=== PATIENT | male | born 1960 | race Caucasian/White ===

== ENCOUNTER 2017-03-06 18:18 | Emergency (ER) | payer OTHER ==
[2017-03-06 18:27] VITALS: BP 134/92; PULSE 71; TEMP 97.5; BMI 45.3
--- NOTE | 2017-03-06 18:59 | PDOC ---
History of Present Illness - General Chief Complaint: Chest Pain Stated Complaint: CHEST PAIN, fell last week, pain worse on movement Time Seen by Provider: 03/06/17 18:57 - History of Present Illness Initial Comments: 03/06/17 18:58 Mr. Jules is a 57 yo male with a significant past medical history of DM and HTN who presents to the emergency department following a fall directly onto his chest from standing 2 weeks ago. He reports constant pain at site and pain with deep inspiration or cough since. The patient denies shortness of breath, headache and dizziness. Denies fever, chills, nausea, vomit, diarrhea and constipation. Denies dysuria, frequency, urgency and hematuria. Allergies: Erythromycin Past surgical history: Ankle repair Social history: approx. 40-50 pack year history PMD -Temo Sampson Past History - Past Medical History Allergies/Adverse Reactions: Allergies Allergy/AdvReac Type Severity Reaction Status Date / Time erythromycin base Allergy Verified 03/06/17 18:31 Home Medications: Ambulatory Orders Aspirin [ASA -] 81 mg PO DAILY 03/06/17 Lisinopril [Prinivil] 0 mg PO DAILY 03/06/17 Metformin HCl 500 mg PO BID 03/06/17 Simvastatin 0 mg PO DAILY 03/06/17 Diabetes: Yes - Psycho/Social/Smoking Cessation Hx Suicidal Ideation: No Smoking History: Never smoked Number of Cigarettes Smoked Daily: 2 Information on smoking cessation initiated: No Hx Alcohol Use: No Drug/Substance Use Hx: No Substance Use Type: None Review of Systems - Review of Systems Comments:: 03/06/17 18:58 GENERAL/CONSTITUTIONAL: No fever or chills. No weakness. HEAD, EYES, EARS, NOSE AND THROAT: No change in vision. No ear pain or discharge. No sore throat. CARDIOVASCULAR: +Pain to middle of chest and increased with cough or deep inspiration. No shortness of breath. RESPIRATORY: No cough, wheezing, or hemoptysis. GASTROINTESTINAL: No nausea, vomiting, diarrhea or constipation. GENITOURINARY: No dysuria, frequency, or change in urination. MUSCULOSKELETAL: +Baseline back pain from prior blown discs. SKIN: No rash NEUROLOGIC: No headache, vertigo, loss of consciousness, or change in strength/ sensation. ENDOCRINE: No increased thirst. No abnormal weight change HEMATOLOGIC/LYMPHATIC: No anemia, easy bleeding, or history of blood clots. ALLERGIC/IMMUNOLOGIC: No hives or skin allergy. *Physical Exam - Vital Signs Last Vital Signs Temp Pulse Resp BP Pulse Ox 97.5 F L 71 18 134/92 97 03/06/17 18:26 03/06/17 18:26 03/06/17 18:26 03/06/17 18:26 03/06/17 18:26 - Physical Exam Comments: 03/06/17 18:58 GENERAL: Awake, alert, and fully oriented, in no acute distress HEAD: No signs of trauma, normocephalic, atraumatic EYES: PERRLA, EOMI, sclera anicteric, conjunctiva clear NECK: Normal ROM, supple, no lymphadenopathy, JVD, or masses LUNGS: +Reproducible chest pain to sternum. Midline edema without visible echymosis. No distress, speaks full sentences, clear to auscultation bilaterally HEART: Regular rate and rhythm, normal S1 and S2, no murmurs, rubs or gallops, peripheral pulses normal and equal bilaterally. ABDOMEN: Soft, nontender, normoactive bowel sounds. No guarding, no rebound. No masses EXTREMITIES: Normal inspection, Normal range of motion, no edema. No clubbing or cyanosis. NEUROLOGICAL: Cranial nerves II through XII grossly intact. Normal speech, normal gait, no focal sensorimotor deficits SKIN: Warm, Dry, normal turgor, no rashes or lesions noted. Medical Decision Making - Medical Decision Making 03/06/17 21:51 CT confirmed fracture of sternum. Patient counseled on pain control and discharged to home care. *DC/Admit/Observation/Transfer Diagnosis at time of Disposition: Fracture of sternum Qualifiers: Encounter type: initial encounter Sternal location: body of sternum Fracture type: closed Qualified Code(s): S22.22XA - Fracture of body of sternum, initial encounter for closed fracture - Discharge Dispostion Disposition: HOME - Patient Instructions Printed Discharge Instructions: DI for Sternum Fracture
[2017-03-06] MEDS ORDERED: traMADol HCL 50 MG TABLET PO ONE (20:31)
[2017-03-06] MEDS ORDERED: traMADol HCL 50 MG TABLET ONE (20:40)
--- NOTE | 2017-03-06 21:59 | PDOC ---
Attending Attestation - Resident Resident Name: Yogi Moralesorn - ED Attending Attestation I have performed the following: I have examined & evaluated the patient, The case was reviewed & discussed with the resident, I agree w/resident's findings & plan, Exceptions are as noted - HPI HPI: 03/06/17 21:56 57-year-old male with history of diabetes, hypertension presents to the ER with traumatic sternal pain for the past several days after a mechanical fall from standing onto a ladder that was located on the ground. Pain is constant, sharp, exacerbated by palpation and deep inhalation. - Physicial Exam PE: 03/06/17 21:58 Patient is awake and alert, morbidly obese, hemodynamically stable. HEENT-wnl; CTA; rrr; + reproducible midsternal tenderness to palpation; - Medical Decision Making 03/06/17 21:59 Patient is a morbidly obese 57 -year-old male who presents to the ER with traumatic chest pain. CT of chest reveals an acute midsternal fracture with minimal posterior displacement of the inferior segment. No pneumomediastinum or pneumothorax or mediastinal hematoma is identified. There is no evidence of thoracic aortic aneurysm. Will discharge with pain medication with outpatient follow-up.
--- NOTE | 2017-03-07 09:16 | EKG ---
Test Reason : Blood Pressure : / mmHG Vent. Rate : 073 BPM Atrial Rate : 073 BPM P-R Int : 144 ms QRS Dur : 098 ms QT Int : 412 ms P-R-T Axes : -06 028 -15 degrees QTc Int : 453 ms NORMAL SINUS RHYTHM NONSPECIFIC T WAVE ABNORMALITY ABNORMAL ECG NO PREVIOUS ECGS AVAILABLE Confirmed by MD MELANIE, YSABEL ([id number]) on 03/07/2017 9:16:33 AM Referred By: Confirmed By:YSABEL NAVARRO MD
== END 2017-03-06 22:32 | disposition home or self-care (01) ==
LOC: JER 18:18
DX: S22.20XA Unspecified fracture of sternum, initial encounter for closed fracture (principal); W11.XXXA Fall on and from ladder, initial encounter; Y93.89 Activity, other specified; Y92.89 Other specified places as the place of occurrence of the external cause; I10 Essential (primary) hypertension; E11.9 Type 2 diabetes mellitus without complications; Z79.84 Long term (current) use of oral hypoglycemic drugs; E78.00 Pure hypercholesterolemia, unspecified
CPT/HCPCS: 71020-TC; 71250-TC; 93005; 93010; 99282-25

== ENCOUNTER 2017-05-05 18:53 | Inpatient (IN) | payer OTHER ==
--- NOTE | 2017-05-05 19:02 | PDOC ---
Rapid Medical Evaluation Medical Evaluation: Allergies Allergy/AdvReac Type Severity Reaction Status Date / Time erythromycin base Allergy Verified 03/06/17 18:31 05/05/17 18:59 I have performed a brief in person evaluation of this patient. The patient presents with chief complaint of : pain to right calf numbness to foot for 10 days history of DM. sent by PMD to r/o DVT. Pertinent PE findings: pain to right calf I have ordered the following: US lower leg right The patient will proceed to the ER for further evaluation. 05/05/17 19:01 05/05/17 19:01
[2017-05-05 19:04] VITALS: BMI 46.0
--- NOTE | 2017-05-05 19:12 | PDOC ---
History of Present Illness - General History Source: Patient - History of Present Illness Occurred: reports: other Severity: Yes: severe Lower Extremity Pain Location: right: leg <Lelia DonaldsonTk - Last Filed: 05/05/17 19:36> <Kayla Sylvester - Last Filed: 05/05/17 22:20> - General Chief Complaint: Pain Stated Complaint: LEG PAIN Time Seen by Provider: 05/05/17 18:59 Past History - Past Medical History COPD: No Diabetes: Yes HTN: Yes Hypercholesterolemia: Yes - Suicide/Smoking/Psychosocial Hx Smoking History: Current every day smoker Have you smoked in the past 12 months: Yes Number of Cigarettes Smoked Daily: 10 Information on smoking cessation initiated: No Hx Alcohol Use: No Drug/Substance Use Hx: No Substance Use Type: None <Lelia DonaldsonTk - Last Filed: 05/05/17 19:36> <Kayla Sylvester - Last Filed: 05/05/17 22:20> - Past Medical History Allergies/Adverse Reactions: Allergies Allergy/AdvReac Type Severity Reaction Status Date / Time erythromycin base Allergy Verified 05/05/17 19:00 Home Medications: Ambulatory Orders Aspirin [ASA -] 81 mg PO DAILY 03/06/17 Lisinopril [Prinivil] 0 mg PO DAILY 03/06/17 Metformin HCl 500 mg PO BID 03/06/17 Simvastatin 0 mg PO DAILY 03/06/17 Gabapentin 300 mg PO ASDIR 05/05/17 Hydrochlorothiazide [Hctz -] 25 mg PO DAILY 05/05/17 Review of Systems - Review of Systems Constitutional: No: Chills, Fever Respiratory: No: Shortness of Breath Cardiac (ROS): No: Chest Pain, Palpitations <Lelia DonaldsonTk Last Filed: 05/05/17 19:36> *Physical Exam - Vital Signs Last Vital Signs Temp Pulse Resp BP Pulse Ox 98.3 F 61 19 157/90 95 05/05/17 19:00 05/05/17 19:00 05/05/17 19:00 05/05/17 19:00 05/05/17 19:00 - Physical Exam General Appearance: Yes: Appropriately Dressed. No: Apparent Distress HEENT: positive: Normal Voice Neck: positive: Supple Respiratory/Chest: negative: Respiratory Distress Extremity: positive: Swelling (diffuse swelling of R leg w/ calf ttp) Integumentary: positive: Dry, Warm Neurologic: positive: Fully Oriented, Alert, Normal Mood/Affect <Coral Donaldson - Last Filed: 05/05/17 19:36> - Vital Signs Last Vital Signs Temp Pulse Resp BP Pulse Ox 98.3 F 61 19 157/90 95 05/05/17 19:00 05/05/17 19:00 05/05/17 19:00 05/05/17 19:00 05/05/17 19:00 <Kayla Sylvester - Last Filed: 05/05/17 22:20> ED Treatment Course - LABORATORY CBC & Chemistry Diagram: 05/05/17 20:15 05/05/17 21:00 - ADDITIONAL ORDERS Additional order review: Laboratory Results 05/05/17 05/05/17 21:00 21:00 PT with INR 12.00 H INR 1.06 PTT (Actin FS) 29.1 Sodium 136 Potassium 3.9 Chloride 103 Carbon Dioxide 24 Anion Gap 9 BUN 30 H Creatinine 1.3 Creat Clearance w eGFR 56.70 Random Glucose 237 H Calcium 8.4 L Total Bilirubin 0.7 AST 47 H ALT 64 Alkaline Phosphatase 85 Total Protein 7.6 Albumin 3.4 05/05/17 20:15 RBC 4.37 MCV 99.2 H MCHC 35.0 RDW 13.6 MPV 8.4 Neutrophils % 68.9 Lymphocytes % 22.8 Monocytes % 6.3 Eosinophils % 1.2 Basophils % 0.8 - RADIOLOGY Radiology Studies Ordered: Category Date Time Status CHEST CTA [CT] Stat CT Scan 05/05/17 22:07 Ordered CHEST X-RAY PORTABLE* [RAD] Stat Radiology 05/05/17 20:54 Completed - Medications Given in the ED: ED Medications Discontinued Medications Generic Name Dose Route Start Last Admin Trade Name Freq PRN Reason Stop Dose Admin Insulin Human Regular 6 units 05/05/17 20:34 05/05/17 21:26 Novolin R Vial *For Ivpush Or Iv Drip Only* SQ 05/05/17 20:35 6 units ONCE ONE Administration <Kayla Sylvester - Last Filed: 05/05/17 22:20> Medical Decision Making - Medical Decision Making 05/05/17 19:10 57-year-old male history of diabetes, sent in by PMD to rule out DVT. Patient complaining of right foot pain and numbness for 10 days. No obvious RFs for DVT/ PE. No CP, SOB or palpitations See exam R/o DVT Besides sedentary lifestyle per pt, no obvious RF for DVT/PE -US pending 05/05/17 19:36 05/05/17 19:38 Extensive DVT to right lower extremity as per radiology. Will transfer patient over to Main ED for admission and anticoagulation. Charge nurse and and [employer] Higinio aware <Coral Donaldson - Last Filed: 05/05/17 19:36> - Medical Decision Making 05/05/17 22:18 Patient + Extensive DVT to right LE. Hospitalist admission. Labs, X-ray, EKG, CTA chest ordered. <Kayla Sylvester - Last Filed: 05/05/17 22:20> *DC/Admit/Observation/Transfer <Coral Donaldson - Last Filed: 05/05/17 19:36> - Discharge Dispostion Admit: Yes <Kayla Sylvester - Last Filed: 05/05/17 22:20> Diagnosis at time of Disposition: Deep vein thrombosis (DVT) Qualifiers: DVT location: lower extremity Affected thrombotic vein of extremity: popliteal Chronicity: acute Laterality: right Qualified Code(s): I82.431 - Acute embolism and thrombosis of right popliteal vein; I82.431 - Acute embolism and thrombosis of right popliteal vein; I82.431 - Acute embolism and thrombosis of right popliteal vein; I82.431 - Acute embolism and thrombosis of right popliteal vein - Discharge Dispostion Condition at time of disposition: Fair
[2017-05-05] MEDS ORDERED: INSULIN REGULAR HUMAN 100 UNITS/ML *VIAL SQ ONE (20:34)
[2017-05-05 21:12] LABS: BASOPHIL 0.8 % (0-2.0); EOSINOPHIL 1.2 % (0-4.5); MCH 34.8 pg (25.7-33.7); MEAN CELL VOLUME 99.2 fl (80-96); MEAN PLT VOLUME 8.4 fl (7.5-11.1); NEUTROPHILS 68.9 % (42.8-82.8); PLATELET COUNT 126 K/MM3 (134-434); RDW 13.6 % (11.9-15.9); WHITE BLOOD COUNT 6.6 K/mm3 (4.0-10.0)
[2017-05-05] MEDS ORDERED: INSULIN REGULAR HUMAN 100 UNITS/ML *VIAL ONE (21:21)
[2017-05-05 21:28] LABS: INR 1.06 (0.82-1.09)
[2017-05-05 21:31] LABS: ACTIVATED PTT 29.1 SECONDS (26.9-34.4)
[2017-05-05 21:53] LABS: ALBUMIN 3.4 g/dl (3.4-5.0); ANION GAP 9 (8-16); BILIRUBIN,TOTAL 0.7 mg/dL (0.2-1.0); CALCIUM 8.4 mg/dL (8.5-10.1); CO2 24 mmol/L (21-32); CREATININE 1.3 mg/dL (0.7-1.3); GLUCOSE,RANDOM 237 mg/dL (74-106); SGOT/AST 47 U/L (15-37); SGPT/ALT 64 U/L (12-78); TOT PROT 7.6 g/dl (6.4-8.2)
[2017-05-05 21:54] LABS: ALK PHOS 85 U/L (45-117)
[2017-05-05] MEDS ORDERED: HEPARIN NA (PORCINE) 5,000 UNITS/ML 1ML VIAL IVPUSH PRN ×2 (22:47)
[2017-05-05] MEDS ORDERED: SODIUM CHLORIDE 1,000 ML IV SCH (23:00)
[2017-05-05] MEDS ORDERED: HEPARIN - 25,000 UNIT in SODIUM CHLORIDE 495 ML IV SCH (23:00)
--- NOTE | 2017-05-05 23:00 | PN ---
Teaching Attending Note Name of Resident: Martha Chávez ATTENDING PHYSICIAN STATEMENT I saw and evaluated the patient. I reviewed the resident's note and discussed the case with the resident. I agree with the resident's findings and plan as documented. SUBJECTIVE: 57 yo M with pmhx of DM, HTN, And HLD, chronic low back pain, and current smoker who presents with a 10 days of pain in the right leg. States he is immobile most of his day due, to low back pain. Notes he is mostly in bed and does not move much. Denies any recent trips and no injuries, Also noted shortness of breath upon movement. No chest pain, or pressure. No family hx. of clotting disorders. OBJECTIVE: Physical: VS: Vital Signs Period Temp Pulse Resp BP Sys/Kelley Pulse Ox Last 24 Hr 98.3 F 61 19 157/90 95 GEN: NAD, Resting in bed, AA0X3 HEENT: NCAT, PERRL, throat without erythema or exudates CARD: RRR S1, S2 RESP: CTAB ABD: BSx4, NTD to palpation EXT: - C/C/E pulses +2/4, Excoriations on bilateral LE, Right leg warm to touch , with no edema CBCD WBC 6.6 K/mm3 (4.0-10.0) 05/05/17 20:15 RBC 4.37 M/mm3 (4.00-5.60) 05/05/17 20:15 Hgb 15.2 GM/dL (11.7-16.9) 05/05/17 20:15 Hct 43.3 % (35.4-49) 05/05/17 20:15 MCV 99.2 fl (80-96) H 05/05/17 20:15 MCHC 35.0 g/dl (32.0-35.9) 05/05/17 20:15 RDW 13.6 % (11.9-15.9) 05/05/17 20:15 Plt Count 126 K/MM3 (134-434) L 05/05/17 20:15 MPV 8.4 fl (7.5-11.1) 05/05/17 20:15 CMP Sodium 136 mmol/L (136-145) 05/05/17 21:00 Potassium 3.9 mmol/L (3.5-5.1) 05/05/17 21:00 Chloride 103 mmol/L (98-107) 05/05/17 21:00 Carbon Dioxide 24 mmol/L (21-32) 05/05/17 21:00 Anion Gap 9 (8-16) 05/05/17 21:00 BUN 30 mg/dL (7-18) H 05/05/17 21:00 Creatinine 1.3 mg/dL (0.7-1.3) 05/05/17 21:00 Creat Clearance w eGFR 56.70 (>60) 05/05/17 21:00 Random Glucose 237 mg/dL (74-106) H 05/05/17 21:00 Calcium 8.4 mg/dL (8.5-10.1) L 05/05/17 21:00 Total Bilirubin 0.7 mg/dL (0.2-1.0) 05/05/17 21:00 AST 47 U/L (15-37) H 05/05/17 21:00 ALT 64 U/L (12-78) 05/05/17 21:00 Alkaline Phosphatase 85 U/L (45-117) 05/05/17 21:00 Total Protein 7.6 g/dl (6.4-8.2) 05/05/17 21:00 Albumin 3.4 g/dl (3.4-5.0) 05/05/17 21:00 DUPLEX RLE- Extensive DVT within distalalm superficial, femoral, polpiteal and posterior tibial veins Home Medications Medication Instructions Recorded Aspirin [ASA -] 81 mg PO DAILY 03/06/17 Lisinopril [Prinivil] 0 mg PO DAILY 03/06/17 Metformin HCl 500 mg PO BID 03/06/17 Simvastatin 0 mg PO DAILY 03/06/17 Gabapentin 300 mg PO ASDIR 05/05/17 Hydrochlorothiazide [Hctz -] 25 mg PO DAILY 05/05/17 ASSESSMENT AND PLAN: 57 yo M with pmhx of DM, HTN, And HLD, chronic low back pain, and current smoker who presents with a 10 days of pain in the right leg, found to have ext. Dvt 1.) Extensive DVT of R.leg- Provoked - Lovenox 1mg/Kg - Coags, repeat CBC 2.) Shortness of breath - RO PE - CTA - Wells Score 6 (tachy, immobile, DVT) - Echo\ - Trop/EKG 3.) DEONTE - Hydration - Avoid nephrotoxins 4.) HTN - C/W Home meds 5.) HLD - C/W Statin 6.) Thrombocytopenia - Mild - Monitor Admit to Obs-Tele
[2017-05-06] MEDS ORDERED: HEPARIN INFUSION - 500 ML IVPB ONE (00:09)
[2017-05-06] MEDS ORDERED: GABAPENTIN 100 MG CAPSULE (FP) ONE (00:09)
--- NOTE | 2017-05-06 00:43 | PDOC ---
ED Treatment Course - LABORATORY CBC & Chemistry Diagram: 05/05/17 20:15 05/05/17 21:00 - ADDITIONAL ORDERS Additional order review: Laboratory Results 05/05/17 05/05/17 21:00 21:00 PT with INR 12.00 H INR 1.06 PTT (Actin FS) 29.1 Sodium 136 Potassium 3.9 Chloride 103 Carbon Dioxide 24 Anion Gap 9 BUN 30 H Creatinine 1.3 Creat Clearance w eGFR 56.70 Random Glucose 237 H Calcium 8.4 L Total Bilirubin 0.7 AST 47 H ALT 64 Alkaline Phosphatase 85 Total Protein 7.6 Albumin 3.4 05/05/17 20:15 RBC 4.37 MCV 99.2 H MCHC 35.0 RDW 13.6 MPV 8.4 Neutrophils % 68.9 Lymphocytes % 22.8 Monocytes % 6.3 Eosinophils % 1.2 Basophils % 0.8 - RADIOLOGY Radiology Studies Ordered: Category Date Time Status CHEST CTA [CT] Stat CT Scan 05/05/17 23:35 Taken CHEST X-RAY PORTABLE* [RAD] Stat Radiology 05/05/17 20:54 Completed - Medications Given in the ED: ED Medications Discontinued Medications Generic Name Dose Route Start Last Admin Trade Name Freq PRN Reason Stop Dose Admin Insulin Human Regular 6 units 05/05/17 20:34 05/05/17 21:26 Novolin R Vial *For Ivpush Or Iv Drip Only* SQ 05/05/17 20:35 6 units ONCE ONE Administration *DC/Admit/Observation/Transfer Diagnosis at time of Disposition: DVT (deep venous thrombosis) Qualifiers: DVT location: lower extremity Affected thrombotic vein of extremity: popliteal Chronicity: acute Laterality: right Qualified Code(s): I82.431 - Acute embolism and thrombosis of right popliteal vein; I82.431 - Acute embolism and thrombosis of right popliteal vein; I82.431 - Acute embolism and thrombosis of right popliteal vein; I82.431 - Acute embolism and thrombosis of right popliteal vein Pulmonary embolism Qualifiers: Pulmonary embolism type: other Chronicity: acute Acute cor pulmonale presence: without acute cor pulmonale Qualified Code(s): I26.99 - Other pulmonary embolism without acute cor pulmonale; I26.99 - Other pulmonary embolism without acute cor pulmonale; I26.99 - Other pulmonary embolism without acute cor pulmonale; I26.99 - Other pulmonary embolism without acute cor pulmonale - Discharge Dispostion Condition at time of disposition: Fair Admit: Yes - Referrals Referrals: Temo Palmer MD [Primary Care Provider] - - Patient Instructions - Post Discharge Activity
--- NOTE | 2017-05-06 00:51 | HP ---
CHIEF COMPLAINT: "My R leg hurts" PCP: Dr Palmer HISTORY OF PRESENT ILLNESS: This is a 57 yo M with PMH of sedentary lifestyle due to chronic back pain, obesity, active smoker, recent sternal fracture, NIDDM, HTN, and HLD, who presents due to worsening R calf pain x 10 days. He denies chest pain, cough or hemoptysis but reports occasional sob and palpitations with activity. He denies trauma to RLE, history of cancer, CHF or blood clots. He denies family history of blood clots. He has poor PCP f/u. He has never had a colonoscopy. He admits to difficulty initiating urination but has not had his prostate checked. He is not sure what his A1c is but states that his sugars are usually lower than 300. Pt denies SOB, chest pain, n/v/d/c, abdominal pain, and dysuria. ER course was notable for: (1)labs (2)EKG, chest CTA (3)insulin Recent Travel: denies PAST MEDICAL HISTORY: as above PAST SURGICAL HISTORY: as above Social History: lives at home Smokin pack year Alcohol: past heavy use Drugs: denies Family History: as above Allergies erythromycin base Allergy (Verified 05/05/17 19:00) HOME MEDICATIONS: Home Medications Medication Instructions Recorded Aspirin [ASA -] 81 mg PO DAILY 03/06/17 Lisinopril [Prinivil] 0 mg PO DAILY 03/06/17 Metformin HCl 500 mg PO BID 03/06/17 Simvastatin 0 mg PO DAILY 03/06/17 Gabapentin 300 mg PO ASDIR 05/05/17 Hydrochlorothiazide [Hctz -] 25 mg PO DAILY 05/05/17 REVIEW OF SYSTEMS CONSTITUTIONAL: Absent: fever, chills, diaphoresis, generalized weakness, loss of appetite, weight change HEENT: Absent: rhinorrhea, nasal congestion, throat pain CARDIOVASCULAR: Absent: chest pain, syncope, irregular heart rate, lightheadedness, peripheral edema RESPIRATORY: Absent: cough, shortness of breath, wheezing, stridor, hemoptysis GASTROINTESTINAL: Absent: abdominal pain, abdominal distension, nausea, vomiting, diarrhea, constipation, melena, hematochezia GENITOURINARY: Absent: dysuria, frequency, urgency, hematuria, flank pain MUSCULOSKELETAL: Absent: myalgia, arthralgia SKIN: Absent: rash, itching, pallor HEMATOLOGIC/IMMUNOLOGIC: Absent: easy bleeding, easy bruising ENDOCRINE: Absent: unexplained weight gain, unexplained weight loss, heat intolerance, cold intolerance NEUROLOGIC: Absent: headache, focal weakness or paresthesias PSYCHIATRIC: Absent: anxiety, depression PHYSICAL EXAMINATION Vital Signs - 24 hr 05/05/17 19:00 Temperature 98.3 F Pulse Rate 61 Respiratory 19 Rate Blood Pressure 157/90 O2 Sat by Pulse 95 Oximetry (%) GENERAL: Awake, alert, and fully oriented, in no acute distress. HEAD: Normal with no signs of trauma. EYES: Pupils equal, round and reactive to light, extraocular movements intact, sclera anicteric, conjunctiva clear. No lid lag. EARS, NOSE, THROAT: Moist mucous membranes. NECK: supple without JVD LUNGS: Breath sounds equal, clear to auscultation bilaterally HEART: Regular rate and rhythm, normal S1 and S2 ABDOMEN: Soft, nontender, not distended, normoactive bowel sounds, no guarding MUSCULOSKELETAL: No CVA tenderness. UPPER EXTREMITIES: 2+ pulses, warm, well-perfused. No peripheral edema. LOWER EXTREMITIES: 1+ pulses, warm, well-perfused. R calf tenderness. trace peripheral edema. NEUROLOGICAL: Cranial nerves II-XII grossly intact. Normal speech. PSYCHIATRIC: Cooperative. Good eye contact. Appropriate mood and affect. SKIN: Warm, dry Laboratory Results - last 24 hr 05/05/17 05/05/17 05/05/17 20:15 21:00 21:00 WBC 6.6 RBC 4.37 Hgb 15.2 Hct 43.3 MCV 99.2 H MCH 34.8 H MCHC 35.0 RDW 13.6 Plt Count 126 L MPV 8.4 Neutrophils % 68.9 Lymphocytes % 22.8 Monocytes % 6.3 Eosinophils % 1.2 Basophils % 0.8 PT with INR 12.00 H INR 1.06 PTT (Actin FS) 29.1 Sodium 136 Potassium 3.9 Chloride 103 Carbon Dioxide 24 Anion Gap 9 BUN 30 H Creatinine 1.3 Creat Clearance w eGFR 56.70 Random Glucose 237 H Calcium 8.4 L Total Bilirubin 0.7 AST 47 H ALT 64 Alkaline Phosphatase 85 Total Protein 7.6 Albumin 3.4 ASSESSMENT/PLAN: This is a 57 yo M with PMH of sedentary lifestyle due to chronic back pain, obesity, active smoker, recent sternal fracture, NIDDM, HTN, and HLD, who presents due to worsening R calf pain x 10 days. Acute new provoked RLE DVT -Duplex R 3 vessel DVT including pop vein -provoked to immobility -hypercoag w/u sent in ED -EKG sinus tach 101 -moderate suspicion or PE; CTA p/d -IV hydration -Full dose Macy a/c NIDDM -BGM, ISS Possible DEONTE -creat 1.3, bun 30 -repeat after IV hydration Dispo: Obs med jignesh Problem List - Problem (1) DVT (deep venous thrombosis) Code(s): I82.409 - ACUTE EMBOLISM AND THOMBOS UNSP DEEP VN UNSP LOWER EXTREMITY Qualifiers: DVT location: lower extremity Affected thrombotic vein of extremity: popliteal Chronicity: acute Laterality: right Qualified Code(s): I82.431 - Acute embolism and thrombosis of right popliteal vein; I82.431 - Acute embolism and thrombosis of right popliteal vein; I82.431 - Acute embolism and thrombosis of right popliteal vein; I82.431 - Acute embolism and thrombosis of right popliteal vein (2) Low back pain Code(s): M54.5 - LOW BACK PAIN (3) HTN (hypertension) Code(s): I10 - ESSENTIAL (PRIMARY) HYPERTENSION (4) HLD (hyperlipidemia) Code(s): E78.5 - HYPERLIPIDEMIA, UNSPECIFIED (5) Diabetes Code(s): E11.9 - TYPE 2 DIABETES MELLITUS WITHOUT COMPLICATIONS (6) Smoker Code(s): F17.200 - NICOTINE DEPENDENCE, UNSPECIFIED, UNCOMPLICATED (7) Morbid obesity Code(s): E66.01 - MORBID (SEVERE) OBESITY DUE TO EXCESS CALORIES Visit type - Emergency Visit Emergency Visit: Yes Care time: The patient presented to the Emergency Department on the above date and was hospitalized for further evaluation of their emergent condition. - New Patient This patient is new to me today: Yes Date on this admission: 05/06/17 - Critical Care Critical Care patient: No
--- NOTE | 2017-05-06 00:54 | HP ---
CHIEF COMPLAINT: right foot pain and numbness PCP: HISTORY OF PRESENT ILLNESS: 57M w/ hx of obesity, sedentary lifestyle, 25 pack year smoking hx, chronic lower back pain, recent sternal fracture, DM, HTN, and HLD who presents with RLE pain and numbness for 10 days. His symptoms worsened over the 10 days, so he called his PMD who informed him to go to the hospital. Of note, pt endorses a sternal fracture 6 weeks ago which was incurred when he tripped and fell on an upside down table leg. He states that he went to the hospital, but no treatment was given to him, and he was discharged home. Pt states that his chronic lower back pain prevents him from walking around much. In addition, due to his chronic lower back pain, he has not been able to work, and he lives with son in son's house. He reports that most of his time is spent sitting in chairs or lying in bed. Pt denies a family hx of any clotting disorders as well as personal hx of testosterone supplementation or cancer. He also denies fevers, chills, SOB, chest pain, weakness, n/v/d/c, abdominal pain, and dysuria. He endorses difficulty initiating urination. Pt has poor PCP f/u, has not received a colonoscopy, and he states that his sugar levels are usually lower than 300s. ER course was notable for: (1) physical exam (2) LE duplex (3) creatinine Recent Travel: PAST MEDICAL HISTORY: obesity, sedentary lifestyle, chronic lower back pain, recent sternal fracture, DM, HTN, and HLD PAST SURGICAL HISTORY: denies Social History: Smokin pack year Alcohol: several beers per week Drugs: cannabis several times a week Lives with son in son's house. Pt had to sell his house for financial reasons. Family History: Allergies erythromycin base Allergy (Verified 05/05/17 19:00) HOME MEDICATIONS: Home Medications Medication Instructions Recorded Aspirin [ASA -] 81 mg PO DAILY 03/06/17 Lisinopril [Prinivil] 0 mg PO DAILY 03/06/17 Metformin HCl 500 mg PO BID 03/06/17 Simvastatin 0 mg PO DAILY 03/06/17 Gabapentin 300 mg PO ASDIR 05/05/17 Hydrochlorothiazide [Hctz -] 25 mg PO DAILY 05/05/17 REVIEW OF SYSTEMS CONSTITUTIONAL: Absent: fever, chills, diaphoresis, generalized weakness, malaise, loss of appetite, weight change HEENT: Absent: rhinorrhea, nasal congestion, throat pain, throat swelling, difficulty swallowing, mouth swelling, ear pain, eye pain, visual changes CARDIOVASCULAR: Absent: chest pain, syncope, palpitations, irregular heart rate, lightheadedness , peripheral edema RESPIRATORY: Absent: cough, shortness of breath, dyspnea with exertion, orthopnea, wheezing, stridor, hemoptysis GASTROINTESTINAL: Absent: abdominal pain, abdominal distension, nausea, vomiting, diarrhea, constipation, melena, hematochezia GENITOURINARY: Absent: dysuria, frequency, urgency, hesitancy, hematuria, flank pain, genital pain MUSCULOSKELETAL: Absent: myalgia, arthralgia, joint swelling, neck pain Present: back pain, leg pain SKIN: Absent: rash, itching, pallor HEMATOLOGIC/IMMUNOLOGIC: Absent: easy bleeding, easy bruising, lymphadenopathy, frequent infections ENDOCRINE: Absent: unexplained weight gain, unexplained weight loss, heat intolerance, cold intolerance NEUROLOGIC: Absent: headache, focal weakness or paresthesias, dizziness, unsteady gait, seizure, mental status changes, bladder or bowel incontinence PSYCHIATRIC: Absent: anxiety, suicidal or homicidal ideation, hallucinations Present: depression PHYSICAL EXAMINATION Vital Signs - 24 hr 05/05/17 19:00 Temperature 98.3 F Pulse Rate 61 Respiratory 19 Rate Blood Pressure 157/90 O2 Sat by Pulse 95 Oximetry (%) GENERAL: obese male, awake, alert, and fully oriented, in no acute distress. HEAD: Normal with no signs of trauma. EYES: Pupils equal, round and reactive to light, extraocular movements intact, sclera anicteric, conjunctiva clear. No lid lag. EARS, NOSE, THROAT: Ears normal, nares patent, oropharynx clear without exudates. Moist mucous membranes. NECK: Normal range of motion, supple without lymphadenopathy, JVD, or masses. LUNGS: Breath sounds equal, clear to auscultation bilaterally. No wheezes, and no crackles. No accessory muscle use. HEART: Regular rate and rhythm, normal S1 and S2 without murmur, rub or gallop. ABDOMEN: Soft, nontender, not distended, normoactive bowel sounds, no guarding, no rebound, no masses. No hepatomegaly or splenomegaly. MSK: RLE calf is tender to palpation. no erythema, no obvious swelling, not larger than LLE. NEUROLOGICAL: Cranial nerves II-XII intact. Normal speech. Normal gait. PSYCHIATRIC: Cooperative. Good eye contact. Appropriate mood and affect. SKIN: Warm, dry, normal turgor, no rashes or lesions noted, normal capillary refill. Laboratory Results - last 24 hr 05/05/17 05/05/17 05/05/17 20:15 21:00 21:00 WBC 6.6 RBC 4.37 Hgb 15.2 Hct 43.3 MCV 99.2 H MCH 34.8 H MCHC 35.0 RDW 13.6 Plt Count 126 L MPV 8.4 Neutrophils % 68.9 Lymphocytes % 22.8 Monocytes % 6.3 Eosinophils % 1.2 Basophils % 0.8 PT with INR 12.00 H INR 1.06 PTT (Actin FS) 29.1 Sodium 136 Potassium 3.9 Chloride 103 Carbon Dioxide 24 Anion Gap 9 BUN 30 H Creatinine 1.3 Creat Clearance w eGFR 56.70 Random Glucose 237 H Calcium 8.4 L Total Bilirubin 0.7 AST 47 H ALT 64 Alkaline Phosphatase 85 Total Protein 7.6 Albumin 3.4 RLE Duplex: DVT in distal superficial femoral, popliteal, and posterior tibial veins CXR: negative EKG: sinus tachycardia CTA: moderate sized PE in the distal portion of right main pulmonary artery ASSESSMENT/PLAN: 57M w/ hx of obesity, sedentary lifestyle, 25 pack year smoking hx, chronic lower back pain, recent sternal fracture, DM, HTN, and HLD who presents with acute RLE pain and numbness, found to have tenderness over right calf, RLE duplex showing DVT and CTA showing right sided PE, admitted to telemetry for DVT and PE. #DVT/PE -provoked DVT as pt has sedentary lifestyle and significant smoking hx -CTA: moderate sized PE in the distal portion of right main pulmonary artery -therapeutic heparin -f/u hypercoagulability workup -f/u echo, troponin -monitor BP -cardio consulted, Dr. Aviles, f/u recs #DEONTE -creatinine of 1.3 -fluids -lisinopril held -trend creatinine #NIDDM -f/u a1c -hold metformin -ISS, BGM ACHS -continue gabapentin #HTN -continue HCTZ #HLD -continue simvastatin #thrombocytopenia -platelets of 126 -monitor #smoking -cessation counseling -nicotine patch #obesity -RD consulted, f/u recs #urinary hesitancy -consider starting flomax -pt denied rectal exam -outpatient PSA #FEN/ppx -NS @ 75cc/hr -electrolytes wnl -diabetic diet -no GI ppx indicated -therapeutic heparin -Konstantin Garrison MD PGY1 Visit type - Emergency Visit Emergency Visit: Yes ED Registration Date: 05/05/17 Care time: The patient presented to the Emergency Department on the above date and was hospitalized for further evaluation of their emergent condition. - New Patient This patient is new to me today: Yes Date on this admission: 05/06/17 - Critical Care Critical Care patient: No
[2017-05-06] MEDS ORDERED: GABAPENTIN 100 MG CAPSULE (FP) PO ONE (01:41)
[2017-05-06] MEDS ORDERED: HEPARIN NA (PORCINE) 5,000 UNITS/ML 1ML VIAL IVPUSH ONE (01:46)
[2017-05-06] MEDS ORDERED: HEMOQUE TEST 1 EACH EACH ONE ×2 (01:52→02:04)
[2017-05-06] MEDS: HEPARIN - 25,000 UNIT in SODIUM CHLORIDE 495 ML IV SCH ×2 (02:05→17:45)
[2017-05-06] MEDS ORDERED: HEPARIN NA (PORCINE) 5,000 UNITS/ML 1ML VIAL ONE (03:39)
[2017-05-06 07:40] LABS: BASOPHIL 0.4 % (0-2.0); EOSINOPHIL 1.3 % (0-4.5); MCH 34.2 pg (25.7-33.7); MCHC 34.4 g/dl (32.0-35.9); MEAN CELL VOLUME 99.4 fl (80-96); MEAN PLT VOLUME 8.6 fl (7.5-11.1); NEUTROPHILS 55.2 % (42.8-82.8); PLATELET COUNT 92 K/MM3 (134-434); RDW 13.4 % (11.9-15.9); WHITE BLOOD COUNT 5.2 K/mm3 (4.0-10.0)
[2017-05-06 07:43] LABS: INR 1.24 (0.82-1.09)
[2017-05-06 08:05] LABS: ACTIVATED PTT > 400.0 SECONDS (26.9-34.4)
[2017-05-06 09:09] LABS: ALBUMIN 3.1 g/dl (3.4-5.0); ANION GAP 10 (8-16); CALCIUM 8.5 mg/dL (8.5-10.1); CO2 24 mmol/L (21-32); GLUCOSE,RANDOM 135 mg/dL (74-106); SGPT/ALT 53 U/L (12-78)
[2017-05-06 09:14] LABS: ALK PHOS 68 U/L (45-117); BILIRUBIN,TOTAL 0.6 mg/dL (0.2-1.0); PHOSPHOROUS 3.3 mg/dL (2.5-4.9); TOT PROT 7.1 g/dl (6.4-8.2)
[2017-05-06] MEDS: NICOTINE 7 MG/24 HOURS TOPICAL PATCH TD SCH ×2 (09:15→09:20)
[2017-05-06] MEDS: HYDROCHLOROTHIAZIDE 25 MG TABLET (FP) PO SCH (09:15)
[2017-05-06] MEDS: GABAPENTIN 300 MG CAPSULE (FP) PO SCH ×2 (09:15→22:01)
[2017-05-06] MEDS: ASPIRIN 81 MG CHEWABLE TABLETS PO SCH (09:15)
[2017-05-06 09:29] LABS: MAGNESIUM 1.8 mg/dL (1.8-2.4); SGOT/AST 40 U/L (15-37)
--- NOTE | 2017-05-06 09:57 | CON.CARD ---
Consult Consult Specialty:: Cardiology - History of Present Illness History of Present Illness: 57M w/ hx of obesity, sedentary lifestyle, 25 pack year smoking hx, chronic lower back pain, recent sternal fracture, DM, HTN, and HLD who presents with RLE pain and numbness for 10 days. His symptoms worsened over the 10 days, so he called his PMD who informed him to go to the hospital. Of note, pt endorses a sternal fracture 6 weeks ago which was incurred when he tripped and fell on an upside down table leg. He states that he went to the hospital, but no treatment was given to him, and he was discharged home. Pt states that his chronic lower back pain prevents him from walking around much. In addition, due to his chronic lower back pain, he has not been able to work, and he lives with son in son's house. He reports that most of his time is spent sitting in chairs or lying in bed. Pt denies a family hx of any clotting disorders as well as personal hx of testosterone supplementation or cancer. He also denies fevers, chills, SOB, chest pain, weakness, n/v/d/c, abdominal pain, and dysuria. He endorses difficulty initiating urination. Pt has poor PCP f/u, has not received a colonoscopy, and he states that his sugar levels are usually lower than 300s. - History Source History Provided By: Patient, Medical Record - Past Medical History Cardio/Vascular: Yes: HTN, Hyperlipdemia Endocrine: Yes: Diabetes Mellitus - Alcohol/Substance Use Hx Alcohol Use: No - Smoking History Smoking history: Current every day smoker Have you smoked in the past 12 months: Yes Aproximately how many cigarettes per day: 10 Home Medications - Allergies Allergies/Adverse Reactions: Allergies Allergy/AdvReac Type Severity Reaction Status Date / Time erythromycin base Allergy Verified 05/05/17 19:00 - Home Medications Home Medications: Ambulatory Orders Aspirin [ASA -] 81 mg PO DAILY 03/06/17 Lisinopril [Prinivil] 0 mg PO DAILY 03/06/17 Metformin HCl 500 mg PO BID 03/06/17 Simvastatin 0 mg PO DAILY 03/06/17 Gabapentin 300 mg PO ASDIR 05/05/17 Hydrochlorothiazide [Hctz -] 25 mg PO DAILY 05/05/17 Review of Systems - Review of Systems Constitutional: reports: No Symptoms Eyes: reports: No Symptoms HENT: reports: No Symptoms Neck: reports: No Symptoms Cardiovascular: reports: No Symptoms Gastrointestinal: reports: No Symptoms Genitourinary: reports: No Symptoms Breasts: reports: No Symptoms Reported Musculoskeletal: reports: No Symptoms Integumentary: reports: No Symptoms Neurological: reports: No Symptoms Endocrine: reports: No Symptoms Hematology/Lymphatic: reports: No Symptoms Psychiatric: reports: No Symptoms Vital Signs: Vital Signs Temperature 98.1 F 05/06/17 09:52 Pulse Rate 90 05/06/17 09:52 Respiratory Rate 20 05/06/17 09:52 Blood Pressure 136/69 05/06/17 09:52 O2 Sat by Pulse Oximetry (%) 95 05/05/17 19:00 Constitutional: Yes: Well Nourished, No Distress, Calm Eyes: Yes: WNL, Conjunctiva Clear, EOM Intact HENT: Yes: WNL, Atraumatic, Normocephalic Neck: Yes: WNL, Supple, Trachea Midline Respiratory: Yes: WNL, Regular, CTA Bilaterally Gastrointestinal: Yes: WNL, Normal Bowel Sounds Renal/: Yes: WNL Cardiovascular: Yes: WNL, Regular Rate and Rhythm Musculoskeletal: Yes: WNL Extremities: Yes: WNL Integumentary: Yes: WNL Neurological: Yes: WNL, Alert, Oriented ...Motor Strength: WNL Psychiatric: Yes: WNL, Alert, Oriented - Other Data Labs, Other Data: CBC, BMP 05/06/17 06:00 05/06/17 08:00 INR, PTT INR 1.24 (0.82-1.09) H 05/06/17 06:00 Troponin, BNP 05/06/17 02:45 Troponin I < 0.02 Troponin, BNP 05/06/17 02:45 Troponin I < 0.02 Imaging - Results Chest X-ray: Image Reviewed (no i/e) EKG: Image Reviewed (sr rep abn) Problem List - Problems (1) DVT (deep venous thrombosis) Code(s): I82.409 - ACUTE EMBOLISM AND THOMBOS UNSP DEEP VN UNSP LOWER EXTREMITY Qualifiers: DVT location: lower extremity Affected thrombotic vein of extremity: popliteal Chronicity: acute Laterality: right Qualified Code(s): I82.431 - Acute embolism and thrombosis of right popliteal vein (2) Diabetes Code(s): E11.9 - TYPE 2 DIABETES MELLITUS WITHOUT COMPLICATIONS (3) HLD (hyperlipidemia) Code(s): E78.5 - HYPERLIPIDEMIA, UNSPECIFIED (4) HTN (hypertension) Code(s): I10 - ESSENTIAL (PRIMARY) HYPERTENSION (5) Morbid obesity Code(s): E66.01 - MORBID (SEVERE) OBESITY DUE TO EXCESS CALORIES (6) Smoker Code(s): F17.200 - NICOTINE DEPENDENCE, UNSPECIFIED, UNCOMPLICATED (7) Low back pain Code(s): M54.5 - LOW BACK PAIN (8) Sternal fracture Code(s): S22.20XA - UNSP FRACTURE OF STERNUM, INIT ENCNTR FOR CLOSED FRACTURE Qualifiers: Encounter type: initial encounter Sternal location: body of sternum Fracture type: closed Qualified Code(s): S22.22XA - Fracture of body of sternum, initial encounter for closed fracture Assessment/Plan dvt htn hlp dm plan aac echo keep ldl below 70 mg/dl will need cardiac risk stratifications when dvt resolves
--- NOTE | 2017-05-06 10:01 | EKG ---
Test Reason : Blood Pressure : / mmHG Vent. Rate : 103 BPM Atrial Rate : 103 BPM P-R Int : 154 ms QRS Dur : 098 ms QT Int : 364 ms P-R-T Axes : 052 036 042 degrees QTc Int : 476 ms SINUS TACHYCARDIA OTHERWISE NORMAL ECG WHEN COMPARED WITH ECG OF 06-MAR-2017 18:32, NONSPECIFIC T WAVE ABNORMALITY HAS REPLACED INVERTED T WAVES IN INFERIOR LEADS Confirmed by CATIE MUNIZ, SARTHAK ([id number]) on 05/06/2017 10:00:41 AM Referred By: Confirmed By:SARTHAK HADDAD MD
[2017-05-06 10:44] LABS: FREE T4 1.34 ng/dl (0.76-1.16); THYROID STIMULATING HORMONE 2.33 uIU/ml (0.358-3.74); TROPONIN I < 0.02 ng/ml (0.00-0.05)
[2017-05-06] MEDS ORDERED: LISINOPRIL 5 MG TABLET (FP) ONE (10:59)
[2017-05-06] MEDS ORDERED: LISINOPRIL 10 MG TABLET (FP) PO SCH (11:00)
[2017-05-06] MEDS: INSULIN SLIDING SCALE (NOVOLOG) 1 VIAL SQ SCH ×3 (11:12→22:02)
[2017-05-06] MEDS ORDERED: HEPARIN INFUSION - 25,000 UNITS/500 ML INFUS.BAG IVPB ONE (12:34)
--- NOTE | 2017-05-06 14:27 | PN ---
Physical Exam: SUBJECTIVE: Patient seen and examined. R leg pain better. Denies any sob, chest pain, chest pressure. No fever, chills, n/v. OBJECTIVE: Vital Signs Period Temp Pulse Resp BP Sys/Kelley Pulse Ox Last 24 Hr 98 F-98.3 F 61-90 19-20 133-157/59-90 95 GENERAL: aaox3, sitting comfortably in bed EYES: sclera anicteric, conjunctiva clear ENT: oropharynx clear without exudates, moist mucous membranes. LUNGS: ctab, no wheezes, no crackles, no accessory muscle use. HEART: rrr, normal S1/S2, no murmur, rub or gallop ABDOMEN: Soft, nontender, nondistended, normoactive bowel sounds LOWER EXTREMITIES: 2+ PT and DP, wwp, sensation intact, 1+ pitting edema R>L CBC, BMP 05/06/17 08:00 Hepatic Panel Total Bilirubin 0.6 mg/dL (0.2-1.0) 05/06/17 08:00 AST 40 U/L (15-37) H 05/06/17 08:00 ALT 53 U/L (12-78) 05/06/17 08:00 Alkaline Phosphatase 68 U/L (45-117) 05/06/17 08:00 Albumin 3.1 g/dl (3.4-5.0) L 05/06/17 08:00 INR, PTT INR 1.24 (0.82-1.09) H 05/06/17 06:00 Troponin, BNP 05/06/17 05/06/17 02:45 10:02 Troponin I < 0.02 < 0.02 Alc - 8.3% Ca- 8.5 Phos - 3.3 Mg - 1.8 IMAGING: ECHO (05/06/17): LV not well visualized, LV grossly normal size, Regional wall abn cannot be excluded due to limited visualization RA and LA mildly dilated trace to mil MR insuff TR detected to calculate RV systolic pressure DUPLEX RLE- Extensive DVT within distalalm superficial, femoral, polpiteal and posterior tibial veins EKG: sinus tachycardia CTA: moderate sized PE in the distal portion of right main pulmonary artery Active Medications Aspirin (Asa -) 81 mg PO DAILY DANNY Last Admin: 05/06/17 09:15 Dose: 81 mg Atorvastatin Calcium (Lipitor -) 10 mg PO HS DANNY Gabapentin (Neurontin -) 300 mg PO BID [facility] Last Admin: 05/06/17 09:15 Dose: 300 mg Heparin Sodium (Porcine) (Heparin -) 1,000 unit IVPUSH PRN PRN PRN Reason: Heparin Heparin Sodium (Porcine) (Heparin -) 5,000 unit IVPUSH PRN PRN PRN Reason: Heparin Hydrochlorothiazide (Hctz -) 25 mg PO DAILY [facility] Last Admin: 05/06/17 09:15 Dose: 25 mg Heparin Sodium (Porcine) 25, (000 unit/ Sodium Chloride) 500 mls @ 54 mls/hr IV TITR DANNY; 2,700 UNIT/HR PRN Reason: Protocol Last Titration: 05/06/17 09:30 Dose: 2,400 unit/hr, 48 mls/hr Insulin Aspart (Novolog Vial Sliding Scale -) 1 vial SQ ACHS DANNY PRN Reason: Protocol Last Admin: 05/06/17 17:08 Dose: Not Given Lisinopril (Prinivil) 5 mg PO DAILY [facility] Nicotine (Nicoderm Patch -) 7 mg TD DAILY [facility] Last Admin: 05/06/17 09:20 Dose: Not Given ASSESSMENT/PLAN: 57yo man, active smoker, with PMH of NIDDM, HTN, HLD, morbid obesity, sedentary lifestyle, chronic lower back pain who presents with acute RLE pain and numbness and found to have extensive R DVT and PE in distal portion of R main pulm artery. Patient placed on heparin gtt. Low suspicion for cardiac strain from PE based on negative trops x2, EKG wnl, and 2D ECHO results. DVT/PE likely provoked due to sedentary lifestyle and smoking history. #DVT/PE -heparin gtt -f/u hypercoagulability workup -cardio consulted, Dr. Aviles, recommendations noted -heme consulted #thrombocytopenia, (Plts 126 -> 92); possibly consumptive -f/u Heme input #DEONTE, improving -Trend Cr -Renal dose meds #NIDDM, Alc 8.3% -hold metformin -ISS, BGM ACHS -continue gabapentin 300mg TID #HTN -continue HCTZ and lisinopril #HLD -continue simvastatin #smoking -cessation counseling -nicotine patch #FEN/ppx -hold IVFs -Repleted Phos and Mg -Na/diabetic diet -no GI ppx indicated -heparin gtt DISPO: tele montoring FULL code d/w Dr. Jessa Rico MD PGY-1 Visit type - Emergency Visit Emergency Visit: No - New Patient This patient is new to me today: Yes Date on this admission: 05/06/17 - Critical Care Critical Care patient: No
--- NOTE | 2017-05-06 15:12 | CONSULT ---
Consult Consult Specialty:: Hematology Reason for Consultation:: Thrombocytopenia - History of Present Illness History of Present Illness: 57M w/ hx of obesity, sedentary lifestyle, 25 pack year smoking hx, chronic lower back pain, recent sternal fracture, DM, HTN, and HLD who presents with RLE pain and numbness for 10 days. Pt denies a family hx of any clots/personal hx . He also denies fevers, chills , SOB, chest pain, weakness, n/v/d/c, abdominal pain, and dysuria. He endorses difficulty initiating urination. Pt seen and examined. - History Source History Provided By: Patient, Medical Record - Past Medical History Cardio/Vascular: Yes: HTN, Hyperlipdemia Endocrine: Yes: Diabetes Mellitus - Alcohol/Substance Use Hx Alcohol Use: No - Smoking History Smoking history: Current every day smoker Have you smoked in the past 12 months: Yes Aproximately how many cigarettes per day: 10 Home Medications - Allergies Allergies/Adverse Reactions: Allergies Allergy/AdvReac Type Severity Reaction Status Date / Time erythromycin base Allergy Verified 05/05/17 19:00 - Home Medications Home Medications: Ambulatory Orders Aspirin [ASA -] 81 mg PO DAILY 03/06/17 Lisinopril [Prinivil] 5 mg PO DAILY 03/06/17 Metformin HCl 500 mg PO BID 03/06/17 Simvastatin 10 mg PO HS 03/06/17 Gabapentin 300 mg PO TID 05/05/17 Hydrochlorothiazide [Hctz -] 25 mg PO DAILY 05/05/17 Review of Systems - Review of Systems Constitutional: denies: Chills, Diaphoresis, Fever, Loss of Appetite Neck: reports: No Symptoms. denies: Lumps Cardiovascular: reports: Shortness of Breath. denies: Chest Pain Respiratory: denies: Cough, Exercise Intolerance Gastrointestinal: denies: Abdominal Pain, Bloating Hematology/Lymphatic: denies: Easily Bruised, Excessive Bleeding Physical Exam Vital Signs: Vital Signs Temperature 98.1 F 05/06/17 09:52 Pulse Rate 84 05/06/17 14:59 Respiratory Rate 20 05/06/17 14:59 Blood Pressure 141/68 05/06/17 14:59 O2 Sat by Pulse Oximetry (%) 95 05/05/17 19:00 Constitutional: Yes: Well Nourished, No Distress Eyes: Yes: Conjunctiva Clear, EOM Intact HENT: Yes: Atraumatic, Normocephalic Neck: Yes: Supple Cardiovascular: Yes: Regular Rate and Rhythm Respiratory: Yes: Regular Gastrointestinal: Yes: Normal Bowel Sounds, Soft, Abdomen, Obese Edema: Yes (RLE>LLE. ) Psychiatric: Yes: Alert, Oriented Labs: CBC, BMP 05/06/17 06:00 05/06/17 08:00 Imaging - Results Cat Scan: Report Reviewed Ultrasound: Report Reviewed Problem List - Problems (1) DVT (deep venous thrombosis) Code(s): I82.409 - ACUTE EMBOLISM AND THOMBOS UNSP DEEP VN UNSP LOWER EXTREMITY Qualifiers: DVT location: lower extremity Affected thrombotic vein of extremity: popliteal Chronicity: acute Laterality: right Qualified Code(s): I82.431 - Acute embolism and thrombosis of right popliteal vein (2) Pulmonary embolism Code(s): I26.99 - OTHER PULMONARY EMBOLISM WITHOUT ACUTE COR PULMONALE (3) Morbid obesity Code(s): E66.01 - MORBID (SEVERE) OBESITY DUE TO EXCESS CALORIES (4) Smoker Code(s): F17.200 - NICOTINE DEPENDENCE, UNSPECIFIED, UNCOMPLICATED (5) Low back pain Code(s): M54.5 - LOW BACK PAIN Assessment/Plan DVT PE Active smoker High BMI. chronic lower back pain recent sternal fracture DM HTN HLD -Likely provoked in the setting of his co-morbidities , immobility, active smoker -Due to his BMI, we cannot give NOACs -Heparin with coumadin bridge recommended -dietary consult once on coumadin for counselling. -no indication for Hypercoagulabe w/u especially in the setting of acute clots -would need age appropriate cancer screening to r/o a underlying pro-thrombotic state. -thrombocytopenia: Unclear baseline, unlikely HIT , will continue to monitor -for labs -card/Pulm eval will follow.
--- NOTE | 2017-05-06 16:01 | CONSULT ---
Consultation: REQUESTING PROVIDER: CONSULT REQUEST: We have been asked to medically evaluate this patient for right leg DVT and Right lung PE. HISTORY OF PRESENT ILLNESS: 57M w/ hx of obesity, sedentary lifestyle, 25 pack year smoking hx, chronic lower back pain, recent sternal fracture, DM, HTN, and HLD who presents with RLE pain and numbness for 10 days. His symptoms worsened over the 10 days, so he called his PMD who informed him to go to the hospital. Of note, pt endorses a sternal fracture 6 weeks ago which was incurred when he tripped and fell on an upside down table leg. He states that he went to the hospital, but no treatment was given to him, and he was discharged home. Pt states that his chronic lower back pain prevents him from walking around much. In addition, due to his chronic lower back pain, he has not been able to work, and he lives with son in son's house. He reports that most of his time is spent sitting in chairs or lying in bed. Pt denies a family hx of any clotting disorders as well as personal hx of testosterone supplementation or cancer. He also denies fevers, chills, SOB, chest pain, weakness, n/v/d/c, abdominal pain, and dysuria. He endorses difficulty initiating urination. Pt has poor PCP f/u, has not received a colonoscopy, and he states that his sugar levels are usually lower than 300s. He quit his job one year ago. 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 He smoke since he was 8 years old, half pack a day. he smoke marijuana as well. He denies Alcohol abuse. HJe reports herniated disk that he receive pain management for and PT. He gained REVIEW OF SYSTEMS: CONSTITUTIONAL: Absent: fever, chills, diaphoresis, generalized weakness, malaise, loss of appetite,+ weight change HEENT: Absent: rhinorrhea, nasal congestion, throat pain, throat swelling, difficulty swallowing, mouth swelling, ear pain, eye pain, visual changes CARDIOVASCULAR: Absent: chest pain, syncope, palpitations, irregular heart rate, lightheadedness ,+ trace Peripheral edema RESPIRATORY: Absent: cough, shortness of breath, dyspnea with exertion, orthopnea, wheezing, stridor, hemoptysis GASTROINTESTINAL: Absent: abdominal pain, abdominal distension, nausea, vomiting, diarrhea, constipation, melena, hematochezia GENITOURINARY: Absent: +dysuria, frequency, urgency, hesitancy, hematuria, flank pain, genital pain MUSCULOSKELETAL: Absent: myalgia, arthralgia, joint swelling,+ back pain, neck pain SKIN: Absent: rash, itching, pallor HEMATOLOGIC/IMMUNOLOGIC: Absent: easy bleeding, easy bruising, lymphadenopathy, frequent infections ENDOCRINE: Absent: +weight gain, unexplained weight loss, heat intolerance, cold intolerance NEUROLOGIC: Absent: headache, focal weakness or paresthesias, dizziness, unsteady gait, seizure, mental status changes, bladder or bowel incontinence PSYCHIATRIC: Absent: anxiety, depression, suicidal or homicidal ideation, hallucinations. PHYSICAL EXAMINATION Vital Signs - 24 hr 05/05/17 05/06/17 05/06/17 19:00 08:00 09:52 Temperature 98.3 F 98 F 98.1 F Pulse Rate 61 84 90 Respiratory 19 20 20 Rate Blood Pressure 157/90 133/59 136/69 O2 Sat by Pulse 95 Oximetry (%) 05/06/17 05/06/17 14:59 15:50 Temperature 98 F Pulse Rate 84 90 Respiratory 20 20 Rate Blood Pressure 141/68 134/74 O2 Sat by Pulse Oximetry (%) GENERAL: Awake, alert, and fully oriented, in no acute distress. HEAD: Normal with no signs of trauma. EYES: sclera anicteric, conjunctiva clear. EARS, NOSE, THROAT: Moist mucous membranes. NECK: supple without lymphadenopathy, JVD LUNGS: Breath sounds equal, clear to auscultation bilaterally. No wheezes, and no crackles. No accessory muscle use. HEART: Regular rate and rhythm, normal S1 and S2 without murmur, rub or gallop. ABDOMEN: Soft, nontender, not distended, normoactive bowel sounds, no guarding, LOWER EXTREMITIES: 2+ pulses, warm, well-perfused. No calf tenderness. trace peripheral edema. +Collins sign, + calf tenderness NEUROLOGICAL: no focal deficit. Normal speech. sensation intact. PSYCHIATRIC: Cooperative. Good eye contact. Appropriate mood and affect. SKIN: Warm, dry, no rashes or lesions noted. Laboratory Results - last 24 hr 05/05/17 05/05/17 05/05/17 20:15 21:00 21:00 WBC 6.6 RBC 4.37 Hgb 15.2 Hct 43.3 MCV 99.2 H MCH 34.8 H MCHC 35.0 RDW 13.6 Plt Count 126 L MPV 8.4 Neutrophils % 68.9 Lymphocytes % 22.8 Monocytes % 6.3 Eosinophils % 1.2 Basophils % 0.8 PT with INR 12.00 H INR 1.06 PTT (Actin FS) 29.1 Sodium 136 Potassium 3.9 Chloride 103 Carbon Dioxide 24 Anion Gap 9 BUN 30 H Creatinine 1.3 Creat Clearance w eGFR 56.70 Random Glucose 237 H Hemoglobin A1c % Calcium 8.4 L Phosphorus Magnesium Total Bilirubin 0.7 AST 47 H ALT 64 Alkaline Phosphatase 85 Troponin I Total Protein 7.6 Albumin 3.4 TSH Free T4 05/06/17 05/06/17 05/06/17 02:45 02:45 06:00 WBC 5.2 RBC 4.04 Hgb 13.8 Hct 40.1 MCV 99.4 H MCH 34.2 H MCHC 34.4 RDW 13.4 Plt Count 92 L D MPV 8.6 Neutrophils % 55.2 Lymphocytes % 35.8 D Monocytes % 7.3 Eosinophils % 1.3 Basophils % 0.4 PT with INR INR PTT (Actin FS) Sodium Potassium Chloride Carbon Dioxide Anion Gap BUN Creatinine Creat Clearance w eGFR Random Glucose Hemoglobin A1c % 8.3 H Calcium Phosphorus Magnesium Total Bilirubin AST ALT Alkaline Phosphatase Troponin I < 0.02 Total Protein Albumin TSH Free T4 05/06/17 05/06/17 05/06/17 06:00 08:00 08:00 WBC RBC Hgb Hct MCV MCH MCHC RDW Plt Count MPV Neutrophils % Lymphocytes % Monocytes % Eosinophils % Basophils % PT with INR 14.00 H INR 1.24 H PTT (Actin FS) > 400.0 H Sodium 137 Potassium 3.6 Chloride 103 Carbon Dioxide 24 Anion Gap 10 BUN 26 H Creatinine 1.0 D Creat Clearance w eGFR > 60 Random Glucose 135 H D Hemoglobin A1c % Calcium 8.5 Phosphorus 3.3 Magnesium 1.8 Total Bilirubin 0.6 AST 40 H ALT 53 Alkaline Phosphatase 68 Troponin I Total Protein 7.1 Albumin 3.1 L TSH Cancelled Free T4 Cancelled 05/06/17 10:02 WBC RBC Hgb Hct MCV MCH MCHC RDW Plt Count MPV Neutrophils % Lymphocytes % Monocytes % Eosinophils % Basophils % PT with INR INR PTT (Actin FS) Sodium Potassium Chloride Carbon Dioxide Anion Gap BUN Creatinine Creat Clearance w eGFR Random Glucose Hemoglobin A1c % Calcium Phosphorus Magnesium Total Bilirubin AST ALT Alkaline Phosphatase Troponin I < 0.02 Total Protein Albumin TSH 2.33 Free T4 1.34 H Active Medications Generic Name Dose Route Start Last Admin Trade Name Freq PRN Reason Stop Dose Admin Aspirin 81 mg 05/06/17 10:00 05/06/17 09:15 Asa - PO 81 mg DAILY DANNY Administration Atorvastatin Calcium 10 mg 05/06/17 22:00 Lipitor - PO HS DANNY Gabapentin 300 mg 05/06/17 10:00 05/06/17 09:15 Neurontin - PO 300 mg BID DANNY Administration Heparin Sodium (Porcine) 1,000 unit 05/05/17 22:47 Heparin - IVPUSH PRN PRN Heparin Heparin Sodium (Porcine) 5,000 unit 05/05/17 22:47 Heparin - IVPUSH PRN PRN Heparin Hydrochlorothiazide 25 mg 05/06/17 10:00 05/06/17 09:15 Hctz - PO 25 mg DAILY DANNY Administration Heparin Sodium (Porcine) 25, 500 mls @ 54 mls/hr 05/06/17 01:20 05/06/17 09: 30 000 unit/ Sodium Chloride IV 2,400 unit/hr TITR DANNY 48 mls/hr Protocol Titration 2,700 UNIT/HR Insulin Aspart 1 vial 05/06/17 07:00 05/06/17 11:12 Novolog Vial Sliding Scale - SQ Not Given ACHS [facility] Protocol Lisinopril 5 mg 05/06/17 15:24 Prinivil PO DAILY [facility] Nicotine 7 mg 05/06/17 10:00 05/06/17 09:20 Nicoderm Patch - TD Not Given DAILY [facility] CBC, BMP 05/06/17 16:15 05/06/17 08:00 #EKG: Sinus Tachycardic # Echocardiogram: Reviewed #US right lower Leg positive for DVT. #CT chest IMPRESSION: Findings consistent with pulmonary embolus in the distal portion of the right main pulmonary artery and its proximal bifurcations as well as in the right lower lobe segmental and sub-segmental branches. ASSESSMENT/PLAN: 57 yom morbidly obese,smoker, sedentary, recent sternal fracture, HTN, HLD, NIDDM presented with right leg pain, was found to have right leg DVT and PE and was admitted for further evaluation and treatment. #RLE extensive DVT #Acute Right main pulmonary/Right segmental/sub-segmental PE #Morbid obesity #NIDDM #HTN #HLD #Acute Kidney injury likely pre-renal, resolved with hydration Plan: * Anticoagulation minimum of 6 months * heparin drip, consider bridge to warfarin with INR 2-2.5 * No object to NOAC IE: Eliquis 10 mg BID for 7 days and then 5 mg BID * F/U 2D echo, to R/O RV systolic strain * troponin negative . Monitor hemodynamics. * BNP * F/U Hypercoagulable work up * Resume lisinopril * Rest per primary team Dispo: We will continue to follow the patient. Thank you for this consultative opportunity. Visit type - Emergency Visit Emergency Visit: Yes ED Registration Date: 05/05/17 Care time: The patient presented to the Emergency Department on the above date and was hospitalized for further evaluation of their emergent condition. - New Patient This patient is new to me today: Yes Date on this admission: 05/06/17 - Critical Care Critical Care patient: No
--- NOTE | 2017-05-06 16:04 | PN ---
Teaching Attending Note Name of Resident: Opal Rico ATTENDING PHYSICIAN STATEMENT Time of evaluation: 9:30 AM I saw and evaluated the patient. I reviewed the resident's note and discussed the case with the resident. I agree with the resident's findings and plan as documented. SUBJECTIVE: Patient seen and examined. Right leg pain improved, no chest pain, dyspnea, dizziness, palpitations noted. sedentary lifestyle but no personal or family hx of prior clots or hypercoagulability OBJECTIVE: Vital Signs Period Temp Pulse Resp BP Sys/Kelley Pulse Ox Last 24 Hr 98 F-98.3 F 61-90 19-20 133-157/59-90 95 Intake & Output 05/03/17 05/04/17 05/05/17 05/06/17 23:59 23:59 23:59 23:59 Weight 330 lb 330 lb GEneral: sitting in bed in no acute distress CVS S1S2 regular Chest CTAB, no rales or wheezing abdomen soft obese, NT extremities RLE pitting edema, positive DP pulses, well perfused, neg Nilesh's sign currently Home Medication List Medication Instructions Recorded Confirmed Type Aspirin [ASA -] 81 mg PO DAILY 03/06/17 05/06/17 History Lisinopril [Prinivil] 5 mg PO DAILY 03/06/17 05/06/17 History Metformin HCl 500 mg PO BID 03/06/17 05/06/17 History Simvastatin 10 mg PO HS 03/06/17 05/06/17 History Gabapentin 300 mg PO TID 05/05/17 05/06/17 History Hydrochlorothiazide [Hctz -] 25 mg PO DAILY 05/05/17 05/06/17 History Active Medications Generic Name Dose Route Start Last Admin Trade Name Freq PRN Reason Stop Dose Admin Aspirin 81 mg 05/06/17 10:00 05/06/17 09:15 Asa - PO 81 mg DAILY DANNY Administration Atorvastatin Calcium 10 mg 05/06/17 22:00 Lipitor - PO HS DANNY Gabapentin 300 mg 05/06/17 10:00 05/06/17 09:15 Neurontin - PO 300 mg BID DANNY Administration Heparin Sodium (Porcine) 1,000 unit 05/05/17 22:47 Heparin - IVPUSH PRN PRN Heparin Heparin Sodium (Porcine) 5,000 unit 05/05/17 22:47 Heparin - IVPUSH PRN PRN Heparin Hydrochlorothiazide 25 mg 05/06/17 10:00 05/06/17 09:15 Hctz - PO 25 mg DAILY [facility] Administration Heparin Sodium (Porcine) 25, 500 mls @ 54 mls/hr 05/06/17 01:20 05/06/17 09: 30 000 unit/ Sodium Chloride IV 2,400 unit/hr TITR DANNY 48 mls/hr Protocol Titration 2,700 UNIT/HR Insulin Aspart 1 vial 05/06/17 07:00 05/06/17 11:12 Novolog Vial Sliding Scale - SQ Not Given ACHS [facility] Protocol Lisinopril 5 mg 05/06/17 15:24 Prinivil PO DAILY [facility] Nicotine 7 mg 05/06/17 10:00 05/06/17 09:20 Nicoderm Patch - TD Not Given DAILY [facility] Laboratory Results - last 24 hr 05/05/17 05/05/17 05/05/17 20:15 21:00 21:00 WBC 6.6 RBC 4.37 Hgb 15.2 Hct 43.3 MCV 99.2 H MCH 34.8 H MCHC 35.0 RDW 13.6 Plt Count 126 L MPV 8.4 Neutrophils % 68.9 Lymphocytes % 22.8 Monocytes % 6.3 Eosinophils % 1.2 Basophils % 0.8 PT with INR 12.00 H INR 1.06 PTT (Actin FS) 29.1 Sodium 136 Potassium 3.9 Chloride 103 Carbon Dioxide 24 Anion Gap 9 BUN 30 H Creatinine 1.3 Creat Clearance w eGFR 56.70 Random Glucose 237 H Hemoglobin A1c % Calcium 8.4 L Phosphorus Magnesium Total Bilirubin 0.7 AST 47 H ALT 64 Alkaline Phosphatase 85 Troponin I Total Protein 7.6 Albumin 3.4 TSH Free T4 05/06/17 05/06/17 05/06/17 02:45 02:45 06:00 WBC 5.2 RBC 4.04 Hgb 13.8 Hct 40.1 MCV 99.4 H MCH 34.2 H MCHC 34.4 RDW 13.4 Plt Count 92 L D MPV 8.6 Neutrophils % 55.2 Lymphocytes % 35.8 D Monocytes % 7.3 Eosinophils % 1.3 Basophils % 0.4 PT with INR INR PTT (Actin FS) Sodium Potassium Chloride Carbon Dioxide Anion Gap BUN Creatinine Creat Clearance w eGFR Random Glucose Hemoglobin A1c % 8.3 H Calcium Phosphorus Magnesium Total Bilirubin AST ALT Alkaline Phosphatase Troponin I < 0.02 Total Protein Albumin TSH Free T4 05/06/17 05/06/17 05/06/17 06:00 08:00 08:00 WBC RBC Hgb Hct MCV MCH MCHC RDW Plt Count MPV Neutrophils % Lymphocytes % Monocytes % Eosinophils % Basophils % PT with INR 14.00 H INR 1.24 H PTT (Actin FS) > 400.0 H Sodium 137 Potassium 3.6 Chloride 103 Carbon Dioxide 24 Anion Gap 10 BUN 26 H Creatinine 1.0 D Creat Clearance w eGFR > 60 Random Glucose 135 H D Hemoglobin A1c % Calcium 8.5 Phosphorus 3.3 Magnesium 1.8 Total Bilirubin 0.6 AST 40 H ALT 53 Alkaline Phosphatase 68 Troponin I Total Protein 7.1 Albumin 3.1 L TSH Cancelled Free T4 Cancelled 05/06/17 10:02 WBC RBC Hgb Hct MCV MCH MCHC RDW Plt Count MPV Neutrophils % Lymphocytes % Monocytes % Eosinophils % Basophils % PT with INR INR PTT (Actin FS) Sodium Potassium Chloride Carbon Dioxide Anion Gap BUN Creatinine Creat Clearance w eGFR Random Glucose Hemoglobin A1c % Calcium Phosphorus Magnesium Total Bilirubin AST ALT Alkaline Phosphatase Troponin I < 0.02 Total Protein Albumin TSH 2.33 Free T4 1.34 H RLE extensive DVT CT PE - Right main pulmonary and right segmental/subsegmental branches 2D echo reviewed ASSESSMENT AND PLAN: 57 yom morbidly obese, sedentary, recent sternal fracture, HTN, HLD, NIDDM admitted with extensive RLE DVT and PE. -RLE extensive DVT -Acute Right main pulmonary/Right segmental/subsegmental PE -Morbid obesity -NIDDM -HTN -HLD -Acute Kidney injury likely prerenal, resolved with hydration Plan: heparin drip, heme consult, given extensive clot, anticipate atleast few days with IV anti-coagulation. 2D echo, troponin reviewed. Monitor hemodynamics. Hypercoagulable work up sent. hold metformin, ISS, diabetic diet. Resume lisinopril Dispo pending clinical improvement, discussed with patient in detail, all questions answered.
[2017-05-06 17:09] LABS: MCH 34.7 pg (25.7-33.7); MCHC 35.2 g/dl (32.0-35.9); MEAN CELL VOLUME 98.4 fl (80-96); MEAN PLT VOLUME 8.7 fl (7.5-11.1); PLATELET COUNT 131 K/MM3 (134-434); RDW 13.8 % (11.9-15.9); WHITE BLOOD COUNT 7.2 K/mm3 (4.0-10.0)
[2017-05-06] MEDS ORDERED: NAPH,MB-DB/K PH,MBDB POWDER PACKET PO ONE (17:24)
[2017-05-06] MEDS ORDERED: MAGNESIUM SULF 50% (8.12 MEQ/2 ML-1 GM VIAL) IVPB ONE (17:25)
--- NOTE | 2017-05-06 17:28 | PN ---
Teaching Attending Note Name of Resident: Ramon Wells ATTENDING PHYSICIAN STATEMENT I saw and evaluated the patient. I reviewed the resident's note and discussed the case with the resident. I agree with the resident's findings and plan as documented. SUBJECTIVE:RIGHT LOWER EXT PAIN OBJECTIVE:RIGHT LOWER EXT EDEMA POSITIVE VENOUS DUPLEX/CTA FOR DVT/PE (LIKELY PROVOKED) ON IV HEPARIN/MAY BRIDGE TO COUMADIN [facility] INR 2.5/WOULD FAVOR MINIMUM 6 MONTHS Rajiv VALENCIA MD
[2017-05-06] MEDS ORDERED: INSULIN (NOVOLOG) ASPART 100 UNITS/ML 10ML VIAL ONE (21:13)
[2017-05-06] MEDS: ATORVASTATIN CA 10 MG TABLET (FP) PO SCH (22:01)
[2017-05-07] MEDS: HEPARIN - 25,000 UNIT in SODIUM CHLORIDE 495 ML IV SCH (02:19)
[2017-05-07] MEDS: INSULIN SLIDING SCALE (NOVOLOG) 1 VIAL SQ SCH ×4 (06:46→21:07)
--- NOTE | 2017-05-07 07:17 | PN ---
Physical Exam: 24H events: yesterday - started heparin gtt ON/AM - no acute events SUBJECTIVE: Patient seen and examined. No c/o R leg pain. Able to ambulate to bathroom without pain. No SOB, chest pain, fever, chills, n/v. OBJECTIVE: Vital Signs Period Temp Pulse Resp BP Sys/Kelley Pulse Ox Last 24 Hr 97.4 F-99.1 F 84-97 19-20 100-150/53-83 94-95 GENERAL: aaox3, lying comfortably in bed EYES: sclera anicteric, conjunctiva clear ENT: moist mucous membranes. LUNGS: ctab, no wheezes, no crackles, no accessory muscle use. HEART: rrr, normal S1/S2, no murmur, rub or gallop ABDOMEN: Obese, soft, ntnd LOWER EXTREMITIES: 2+ PT and DP, wwp, sensation intact, 1+ pitting edema R>L , neg Nilesh's LABS: CBC, BMP 05/07/17 06:00 05/07/17 06:00 Hepatic Panel Total Bilirubin 0.7 mg/dL (0.2-1.0) 05/07/17 06:00 AST 48 U/L (15-37) H 05/07/17 06:00 ALT 60 U/L (12-78) 05/07/17 06:00 Alkaline Phosphatase 71 U/L (45-117) 05/07/17 06:00 Albumin 3.2 g/dl (3.4-5.0) L 05/07/17 06:00 IMAGING: ECHO (05/06/17): LV not well visualized, LV grossly normal size, Regional wall abn cannot be excluded due to limited visualization RA and LA mildly dilated trace to mil MR insuff TR detected to calculate RV systolic pressure DUPLEX RLE- Extensive DVT within distalalm superficial, femoral, polpiteal and posterior tibial veins EKG: sinus tachycardia CTA: moderate sized PE in the distal portion of right main pulmonary artery Active Medications Aspirin (Asa -) 81 mg PO DAILY [facility] Last Admin: 05/06/17 09:15 Dose: 81 mg Atorvastatin Calcium (Lipitor -) 10 mg PO HS [facility] Last Admin: 05/06/17 22:01 Dose: 10 mg Gabapentin (Neurontin -) 300 mg PO BID [facility] Last Admin: 05/06/17 22:01 Dose: 300 mg Heparin Sodium (Porcine) (Heparin -) 1,000 unit IVPUSH PRN PRN PRN Reason: Heparin Heparin Sodium (Porcine) (Heparin -) 5,000 unit IVPUSH PRN PRN PRN Reason: Heparin Hydrochlorothiazide (Hctz -) 25 mg PO DAILY [facility] Last Admin: 05/06/17 09:15 Dose: 25 mg Heparin Sodium (Porcine) 25, (000 unit/ Sodium Chloride) 500 mls @ 54 mls/hr IV TITR DANNY; 2,700 UNIT/HR PRN Reason: Protocol Last Admin: 05/07/17 02:19 Dose: 2,400 unit/hr, 48 mls/hr Insulin Aspart (Novolog Vial Sliding Scale -) 1 vial SQ ACHS DANNY PRN Reason: Protocol Last Admin: 05/07/17 06:46 Dose: Not Given Lisinopril (Prinivil) 5 mg PO DAILY DANNY Nicotine (Nicoderm Patch -) 7 mg TD DAILY DANNY Last Admin: 05/06/17 09:20 Dose: Not Given ASSESSMENT/PLAN: 57yo man, active smoker, with PMH of NIDDM, HTN, HLD, morbid obesity, recent sternal fracture (s/p mechanical fall), chronic lower back pain who presents with acute RLE pain and numbness and found to have extensive R DVT and PE in distal portion of R main pulm artery. Patient placed on heparin gtt. Low suspicion for cardiac strain from PE based on negative trops x2, EKG wnl, and 2D ECHO results. DVT/PE likely provoked due to sedentary lifestyle and smoking history. #DVT/PE -pulm/heme consulted -d/c heparin gtt -start lovenox to coumadin bridge today (lovenox 150mg SQ BID 1st dose can be started 2H after stopping heparin gtt); start Coumadin 5mg PO -INR goal 2.5 with minimum of 6mo treatment -Educated patient on diet, medications, and need for frequent blood checks -f/u hypercoagulability workup #thrombocytopenia, etiology unclear, possibly consumptive, unlikley HIT at this time -Abd U/S today -continue to monitor #DEONTE, improving -Trend Cr -Renal dose meds #NIDDM, Alc 8.3% -hold metformin -ISS, BGM ACHS -continue gabapentin 300mg TID -dietary counseling for DM and Coumadin #HTN -continue HCTZ and lisinopril #HLD -continue simvastatin #smoking -cessation counseling -nicotine patch #FEN/ppx -hold IVFs -lytes wnl -Na/diabetic diet -no GI ppx indicated -on AC DISPO: tele montoring, likely d/c home tomorrow FULL code d/w Dr. Jessa Rico MD PGY-1 Visit type - Emergency Visit Emergency Visit: No - New Patient This patient is new to me today: No - Critical Care Critical Care patient: No
[2017-05-07 08:03] LABS: MCH 33.9 pg (25.7-33.7); MCHC 34.2 g/dl (32.0-35.9); MEAN CELL VOLUME 99.1 fl (80-96); MEAN PLT VOLUME 8.9 fl (7.5-11.1); PLATELET COUNT 94 K/MM3 (134-434); RDW 13.8 % (11.9-15.9); WHITE BLOOD COUNT 4.4 K/mm3 (4.0-10.0)
[2017-05-07] MEDS: LISINOPRIL 5 MG TABLET (FP) PO SCH (09:08)
[2017-05-07] MEDS: ASPIRIN 81 MG CHEWABLE TABLETS PO SCH (09:08)
[2017-05-07] MEDS: HYDROCHLOROTHIAZIDE 25 MG TABLET (FP) PO SCH (09:08)
[2017-05-07] MEDS: NICOTINE 7 MG/24 HOURS TOPICAL PATCH TD SCH (09:09)
[2017-05-07 09:30] LABS: ALBUMIN 3.2 g/dl (3.4-5.0); ALK PHOS 71 U/L (45-117); ANION GAP 12 (8-16); BILIRUBIN,TOTAL 0.7 mg/dL (0.2-1.0); CALCIUM 8.7 mg/dL (8.5-10.1); CO2 24 mmol/L (21-32); GLUCOSE,RANDOM 130 mg/dL (74-106); LDH 214 U/L (87-241); SGOT/AST 48 U/L (15-37); SGPT/ALT 60 U/L (12-78)
--- NOTE | 2017-05-07 10:02 | PN ---
Physical Exam: SUBJECTIVE: Patient seen and examined at bedside. He is doing well, denies any fever, chills N/V/D/C, denies any sob, chest pain, palpitation, leg pain is better but still have some discomfort when he walks around. OBJECTIVE: Vital Signs Period Temp Pulse Resp BP Sys/Kelley Pulse Ox Last 24 Hr 97.4 F-99.1 F 81-97 19-20 100-150/53-83 94-95 GENERAL: Awake, alert, and fully oriented, in no acute distress. HEAD: Normal with no signs of trauma. EYES: sclera anicteric, conjunctiva clear. EARS, NOSE, THROAT: Moist mucous membranes. NECK: supple without lymphadenopathy, JVD LUNGS: Breath sounds equal, clear to auscultation bilaterally. No wheezes, and no crackles. No accessory muscle use. HEART: Regular rate and rhythm, normal S1 and S2 without murmur, rub or gallop. ABDOMEN: Soft, nontender, not distended, normoactive bowel sounds, no guarding, LOWER EXTREMITIES: 2+ pulses, warm, well-perfused. No calf tenderness. trace peripheral edema. -Collins sign, - calf tenderness NEUROLOGICAL: no focal deficit. Normal speech. sensation intact. PSYCHIATRIC: Cooperative. Good eye contact. Appropriate mood and affect. SKIN: Warm, dry, no rashes or lesions noted. Laboratory Results - last 24 hr 05/06/17 05/06/17 05/06/17 02:45 08:00 10:02 WBC RBC Hgb Hct MCV MCH MCHC RDW Plt Count MPV Retic Count PTT (Actin FS) POC Glucometer Hemoglobin A1c % 8.3 H Troponin I < 0.02 TSH Cancelled 2.33 Free T4 Cancelled 1.34 H 05/06/17 05/06/17 05/06/17 11:09 16:15 16:15 WBC 7.2 D RBC 4.30 Hgb 14.9 Hct 42.3 MCV 98.4 H MCH 34.7 H MCHC 35.2 RDW 13.8 Plt Count 131 L D MPV 8.7 Retic Count PTT (Actin FS) 70.1 H D POC Glucometer [id number] Hemoglobin A1c % Troponin I TSH Free T4 05/06/17 05/06/17 05/07/17 17:07 21:09 06:00 WBC 4.4 D RBC 4.02 Hgb 13.6 Hct 39.8 MCV 99.1 H MCH 33.9 H MCHC 34.2 RDW 13.8 Plt Count 94 L D MPV 8.9 Retic Count PTT (Actin FS) POC Glucometer 130 227 Hemoglobin A1c % Troponin I TSH Free T4 05/07/17 05/07/17 05/07/17 06:00 06:00 06:34 WBC RBC Hgb Hct MCV MCH MCHC RDW Plt Count MPV Retic Count 1.45 PTT (Actin FS) 67.6 H POC Glucometer 158 Hemoglobin A1c % Troponin I TSH Free T4 Active Medications Generic Name Dose Route Start Last Admin Trade Name Freq PRN Reason Stop Dose Admin Aspirin 81 mg 05/06/17 10:00 05/07/17 09:08 Asa - PO 81 mg DAILY DANNY Administration Atorvastatin Calcium 10 mg 05/06/17 22:00 05/06/17 22:01 Lipitor - PO 10 mg HS DANNY Administration Gabapentin 300 mg 05/07/17 14:00 Neurontin - PO TID DANNY Heparin Sodium (Porcine) 1,000 unit 05/05/17 22:47 Heparin - IVPUSH PRN PRN Heparin Heparin Sodium (Porcine) 5,000 unit 05/05/17 22:47 Heparin - IVPUSH PRN PRN Heparin Hydrochlorothiazide 25 mg 05/06/17 10:00 05/07/17 09:08 Hctz - PO 25 mg DAILY DANNY Administration Heparin Sodium (Porcine) 25, 500 mls @ 54 mls/hr 05/06/17 01:20 05/07/17 09: 10 000 unit/ Sodium Chloride IV 2,400 unit/hr TITR DANNY 48 mls/hr Protocol Titration 2,700 UNIT/HR Insulin Aspart 1 vial 05/06/17 07:00 05/07/17 06:46 Novolog Vial Sliding Scale - SQ Not Given ACHS [facility] Protocol Lisinopril 5 mg 05/06/17 15:24 05/07/17 09:08 Prinivil PO 5 mg DAILY DANNY Administration Nicotine 7 mg 05/06/17 10:00 05/07/17 09:09 Nicoderm Patch - TD Not Given DAILY DANNY CBC, BMP 05/07/17 06:00 #EKG: Sinus Tachycardic # Echocardiogram: Reviewed #US right lower Leg positive for DVT. #CT chest IMPRESSION: Findings consistent with pulmonary embolus in the distal portion of the right main pulmonary artery and its proximal bifurcations as well as in the right lower lobe segmental and sub-segmental branches. ASSESSMENT/PLAN: 57 yom morbidly obese,smoker, sedentary, recent sternal fracture, HTN, HLD, NIDDM presented with right leg pain, was found to have right leg DVT and PE and was admitted for further evaluation and treatment. #RLE extensive DVT #Acute Right main pulmonary/Right segmental/sub-segmental PE #Morbid obesity #NIDDM #HTN #HLD #Acute Kidney injury likely pre-renal, resolved with hydration Plan: * Anticoagulation minimum of 6 months * heparin drip, consider bridge to warfarin with INR 2-2.5 * No object to NOAC IE: Eliquis 10 mg BID for 7 days and then 5 mg BID * F/U 2D echo, to R/O RV systolic strain * troponin negative . Monitor hemodynamics. * BNP * F/U Hypercoagulable work up * Resume lisinopril * Rest per primary team Visit type - Emergency Visit Emergency Visit: No - New Patient This patient is new to me today: No - Critical Care Critical Care patient: No
[2017-05-07] MEDS ORDERED: INSULIN DETEMIR 100 UNITS/ML MDV SQ ONE (10:05)
--- NOTE | 2017-05-07 10:11 | PN ---
Progress Note, Physician Chief Complaint: Pt sitting up at bedside; A&Ox3; denies chest pain, palpitations, or dyspnea. Right calf is no longer sore History of Present Illness: 57-year-old white male history of diabetes, alcoholism, cigarettes, sedentary, obesity, sent in by PMD to rule out DVT. Patient complaining of right foot pain and numbness for 10 days. No CP, SOB or palpitations. Risk factors for DVT/PE include sedentary lifestyle, obesity, cigarette smoker. - Current Medication List Current Medications: Active Medications Aspirin (Asa -) 81 mg PO DAILY [facility] Last Admin: 05/07/17 09:08 Dose: 81 mg Atorvastatin Calcium (Lipitor -) 10 mg PO HS [facility] Last Admin: 05/06/17 22:01 Dose: 10 mg Gabapentin (Neurontin -) 300 mg PO TID [facility] Heparin Sodium (Porcine) (Heparin -) 1,000 unit IVPUSH PRN PRN PRN Reason: Heparin Heparin Sodium (Porcine) (Heparin -) 5,000 unit IVPUSH PRN PRN PRN Reason: Heparin Hydrochlorothiazide (Hctz -) 25 mg PO DAILY [facility] Last Admin: 05/07/17 09:08 Dose: 25 mg Heparin Sodium (Porcine) 25, (000 unit/ Sodium Chloride) 500 mls @ 54 mls/hr IV TITR DANNY; 2,700 UNIT/HR PRN Reason: Protocol Last Titration: 05/07/17 09:10 Dose: 2,400 unit/hr, 48 mls/hr Insulin Aspart (Novolog Vial Sliding Scale -) 1 vial SQ ACHS [facility] PRN Reason: Protocol Last Admin: 05/07/17 06:46 Dose: Not Given Lisinopril (Prinivil) 5 mg PO DAILY [facility] Last Admin: 05/07/17 09:08 Dose: 5 mg Nicotine (Nicoderm Patch -) 7 mg TD DAILY [facility] Last Admin: 05/07/17 09:09 Dose: Not Given - Objective Vital Signs: Vital Signs Temperature 98.5 F 05/07/17 06:00 Pulse Rate 81 05/07/17 06:00 Respiratory Rate 20 05/07/17 06:00 Blood Pressure 117/61 05/07/17 06:00 O2 Sat by Pulse Oximetry (%) 94 L 05/06/17 21:00 Constitutional: Yes: Obese Eyes: Yes: WNL HENT: Yes: WNL Neck: Yes: WNL Cardiovascular: Yes: Regular Rate and Rhythm Respiratory: Yes: Regular Gastrointestinal: Yes: Soft, Abdomen, Obese ...Rectal Exam: Yes: Deferred Genitourinary: No: Anuria Breast(s): Yes: WNL Musculoskeletal: Yes: Muscle Weakness Integumentary: Yes: WNL Neurological: Yes: WNL Psychiatric: Yes: Other (addictive personality; anxiety/depression) Labs: CBC, BMP 05/07/17 06:00 INR, PTT INR 1.24 (0.82-1.09) H 05/06/17 06:00 Abnormal Lab Results 05/07/17 05/07/17 05/07/17 06:00 06:00 06:00 MCV 99.1 H MCH 33.9 H Plt Count 94 L D PTT (Actin FS) 67.6 H BUN 24 H Random Glucose 130 H AST 48 H Albumin 3.2 L - ....Imaging Ultrasound: Image Reviewed (abdomen: hepatosplenomegaly) Problem List - Problems (1) DVT (deep venous thrombosis) Assessment/Plan: see under "Pulmonary Embolism" Code(s): I82.409 - ACUTE EMBOLISM AND THOMBOS UNSP DEEP VN UNSP LOWER EXTREMITY Qualifiers: DVT location: lower extremity Affected thrombotic vein of extremity: popliteal Chronicity: acute Laterality: right Qualified Code(s): I82.431 - Acute embolism and thrombosis of right popliteal vein (2) Diabetes Assessment/Plan: on ACEI (DM; HTN) Code(s): E11.9 - TYPE 2 DIABETES MELLITUS WITHOUT COMPLICATIONS (3) HLD (hyperlipidemia) Code(s): E78.5 - HYPERLIPIDEMIA, UNSPECIFIED (4) HTN (hypertension) Code(s): I10 - ESSENTIAL (PRIMARY) HYPERTENSION (5) Morbid obesity Assessment/Plan: nutritional counseling Code(s): E66.01 - MORBID (SEVERE) OBESITY DUE TO EXCESS CALORIES (6) Pulmonary embolism Assessment/Plan: start warfarin; d/c IV heparin when INR 2-3. Smoking cessation: on nicotine patch. Weight loss, diet change were discussed. Code(s): I26.99 - OTHER PULMONARY EMBOLISM WITHOUT ACUTE COR PULMONALE (7) Low back pain Code(s): M54.5 - LOW BACK PAIN (8) Depression Assessment/Plan: Pt c/o a litany of personal problems; says he ank heavily, put on weight partially in response to them. Denies suicidal ideation, but has trouble seeing a clear way out of his present situation. Psychological counseling, ?medication may be of benefit. Code(s): F32.9 - MAJOR DEPRESSIVE DISORDER, SINGLE EPISODE, UNSPECIFIED (9) Smokes cigarettes Assessment/Plan: on nicotine patch. Code(s): F17.210 - NICOTINE DEPENDENCE, CIGARETTES, UNCOMPLICATED (10) [place] cardiac risk >20% in next 10 years Assessment/Plan: Start statin. On ASA (and will need warfarin for PE). However, pt noted thrombocytopenic: f/u prior to continuing these medications. On lisinopril (HTN; DM). On metorprolol for PSVT, HTN, risks for CAD. CHO: normal LVEF; unable to r/o regional wall motion abnormalities. Coroary artery evalutation when stable. Code(s): Z91.89 - OTH PERSONAL RISK FACTORS, NOT ELSEWHERE CLASSIFIED (11) Thrombocytopenia Assessment/Plan: f/u carefully (pt is on ASA, IV heparin, and, now, warfarin). Code(s): D69.6 - THROMBOCYTOPENIA, UNSPECIFIED
--- NOTE | 2017-05-07 12:11 | PN ---
Teaching Attending Note Name of Resident: Opal Rico ATTENDING PHYSICIAN STATEMENT Time of evaluation: 9:40 AM I saw and evaluated the patient. I reviewed the resident's note and discussed the case with the resident. I agree with the resident's findings and plan as documented. SUBJECTIVE: Patient seen and examined. leg pain resolved, no new dyspnea or bleed complaints. overall feels good. OBJECTIVE: Vital Signs Period Temp Pulse Resp BP Sys/Kelley Pulse Ox Last 24 Hr 97.4 F-99.1 F 81-97 19-22 100-150/53-84 94-95 Intake & Output 05/04/17 05/05/17 05/06/17 05/07/17 23:59 23:59 23:59 23:59 Intake Total 140 Balance 140 Weight 330 lb 330 lb General: sitting in bed in no acute distress CVS: S1S2 regular Chest CTAB, no rales or wheezing abdomen soft, obese, non tender EXtremities improved RLE pitting edema, positive DP pulses Home Medication List Medication Instructions Recorded Confirmed Type Aspirin [ASA -] 81 mg PO DAILY 03/06/17 05/06/17 History Lisinopril [Prinivil] 5 mg PO DAILY 03/06/17 05/06/17 History Metformin HCl 500 mg PO BID 03/06/17 05/06/17 History Simvastatin 10 mg PO HS 03/06/17 05/06/17 History Gabapentin 300 mg PO TID 05/05/17 05/06/17 History Hydrochlorothiazide [Hctz -] 25 mg PO DAILY 05/05/17 05/06/17 History Active Medications Generic Name Dose Route Start Last Admin Trade Name Kamila PRN Reason Stop Dose Admin Aspirin 81 mg 05/06/17 10:00 05/07/17 09:08 Asa - PO 81 mg DAILY DANNY Administration Atorvastatin Calcium 10 mg 05/06/17 22:00 05/06/17 22:01 Lipitor - PO 10 mg HS DANNY Administration Enoxaparin Sodium 120 mg/ 150 mg 05/07/17 22:00 Enoxaparin Sodium 30 mg SQ BID [facility]ANNY Gabapentin 300 mg 05/07/17 14:00 Neurontin - PO TID [facility] Insulin Aspart 1 vial 05/06/17 07:00 05/07/17 11:29 Novolog Vial Sliding Scale - SQ Not Given ACHS [facility] Protocol Lisinopril 5 mg 05/06/17 15:24 05/07/17 09:08 Prinivil PO 5 mg DAILY [facility] Administration Metoprolol Succinate 25 mg 05/07/17 11:45 Toprol Xl - PO DAILY [facility]ANNY Nicotine 7 mg 05/06/17 10:00 05/07/17 09:09 Nicoderm Patch - TD Not Given DAILY [facility] Laboratory Results - last 24 hr 05/06/17 05/06/17 05/06/17 02:45 11:09 16:15 WBC RBC Hgb Hct MCV MCH MCHC RDW Plt Count MPV Retic Count PTT (Actin FS) 70.1 H D Sodium Potassium Chloride Carbon Dioxide Anion Gap BUN Creatinine Creat Clearance w eGFR POC Glucometer [phone] Random Glucose Hemoglobin A1c % 8.3 H Calcium Total Bilirubin AST ALT Alkaline Phosphatase LD Total B-Natriuretic Peptide Total Protein Albumin Vitamin B12 Serum Folate 05/06/17 05/06/17 05/06/17 16:15 17:07 21:09 WBC 7.2 D RBC 4.30 Hgb 14.9 Hct 42.3 MCV 98.4 H MCH 34.7 H MCHC 35.2 RDW 13.8 Plt Count 131 L D MPV 8.7 Retic Count PTT (Actin FS) Sodium Potassium Chloride Carbon Dioxide Anion Gap BUN Creatinine Creat Clearance w eGFR POC Glucometer 130 227 Random Glucose Hemoglobin A1c % Calcium Total Bilirubin AST ALT Alkaline Phosphatase LD Total B-Natriuretic Peptide Total Protein Albumin Vitamin B12 Serum Folate 05/07/17 05/07/17 05/07/17 06:00 06:00 06:00 WBC 4.4 D RBC 4.02 Hgb 13.6 Hct 39.8 MCV 99.1 H MCH 33.9 H MCHC 34.2 RDW 13.8 Plt Count 94 L D MPV 8.9 Retic Count PTT (Actin FS) 67.6 H Sodium 138 Potassium 3.7 Chloride 102 Carbon Dioxide 24 Anion Gap 12 BUN 24 H Creatinine 1.0 Creat Clearance w eGFR > 60 POC Glucometer Random Glucose 130 H Hemoglobin A1c % Calcium 8.7 Total Bilirubin 0.7 AST 48 H ALT 60 Alkaline Phosphatase 71 LD Total 214 B-Natriuretic Peptide 56.53 Total Protein 7.0 Albumin 3.2 L Vitamin B12 Serum Folate 16 05/07/17 05/07/17 05/07/17 06:00 06:00 06:34 WBC RBC Hgb Hct MCV MCH MCHC RDW Plt Count MPV Retic Count 1.45 PTT (Actin FS) Sodium Potassium Chloride Carbon Dioxide Anion Gap BUN Creatinine Creat Clearance w eGFR POC Glucometer 158 Random Glucose Hemoglobin A1c % Calcium Total Bilirubin AST ALT Alkaline Phosphatase LD Total B-Natriuretic Peptide Total Protein Albumin Vitamin B12 245 Serum Folate 05/07/17 11:23 WBC RBC Hgb Hct MCV MCH MCHC RDW Plt Count MPV Retic Count PTT (Actin FS) Sodium Potassium Chloride Carbon Dioxide Anion Gap BUN Creatinine Creat Clearance w eGFR POC Glucometer 168 Random Glucose Hemoglobin A1c % Calcium Total Bilirubin AST ALT Alkaline Phosphatase LD Total B-Natriuretic Peptide Total Protein Albumin Vitamin B12 Serum Folate ASSESSMENT AND PLAN: 57 yom morbidly obese, sedentary, recent sternal fracture, HTN, HLD, NIDDM admitted with extensive RLE DVT and PE. -RLE extensive DVT -Acute Right main pulmonary/Right segmental/subsegmental PE -Thrombocytopenia, likely consumption coagulopathy from extensive thrombosis, unlikely HIT given the pattern -Morbid obesity -NIDDM -HTN -HLD -Acute Kidney injury likely prerenal, resolved with hydration Plan: Transiton to [facility] lovenox today, and start coumadin. Lovenox teaching, coumadin education, nutrition input. Vague ETOH history, follow up abdominal ultrasound, trend platelets. 2D echo noted, troponin reviewed. Monitor hemodynamics. Cardiology input appreciated, no acute concerns. Hypercoagulable work up sent. hold metformin, ISS, diabetic diet, resume on discharge, A1c noted, diabetic education provided.. Resume lisinopril Discussed in detail about coumadin, bleeding risk, need for compliance and close follow up given the severity of his thrombosis, diet/drug interactions and need for frequent INR checks and close follow up. Patient relays full understanding and agreable to follow up and compliance. dispo planning in 24 hours if lovenox/coumadin follow up arranged, no new events and continues to improve clincally.
[2017-05-07] MEDS: METOPROLOL SUCCINATE 25 MG TAB.SR.24H (FP) PO SCH (12:27)
[2017-05-07] MEDS: GABAPENTIN 300 MG CAPSULE (FP) PO SCH ×2 (12:59→21:09)
[2017-05-07] MEDS ORDERED: ENOXAPARIN 120 MG, ENOXAPARIN 30 MG SQ SCH ×3 (14:00→22:00)
[2017-05-07] MEDS ORDERED: ENOXAPARIN NA (PORCINE) 120 MG/0.8 ML DISP.SYRIN SQ SCH (14:00)
--- NOTE | 2017-05-07 14:42 | PN ---
Progress Note (short form) - Note Progress Note: PAtient seen and examined no complaints anxious to leave Last Vital Signs Temp Pulse Resp BP Pulse Ox 98.0 F 94 H 22 138/84 95 05/07/17 10:00 05/07/17 10:00 05/07/17 10:00 05/07/17 10:00 05/07/17 10:00 Cor: RSR, No murmurs, No gallops Lungs: Clear to P&A Abd: Soft, Normal bowel sounds, No organomegaly Ext:No significant edema Skin: No rashes, Integument intact Abnormal Lab Results 05/06/17 05/06/17 05/07/17 16:15 16:15 06:00 MCV 98.4 H 99.1 H MCH 34.7 H 33.9 H Plt Count 131 L D 94 L D PTT (Actin FS) 70.1 H D BUN Random Glucose AST Albumin 05/07/17 05/07/17 06:00 06:00 MCV MCH Plt Count PTT (Actin FS) 67.6 H BUN 24 H Random Glucose 130 H AST 48 H Albumin 3.2 L Active Medications Aspirin (Asa -) 81 mg PO DAILY [facility] Last Admin: 05/07/17 09:08 Dose: 81 mg Atorvastatin Calcium (Lipitor -) 10 mg PO HS [facility] Last Admin: 05/06/17 22:01 Dose: 10 mg Enoxaparin Sodium 120 mg/ (Enoxaparin Sodium 30 mg) 150 mg SQ BID [facility] Gabapentin (Neurontin -) 300 mg PO TID [facility] Last Admin: 05/07/17 12:59 Dose: 300 mg Insulin Aspart (Novolog Vial Sliding Scale -) 1 vial SQ ACHS [facility] PRN Reason: Protocol Last Admin: 05/07/17 11:29 Dose: Not Given Lisinopril (Prinivil) 5 mg PO DAILY [facility] Last Admin: 05/07/17 09:08 Dose: 5 mg Metoprolol Succinate (Toprol Xl -) 25 mg PO DAILY [facility] Last Admin: 05/07/17 12:27 Dose: 25 mg Nicotine (Nicoderm Patch -) 7 mg TD DAILY [facility] Last Admin: 05/07/17 09:09 Dose: Not Given A/P DVT -- extensive RLE PE -- Rt. main pulm. artery and branches Active smoker High BMI. chronic lower back pain recent sternal fracture DM HTN HLD -Likely provoked in the setting of his co-morbidities , immobility, active smoker -Due to his BMI, we cannot give NOACs -Lovenox with coumadin bridge recommended -would need age appropriate cancer screening -thrombocytopenia: Unclear baseline, unlikely HIT , will continue to monitor. agrre with u/s liver/spleen/? liver disease
--- NOTE | 2017-05-07 14:42 | PN ---
Teaching Attending Note Name of Resident: Russell Mickey ATTENDING PHYSICIAN STATEMENT I saw and evaluated the patient. I reviewed the resident's note and discussed the case with the resident. I agree with the resident's findings and plan as documented. SUBJECTIVE: Feels ok today. Less discomfort in his leg. No CP or SOB. Intake & Output 05/04/17 05/05/17 05/06/17 05/07/17 23:59 23:59 23:59 23:59 Intake Total 140 Balance 140 Weight 330 lb 330 lb Last Vital Signs Temp Pulse Resp BP Pulse Ox 98.0 F 94 H 22 138/84 95 05/07/17 10:00 05/07/17 10:00 05/07/17 10:00 05/07/17 10:00 05/07/17 10:00 Active Medications Aspirin (Asa -) 81 mg PO DAILY [facility] Last Admin: 05/07/17 09:08 Dose: 81 mg Atorvastatin Calcium (Lipitor -) 10 mg PO HS [facility] Last Admin: 05/06/17 22:01 Dose: 10 mg Enoxaparin Sodium 120 mg/ (Enoxaparin Sodium 30 mg) 150 mg SQ BID [facility] Gabapentin (Neurontin -) 300 mg PO TID [facility] Last Admin: 05/07/17 12:59 Dose: 300 mg Insulin Aspart (Novolog Vial Sliding Scale -) 1 vial SQ ACHS [facility] PRN Reason: Protocol Last Admin: 05/07/17 11:29 Dose: Not Given Lisinopril (Prinivil) 5 mg PO DAILY [facility] Last Admin: 05/07/17 09:08 Dose: 5 mg Metoprolol Succinate (Toprol Xl -) 25 mg PO DAILY [facility] Last Admin: 05/07/17 12:27 Dose: 25 mg Nicotine (Nicoderm Patch -) 7 mg TD DAILY [facility] Last Admin: 05/07/17 09:09 Dose: Not Given GENERAL: Awake, alert, and fully oriented, in no acute distress. HEAD: Normal with no signs of trauma. EYES: sclera anicteric, conjunctiva clear. EARS, NOSE, THROAT: Moist mucous membranes. NECK: supple without lymphadenopathy, JVD LUNGS: Breath sounds equal, clear to auscultation bilaterally. No wheezes, and no crackles. No accessory muscle use. HEART: Regular rate and rhythm, normal S1 and S2 without murmur, rub or gallop. ABDOMEN: Soft, nontender, not distended, normoactive bowel sounds, no guarding, LOWER EXTREMITIES: 2+ pulses, warm, well-perfused. No calf tenderness. Trace edema NEUROLOGICAL: no focal deficit. PSYCHIATRIC: Cooperative. SKIN: Warm, dry, no rashes or lesions noted. ASSESSMENT/PLAN: Suspected Provoked RLE DVT Right mainstem and peripheral PE HTN HPL NIDDM DEONTE Likely OSAS Noted on Lovenox and will be transitioned to [facility]KA O2 as needed Sleep screen after D/C OOB to chair Monitor INR Dr Castle
[2017-05-07 16:15] LABS: CHOLESTEROL 141 mg/dL (50-200)
[2017-05-07] MEDS ORDERED: INSULIN (NOVOLOG) ASPART 100 UNITS/ML 10ML VIAL ONE (16:32)
[2017-05-07 16:35] LABS: LAC INTERPRETATION Comment: (.)
[2017-05-07] MEDS: WARFARIN NA 5 MG TABLET (UD) PO SCH ×2 (16:45→17:17)
[2017-05-07] MEDS ORDERED: ENOXAPARIN NA (PORCINE) 30 MG/0.3 ML DISP.SYRIN SQ ONE ×2 (18:43→20:54)
[2017-05-07] MEDS ORDERED: ENOXAPARIN NA (PORCINE) 120 MG/0.8 ML DISP.SYRIN SQ ONE ×2 (18:43→20:54)
[2017-05-07] MEDS: ENOXAPARIN 120 MG, ENOXAPARIN 30 MG SQ SCH (18:56)
[2017-05-07] MEDS: ATORVASTATIN CA 10 MG TABLET (FP) PO SCH (21:09)
[2017-05-08 06:06] LABS: ANTITHROMBIN III 81 % (75-135); PROT S TOTAL 93 % (60-150); PROTEIN S, FREE 81 % (57-157)
[2017-05-08] MEDS: INSULIN SLIDING SCALE (NOVOLOG) 1 VIAL SQ SCH (06:14)
[2017-05-08] MEDS: GABAPENTIN 300 MG CAPSULE (FP) PO SCH (06:14)
[2017-05-08 07:22] LABS: MCH 34.2 pg (25.7-33.7); MCHC 34.5 g/dl (32.0-35.9); MEAN CELL VOLUME 99.2 fl (80-96); MEAN PLT VOLUME 9.1 fl (7.5-11.1); PLATELET COUNT 90 K/MM3 (134-434); RDW 13.8 % (11.9-15.9); WHITE BLOOD COUNT 3.8 K/mm3 (4.0-10.0)
--- NOTE | 2017-05-08 07:24 | DS ---
Physical Exam: 24H Events: yesterday - heparin gtt d/c; lovenox to Coumadin bridge started, Abd U/S showing hepatosplenomegaly O/N - no events AM - continues to have thrombocytopenia (Plts 90), hepatitis panel sent SUBJECTIVE: Patient seen and examined. Feels well. No c/o leg pain, sob, chest pain, or bleeding. Ambulates to bathroom w/o leg pain. No OBJECTIVE: Vital Signs Period Temp Pulse Resp BP Sys/Kelley Pulse Ox Last 24 Hr 97.7 F-98.2 F 77-97 19-22 116-148/61-84 95-98 PHYSICAL EXAM GENERAL: aaox3, lying comfortably in bed EYES: sclera anicteric, conjunctiva clear ENT: moist mucous membranes. LUNGS: ctab, no wheezes, no crackles, no accessory muscle use. HEART: rrr, normal S1/S2, no murmur, rub or gallop ABDOMEN: Obese, soft, ntnd LOWER EXTREMITIES: 2+ PT and DP, wwp, sensation intact, 1+ pitting edema R>L , neg Nilesh's CBC, BMP 05/08/17 05:19 05/07/17 06:00 Hepatic Panel Total Bilirubin 0.7 mg/dL (0.2-1.0) 05/07/17 06:00 AST 48 U/L (15-37) H 05/07/17 06:00 ALT 60 U/L (12-78) 05/07/17 06:00 Alkaline Phosphatase 71 U/L (45-117) 05/07/17 06:00 Albumin 3.2 g/dl (3.4-5.0) L 05/07/17 06:00 INR, PTT INR 1.12 (0.82-1.09) 05/08/17 05:19 Laboratory Tests 05/05/17 05/08/17 21:00 12:00 [id number] Ab Pending Beta-2-GPI IgM Ab Pending Anti-Prothrombin IgG Pending Phosphatidylserine IgG Pending Phosphatidylserine IgM Pending Cardiolipid IgG Ab Pending Cardiolipid IgA Ab Pending Cardiolipid IgM Ab Pending Hepatitis A Ab Total Pending Hep Bs Antigen Pending Hep Bs Antibody Pending Hep B Core Total Ab Pending Hepatitis C Antibody Pending Active Medications Aspirin (Asa -) 81 mg PO DAILY DANNY Last Admin: 05/07/17 09:08 Dose: 81 mg Atorvastatin Calcium (Lipitor -) 10 mg PO HS [facility] Last Admin: 05/07/17 21:09 Dose: 10 mg Enoxaparin Sodium 120 mg/ (Enoxaparin Sodium 30 mg) 150 mg SQ BID [facility] Last Admin: 05/07/17 18:56 Dose: 150 mg Gabapentin (Neurontin -) 300 mg PO TID [facility] Last Admin: 05/08/17 06:14 Dose: 300 mg Insulin Aspart (Novolog Vial Sliding Scale -) 1 vial SQ ACHS [facility] PRN Reason: Protocol Last Admin: 05/08/17 06:14 Dose: Not Given Lisinopril (Prinivil) 5 mg PO DAILY [facility] Last Admin: 05/07/17 09:08 Dose: 5 mg Metoprolol Succinate (Toprol Xl -) 25 mg PO DAILY [facility] Last Admin: 05/07/17 12:27 Dose: 25 mg Nicotine (Nicoderm Patch -) 7 mg TD DAILY [facility] Last Admin: 05/07/17 09:09 Dose: Not Given Warfarin Sodium (Coumadin -) 5 mg PO DAILY@1800 [facility] Last Admin: 05/07/17 17:17 Dose: Not Given HOSPITAL COURSE: Date of Admission:05/06/17 Date of Discharge: 05/08/17 Pre-admission course: 57yo man, active smoker, with PMH of NIDDM, HTN, HLD, morbid obesity, recent sternal fracture (s/p mechanical fall 6wks ago), chronic lower back pain who presents with 10days of acute RLE pain and numbness. Pt endorses a sternal fracture 6 weeks ago which was incurred when he tripped and fell on an upside down table leg. He states that he went to the hospital, but no treatment was given to him, and he was discharged home. Pt states that his chronic lower back pain prevents him from walking around much. In addition, due to his chronic lower back pain, he has not been able to work, and he lives with son in son's house. He reports that most of his time is spent sitting in chairs or lying in bed. Pt denies any recent travel or family hx of any clotting disorders as well as personal hx of testosterone supplementation or cancer. He also denies fevers , chills, SOB, chest pain, weakness, n/v/d/c, abdominal pain, and dysuria. Pt has poor PCP f/u, has not received a colonoscopy, and he states that his sugar levels are usually lower than 300s. ER course was notable for: (1) CTA: moderate sized PE in the distal portion of right main pulmonary artery (2) LE duplex: Extensive DVT within distal superficial, femoral, polpiteal and posterior tibial veins (3) creatinine 1.3 Subsequent admission course: Patient was admitted, and placed on continuous cardiac telemetry for management of his extensive DVT and PE, which was likely provoked in the setting of co- morbidities, sedentary lifestyle, and active smoking. He anti-coagulated with heparin gtt for 2 days, and transitioned Coumadin with a lovenox bridge (150mg SQ BID) as a NOAC is not indicated due to his BMI. His leg pain resolved after heparin treatment. He was asymptomatic from his PE (denied dyspnea, pleuritic chest pain), which remained unchanged through his admission. He received Coumadin 5mg on 05/07, INR 1.12 on 05/08. He was discharged on Coumadin 2mg and next INR check Tu, 05/12. He has been counseled about diet modifications while on Coumadin, and the need for close follow-up with PCP for frequent INR checks. Hypercoagulability work-up in progress, which patient was directed to follow-up as with Hematology as OP. His labs were notable for thrombocytopenia since admission (plts 90-130's). Hematology was consulted. Etiology unclear, and possible consumptive from clot burden. An abdominal ultrasounds revealed hepatosplenomegaly, and a hepatitis panel was ordered, which he will follow-up on as OP. Creatinine was mildly elevated to 1.3. He was hydrated with IVF, and creatine stabilized to 1.0. A1c was 8.3% and he was advised to follow a low carbohydrate diet. Patient's BP was controlled with his home HCTZ and lisinopril. Patient was seen by Cardiology, and he was started on Metoprolol Xl 25mg PO daily. IMAGING: ECHO (05/06/17): LV not well visualized, LV grossly normal size, Regional wall abn cannot be excluded due to limited visualization, RA and LA mildly dilated trace to mil MR, insuff TR detected to calculate RV systolic pressure EKG: sinus tachycardia CTA (05/06/2017): CT scan of the chest following intravenous contrast. A post intravenous contrast CT angiogram of the chest was performed utilizing pulmonary embolus protocol. Coronal/ sagittal reconstruction images were obtained. 113 cc of Omnipaque 350 was intravenously injected Compared to prior CT scan of the chest dated 03/06/2017 There is a pulmonary embolus in the distal right main pulmonary artery extending into its proximal bifurcations as well as into the right lower lobe subsegmental branches The thoracic and visualized portion of the upper abdominal aorta is normally enhanced without evidence of aneurysmal dilatation or dissection. The heart is within normal limits in size. Dense calcification of the coronary arteries again seen. No gross mediastinal or hilar enlarged lymph nodes are identified. The lung is clear without evidence of focal infiltrates or consolidation. No pneumothorax or pleural effusion are identified. No pneumothorax or pleural effusion is seen, bilaterally. Included portion of the upper abdomen appears unremarkable. Visualized osseous structures appear intact IMPRESSION: Findings consistent with pulmonary embolus in the distal portion of the right main pulmonary artery and its proximal bifurcations as well as in the right lower lobe segmental and subsegmental branches. The lung is clear. A preliminary report was forwarded by [facility], [employer] Abdominal US (05/07/17) Right upper abdomen ultrasound. The liver is enlarged measuring 20.2 cm in sagittal length with a moderately dense could texture. Gallbladder is adequately distended without intraluminal stones or thickening of its wall. No intra or extrahepatic bile duct dilatation is seen. The right kidney measures 13.5 cm sagittal length and appears unremarkable. Left kidney measures 13.4 cm in sagittal length and appears unremarkable. Visualized portion of the pancreas appears unremarkable Enlarged spleen measuring 21 cm in sagittal length with homogeneous echotexture. Visualized portion of the proximal abdominal aorta and inferior vena cava appear unremarkable. Normal flow in the main portal vein. IMPRESSION: Hepatosplenomegaly. Dense echotexture of the liver consistent with fatty infiltration versus hepatocellular disease. No gallstones are identified. Both kidneys and visualized portion of the pancreas appear unremarkable RLE Doppler (05/06/17): Real time and doppler evaluation of the right lower extremity demonstrates the following: There is extensive deep venous thrombosis within the distal superficial femoral, popliteal and posterior tibial veins. No flow is identified within these vessels. The common and deep femoral veins are patent. The greater saphenous vein is also patent. IMPRESSION: Extensive DVT. Consults: Pulm - Dr. Garcia Heme - Teresa Hunt Cardiology - Harriett Ellison Minutes to complete discharge: 45 Discharge Summary Reason For Visit: DEEP VEIN THROMBOSIS (DVT), PULMONARY EMBOLISM Current Active Problems DVT (deep venous thrombosis) (Acute) Depression (Acute) Diabetes (Acute) [place] cardiac risk >20% in next 10 years (Acute) HLD (hyperlipidemia) (Acute) HTN (hypertension) (Acute) Morbid obesity (Acute) Pulmonary embolism (Acute) Smokes cigarettes (Acute) Thrombocytopenia (Acute) Condition: Stable - Instructions Diet, Activity, Other Instructions: RECOMMENDATIONS: -You were admitted to the hospital for clots found in your R leg and lung veins. Diet: -You were started on a blood thinner called Coumadin (also called Warfarin). You should avoid foods that have high amounts of Vitamin K, such as green leafy vegetables. Please consult the educational pamphlets that you were provided. -Your blood sugars were also found to be elevated, and you should follow a low carbohydrate diet. Please consult the educational pamphlets that you were provided. Activity: -You you may resume light daily activity, but avoid heavy exercise and PT for at least 1 week. Medications: -Please resume your regular home medications with the following additions: (1) Stop taking daily Aspirin 81mg until you see your primary care physician. (1) Take one Coumadin 2mg tablet by mouth every day until you see your primary care physician on 05/12. (2) You will also inject yourself as directed in your stomach with Lovenox 150mg twice per day (should be 12 hours apart, such as 8AM and 8PM). Discuss with your primary care doctor when you should stop doing the injections. (3) Take one Toprol Xl 25mg tablet by mouth every day for your high blood pressure. Follow-up: -PCP: You have an appointment with your primary care physician (Dr. Palmer) on May 12 at 10AM to check your blood counts (INR) and adjust your Coumadin prescription if needed. You should also have a complete blood count done to check your platelet levels. You should also have age-appropriate cancer screening done, including a colonoscopy. -Please make an appointment with Hematology within 1 week to discuss your low platelets and follow-up the results of your blood work for hepatitis and hypercoagulability. -Please make an appointment with Cardiology within 1 month to discuss your high blood pressure. -Please make an appointment with Pulmonology within a month to discuss sleep apnea study. Please return to the Emergency Room if you have worsening leg pain or shortness breath or have signs of uncontrolled breathing. Referrals: Raphael Batres MD [Staff Physician] - Zack Lorenzana MD [Staff Physician] - Tika Moore MD [Staff Physician] - Temo Palmer MD [Primary Care Provider] - Disposition: HOME - Home Medications Comprehensive Discharge Medication List: Ambulatory Orders Aspirin [ASA -] 81 mg PO DAILY 03/06/17 Lisinopril [Prinivil] 5 mg PO DAILY 03/06/17 Metformin HCl 500 mg PO BID 03/06/17 Simvastatin 10 mg PO HS 03/06/17 Gabapentin 300 mg PO TID 05/05/17 Hydrochlorothiazide [Hctz -] 25 mg PO DAILY 05/05/17 Enoxaparin [Lovenox -] 150 mg SQ BID #28 disp.syrin 05/07/17 Enoxaparin [Lovenox -] 150 mg SQ BID #28 disp.syrin 05/07/17 This patient is new to me today: No Emergency Visit: No Critical Care patient: No - Discharge Referral Referred to [facility] No
[2017-05-08] MEDS: ENOXAPARIN 120 MG, ENOXAPARIN 30 MG SQ SCH (07:30)
[2017-05-08] MEDS ORDERED: ENOXAPARIN NA (PORCINE) 30 MG/0.3 ML DISP.SYRIN SQ ONE (07:31)
[2017-05-08] MEDS ORDERED: ENOXAPARIN NA (PORCINE) 120 MG/0.8 ML DISP.SYRIN SQ ONE (07:31)
[2017-05-08 07:32] LABS: INR 1.12 (0.82-1.09); PROTHROMBIN TIME (PATIENT) 12.7 SEC (9.98-11.88)
--- NOTE | 2017-05-08 09:36 | PN ---
Physical Exam: SUBJECTIVE: Patient seen and examined at bedside. feeling better , asking to go home, leg pain is subsided, denies any fever, chills, Cp,SOB, palpitation. OBJECTIVE: Vital Signs Period Temp Pulse Resp BP Sys/Kelley Pulse Ox Last 24 Hr 97.7 F-98.2 F 77-97 19-22 116-148/61-84 95-98 GENERAL: Awake, alert, and fully oriented, in no acute distress. HEAD: Normal with no signs of trauma. EYES: sclera anicteric, conjunctiva clear. EARS, NOSE, THROAT: Moist mucous membranes. NECK: supple without lymphadenopathy, JVD LUNGS: Breath sounds equal, clear to auscultation bilaterally. No wheezes, and no crackles. No accessory muscle use. HEART: Regular rate and rhythm, normal S1 and S2 without murmur, rub or gallop. ABDOMEN: Soft, nontender, not distended, normoactive bowel sounds, no guarding, LOWER EXTREMITIES: 2+ pulses, warm, well-perfused. No calf tenderness. trace peripheral edema. -Collins sign, - calf tenderness NEUROLOGICAL: no focal deficit. Normal speech. sensation intact. PSYCHIATRIC: Cooperative. Good eye contact. Appropriate mood and affect. SKIN: Warm, dry, no rashes or lesions noted. Laboratory Results - last 24 hr 05/05/17 05/05/17 05/05/17 21:00 21:00 21:00 WBC RBC Hgb Hct MCV MCH MCHC RDW Plt Count MPV PT with INR INR PTT (Actin FS) LA PTT Baseline 32.5 dRVVT Confirm Interp 33.0 Protein C Antigen 67.0 Protein S Antigen 93 Free Protein S 81 Func Antithrombin III 81 Sodium Potassium Chloride Carbon Dioxide Anion Gap BUN Creatinine Creat Clearance w eGFR POC Glucometer Random Glucose Calcium Total Bilirubin AST ALT Alkaline Phosphatase LD Total B-Natriuretic Peptide Total Protein Albumin Triglycerides Cholesterol Total LDL Cholesterol HDL Cholesterol Vitamin B12 Serum Folate 05/07/17 05/07/17 05/07/17 06:00 06:00 06:00 WBC RBC Hgb Hct MCV MCH MCHC RDW Plt Count MPV PT with INR INR PTT (Actin FS) LA PTT Baseline dRVVT Confirm Interp Protein C Antigen Protein S Antigen Free Protein S Func Antithrombin III Sodium 138 Potassium 3.7 Chloride 102 Carbon Dioxide 24 Anion Gap 12 BUN 24 H Creatinine 1.0 Creat Clearance w eGFR > 60 POC Glucometer Random Glucose 130 H Calcium 8.7 Total Bilirubin 0.7 AST 48 H ALT 60 Alkaline Phosphatase 71 LD Total 214 B-Natriuretic Peptide 56.53 Total Protein 7.0 Albumin 3.2 L Triglycerides 118 Cancelled Cholesterol 141 Cancelled Total LDL Cholesterol 77 Cancelled HDL Cholesterol 44 Cancelled Vitamin B12 245 Serum Folate 16 05/07/17 05/07/17 05/08/17 11:23 21:04 05:19 WBC 3.8 L RBC 3.93 L Hgb 13.4 Hct 39.0 MCV 99.2 H MCH 34.2 H MCHC 34.5 RDW 13.8 Plt Count 90 L MPV 9.1 PT with INR INR PTT (Actin FS) LA PTT Baseline dRVVT Confirm Interp Protein C Antigen Protein S Antigen Free Protein S Func Antithrombin III Sodium Potassium Chloride Carbon Dioxide Anion Gap BUN Creatinine Creat Clearance w eGFR POC Glucometer 168 140 Random Glucose Calcium Total Bilirubin AST ALT Alkaline Phosphatase LD Total B-Natriuretic Peptide Total Protein Albumin Triglycerides Cholesterol Total LDL Cholesterol HDL Cholesterol Vitamin B12 Serum Folate 05/08/17 05/08/17 05/08/17 05:19 05:19 06:12 WBC RBC Hgb Hct MCV MCH MCHC RDW Plt Count MPV PT with INR 12.70 H INR 1.12 PTT (Actin FS) 34.7 H D LA PTT Baseline dRVVT Confirm Interp Protein C Antigen Protein S Antigen Free Protein S Func Antithrombin III Sodium Potassium Chloride Carbon Dioxide Anion Gap BUN Creatinine Creat Clearance w eGFR POC Glucometer 125 Random Glucose Calcium Total Bilirubin AST ALT Alkaline Phosphatase LD Total B-Natriuretic Peptide Total Protein Albumin Triglycerides Cholesterol Total LDL Cholesterol HDL Cholesterol Vitamin B12 Serum Folate Active Medications Generic Name Dose Route Start Last Admin Trade Name Freq PRN Reason Stop Dose Admin Aspirin 81 mg 05/06/17 10:00 05/07/17 09:08 Asa - PO 81 mg DAILY DANNY Administration Atorvastatin Calcium 10 mg 05/06/17 22:00 05/07/17 21:09 Lipitor - PO 10 mg HS DANNY Administration Enoxaparin Sodium 120 mg/ 150 mg 05/07/17 19:00 05/07/17 18:56 Enoxaparin Sodium 30 mg SQ 150 mg BID DANNY Administration Gabapentin 300 mg 05/07/17 14:00 11/10/17 06:14 Neurontin - PO 300 mg TID [facility] Administration Insulin Aspart 1 vial 05/06/17 07:00 05/08/17 06:14 Novolog Vial Sliding Scale - SQ Not Given ACHS [facility] Protocol Lisinopril 5 mg 05/06/17 15:24 05/07/17 09:08 Prinivil PO 5 mg DAILY DANNY Administration Metoprolol Succinate 25 mg 05/07/17 11:45 05/07/17 12:27 Toprol Xl - PO 25 mg DAILY [facility] Administration Nicotine 7 mg 05/06/17 10:00 05/07/17 09:09 Nicoderm Patch - TD Not Given DAILY [facility] Warfarin Sodium 5 mg 05/07/17 16:15 05/07/17 17:17 Coumadin - PO Not Given DAILY@1800 [facility] CBC, BMP 05/08/17 05:19 05/07/17 06:00 #US right lower Leg positive for DVT. #CT chest IMPRESSION: Findings consistent with pulmonary embolus in the distal portion of the right main pulmonary artery and its proximal bifurcations as well as in the right lower lobe segmental and sub-segmental branches. ASSESSMENT/PLAN: 57 yom morbidly obese,smoker, sedentary, recent sternal fracture, HTN, HLD, NIDDM presented with right leg pain, was found to have right leg DVT and PE and was admitted for further evaluation and treatment. #RLE extensive DVT #Acute Right main pulmonary/Right segmental/sub-segmental PE:Likely provoked in the setting of his co-morbidities , immobility, active smoker #Morbid obesity # Chronic lower back pain # recent sternal fx #NIDDM #HTN #HLD #Acute Kidney injury likely pre-renal, resolved with hydration Plan: * Anticoagulation minimum of 6 months * heparin drip, consider bridge to warfarin with INR 2-2.5 , hem recommend Lovenox with Coumadin bridge. * No object to NOAC IE: Eliquis 10 mg BID for 7 days and then 5 mg BID ( avoided due to high BMI ) * F/U 2D echo, to R/O RV systolic strain * troponin negative . Monitor hemodynamics. * BNP * F/U Hypercoagulable work up * Resume lisinopril * Rest per primary team
[2017-05-08] MEDS: METOPROLOL SUCCINATE 25 MG TAB.SR.24H (FP) PO SCH (09:37)
[2017-05-08] MEDS: ASPIRIN 81 MG CHEWABLE TABLETS PO SCH (09:37)
[2017-05-08] MEDS: NICOTINE 7 MG/24 HOURS TOPICAL PATCH TD SCH (09:37)
[2017-05-08] MEDS: LISINOPRIL 5 MG TABLET (FP) PO SCH (09:37)
--- NOTE | 2017-05-08 11:15 | PN ---
Teaching Attending Note Name of Resident: Russell Arevalo ATTENDING PHYSICIAN STATEMENT I saw and evaluated the patient. I reviewed the resident's note and discussed the case with the resident. I agree with the resident's findings and plan as documented. PULMONARY ALERT,NAD,-SOB,-CP O2 SAT 98% IMP PULMONARY EMBOLISM LIKELY PROVOKED RLE DVT MORBID OBESITY HTN DM HLD LIKELY OSAS PLAN LOVENOX-COUMADIN W/U FOR HYPERCOAGULABLE STATE OUTPATIENT SMOKING CESSATION COUNSELED OUTPATIENT SLEEP STUDY WT LOSS DR CONTRERAS Problem List - Problems (1) DVT (deep venous thrombosis) Code(s): I82.409 - ACUTE EMBOLISM AND THOMBOS UNSP DEEP VN UNSP LOWER EXTREMITY Qualifiers: DVT location: lower extremity Affected thrombotic vein of extremity: popliteal Chronicity: acute Laterality: right Qualified Code(s): I82.431 - Acute embolism and thrombosis of right popliteal vein (2) HLD (hyperlipidemia) Code(s): E78.5 - HYPERLIPIDEMIA, UNSPECIFIED (3) HTN (hypertension) Code(s): I10 - ESSENTIAL (PRIMARY) HYPERTENSION (4) Morbid obesity Code(s): E66.01 - MORBID (SEVERE) OBESITY DUE TO EXCESS CALORIES (5) Pulmonary embolism Code(s): I26.99 - OTHER PULMONARY EMBOLISM WITHOUT ACUTE COR PULMONALE (6) Smokes cigarettes Code(s): F17.210 - NICOTINE DEPENDENCE, CIGARETTES, UNCOMPLICATED (7) Diabetes Code(s): E11.9 - TYPE 2 DIABETES MELLITUS WITHOUT COMPLICATIONS
--- NOTE | 2017-05-08 11:49 | PN ---
Progress Note (short form) - Note Progress Note: Patient seen and examined no complaints is being discharged. Is "motivated" he says and this admission is "life changing" Cor: RSR, No murmurs, No gallops Lungs: Clear to P&A Abd: Soft, Normal bowel sounds, No organomegaly Ext:No significant edema Skin: No rashes, Integument intact Temp Pulse Resp BP Pulse Ox 98.2 F 94 H 22 159/83 99 05/08/17 10:00 05/08/17 10:00 05/08/17 10:00 05/08/17 10:00 05/08/17 10:00 CBC, BMP 05/08/17 05:19 05/07/17 06:00 Current Medications Generic Name Dose Route Start Last Admin Trade Name Kaimla PRN Reason Stop Dose Admin Aspirin 81 mg 05/06/17 10:00 05/08/17 09:37 Asa - PO 81 mg DAILY DANNY Administration Atorvastatin Calcium 10 mg 05/06/17 22:00 05/07/17 21:09 Lipitor - PO 10 mg HS DANNY Administration Enoxaparin Sodium 120 mg/ 150 mg 05/07/17 19:00 05/08/17 07:30 Enoxaparin Sodium 30 mg SQ 150 mg BID DANNY Administration Gabapentin 300 mg 05/07/17 14:00 05/08/17 06:14 Neurontin - PO 300 mg TID DANNY Administration Insulin Aspart 1 vial 05/06/17 07:00 05/08/17 06:14 Novolog Vial Sliding Scale - SQ Not Given ACHS [facility] Protocol Lisinopril 5 mg 05/06/17 15:24 05/08/17 09:37 Prinivil PO 5 mg DAILY DANNY Administration Metoprolol Succinate 25 mg 05/07/17 11:45 05/08/17 09:37 Toprol Xl - PO 25 mg DAILY DANNY Administration Nicotine 7 mg 05/06/17 10:00 05/08/17 09:37 Nicoderm Patch - TD Not Given DAILY [facility] Warfarin Sodium 5 mg 05/07/17 16:15 05/07/17 17:17 Coumadin - PO Not Given DAILY@1800 DANNY A/P DVT -- extensive RLE PE -- Rt. main pulm. artery and branches Active smoker High BMI. chronic lower back pain recent sternal fracture DM HTN HLD -likely provoked -Lovenox with coumadin bridge -would need age appropriate cancer screening -thrombocytopenia: from likely HSM---> Steatohepatitis. Hep screening -close OP f.u for INR/CBC/sleep studies etc.. Problem List - Problems (1) DVT (deep venous thrombosis) Code(s): I82.409 - ACUTE EMBOLISM AND THOMBOS UNSP DEEP VN UNSP LOWER EXTREMITY Qualifiers: DVT location: lower extremity Affected thrombotic vein of extremity: popliteal Chronicity: acute Laterality: right Qualified Code(s): I82.431 - Acute embolism and thrombosis of right popliteal vein (2) Pulmonary embolism Code(s): I26.99 - OTHER PULMONARY EMBOLISM WITHOUT ACUTE COR PULMONALE (3) Morbid obesity Code(s): E66.01 - MORBID (SEVERE) OBESITY DUE TO EXCESS CALORIES (4) Smoker Code(s): F17.200 - NICOTINE DEPENDENCE, UNSPECIFIED, UNCOMPLICATED (5) Low back pain Code(s): M54.5 - LOW BACK PAIN
[2017-05-08 14:00] VITALS: BP 125/69; PULSE 80; TEMP 98.6
--- NOTE | 2017-05-08 15:09 | PN ---
Progress Note, Physician History of Present Illness: 57M w/ hx of obesity, sedentary lifestyle, 25 pack year smoking hx, chronic lower back pain, recent sternal fracture, DM, HTN, and HLD who presents with RLE pain and numbness for 10 days. His symptoms worsened over the 10 days, so he called his PMD who informed him to go to the hospital. Of note, pt endorses a sternal fracture 6 weeks ago which was incurred when he tripped and fell on an upside down table leg. He states that he went to the hospital, but no treatment was given to him, and he was discharged home. Pt states that his chronic lower back pain prevents him from walking around much. In addition, due to his chronic lower back pain, he has not been able to work, and he lives with son in son's house. He reports that most of his time is spent sitting in chairs or lying in bed. Pt denies a family hx of any clotting disorders as well as personal hx of testosterone supplementation or cancer. He also denies fevers, chills, SOB, chest pain, weakness, n/v/d/c, abdominal pain, and dysuria. He endorses difficulty initiating urination. Pt has poor PCP f/u, has not received a colonoscopy, and he states that his sugar levels are usually lower than 300s. - Current Medication List Current Medications: Active Medications Aspirin (Asa -) 81 mg PO DAILY [facility] Last Admin: 05/08/17 09:37 Dose: 81 mg Atorvastatin Calcium (Lipitor -) 10 mg PO HS [facility] Last Admin: 05/07/17 21:09 Dose: 10 mg Enoxaparin Sodium 120 mg/ (Enoxaparin Sodium 30 mg) 150 mg SQ BID [facility] Last Admin: 05/08/17 07:30 Dose: 150 mg Gabapentin (Neurontin -) 300 mg PO TID [facility] Last Admin: 05/08/17 06:14 Dose: 300 mg Insulin Aspart (Novolog Vial Sliding Scale -) 1 vial SQ ACHS [facility] PRN Reason: Protocol Last Admin: 05/08/17 06:14 Dose: Not Given Lisinopril (Prinivil) 5 mg PO DAILY [facility] Last Admin: 05/08/17 09:37 Dose: 5 mg Metoprolol Succinate (Toprol Xl -) 25 mg PO DAILY [facility] Last Admin: 05/08/17 09:37 Dose: 25 mg Nicotine (Nicoderm Patch -) 7 mg TD DAILY [facility] Last Admin: 05/08/17 09:37 Dose: Not Given Warfarin Sodium (Coumadin -) 5 mg PO DAILY@1800 [facility] Last Admin: 05/07/17 17:17 Dose: Not Given - Objective Vital Signs: Vital Signs Temperature 98.6 F 05/08/17 13:59 Pulse Rate 80 05/08/17 13:59 Respiratory Rate 20 05/08/17 13:59 Blood Pressure 125/69 05/08/17 13:59 O2 Sat by Pulse Oximetry (%) 99 05/08/17 10:00 Eyes: Yes: WNL, Conjunctiva Clear, EOM Intact HENT: Yes: WNL, Atraumatic, Normocephalic Neck: Yes: WNL, Supple, Trachea Midline Cardiovascular: Yes: WNL, Regular Rate and Rhythm Respiratory: Yes: WNL, Regular, CTA Bilaterally Gastrointestinal: Yes: WNL, Normal Bowel Sounds Genitourinary: Yes: WNL Musculoskeletal: Yes: WNL Extremities: Yes: WNL Edema: No Integumentary: Yes: WNL Neurological: Yes: WNL, Alert, Oriented ...Motor Strength: WNL Psychiatric: Yes: WNL Labs: CBC, BMP 05/08/17 05:19 05/07/17 06:00 INR, PTT INR 1.12 (0.82-1.09) 05/08/17 05:19 Problem List - Problems (1) DVT (deep venous thrombosis) Code(s): I82.409 - ACUTE EMBOLISM AND THOMBOS UNSP DEEP VN UNSP LOWER EXTREMITY Qualifiers: DVT location: lower extremity Affected thrombotic vein of extremity: popliteal Chronicity: acute Laterality: right Qualified Code(s): I82.431 - Acute embolism and thrombosis of right popliteal vein (2) Diabetes Code(s): E11.9 - TYPE 2 DIABETES MELLITUS WITHOUT COMPLICATIONS (3) HLD (hyperlipidemia) Code(s): E78.5 - HYPERLIPIDEMIA, UNSPECIFIED (4) HTN (hypertension) Code(s): I10 - ESSENTIAL (PRIMARY) HYPERTENSION (5) Morbid obesity Code(s): E66.01 - MORBID (SEVERE) OBESITY DUE TO EXCESS CALORIES (6) Smoker Code(s): F17.200 - NICOTINE DEPENDENCE, UNSPECIFIED, UNCOMPLICATED (7) Low back pain Code(s): M54.5 - LOW BACK PAIN (8) Sternal fracture Code(s): S22.20XA - UNSP FRACTURE OF STERNUM, INIT ENCNTR FOR CLOSED FRACTURE Qualifiers: Encounter type: initial encounter Sternal location: body of sternum Fracture type: closed Qualified Code(s): S22.22XA - Fracture of body of sternum, initial encounter for closed fracture Assessment/Plan dvt htn hlp dm will need cardiac risk stratifications when dvt resolves - Problems (1) DVT (deep venous thrombosis) Assessment/Plan: see under "Pulmonary Embolism" Code(s): I82.409 - ACUTE EMBOLISM AND THOMBOS UNSP DEEP VN UNSP LOWER EXTREMITY Qualifiers: DVT location: lower extremity Affected thrombotic vein of extremity: popliteal Chronicity: acute Laterality: right Qualified Code(s): I82.431 - Acute embolism and thrombosis of right popliteal vein (2) Diabetes Assessment/Plan: on ACEI (DM; HTN) Code(s): E11.9 - TYPE 2 DIABETES MELLITUS WITHOUT COMPLICATIONS (3) HLD (hyperlipidemia) Code(s): E78.5 - HYPERLIPIDEMIA, UNSPECIFIED (4) HTN (hypertension) Code(s): I10 - ESSENTIAL (PRIMARY) HYPERTENSION (5) Morbid obesity Assessment/Plan: nutritional counseling Code(s): E66.01 - MORBID (SEVERE) OBESITY DUE TO EXCESS CALORIES (6) Pulmonary embolism Assessment/Plan: start warfarin; d/c IV heparin when INR 2-3. Smoking cessation: on nicotine patch. Weight loss, diet change were discussed. Code(s): I26.99 - OTHER PULMONARY EMBOLISM WITHOUT ACUTE COR PULMONALE (7) Low back pain Code(s): M54.5 - LOW BACK PAIN (8) Depression Assessment/Plan: Pt c/o a litany of personal problems; says he drank heavily, put on weight partially in response to them. Denies suicidal ideation, but has trouble seeing a clear way out of his present situation. Psychological counseling, ?medication may be of benefit. Code(s): F32.9 - MAJOR DEPRESSIVE DISORDER, SINGLE EPISODE, UNSPECIFIED (9) Smokes cigarettes Assessment/Plan: on nicotine patch. Code(s): F17.210 - NICOTINE DEPENDENCE, CIGARETTES, UNCOMPLICATED (10) Trevor cardiac risk >20% in next 10 years Assessment/Plan: Start statin. On ASA (and will need warfarin for PE). However, pt noted thrombocytopenic: f/u prior to continuing these medications. On lisinopril (HTN; DM). On metorprolol for PSVT, HTN, risks for CAD. CHO: normal LVEF; unable to r/o regional wall motion abnormalities. Coroary artery evalutation when stable. Code(s): Z91.89 - OTH PERSONAL RISK FACTORS, NOT ELSEWHERE CLASSIFIED (11) Thrombocytopenia Assessment/Plan: f/u carefully (pt is on ASA, IV heparin, and, now, warfarin). Code(s): D69.6 - THROMBOCYTOPENIA, UNSPECIFIED awaiting therapeutic INR d/c telemetry.
--- NOTE | 2017-05-08 16:52 | PN ---
Teaching Attending Note Name of Resident: Opal Rico ATTENDING PHYSICIAN STATEMENT Time of evaluation: 10:45 AM I saw and evaluated the patient. I reviewed the resident's note and discussed the case with the resident. I agree with the resident's findings and plan as documented. SUBJECTIVE: Patient seen and examined, learnt lovenox injections, no complaints, eager to go home. OBJECTIVE: Vital Signs Period Temp Pulse Resp BP Sys/Kelley Pulse Ox Last 24 Hr 97.7 F-98.6 F 77-94 19-22 116-159/61-83 97-99 Intake & Output 05/05/17 05/06/17 05/07/17 05/08/17 23:59 23:59 23:59 23:59 Intake Total 140 340 Balance 140 340 Weight 330 lb 330 lb General: sitting in bed in no acute distress CVS: S1S2 regular Chest CTAB, no rales or wheezing abdomen: soft, NT, ND, positive bowel sounds extremities improved RLE edema Home Medication List Medication Instructions Recorded Confirmed Type RX: Lisinopril [Prinivil] 5 mg PO DAILY 03/06/17 05/06/17 History RX: Metformin HCl 500 mg PO BID 03/06/17 05/06/17 History RX: Simvastatin 10 mg PO HS 03/06/17 05/06/17 History RX: Gabapentin 300 mg PO TID 05/05/17 05/06/17 History RX: Hydrochlorothiazide [Hctz -] 25 mg PO DAILY 05/05/17 05/06/17 History Laboratory Results - last 24 hr 05/05/17 05/05/17 05/05/17 20:31 21:00 21:00 WBC RBC Hgb Hct MCV MCH MCHC RDW Plt Count MPV PT with INR INR PTT (Actin FS) Protein C Antigen Protein S Antigen 93 Free Protein S 81 Func Antithrombin III 81 POC Glucometer [id number] 05/05/17 05/07/17 05/08/17 21:00 21:04 05:19 WBC 3.8 L RBC 3.93 L Hgb 13.4 Hct 39.0 MCV 99.2 H MCH 34.2 H MCHC 34.5 RDW 13.8 Plt Count 90 L MPV 9.1 PT with INR INR PTT (Actin FS) Protein C Antigen 67.0 Protein S Antigen Free Protein S Func Antithrombin III POC Glucometer 140 05/08/17 05/08/17 05/08/17 05:19 05:19 06:12 WBC RBC Hgb Hct MCV MCH MCHC RDW Plt Count MPV PT with INR 12.70 H INR 1.12 PTT (Actin FS) 34.7 H D Protein C Antigen Protein S Antigen Free Protein S Func Antithrombin III POC Glucometer 125 ASSESSMENT AND PLAN: 57 yom morbidly obese, sedentary, recent sternal fracture, HTN, HLD, NIDDM admitted with extensive RLE DVT and PE. -RLE extensive DVT -Acute Right main pulmonary/Right segmental/subsegmental PE -Thrombocytopenia, likely consumption coagulopathy from extensive thrombosis, unlikely HIT given the pattern -Morbid obesity -NIDDM -HTN -HLD -Acute Kidney injury likely prerenal, resolved with hydration Plan: Markedly improved, lovenox teaching provided. d/c on lovenox/coumadin. Outpatient PCP follow up arranged and discussed with office. Hepatosplenomegaly likely from fatty infiltrations, also agreed to prior heavy ETOH use to cardiology, could be contributory. Hep panel sent, pending, outpatient follow up. platelets stable, likely chronic from his hepatosplenomegaly and ?ETOH use in the past. resume metformin and home meds. D/c home today with PCP follow up as arranged. Plan discussed with patient in detail, all questions answered.
== END 2017-05-08 16:40 | disposition home or self-care (01) | DRG 134 ==
LOC: JERFT 18:53 → JER 18:53 → JERBED 22:45 → OBSVTOIN 05-06 00:43 → UNDOADMOB 05-06 00:43 → JERBED 05-06 00:43 → INTOOBSV 05-06 00:43 → J4W 05-06 15:43
PROVIDERS: ADMIT Internal Medicine; ATTEND Hospitalist
DX: I26.99 Other pulmonary embolism without acute cor pulmonale (principal); I82.431 Acute embolism and thrombosis of right popliteal vein; N17.9 Acute kidney failure, unspecified; E66.01 Morbid (severe) obesity due to excess calories; Z68.42 Body mass index [BMI] 45.0-49.9, adult; E11.9 Type 2 diabetes mellitus without complications; E78.5 Hyperlipidemia, unspecified; I10 Essential (primary) hypertension; M54.5 Low back pain; F32.9 Major depressive disorder, single episode, unspecified; F17.210 Nicotine dependence, cigarettes, uncomplicated; R39.11 Hesitancy of micturition; D69.6 Thrombocytopenia, unspecified
CPT/HCPCS: 36415; 71010-TC; 71275-TC; 76700-TC; 80053; 80061; 81241; 82607; 82746; 83036; 83615; 83721; 83735; 83880; 84100; 84439; 84443; 84484; 85025; 85027; 85044; 85300; 85302; 85305; 85306; 85597; 85610; 85613; 85730; 85732; 86146; 86147; 86704; 86706; 86708; 86803; 87340; 93005; 93010; 93306-TC; 93971-TC; 99284-25; G0378; J1644

== ENCOUNTER 2017-06-25 13:45 | Observation (INO) | payer OTHER ==
--- NOTE | 2017-06-25 14:47 | PDOC ---
History of Present Illness - General History Source: Patient Exam Limitations: No Limitations - History of Present Illness Initial Comments: 06/25/17 15:18 The patient is a 57 year old male, with a significant past medical history of DVT and PE (on Coumadin), HLD, HTN, Peripheral neuropathy, Chronic back pain who presents to the emergency department after misdosing his Coumadin medications. Initially, patient was taking 3 tablets of Coumadin 2.5 mg every day and was due for a refill. Patient mistakenly took 3 tablets of 7.5 mg of Coumadin since Jun 04 2017. Patient called his doctors office and informed them his medications were due for refill. Patient mis dosed his medications and was instructed to come to the ED for further evaluation. Patient denies chest pain, headache or dizziness. Patient denies fever, chills, abdominal pain, nausea, vomit, diarrhea or constipation. Patient denies dysuria , frequency, urgency or hematuria. Patient denies sick contacts or recent travel. <Kathie Sandy - Last Filed: 06/25/17 15:18> - General History Source: Patient Exam Limitations: No Limitations <Mauricio Boyd - Last Filed: 06/25/17 16:43> - General Chief Complaint: RX Refill Stated Complaint: PCP SENT Time Seen by Provider: 06/25/17 14:24 Past History <Kathie Sandy - Last Filed: 06/25/17 15:18> - Past Medical History COPD: No Diabetes: Yes HTN: Yes Hypercholesterolemia: Yes - Suicide/Smoking/Psychosocial Hx Smoking History: Current every day smoker Have you smoked in the past 12 months: Yes Number of Cigarettes Smoked Daily: 10 Information on smoking cessation initiated: No 'Breaking Loose' booklet given: 05/06/17 Hx Alcohol Use: No Drug/Substance Use Hx: No Substance Use Type: None <Maruicio Boyd - Last Filed: 06/25/17 16:43> - Past Medical History Allergies/Adverse Reactions: Allergies Allergy/AdvReac Type Severity Reaction Status Date / Time erythromycin base Allergy Verified 06/25/17 13:59 Home Medications: Ambulatory Orders Metformin HCl 500 mg PO BID 03/06/17 Simvastatin 10 mg PO HS 03/06/17 Gabapentin 300 mg PO TID 05/05/17 Hydrochlorothiazide [Hctz -] 25 mg PO DAILY 11/07/17 Metoprolol Succinate [Toprol XL -] 25 mg PO DAILY 30 Days #30 tab.sr.24h Alprazolam [Xanax] 1 mg PO DAILY 06/25/17 Cholecalciferol (Vitamin D3) [Vitamin D3 -] 1,000 unit PO DAILY 06/25/17 Oxycodone HCl/Acetaminophen [Percocet 10-325 mg Tablet] 1 each PO DAILY PRN Warfarin Sodium 7.5 mg PO DAILY 06/25/17 Review of Systems - Review of Systems Able to Perform ROS?: Yes Comments:: 06/25/17 15:18 GENERAL/CONSTITUTIONAL: No fever or chills. No weakness. HEAD, EYES, EARS, NOSE AND THROAT: No change in vision. No ear pain or discharge. No sore throat. +Bleeding from L ear. CARDIOVASCULAR: No chest pain or shortness of breath. RESPIRATORY: No cough, wheezing, or hemoptysis. GASTROINTESTINAL: No nausea, vomiting, diarrhea or constipation. GENITOURINARY: No dysuria, frequency, or change in urination. MUSCULOSKELETAL: No joint or muscle swelling or pain. No neck or back pain. SKIN: No rash NEUROLOGIC: No headache, vertigo, loss of consciousness, or change in strength/ sensation. ENDOCRINE: No increased thirst. No abnormal weight change. HEMATOLOGIC/LYMPHATIC: No anemia, easy bleeding, or history of blood clots. ALLERGIC/IMMUNOLOGIC: No hives or skin allergy. <Kathie Sandy - Last Filed: 06/25/17 15:18> *Physical Exam - Vital Signs Last Vital Signs Temp Pulse Resp BP Pulse Ox 97 F L 84 18 147/77 97 06/25/17 13:55 06/25/17 13:55 06/25/17 13:55 06/25/17 13:55 06/25/17 14:56 - Physical Exam Comments: 06/25/17 15:18 GENERAL: Awake, alert, and fully oriented, in no acute distress. +Morbidly obese. HEAD: No signs of trauma EYES: PERRLA, EOMI, sclera anicteric, conjunctiva clear ENT: Auricles normal inspection, hearing grossly normal, nares patent, oropharynx clear without exudates. Moist mucosa. + Bleeding from L TM. NECK: Normal ROM, supple, no lymphadenopathy, JVD, or masses LUNGS: Breath sounds equal, clear to auscultation bilaterally. No wheezes, and no crackles HEART: Regular rate and rhythm, normal S1 and S2, no murmurs, rubs or gallops ABDOMEN: Soft, nontender, normoactive bowel sounds. No guarding, no rebound. No masses EXTREMITIES: Normal range of motion, no edema. No clubbing or cyanosis. No cords, erythema, or tenderness NEUROLOGICAL: Cranial nerves II through XII grossly intact. Normal speech, normal gait SKIN: Warm, Dry, normal turgor, no rashes or lesions noted. <Kathie Sandy - Last Filed: 06/25/17 15:18> - Vital Signs Last Vital Signs Temp Pulse Resp BP Pulse Ox 97 F L 84 18 147/77 97 06/25/17 13:55 06/25/17 13:55 06/25/17 13:55 06/25/17 13:55 06/25/17 13:55 <Mauricio Boyd - Last Filed: 06/25/17 16:43> Heart Score/ECG Review #1 ECG reviewed & interpreted by me at: 14:55 06/25/17 15:02 NSR 78, no std/emanuel, TWI III, normal axis, normal intervals, QTC 444 msec <Mauricio Boyd - Last Filed: 06/25/17 16:43> ED Treatment Course - LABORATORY CBC & Chemistry Diagram: 06/25/17 14:46 06/25/17 14:46 - ADDITIONAL ORDERS Additional order review: Laboratory Results 06/25/17 14:46 Sodium 142 Potassium 3.7 Chloride 104 06/25/17 14:46 RBC 4.10 MCV 99.0 H MCHC 33.4 RDW 14.2 MPV 9.5 Neutrophils % 63.5 Lymphocytes % 25.2 D Monocytes % 7.9 Eosinophils % 2.3 Basophils % 1.1 <Kathie Sandy - Last Filed: 06/25/17 15:18> - LABORATORY CBC & Chemistry Diagram: 06/25/17 14:46 06/25/17 14:46 <Mauricio Boyd - Last Filed: 06/25/17 16:43> Medical Decision Making - Medical Decision Making 06/25/17 14:45 A portion of this note was documented by scribe services under my direction. I have reviewed the details of the note, within reason, and agree with the documentation with the following case summary and management plan written by me. Patient treated in the ED. Nursing notes are reviewed and incorporated into the medical decision-making. Vital signs reviewed. Peripheral IV access obtained by the nurse, laboratory studies are drawn and sent, reviewed and interpreted by myself. Vital Signs Temp Pulse Resp BP Pulse Ox 97 F L 84 18 147/77 97 06/25/17 13:55 06/25/17 13:55 06/25/17 13:55 06/25/17 13:55 06/25/17 13:55 57-year-old male with past medical history of hypertension, diabetes, hyperlipidemia, DVT in the right lower extremity, pulmonary embolism on Coumadin sent in by his doctor for taking too much Coumadin. The patient was initially on 7.5 mg of Coumadin daily. The patient had refilled his medication on June 04. Prior to the refill, the patient was taking 3 tablets of 2.5 mg of Coumadin. However, with the refills, he was unaware that the tablets were 7.5 mg and he was taken 3 tablets of it. So he was taking 22.5 mg of Coumadin daily since the . Denies any bleeding, rectal bleeding, hematuria or other symptoms. The last 3 or 4 days ago, he had noted that he was having some slight heartburn after eating the last 4 days but denies any shortness of breath or midsternal chest tightness. We'll check his INR level but this time there is no active bleeding. We'll also send a troponin and a chest x-ray given his heartburn symptoms though the history is atypical. Unlikely to be ACS. Patient has also been endorsing some intermittent left ear bleeding from the canal which has been chronic since childhood. There is some oozing from the the left ear. Will observe. 06/25/17 16:37 CBC, BMP 06/25/17 14:46 06/25/17 14:46 CMP Sodium 142 mmol/L (136-145) 06/25/17 14:46 Potassium 3.7 mmol/L (3.5-5.1) 06/25/17 14:46 Chloride 104 mmol/L (98-107) 06/25/17 14:46 Carbon Dioxide 27 mmol/L (21-32) 06/25/17 14:46 Anion Gap 11 (8-16) 06/25/17 14:46 BUN 21 mg/dL (7-18) H 06/25/17 14:46 Creatinine 1.2 mg/dL (0.7-1.3) 06/25/17 14:46 Creat Clearance w eGFR > 60 (>60) 06/25/17 14:46 Random Glucose 149 mg/dL (74-106) H 06/25/17 14:46 Calcium 9.7 mg/dL (8.5-10.1) 06/25/17 14:46 Total Bilirubin 0.7 mg/dL (0.2-1.0) 06/25/17 14:46 AST 31 U/L (15-37) D 06/25/17 14:46 ALT 36 U/L (12-78) D 06/25/17 14:46 Alkaline Phosphatase 73 U/L (45-117) 06/25/17 14:46 Creatine Kinase 100 IU/L (39-308) 06/25/17 14:46 Troponin I < 0.02 ng/ml (0.00-0.05) 06/25/17 14:46 Total Protein 7.6 g/dl (6.4-8.2) 06/25/17 14:46 Albumin 3.4 g/dl (3.4-5.0) 06/25/17 14:46 INR ~20. Since no life threatening bleeding, 5 PO coumadin given. Case discussed with [facility]. Patient admitted to med/surg observation. Case discussed in detail with admitting physician including history, physical exam and ancillary studies. Admitting physician has assumed care for the patient, will follow all pending diagnostics and will complete the evaluation and treatment. <Mauricio Boyd - Last Filed: 06/25/17 16:43> *DC/Admit/Observation/Transfer - Attestations Scribe Attestion: 06/25/17 15:18 Documentation prepared by Kathie Sandy, acting as medical records receptionist for Mauricio Boyd MD, /DO. <Kathie Sandy - Last Filed: 06/25/17 15:18> - Discharge Dispostion Admit: Yes <Mauricio Boyd - Last Filed: 06/25/17 16:43> Diagnosis at time of Disposition: Elevated INR - Discharge Dispostion Condition at time of disposition: Stable - Referrals Referrals: STAFF,NOT ON [Primary Care Provider] - - Patient Instructions - Post Discharge Activity
[2017-06-25 14:56] LABS: BASO % 1.1 % (0-2.0); EOS # 0.1 #; EOS % 2.3 % (0-4.5); MCH 33.1 pg (25.7-33.7); MCHC 33.4 g/dl (32.0-35.9); MEAN PLT VOLUME 9.5 fl (7.5-11.1); MONO # 0.3 #; NEUT # 2.5 #; NEUT % 63.5 % (42.8-82.8); PLATELET COUNT 80 K/MM3 (134-434); RDW 14.2 % (11.9-15.9)
[2017-06-25 15:56] LABS: GLUCOSE,RANDOM 149 mg/dL (74-106)
[2017-06-25 15:57] LABS: INR 20.13 (0.82-1.09); PROTHROMBIN TIME (PATIENT) 227.5 SEC (9.98-11.88)
[2017-06-25 15:58] LABS: ACTIVATED PTT 154.4 SECONDS (26.9-34.4)
[2017-06-25 15:59] LABS: ALBUMIN 3.4 g/dl (3.4-5.0); ANION GAP 11 (8-16); BILIRUBIN,TOTAL 0.7 mg/dL (0.2-1.0); CALCIUM 9.7 mg/dL (8.5-10.1); CO2 27 mmol/L (21-32); CREATININE 1.2 mg/dL (0.7-1.3); SGOT/AST 31 U/L (15-37); TOT PROT 7.6 g/dl (6.4-8.2)
[2017-06-25 16:00] LABS: ALK PHOS 73 U/L (45-117); CPK 100 IU/L (39-308); SGPT/ALT 36 U/L (12-78); TROPONIN I < 0.02 ng/ml (0.00-0.05)
[2017-06-25] MEDS ORDERED: PHYTONADIONE 5 MG TABLET PO ONE (16:00)
[2017-06-25] MEDS ORDERED: PHYTONADIONE 5 MG TABLET ONE (16:15)
--- NOTE | 2017-06-25 17:00 | HP ---
HISTORY OF PRESENT ILLNESS: Patient is a 57 year old male with a PMHx of HTN, NIDDMII, HLD, History of DVT, thrombocytopenia (unknown etiology) who was sent here today by his PCP due to Warfarin overdose. Patient reports he was initially taking three 2.5mg pills. He refilled his Warfarin on 06/04/17 and patient continued to take the three pills at night. However, when he tried to refill his medications today, the pharmacist told him his refill for the Warfarin is too early because the pills are now 7.5mg and not 2.5mg. Patient realized he was taking 22.5mg of Warfarin nightly and when he spoke to his PCP, he advised him to go to the emergency department. Patient does report having left ear bleeding that started today but states that since he was a child he's had left ear bleeds whenever he is sick. Patient states in the last week he's had cold symptoms such as a dry cough, runny nose and sinus congestion. However, the bleeding in his left ear started today. Otherwise, patient denies any other areas of bleeding or bruising. Patient denies any trauma, falls, or injuries. Patient denies any family history of bleeding disorders. Patient denies fever, chills, nausea, vomiting, abdominal pain, chest pain, palpitations, shortness of breath, acute vision changes, hematuria, melena, hematemesis. Patient has not had a colonoscopy and continues to decline one Patient has not followed up with hired help/oncologist after being advised to PHYSICAL EXAMINATION Vital Signs - 24 hr 06/25/17 06/25/17 13:55 14:56 Temperature 97 F L Pulse Rate 84 Respiratory 18 Rate Blood Pressure 147/77 O2 Sat by Pulse 97 97 Oximetry (%) GENERAL: Awake, alert, and fully oriented, in no acute distress. HEAD: Normal with no signs of trauma. EYES: Pupils equal, round and reactive to light, extraocular movements intact, sclera anicteric, conjunctiva clear. No lid lag. EARS, NOSE, THROAT: Dry and fresh blood in left ear canal. Cerumen plug in right external auditory canal. Oropharynx clear without exudates. Moist mucous membranes. NECK: Normal range of motion, supple without lymphadenopathy, JVD, or masses. LUNGS: Breath sounds equal, clear to auscultation bilaterally. No wheezes, and no crackles. No accessory muscle use. HEART: Regular rate and rhythm, normal S1 and S2 without murmur, rub or gallop. ABDOMEN: Soft, obese, nontender, not distended, normoactive bowel sounds, no guarding, no rebound, no masses. UPPER EXTREMITIES: 2+ pulses, warm, well-perfused. No cyanosis. No clubbing. No peripheral edema. LOWER EXTREMITIES: 1+ pitting edema NEUROLOGICAL: Cranial nerves II-XII intact. Normal speech. motor strength 5/5 throughout with sensory intact. 2+ knee reflexes. 2+ dp pulses bilaterally. No facial droop. PSYCHIATRIC: Cooperative. Good eye contact. Appropriate mood and affect. SKIN: Warm, dry, normal turgor, no rashes or lesions noted, normal capillary refill. Laboratory Results - last 24 hr 06/25/17 06/25/17 06/25/17 14:46 14:46 14:46 WBC 4.0 RBC 4.10 Hgb 13.6 Hct 40.6 MCV 99.0 H MCH 33.1 MCHC 33.4 RDW 14.2 Plt Count 80 L MPV 9.5 Neutrophils % 63.5 Lymphocytes % 25.2 D Monocytes % 7.9 Eosinophils % 2.3 Basophils % 1.1 PT with INR 227.50 H INR 20.13 H* PTT (Actin FS) 154.4 H D Sodium 142 Potassium 3.7 Chloride 104 Carbon Dioxide 27 Anion Gap 11 BUN 21 H Creatinine 1.2 Creat Clearance w eGFR > 60 Random Glucose 149 H Calcium 9.7 Total Bilirubin 0.7 AST 31 D ALT 36 D Alkaline Phosphatase 73 Creatine Kinase 100 Troponin I < 0.02 Total Protein 7.6 Albumin 3.4 EKG: NSR @78 BPM , normal axis and intervals (QTc 444), no TWI or ischemic changes ASSESSMENT/PLAN: Patient is a 57 year old male who was sent by his PCP due to overdose on Warfarin. Patient was found to have INR level >20 and admitted for further monitoring and management. Supratherapeutic INR w/ Left Ear Bleeding -Secondary to Warfarin overdose from dosage confusion. Patient thought he was taking three 2.5mg daily but the pill was a 7.5mg dose. Patient for the past two weeks has been taking 22.5 mg daily. -Some bleeding of the left ear canal but has stopped. Patient reports he's has several episodes of left ear bleeds since childhood -Phytonadione(Vit K.) 5mg PO given once in ED. May continue to give if needed -Continue to hold Warfarin and monitor INR. Will need to carefully monitor reversal of INR as patient does have a history of DVT/PE recently and needs to remain therapeutic -Continue to monitor for any bleeding -Patient denies rectal examination to evaluate for any blood in the stool -ENT consult placed Recent DVT/PE -Patient was recently discharged (04/2017) from here due to unprovoked DVT and PE -Hypercoagulable work up done, which has been negative to date. Patient has not followed up with hired help since then. -Patient also refuses cancer screening such as colonoscopy -Will hold Warfarin for now and continue to monitor INR. Will need to keep him in therapeutic range and avoid subtherapeutic ranges. Thrombocytopenia -Patient has had this since last admission and etiology is unclear. -CT was done , which showed hepatosplenomegaly, which might be the source. However will need a bone marrow biopsy and further outpatient work up. -Will need to avoid anti-platelets such as Aspirin -Continue to monitor CBC -Transfuse platelets if <30 and bleeding HTN -Continue Metoprolol 25mg daily -Continue HCTZ 25mg daily -Continue to monitor BP NIDDMII -Last A1C 04/2017 8.3% -ISS -BGM HLD -Continue Lipitor 10mg daily F/E/N -on no fluids -Electrolytes wnl -Diabetic and sodium controlled diet Prophylaxis -Will hold Warfarin due to Supratherapeutic INR -No GI required Disposition -Full code -Patient will need to be observed overnight for further bleeding. Visit type - Emergency Visit Emergency Visit: Yes ED Registration Date: 06/25/17 Care time: The patient presented to the Emergency Department on the above date and was hospitalized for further evaluation of their emergent condition. - New Patient This patient is new to me today: Yes Date on this admission: 06/25/17 - Critical Care Critical Care patient: No
--- NOTE | 2017-06-25 19:43 | PN ---
Teaching Attending Note Name of Resident: Opal Rico ATTENDING PHYSICIAN STATEMENT I saw and evaluated the patient. I reviewed the resident's note and discussed the case with the resident. I agree with the resident's findings and plan as documented. SUBJECTIVE: CC: was asked to come in due to elevated INR HPI: 57 y/o man with h/o HTN, HLP, recent diagnosis of RLE DVT and PE, chronic back pain, DM and other medical problems who was sent due to elevated INR . there was a confusion in his coumadin doses and by mistake he took 3 7.5 mg tablets insted of 3 2.5 mg tab q PM. today he reported minimal bleed in L ear after using QTip to clean it . he denies melena or hematochezia , he denies bleeding any where else. No EVANS or visual changes. reports recent throat and nose congestion and non productive cough . OBJECTIVE: NAD , AAOX3 HEENT: nl oropharynx, no facial droop, EOMI, round equal pupils , reactive to light , R external auditory canal with a cerumen plug. L canal with dry blood, and can't visualize the L tympanic membrane due to fresh blood seen . CV: RRr, no MRG Lungs: CTAB Ext: 1+ edema Abd: obese , soft, NT, ND , NL BS , liver is not palpated but percussed 2 cm below costal margin Rectal exam : declined by patient EKG : NL [place], sinus rhythm, no ST changes or TWI ASSESSMENT AND PLAN: 57 y/o man with h/o HTN, HLP, recent diagnosis of RLE DVT and PE, chronic back pain, DM and other medical problems who was sent due to elevated INR . 1- Supratherapeutic INR: due to confusion with dosing. has minimal L ear bleed. stopped. given 5 mg of PO Vit K in ER. - will repeat INR in am - if needed, can give Vit K - careful with INR reversal due to recent PE - ENT to evaluate L ear - OB 2- Recent DVT/PE: - hypercoagulable w/u done last admission is neg so far. - need cancer screenign as out pt which he refused - needs to f/u withheme as out pt - hold coumadin 3- Thrombocytopenia : noted last admission. unclear etiology. CT scan of chest reviewed, hepato-splenomegaly seen. Thromocytopenia could be due to splenomegaly, liver pathology, or BM etiology like MDs . - further w/u as out pt - avoid anti plt 4- HTN: cont HCTZ and metoprolol 5- DM : SSI monitor
[2017-06-25] MEDS ORDERED: BENZOCAINE/MENTH/CETYLPYRD CL 1 EACH LOZENGE MM ONE (19:44)
--- NOTE | 2017-06-25 19:53 | HP ---
CHIEF COMPLAINT: unintentional warfarin overdose PCP: Dr. Temo Palmer HISTORY OF PRESENT ILLNESS: 57yo man, active smoker, with PMH of RLE DVT and PE (on Coumadin), NIDDM (last A1c 8.3%), HTN, HLD, and morbid obesity who was sent to ED by his PCP after discovering pt was accidentally taking 3x his prescribed Coumadin dose. Patient was discharged last month on Coumadin for treatment of extentive R LE DVT and PE identified on that admission. He was on a steady dose of 7.5mg Coumadin that Rx as 3 x 2.5mg pills. However, his last refill on 06/04 his Rx was changed to a single 7.5mg tablet daily of which he continued to take 3 each (total dose 22.5mg daily). When he called his pharmacy for a refill the error was discovered. This morning he noticed bleeding from his L ear in the setting of recently using Qtips. Reports no other signs of bleeding including melena, hematochezia, epistaxis, or bruising. No EVANS or visual changes. Endorses URI symptoms for past 1 week including sore throat and non-productive cough. ER course was notable for: (1) INR 20.13 (2) Given 5 mg of PO Vit K (3) Refused guaiac Recent Travel: None PAST MEDICAL HISTORY: see HPI -extensive RLE DVT (distal superficial, femoral, polpiteal and posterior tibial veins) and PE R main pulm artery and subsegmental branches - A/C started on 05/06 -sternal fracture approximately 3 months ago s/p mechanical fall -chronic lower back pain - does PT PAST SURGICAL HISTORY: remote ankle surgery Social History: Smokincigarettes/day Alcohol: 3-4 beers per week Drugs: None Family History: uncle with testicular cancer, no h/o bleeding or clotting disorders Allergies :erythromycin base Allergy (Verified 06/25/17 13:59) HOME MEDICATIONS: Home Medications Medication Instructions Recorded Metformin HCl 500 mg PO BID 03/06/17 Simvastatin 10 mg PO HS 03/06/17 Gabapentin 300 mg PO TID 05/05/17 Hydrochlorothiazide [Hctz -] 25 mg PO DAILY 05/05/17 Metoprolol Succinate [Toprol XL -] 25 mg PO DAILY 30 Days #30 05/08/17 tab.sr.24h Alprazolam [Xanax] 1 mg PO DAILY 06/25/17 Cholecalciferol (Vitamin D3) 1,000 unit PO DAILY 06/25/17 [Vitamin D3 -] Oxycodone HCl/Acetaminophen 1 each PO DAILY PRN 06/25/17 [Percocet 10-325 mg Tablet] Warfarin Sodium 7.5 mg PO DAILY 06/25/17 REVIEW OF SYSTEMS CONSTITUTIONAL: Absent: fever, chills, diaphoresis, generalized weakness, malaise, loss of appetite, weight change HEENT: +throat pain Absent: rhinorrhea, nasal congestion, throat pain, throat swelling, difficulty swallowing, mouth swelling, ear pain, eye pain, visual changes CARDIOVASCULAR: Absent: chest pain, syncope, palpitations, irregular heart rate, lightheadedness , peripheral edema RESPIRATORY: +cough Absent: cough, shortness of breath, dyspnea with exertion, orthopnea, wheezing, stridor, hemoptysis GASTROINTESTINAL: Absent: abdominal pain, abdominal distension, nausea, vomiting, diarrhea, constipation, melena, hematochezia GENITOURINARY: Absent: dysuria, frequency, urgency, hesitancy, hematuria, flank pain, genital pain MUSCULOSKELETAL: +back pain Absent: myalgia, arthralgia, joint swelling, back pain, neck pain SKIN: Absent: rash, itching, pallor HEMATOLOGIC/IMMUNOLOGIC: +L ear bleeding Absent: easy bleeding, easy bruising, lymphadenopathy, frequent infections ENDOCRINE: Absent: unexplained weight gain, unexplained weight loss, heat intolerance, cold intolerance NEUROLOGIC: Absent: headache, focal weakness or paresthesias, dizziness, unsteady gait, seizure, mental status changes, bladder or bowel incontinence PSYCHIATRIC: Absent: anxiety, depression, suicidal or homicidal ideation, hallucinations. PHYSICAL EXAMINATION Vital Signs - 24 hr 06/25/17 06/25/17 06/25/17 13:55 14:56 18:55 Temperature 97 F L 98.1 F Pulse Rate 84 Pulse Rate [ 81 Apical] Respiratory 18 18 Rate Blood Pressure 147/77 Blood Pressure 155/79 [Right Arm] O2 Sat by Pulse 97 97 99 Oximetry (%) GENERAL: pleasant, middle age man, nad, aaox3 HEAD: Normal with no signs of trauma. EYES: PERRLA, EOMI, sclera anicteric, conjunctiva clear ENT: L auricle with crusted blood, fresh blood in external canal, TM not visualized; R TM unable to be visualized 2/2 cerumen, oropharynx clear (no erythema or exudates) NECK: supple, no cervical LAD LUNGS: CTAB HEART: RRR, normal S1/S2, no m/r/g ABDOMEN: protuberant, Soft, ntnd, normoactive BS UPPER EXTREMITIES: 2+ radial pulses, wwp, no peripheral edema LOWER EXTREMITIES: 2+ DP pulses, wwp, trace pitting edema, no calf tenderness NEUROLOGICAL: CN II-XII intact. Motor strength 5/5 in all 4 extremities. Normal speech. PSYCHIATRIC: Cooperative. Good eye contact. Appropriate mood and affect. CBC, BMP 06/25/17 14:46 06/25/17 14:46 Hepatic Panel Total Bilirubin 0.7 mg/dL (0.2-1.0) 06/25/17 14:46 AST 31 U/L (15-37) D 06/25/17 14:46 ALT 36 U/L (12-78) D 06/25/17 14:46 Alkaline Phosphatase 73 U/L (45-117) 06/25/17 14:46 Albumin 3.4 g/dl (3.4-5.0) 06/25/17 14:46 INR, PTT INR 20.13 (0.82-1.09) H* 06/25/17 14:46 Troponin, BNP 06/25/17 14:46 Troponin I < 0.02 EKG: NSR, rate 78, normal axis and intervals (QTc 444), no TWI or ischemic changes ASSESSMENT/PLAN: 57yo man with HTN, HLD, NIDDM, and recently diagnosed PE and RLE DVT who presents after discovery of unintentional overdose of coumadin and found to have INR of 20. #supratherapeutic INR, no signs of active bleeding, non-focal neuro exam, no h/ o trauma -Repeat INR in am, if remains significantly elevated will consider additional Vit K -Pt encouraged to have age appropriate cancer screening, including colonoscopy -Pt refused rectal exam, will try to send sample if has BM -ENT consulted for L ear bleeding #Thrombocytopenia, etiology unclear, w/u thus far negative -Patient will f/u OP #HTN - continue home HCTZ and metoprolol #NIDDM - ISS/BGM ACHS, hold metformin #FEN: PO hydration / lytes wnl / Na, DM diet Dipso: continue Observation FULL code d/w Dr. Lynne Rico MD PGY1 - Internal Medicine Visit type - Emergency Visit Emergency Visit: Yes ED Registration Date: 06/25/17 Care time: The patient presented to the Emergency Department on the above date and was hospitalized for further evaluation of their emergent condition. - New Patient This patient is new to me today: Yes Date on this admission: 06/25/17 - Critical Care Critical Care patient: No
[2017-06-25 20:30] VITALS: BMI 43.2
[2017-06-25] MEDS ORDERED: oxyCODONE HCL 5 MG TABLET PO ONE (21:30)
[2017-06-25] MEDS ORDERED: ALPRAZolam 0.25 MG TABLET PO ONE (21:31)
[2017-06-25] MEDS: GABAPENTIN 300 MG CAPSULE (FP) PO SCH (21:37)
[2017-06-25] MEDS: INSULIN SLIDING SCALE (NOVOLOG) 1 VIAL SQ SCH (21:49)
[2017-06-25] MEDS ORDERED: ATORVASTATIN CA 10 MG TABLET (FP) PO SCH (22:00)
[2017-06-25 23:41] LABS: PROTHROMBIN TIME (PATIENT) 171.5 SEC (9.98-11.88)
[2017-06-25 23:42] LABS: INR 15.1 (0.82-1.09)
[2017-06-26] MEDS ORDERED: MELATONIN 5 MG TABLETS PO ONE (01:36)
[2017-06-26] MEDS ORDERED: ZOLPIDEM TARTRATE 5 MG TABLET PO ONE (03:58)
[2017-06-26 04:15] VITALS: BP 156/97; PULSE 94; TEMP 98.2
[2017-06-26] MEDS: GABAPENTIN 300 MG CAPSULE (FP) PO SCH (05:53)
[2017-06-26] MEDS: INSULIN SLIDING SCALE (NOVOLOG) 1 VIAL SQ SCH (06:02)
[2017-06-26] MEDS ORDERED: PT OWN MED DRAWER 7, Y5N ONE (06:21)
[2017-06-26 07:32] LABS: BASO % 0.8 % (0-2.0); EOS # 0.1 #; EOS % 1.5 % (0-4.5); LYMPH # 1.3; MCH 33.3 pg (25.7-33.7); MCHC 33.4 g/dl (32.0-35.9); MEAN CELL VOLUME 99.8 fl (80-96); MEAN PLT VOLUME 9.5 fl (7.5-11.1); MONO # 0.5 #; NEUT # 3.5 #; NEUT % 65.4 % (42.8-82.8); PLATELET COUNT 78 K/MM3 (134-434); RDW 14.4 % (11.9-15.9); WHITE BLOOD COUNT 5.4 K/mm3 (4.0-10.0)
[2017-06-26 07:58] LABS: PROTHROMBIN TIME (PATIENT) 85.3 SEC (9.98-11.88)
[2017-06-26 08:09] LABS: INR 7.55 (0.82-1.09)
[2017-06-26 08:43] LABS: ALBUMIN 3.4 g/dl (3.4-5.0); ANION GAP 13 (8-16); CO2 26 mmol/L (21-32); GLUCOSE,RANDOM 138 mg/dL (74-106); SGPT/ALT 31 U/L (12-78); TOT PROT 7.5 g/dl (6.4-8.2)
[2017-06-26 08:45] LABS: ALK PHOS 64 U/L (45-117); BILIRUBIN,TOTAL 1.3 mg/dL (0.2-1.0); SGOT/AST 24 U/L (15-37)
--- NOTE | 2017-06-26 09:21 | EKG ---
Test Reason : Blood Pressure : / mmHG Vent. Rate : 078 BPM Atrial Rate : 078 BPM P-R Int : 146 ms QRS Dur : 098 ms QT Int : 390 ms P-R-T Axes : 039 019 021 degrees QTc Int : 444 ms NORMAL SINUS RHYTHM NORMAL ECG WHEN COMPARED WITH ECG OF 05-MAY-2017 21:47, NONSPECIFIC T WAVE ABNORMALITY NO LONGER EVIDENT IN LATERAL LEADS Confirmed by RAY DESIR MD ([id number]) on 06/26/2017 9:20:24 AM Referred By: Confirmed By:RAY DESIR MD
[2017-06-26] MEDS ORDERED: CHOLECALCIFEROL (VITAMIN D3) 400 UNIT TABLET (FP) PO SCH (10:00)
[2017-06-26] MEDS ORDERED: HYDROCHLOROTHIAZIDE 25 MG TABLET (FP) PO SCH (10:00)
[2017-06-26] MEDS ORDERED: METOPROLOL SUCCINATE 25 MG TAB.SR.24H (FP) PO SCH (10:00)
--- NOTE | 2017-06-26 19:00 | DS ---
Physical Exam: HOSPITAL COURSE: Date of Admission:06/25/17 Date of Discharge: 06/26/17 57yo man, active smoker, with PMH of RLE DVT and PE (on Coumadin), NIDDM (last A1c 8.3%), HTN, HLD, and morbid obesity who was sent to ED by his PCP after discovering pt was accidentally taking 3x his prescribed Coumadin dose. Patient was discharged last month on Coumadin for treatment of extentive R LE DVT and PE identified during that admission. He was on a steady dose of 7.5mg Coumadin that was prescribed as 3 x 2.5mg pills. However, his last refill on 06/04, his Rx was changed to a single 7.5mg tablet daily of which he continued to take 3 each (total dose 22.5mg daily). When he called his pharmacy for a refill the error was discovered. This morning he noticed bleeding from his L ear in the setting of recently using Qtips. Reports no other signs of bleeding including melena, hematochezia, epistaxis, or bruising. No EVANS or visual changes. Endorses URI symptoms for past 1 week including sore throat and non-productive cough. ER course was notable for: (1) INR 20.13 (2) Given 5 mg of PO Vit K (3) Refused guaiac Laboratory Tests 06/25/17 06/25/17 06/26/17 14:46 22:00 07:00 INR 20.13 H* 15.10 H* 7.55 H* D Patient's vital signs were stable and repeat INR decreased to 15.10 then 7.55 after the single dose of 5mg PO Vitamin K. He was counseled on the necessity of getting age-appropriate cancer screening. Unfortunately, the patient adamantly refused hospitalization and wanted to leave against medical advice. The patient was told that leaving against medical advice is dangerous and can lead to worsening of his condition, permanent disability, and even . All questions were answered. The patient understood the risks and benefits of continuous hospital stay and leaving against medical advice. He has the capacity to make his own decisions. He agreed to follow-up with his primary medical doctor and return to the Emergency Department if symptoms worsen. The patient's PCP (Dr. Palmer) was notified of the AMA. She reported that the patient had contacted her earlier in the day to set up an appointment next week. Minutes to complete discharge: 40 Discharge Summary Reason For Visit: ELEVATED INR Condition: Stable - Instructions Referrals: STAFF,NOT ON [Primary Care Provider] - Temo Palmer MD [Non Staff, Medical] - Disposition: AGAINST MEDICAL ADVICE - Home Medications Comprehensive Discharge Medication List: Ambulatory Orders Alprazolam [Xanax] 1 mg PO DAILY 06/25/17 Oxycodone HCl/Acetaminophen [Percocet 10-325 mg Tablet] 1 each PO DAILY PRN Cholecalciferol (Vitamin D3) [Vitamin D -] 1,000 unit PO DAILY 7 Days #7 tab Gabapentin 300 mg PO TID #21 capsule 06/26/17 Hydrochlorothiazide [Hctz -] 25 mg PO DAILY #7 tablet 06/26/17 Metformin HCl 500 mg PO BID #14 tablet 06/26/17 Metoprolol Succinate [Toprol XL -] 25 mg PO DAILY 30 Days #7 tab.sr.24h Simvastatin 10 mg PO HS #7 tablet 06/26/17 This patient is new to me today: No Emergency Visit: No Critical Care patient: No - Discharge Referral Referred to [facility] No
== END 2017-06-26 07:36 | disposition left against medical advice (07) ==
LOC: JER 13:45 → JERBED 16:44 → J6S 19:31
PROVIDERS: ADMIT Internal Medicine; ATTEND Internal Medicine
DX: T45.511A Poisoning by anticoagulants, accidental (unintentional), initial encounter (principal); R79.1 Abnormal coagulation profile; Y92.009 Unspecified place in unspecified non-institutional (private) residence as the place of occurrence of the external cause; I10 Essential (primary) hypertension; E78.5 Hyperlipidemia, unspecified; G62.9 Polyneuropathy, unspecified; Z86.718 Personal history of other venous thrombosis and embolism; Z86.711 Personal history of pulmonary embolism; Z79.01 Long term (current) use of anticoagulants; M54.5 Low back pain; G89.29 Other chronic pain; E11.9 Type 2 diabetes mellitus without complications; F17.210 Nicotine dependence, cigarettes, uncomplicated; Z79.84 Long term (current) use of oral hypoglycemic drugs; H92.22 Otorrhagia, left ear; D69.6 Thrombocytopenia, unspecified
CPT/HCPCS: 36415; 80053; 82550; 84484; 85025; 85610; 85730; 93005; 93010; 99285-25; G0378

== ENCOUNTER 2017-07-04 09:40 | Emergency (ER) | payer OTHER ==
[2017-07-04 09:47] VITALS: BP 154/81; PULSE 85; TEMP 97.3; BMI 43.4
--- NOTE | 2017-07-04 10:42 | PDOC ---
History of Present Illness - General Chief Complaint: Ear Problem Stated Complaint: EAR INFECTION Time Seen by Provider: 07/04/17 10:04 History Source: Patient Exam Limitations: No Limitations - History of Present Illness Initial Comments: 07/04/17 10:37 57-year-old male presents to the emergency room for evaluation of bilateral ear evaluation since he states they're still "clogged". Patient states the clogged complaint is not new and has been going on for years and is followed by an ENT specialist. Patient states had to find a reason to call EMS after having a verbal altercation with his son involving the police who recommended that the patient leave the premises. Patient currently has no complaints except the fact that he has nowhere to go and is at this time stating he does not want to go to a snf. Timing/Duration: unsure Associated Symptoms: reports: denies symptoms Past History - Travel Traveled outside of the country in the last 30 days: No - Past Medical History Allergies/Adverse Reactions: Allergies Allergy/AdvReac Type Severity Reaction Status Date / Time erythromycin base Allergy Verified 07/04/17 09:46 Home Medications: Ambulatory Orders Alprazolam [Xanax] 1 mg PO DAILY 06/25/17 Oxycodone HCl/Acetaminophen [Percocet 10-325 mg Tablet] 1 each PO DAILY PRN Cholecalciferol (Vitamin D3) [Vitamin D -] 1,000 unit PO DAILY 7 Days #7 tab Gabapentin 300 mg PO TID #21 capsule 06/26/17 Hydrochlorothiazide [Hctz -] 25 mg PO DAILY #7 tablet 06/26/17 Metformin HCl 500 mg PO BID #14 tablet 06/26/17 Metoprolol Succinate [Toprol XL -] 25 mg PO DAILY 30 Days #7 tab.sr.24h Simvastatin 10 mg PO HS #7 tablet 06/26/17 CVA: No COPD: No Diabetes: Yes HTN: Yes Hypercholesterolemia: Yes Psychiatric Problems: Yes - Suicide/Smoking/Psychosocial Hx Smoking History: Current every day smoker Have you smoked in the past 12 months: Yes Number of Cigarettes Smoked Daily: 10 Information on smoking cessation initiated: No 'Breaking Loose' booklet given: 05/06/17 Hx Alcohol Use: No Drug/Substance Use Hx: No Substance Use Type: None Patient Lives Alone: No Lives with/in: son Review of Systems - Review of Systems Able to Perform ROS?: Yes Constitutional: No: Symptoms Reported HEENTM: No: Symptoms Reported, Ear Pain Respiratory: No: Symptoms reported Cardiac (ROS): No: Symptoms Reported ABD/GI: No: Symptoms Reported Musculoskeletal: No: Symptoms Reported Integumentary: No: Symptoms Reported Neurological: No: Symptoms reported Hematologic/Lymphatic: No: Symptoms Reported *Physical Exam - Vital Signs Last Vital Signs Temp Pulse Resp BP Pulse Ox 97.3 F L 85 18 154/81 97 07/04/17 09:43 07/04/17 09:43 07/04/17 09:43 07/04/17 09:43 07/04/17 09:43 - Physical Exam General Appearance: Yes: Nourished, Appropriately Dressed. No: Apparent Distress HEENT: positive: EOMI, EDWARDO, Pharynx Normal, Other (bilateral ear canal with dried blood. No involvement of tympanic membrane) Respiratory/Chest: positive: Lungs Clear, Normal Breath Sounds. negative: Respiratory Distress, Accessory Muscle Use Cardiovascular: positive: Regular Rhythm, Regular Rate. negative: Murmur Gastrointestinal/Abdominal: positive: Soft. negative: Tenderness Integumentary: positive: Normal Color, Warm, Moist Neurologic: positive: Normal Mood/Affect (anxious), Motor Strength 5/5 Medical Decision Making - Medical Decision Making 07/04/17 10:45 Patient here for social/housing difficulty. Patient states had a verbal altercation involving the police requesting to leave the premises and utilize an ambulance to go to the nearest hospital with "complaints of ear congestion "patient had no acute findings on physical examination and is asymptomatic presently. Called his son who states he does not want the patient back. I have activated patient case coordinator/nursing home social worker for consultation. 07/04/17 10:46 Spoke to patient case coordinatorScarlet and will consult shortly. Pt sitting in waiting area for her *DC/Admit/Observation/Transfer Diagnosis at time of Disposition: Clogged ear - Discharge Dispostion Disposition: HOME Condition at time of disposition: Good - Referrals Referrals: Temo Palmer MD [Primary Care Provider] - - Patient Instructions Printed Discharge Instructions: Warfarin Additional Instructions: Please continue taking your medications as prescribed. Please utilize resources - Post Discharge Activity
== END 2017-07-04 11:16 | disposition home or self-care (01) ==
LOC: JERFT 09:40 → JER 09:40 → JERFT 11:16
DX: H93.8X3 Other specified disorders of ear, bilateral (principal); Z59.0 Homelessness
CPT/HCPCS: 99281-25

== ENCOUNTER 2017-07-05 07:05 | Emergency (ER) | payer OTHER ==
[2017-07-05 07:19] VITALS: BMI 43.4
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
[2017-07-05 12:08] VITALS: BP 120/63; PULSE 66; TEMP 97.7
== END 2017-07-05 11:53 | disposition home or self-care (01) ==
LOC: JER 07:05
DX: H92.03 Otalgia, bilateral (principal); Z59.0 Homelessness; I10 Essential (primary) hypertension; E78.00 Pure hypercholesterolemia, unspecified; E11.9 Type 2 diabetes mellitus without complications; Z79.84 Long term (current) use of oral hypoglycemic drugs
CPT/HCPCS: 99281-25

== ENCOUNTER 2017-09-21 12:39 | Emergency (ER) | payer OTHER ==
[2017-09-21 12:45] VITALS: TEMP 98.2; BMI 40.1
[2017-09-21] MEDS ORDERED: METOCLOPRAMIDE HCL 10 MG TABLET (FP) PO ONE ×2 (16:53→17:25)
[2017-09-21] MEDS ORDERED: ACETAMINOPHEN 1000 MG/100 ML VIAL (NON FORMULARY) IVPB ONE (16:53)
[2017-09-21] MEDS ORDERED: SODIUM CHLORIDE 1,000 ML IV STA (16:53)
[2017-09-21] MEDS ORDERED: ACETAMINOPHEN INJECTION 100 ML IVPB ONE (17:11)
[2017-09-21 17:35] LABS: BASO % 0.6 % (0-2.0); EOS % 1.3 % (0-4.5); HEMATOCRIT 45.7 % (35.4-49); HEMOGLOBIN 15.6 GM/dL (11.7-16.9); LYMPH % 29.5 % (8-40); MCH 34.4 pg (25.7-33.7); MCHC 34.2 g/dl (32.0-35.9); MEAN CELL VOLUME 100.5 fl (80-96); MEAN PLT VOLUME 9.5 fl (7.5-11.1); MONO % 7.6 % (3.8-10.2); PLATELET COUNT 129 K/MM3 (134-434); RBC 4.54 M/mm3 (4.00-5.60); RDW 15.1 % (11.9-15.9); WHITE BLOOD COUNT 9.2 K/mm3 (4.0-10.0)
[2017-09-21 17:55] LABS: INR 2.73 (0.82-1.09); PROTHROMBIN TIME (PATIENT) 30.8 SEC (9.98-11.88)
[2017-09-21 17:58] LABS: ACTIVATED PTT 38.5 SECONDS (26.9-34.4)
--- NOTE | 2017-09-21 18:42 | PDOC ---
History of Present Illness - General Chief Complaint: Headache Stated Complaint: BACK PAIN, HEADACHES Time Seen by Provider: 09/21/17 16:39 History Source: Patient Exam Limitations: No Limitations - History of Present Illness Initial Comments: 09/21/17 18:36 This 57-year-old male presents to the emergency room with complaints of lower back pain, leg pain, headache. He comes in to show me all of his medications in his bag which include Tylenol, Neurontin, Xanax, and he states that none of these have worked. He recently was started on Lexapro and feels that this could possibly be causing his headaches. He also states that he's been having multiple episodes of stress and anxiety due to the loss of his home recently and having to move in with other family members. Past medical history of herniated disks, hypertension, neuropathy, chronic lower back pain, hyperlipidemia. Also with a DVT and on Coumadin but has not had it checked in over 3 months Past History - Past Medical History Allergies/Adverse Reactions: Allergies Allergy/AdvReac Type Severity Reaction Status Date / Time erythromycin base Allergy Verified 09/21/17 12:41 Home Medications: Ambulatory Orders Alprazolam [Xanax] 1 mg PO DAILY 06/25/17 Oxycodone HCl/Acetaminophen [Percocet 10-325 mg Tablet] 1 each PO DAILY PRN Benzonatate [Tessalon Pearls -] 100 mg PO TID #21 capsule 07/05/17 Cholecalciferol (Vitamin D3) [Vitamin D -] 1,000 unit PO DAILY 7 Days #7 tab 01/13 Gabapentin 300 mg PO TID #21 capsule 07/05/17 Hydrochlorothiazide [Hctz -] 25 mg PO DAILY #7 tablet 07/05/17 Metformin HCl 500 mg PO BID #14 tablet 07/05/17 Metoprolol Succinate [Toprol XL -] 25 mg PO DAILY 30 Days #7 tab.sr.24h Simvastatin 10 mg PO HS #7 tablet 07/05/17 Cardiac Disorders: Yes (P.E) CVA: No COPD: No DVT: No Diabetes: Yes HTN: Yes Hypercholesterolemia: Yes Psychiatric Problems: Yes (ANXEITY) Other medical history: RLE DVT - Suicide/Smoking/Psychosocial Hx Smoking History: Current every day smoker Have you smoked in the past 12 months: Yes Number of Cigarettes Smoked Daily: 20 Information on smoking cessation initiated: Yes 'Breaking Loose' booklet given: 09/21/17 Hx Alcohol Use: No Drug/Substance Use Hx: No Substance Use Type: Alcohol Review of Systems - Review of Systems Able to Perform ROS?: Yes Comments:: 09/21/17 18:38 General statement: Patient is a poor historian and states that multiple complaints of pain and issues with every system that is discussed with him Hematology: Positive history of bleeding/blood thinners Skin: Neg for lesions, rash, bruising. HEENT: Neg symptoms Respiratory: Neg SOB or difficulty in breathing Cardiac: Neg chest pain GI: Neg pain, n/v : Neg problems on voiding MS: Neg for joint pain/stiffness, no edema positive back pain, positive lower extremity pain Neuro: Neg for LOC, weakness, Endocrine: Neg for excess thirst/hunger, cold/heat intolerance, excess sweating Allergies: Neg for allergies *Physical Exam - Vital Signs Last Vital Signs Temp Pulse Resp BP Pulse Ox 98.2 F 90 18 120/70 100 09/21/17 12:42 09/21/17 12:42 09/21/17 12:42 09/21/17 12:42 09/21/17 12:42 - Physical Exam Comments: 09/21/17 18:38 General Appearance: This well appearing 57-year-old male with multiple complaints V/S: hemodynamically stable, afebrile Skin: WNL of pt's skin color, no signs of pallor, mottling, cyanosis Head:symmetrical but states he has a headache but has not taken anything for for 2 weeks Eyes: EOM's intact, PERRLA Ears: denies pain Nose: patent Throat: lips, teeth, gums, tongue, buccal mucos pink and moist Lungs: Chest symmetry equal. Cap refill <3 seconds. Lung sounds clear Cardiac: PMI at R 4MCL space, pos S1 and S2, regular rate. Abdomen: Soft, round, nontender : Not observed Muscularskeletal: Gait steady, ambulated in to ER, no edema +PMS complaints of lower extremity pain as well as lower back pain which she states is chronic Neuro: AAOx3, cognitively intact, speech clear and appropriate. ED Treatment Course - LABORATORY CBC & Chemistry Diagram: 09/21/17 16:58 09/21/17 16:58 - ADDITIONAL ORDERS Additional order review: Laboratory Results 09/21/17 16:58 PT with INR 30.80 H INR 2.73 H D PTT (Actin FS) 38.5 H D 09/21/17 16:58 RBC 4.54 MCV 100.5 H MCHC 34.2 RDW 15.1 MPV 9.5 Neutrophils % 61.0 Lymphocytes % 29.5 D Monocytes % 7.6 Eosinophils % 1.3 Basophils % 0.6 - Medications Given in the ED: ED Medications Discontinued Medications Generic Name Dose Route Start Last Admin Trade Name Kamila PRN Reason Stop Dose Admin Acetaminophen 1,000 mg 09/21/17 16:53 09/21/17 17:20 Ofirmev Injection - IVPB 09/21/17 16:54 1,000 mg ONCE ONE Administration Sodium Chloride 1,000 mls @ 1,000 mls/hr 09/21/17 16:53 09/21/17 17:20 Normal Saline - IV 09/21/17 17:52 1,000 mls/hr ASDIR STA Administration Metoclopramide HCl 10 mg 09/21/17 16:53 09/21/17 17:26 Reglan - PO 09/21/17 16:54 10 mg ONCE ONE Administration Medical Decision Making - Medical Decision Making 09/21/17 18:39 Patient initially seen and examined. Patient has multiple complaints and is requesting some pain medication for his lower back pain. Patient is seeming to base of little bit lethargic however he is arousable. I have I stopped the patient and found he does not have any narcotics/opiates that have been ordered for him. Plan, UA Urine tox Alcohol Labs Coags IV fluid Reglan for headache Tylenol 09/21/17 18:41 Laboratory Tests 09/21/17 09/21/17 16:58 16:58 WBC 9.2 D Hgb 15.6 D Hct 45.7 Plt Count 129 L D PT with INR 30.80 H INR 2.73 H D PTT (Actin FS) 38.5 H D Labs and tox screen are pending. I am signing this patient out to my colleague: STEPHON Hermosillo In brief, this patient is being seen in the ED for a chief complaint of: Lower back pain, multiple complaints of pain, seeking pain medication, I have completed the initial assessment interview note and have ordered: Tox screen, IV fluids, Reglan, Tylenol I have reviewed the following results: CBC and INR Please call the PCP: Not on staff Plan for disposition is as follows: Once workup is complete patient will probably be discharged as he is therapeutic on his Coumadin with an INR of 2.73. *DC/Admit/Observation/Transfer Diagnosis at time of Disposition: Low back pain - Referrals Referrals: Temo Palmer MD [Primary Care Provider] - - Patient Instructions - Post Discharge Activity
[2017-09-21 19:08] LABS: URINE APPEARANCE SLCLOUDY; URINE BILIRUBIN NEGATIVE (<2.0 mg/dL); URINE BLOOD NEGATIVE (NEGATIVE); URINE COLOR AMBER; URINE GLUCOSE (UA) NEGATIVE (NEGATIVE); URINE KETONE NEGATIVE (NEGATIVE); URINE LEUK ESTERASE NEGATIVE (NEGATIVE); URINE NITRITE NEGATIVE (NEGATIVE); URINE PROTEIN 1+ (NEGATIVE)
[2017-09-21 19:13] LABS: URINE AMPHETAMINES NEGATIVE ng/ml (CUTOFF=500)
[2017-09-21 19:14] LABS: COCAINE, UR NEGATIVE ng/ml (CUTOFF=300); METHADONE, UR NEGATIVE ng/ml (CUTOFF=300); OPIATES, URI NEGATIVE ng/ml (CUTOFF=300); PHENCYCLIDINE,URINE NEGATIVE ng/ml (CUTOFF=25); URINE BARBITURATES NEGATIVE ng/ml (CUTOFF=200); URINE BENZODIAZEPINES NEGATIVE ng/ml (CUTOFF=200)
[2017-09-21 19:34] LABS: AMORP URATES FEW /hpf (NONE SEEN); URIC ACID CRYSTALS RARE /hpf (NONE SEEN)
[2017-09-21 19:35] LABS: URINE MUCUS 1+
[2017-09-21 20:03] LABS: ALBUMIN 3.5 g/dl (3.4-5.0); ANION GAP 9 (8-16); BLOOD UREA NITROGEN 34 mg/dL (7-18); CALCIUM 8.7 mg/dL (8.5-10.1); CHLORIDE 105 mmol/L (98-107); CO2 23 mmol/L (21-32); GLUCOSE,RANDOM 113 mg/dL (74-106); POTASSIUM 3.6 mmol/L (3.5-5.1); SGOT/AST 17 U/L (15-37); SGPT/ALT 32 U/L (12-78); SODIUM 137 mmol/L (136-145)
[2017-09-21 20:05] LABS: ALK PHOS 55 U/L (45-117); BILIRUBIN,TOTAL 0.7 mg/dL (0.2-1.0); TOT PROT 6.8 g/dl (6.4-8.2)
--- NOTE | 2017-09-21 20:16 | PDOC ---
*Physical Exam - Vital Signs Last Vital Signs Temp Pulse Resp BP Pulse Ox 98.2 F 55 L 18 147/70 95 09/21/17 12:42 09/21/17 19:16 09/21/17 19:16 09/21/17 19:18 09/21/17 19:16 - Physical Exam General Appearance: Yes: Appropriately Dressed Respiratory/Chest: positive: Lungs Clear, Normal Breath Sounds Gastrointestinal/Abdominal: positive: Normal Bowel Sounds, Soft Musculoskeletal: positive: Normal Inspection Neurologic: positive: rabbit fancier II-XII NML intact, Fully Oriented, Alert, Normal Mood/ Affect, Normal Response, Motor Strength 10/31 ED Treatment Course - LABORATORY CBC & Chemistry Diagram: 09/21/17 16:58 09/21/17 19:10 - ADDITIONAL ORDERS Additional order review: Laboratory Results 09/21/17 09/21/17 09/21/17 17:05 16:58 16:58 PT with INR INR PTT (Actin FS) Sodium Cancelled Potassium Cancelled Chloride Cancelled Carbon Dioxide Cancelled Anion Gap Cancelled BUN Cancelled Creatinine Cancelled Creat Clearance w eGFR Cancelled Random Glucose Cancelled Calcium Cancelled Total Bilirubin Cancelled AST Cancelled ALT Cancelled Alkaline Phosphatase Cancelled Total Protein Cancelled Albumin Cancelled Urine Color Urine Appearance Urine pH Ur Specific [place] Urine Protein Urine Glucose (UA) Urine Ketones Urine Blood Urine Nitrite Urine Bilirubin Urine Urobilinogen Ur Leukocyte Esterase Urine WBC (Auto) Urine RBC (Auto) Uric Acid Crystals Amorphous Urates Urine Mucus Opiates Screen Negative Methadone Screen Negative Barbiturate Screen Negative Phencyclidine Screen Negative Ur Amphetamines Screen Negative MDMA (Ecstasy) Screen Negative Benzodiazepines Screen Negative Cocaine Screen Negative U Marijuana (THC) Screen Negative Alcohol, Quantitative < 5.0 09/21/17 09/21/17 16:58 16:58 PT with INR 30.80 H INR 2.73 H D PTT (Actin FS) 38.5 H D Sodium Potassium Chloride Carbon Dioxide Anion Gap BUN Creatinine Creat Clearance w eGFR Random Glucose Calcium Total Bilirubin AST ALT Alkaline Phosphatase Total Protein Albumin Urine Color Ro Urine Appearance Slcloudy Urine pH 5.0 Ur Specific [place] 1.024 Urine Protein 1+ H Urine Glucose (UA) Negative Urine Ketones Negative Urine Blood Negative Urine Nitrite Negative Urine Bilirubin Negative Urine Urobilinogen 2.0 Ur Leukocyte Esterase Negative Urine WBC (Auto) 0-3 Urine RBC (Auto) 0-3 Uric Acid Crystals Rare Amorphous Urates Few Urine Mucus 1+ Opiates Screen Methadone Screen Barbiturate Screen Phencyclidine Screen Ur Amphetamines Screen MDMA (Ecstasy) Screen Benzodiazepines Screen Cocaine Screen U Marijuana (THC) Screen Alcohol, Quantitative 09/21/17 16:58 RBC 4.54 MCV 100.5 H MCHC 34.2 RDW 15.1 MPV 9.5 Neutrophils % 61.0 Lymphocytes % 29.5 D Monocytes % 7.6 Eosinophils % 1.3 Basophils % 0.6 - RADIOLOGY Radiology Studies Ordered: Category Date Time Status HEAD CT WITHOUT CONTRAST [CT] Stat CT Scan 09/21/17 20:11 Ordered - Medications Given in the ED: ED Medications Discontinued Medications Generic Name Dose Route Start Last Admin Trade Name Freq PRN Reason Stop Dose Admin Acetaminophen 1,000 mg 09/21/17 16:53 09/21/17 17:20 Ofirmev Injection - IVPB 09/21/17 16:54 1,000 mg ONCE ONE Administration Sodium Chloride 1,000 mls @ 1,000 mls/hr 09/21/17 16:53 09/21/17 17:20 Normal Saline - IV 09/21/17 17:52 1,000 mls/hr ASDIR STA Administration Metoclopramide HCl 10 mg 09/21/17 16:53 09/21/17 17:26 Reglan - PO 09/21/17 16:54 10 mg ONCE ONE Administration Medical Decision Making - Medical Decision Making 09/21/17 20:13 patient is c/o headache(new onset) and lower back pain which is chronic. patient is on coumadin. will CT head r/o acute bleed, pending chemistry. pain control patient reports that he is currently under a lot of stress due to housing. he is going to living with his son. 09/21/17 21:41 patient is evaluated by care management team for potential available services. patient is currently homeless. patient feels better. will d/ c pending cab pickup. *DC/Admit/Observation/Transfer Diagnosis at time of Disposition: Elevated serum creatinine Low back pain Qualifiers: Chronicity: acute Back pain laterality: unspecified Sciatica presence: without sciatica Qualified Code(s): M54.5 - Low back pain Headache Qualifiers: Headache type: tension-type Headache chronicity pattern: acute headache Intractability: not intractable Qualified Code(s): G44.209 - Tension-type headache, unspecified, not intractable - Discharge Dispostion Disposition: HOME - Prescriptions Prescriptions: Oxycodone HCl/Acetaminophen [Percocet 5-325 mg Tablet] 1 tab PO Q6H PRN #10 tablet MDD 4 PRN Reason: Back Pain - Referrals Referrals: Temo Palmer MD [Primary Care Provider] - - Patient Instructions Printed Discharge Instructions: Low Back Pain Additional Instructions: drink plenty of fluids. follow up with your doctor as soon as possible. take percocet every 6 hours as needed for breakthrough pain. follow up with your pain management doctor. return to the ER if symptoms worsen - Post Discharge Activity
[2017-09-21] MEDS ORDERED: morphine CARPU-JECT 4 MG/1 ML DISP.SYRIN IVPUSH ONE (21:07)
[2017-09-21] MEDS ORDERED: morphine SULFATE 4 MG/ML VIAL ONE (21:17)
[2017-09-21 22:26] VITALS: BP 116/65; PULSE 76
== END 2017-09-21 23:11 | disposition home or self-care (01) ==
LOC: JER 12:39
PROC: 3E033NZ Introduction of Analgesics, Hypnotics, Sedatives into Peripheral Vein, Percutaneous Approach (ICD-10-PCS; principal; 2017-09-21)
PROC: 3E033NZ Introduction of Analgesics, Hypnotics, Sedatives into Peripheral Vein, Percutaneous Approach (ICD-10-PCS; 2017-09-21)
DX: M54.5 Low back pain (principal); G44.209 Tension-type headache, unspecified, not intractable; R94.4 Abnormal results of kidney function studies; I10 Essential (primary) hypertension; E11.9 Type 2 diabetes mellitus without complications; Z79.84 Long term (current) use of oral hypoglycemic drugs; E78.5 Hyperlipidemia, unspecified; E78.00 Pure hypercholesterolemia, unspecified; D41.9 Neoplasm of uncertain behavior of unspecified urinary organ; F17.210 Nicotine dependence, cigarettes, uncomplicated; Z86.718 Personal history of other venous thrombosis and embolism; Z79.01 Long term (current) use of anticoagulants
CPT/HCPCS: 36415; 70450-TC; 80053; 80307; 81003; 81015; 85025; 85610; 85730; 96374; 96375; 99283-25; J0131; J7030

== ENCOUNTER 2017-10-11 14:30 | Inpatient (IN) | payer OTHER ==
[2017-10-11 14:37] VITALS: BMI 40.6
--- NOTE | 2017-10-11 14:48 | PDOC ---
Attending Attestation - HPI HPI: 10/11/17 15:18 The patient is a 58 M, with a PMHx of RLE DVT, PE (on coumadin), NIDDM, HTN, HLD , and morbid obesity, who presents to the ED for palpitations. Patient states that earlier today he was walking to visit his son when he developed palpitations. He states that he felt like his heart was beating out of his chest. He reports that yesterday he drank about 5-6 Guinness and he states that he doesn't normally drink due to all the medications he normally takes. He also noticed that his right leg became swollen this morning. Social Hx: Homeless. Current everyday tobacco use. Occasional EtOH use. He denies any recent fevers, chills, headache or dizziness. He denies any recent nausea, vomit, diarrhea or constipation. He denies any recent chest pain or shortness of breath. He denies any recent dysuria, frequency, urgency or hematuria. - Physicial Exam PE: 10/11/17 15:18 Constitutional: Awake, alert, oriented. No acute distress. Head: Normocephalic. Atraumatic Eyes: PERRL. EOMI. Conjunctivae are not pale. ENT: Mucous membranes are dry. Posterior pharynx without exudates or erythema. Uvula midline. Neck: Supple. Full ROM. No lymphadenopathy. Cardiovascular: Regular rate. Regular rhythm. S1, S2 regular. Distal pulses are 2+ and symmetric. Pulmonary/Chest: Tachypneic. No evidence of respiratory distress. Clear to auscultation bilaterally No wheezing, rales or rhonchi. Abdominal: obese, soft and non-distended. There is no tenderness. No rebound , guarding or rigidity. No organomegaly. No palpable masses. Good bowel sounds. Back: No CVA tenderness. Musculoskeletal: 2+ pitting edema in right leg. Calf tenderness. No cyanosis. No clubbing. Full range of motion in all extremities. Radial/pedal pulses are intact and 2+ bilaterally. Skin: Skin is warm and dry. No petechiae. No purpura. Neurological: Alert and oriented to person, place, and time. Cranial nerves II -XII are grossly intact. Normal speech. Strength is grossly symmetric. No sensory deficits. Psychiatric: Good eye contact. Normal interaction, affect and behavior. <Ashanti Messina - Last Filed: 10/11/17 15:30> - Resident Resident Name: Du Yoo - ED Attending Attestation I have performed the following: I have examined & evaluated the patient, The case was reviewed & discussed with the resident, I agree w/resident's findings & plan, Exceptions are as noted - Medical Decision Making 10/11/17 14:47 I, Dr. Sheila Macias, DO, attest that this document has been prepared under my direction and personally reviewed by me in its entirety. I further attest, that it accurately reflects all work, treatment, procedures and medical decision -making performed by me. 10/11/17 15:07 a/p: 57yo male with palpitations this AM -hx of DVT/pe on coumadin -also a hx of dm, htn, hld, obesity, tobacco use -with etoh use yesterday, today with leg pain and palpitations -risk factors for acs and for recurrent pe/dvt -will check labs, ct chest, ekg, doppler, appears dehydrated one exam- will give ivf hydration mild hand tremors, no tongue fasciculations - poss from etoh use yesterday 10/11/17 16:34 low wbc, low plts, supratherapeutic inr, + etoh, low magnesium on labs concern for alcoholic liver disease banana bag given will replace mag will need to stay in the hospital for further eval and management. 10/11/17 18:15 mildly elevated trop and CK - however supratherapeutic inr and low plts - concern for bleeding with ASA. no cp. will repeat trop and monitor trend. 10/11/17 18:56 will keep patient in obs under SYMPHONY <Sheila Macias - Last Filed: 10/11/17 18:56> Heart Score/ECG Review - ECG Intrepretation Comment:: 10/11/17 15:06 sinus at 95, nl axis, nl interval, t wave inversions III, pvc, no acute st/t wave findings <Sheila Macias - Last Filed: 10/11/17 18:56>
[2017-10-11] MEDS ORDERED: SODIUM CHLORIDE 0.9% 1000 ML INFUS.BAG IV ONE (15:04)
--- NOTE | 2017-10-11 15:04 | PDOC ---
History of Present Illness <Ashanti Messina - Last Filed: 10/11/17 18:20> - History of Present Illness Initial Comments: 10/11/17 15:12 The patient is a 57 year old male with a history of HTN, HLD, PE, DM who presents for evaluation of palpitations. The patient reports a several hour history of sensation of palpitations and a pounding heart beginning earlier this morning prompting his presentation to the ED for evaluation. The patient states that he did consume alcohol and cigarrettes yesterday and has been feeling somewhat anxious and "shaky" this morning. He otherwise denies fevers, chills, SOB, chest pain, abdominal pain, nausea, vomiting, leg swelling, or changes with urination or bowel movements. <Du Yoo - Last Filed: 10/12/17 12:33> - General Chief Complaint: Chest Pain Stated Complaint: CHEST PAIN Time Seen by Provider: 10/11/17 14:38 Past History <Ashanti Messina - Last Filed: 10/11/17 18:20> - Past Medical History Cardiac Disorders: Yes (P.E) CVA: No COPD: No DVT: No Diabetes: Yes HTN: Yes Hypercholesterolemia: Yes Psychiatric Problems: Yes (ANXEITY) - Suicide/Smoking/Psychosocial Hx Smoking History: Current every day smoker Have you smoked in the past 12 months: Yes Number of Cigarettes Smoked Daily: 20 Information on smoking cessation initiated: No 'Breaking Loose' booklet given: 09/21/17 Hx Alcohol Use: No Drug/Substance Use Hx: No Substance Use Type: Alcohol <Du Yoo - Last Filed: 10/12/17 12:33> - Past Medical History Allergies/Adverse Reactions: Allergies Allergy/AdvReac Type Severity Reaction Status Date / Time erythromycin base Allergy Verified 10/11/17 14:37 Home Medications: Ambulatory Orders Cholecalciferol (Vitamin D3) [Vitamin D -] 1,000 unit PO DAILY 7 Days #7 tab 01/13 Gabapentin 300 mg PO TID #21 capsule 07/05/17 Hydrochlorothiazide [Hctz -] 25 mg PO DAILY #7 tablet 07/05/17 Metformin HCl 500 mg PO BID #14 tablet 07/05/17 Simvastatin 10 mg PO HS #7 tablet 07/05/17 Acetaminophen [Tylenol Arthritis] 1,300 mg PO Q8H PRN 10/11/17 Escitalopram Oxalate [Lexapro -] 10 mg PO DAILY 10/11/17 Lisinopril 5 mg PO DAILY 10/11/17 Tizanidine HCl 2 mg PO TID PRN 10/11/17 Warfarin Na [Coumadin] 1 mg PO DAILY 10/11/17 Review of Systems - Review of Systems Comments:: 10/11/17 15:18 Constitutional: No fevers, chills, fatigue, malaise HEENT: No Rhinorrhea, nasal congestion, visual changes Cardiovascular: Palpitations. No chest pain, syncope, lightheadedness Respiratory: No Cough, SOB, Hemoptysis, Gastrointestinal: No Abdominal pain, Nausea, Vomiting, Constipation, Diarrhea, Melena Genitourinary: No Dysuria, Frequency, Urgency, Hesitancy, Hematuria, Flank pain Musculoskeletal: No Myalgia, arthralgia Skin: No rashes, itching, bruising, pallor Neurologic: No Headache, Dizziness, Numbness, Weakness, or Tingling Psychiatric: No Hallucinations. No SI or HI <Du Yoo - Last Filed: 10/12/17 12:33> *Physical Exam - Vital Signs Last Vital Signs Temp Pulse Resp BP Pulse Ox 98.4 F 95 H 18 150/85 97 10/11/17 14:31 10/11/17 17:40 10/11/17 17:40 10/11/17 17:40 10/11/17 17:40 <Ashanti Messina - Last Filed: 10/11/17 18:20> - Vital Signs Last Vital Signs Temp Pulse Resp BP Pulse Ox 98.4 F 16 0/0 100 10/11/17 14:31 10/11/17 14:31 10/11/17 14:31 10/11/17 14:31 - Physical Exam Comments: 10/11/17 15:19 General Appearance: Nourished. No Apparent Distress HEENT: EOMI, EDWARDO. No Pharyngeal Erythema, Tonsillar Exudate, Tonsillar Erythema Neck: No Cervical Lymphadenopathy Respiratory/Chest: Lungs Clear, Normal Breath Sounds. No Crackles, Rales, Rhonchi, Wheezing Cardiovascular: Regular Rhythm, Regular Rate. No Murmur, Gallops, Rubs Gastrointestinal/Abdominal: Normal Bowel Sounds, Soft. No Guarding, Rebound, Tenderness Musculoskeletal: No CVA Tenderness Extremity: Normal Capillary Refill Integumentary: Normal Color, Dry, Warm Neurologic: Mildly tremulous on exam. Fully Oriented, Alert, Normal Mood/ Affect, Normal Response, <Sergio Yooel - Last Filed: 10/12/17 12:33> Heart Score/ECG Review #1 ECG reviewed & interpreted by me at: 15:03 (Prolonged QT interval) General ECG Interpretation: Sinus Rhythm, Normal Rate (95), No acute ischemic changes <Du Yoo - Last Filed: 10/12/17 12:33> ED Treatment Course - LABORATORY CBC & Chemistry Diagram: 10/11/17 15:00 10/11/17 15:00 - ADDITIONAL ORDERS Additional order review: Laboratory Results 10/11/17 10/11/17 10/11/17 15:00 15:00 15:00 PT with INR 64.70 H INR 5.73 H* D PTT (Actin FS) 44.8 H Sodium 147 H Potassium 3.8 Chloride 113 H Carbon Dioxide 24 Anion Gap 10 BUN 6 L D Creatinine 0.8 D Creat Clearance w eGFR > 60 Random Glucose 85 D Calcium 8.3 L Magnesium 1.1 L D Total Bilirubin 0.7 AST 47 H D ALT 37 Alkaline Phosphatase 60 Creatine Kinase 342 H Creatine Kinase Index 1.7 CK-MB (CK-2) 6.095 H Troponin I 0.09 H D B-Natriuretic Peptide 291.32 H Total Protein 6.8 Albumin 3.4 TSH 2.58 D Alcohol, Quantitative 49.84 H* 10/11/17 15:00 RBC 3.59 L D MCV 101.8 H MCHC 34.1 RDW 15.5 MPV 8.8 Neutrophils % 58.2 Lymphocytes % 29.4 Monocytes % 9.7 Eosinophils % 1.3 Basophils % 1.4 - RADIOLOGY Radiograph Interpretation: 10/11/17 18:20 Patient Name: NATHALIE JORDAN THIS IS A PRELIMINARY REPORT FROM [facility] DATE OF SERVICE: 2017-10-11 16:46:48 EXAM: Duplex venous bilateral lower extremities REASON FOR EXAM: Bilateral leg swelling FINDINGS: No evidence of deep venous thrombosis in the visualized segments of the right or left lower extremity deep venous system. Tre Gonzalez MD 10/11/2017 18:05 EST - Medications Given in the ED: ED Medications Discontinued Medications Generic Name Dose Route Start Last Admin Trade Name Freq PRN Reason Stop Dose Admin Sodium Chloride 500 ml 10/11/17 15:04 10/11/17 15:39 Normal Saline - IV 10/11/17 15:05 500 ml ONCE ONE Administration <Ashanti Messina - Last Filed: 10/11/17 18:20> - LABORATORY CBC & Chemistry Diagram: 10/12/17 06:00 10/12/17 06:00 - RADIOLOGY Radiology Studies Ordered: Category Date Time Status CHEST CTA [CT] Stat CT Scan 10/11/17 15:01 Ordered <NailaDu - Last Filed: 10/12/17 12:33> Medical Decision Making - Medical Decision Making 10/11/17 15:21 The patient is a 57 year old male with a history of HTN, HLD, PE, DM who presents for evaluation of palpitations. Differential includes but is not limited to: ACS, PE, Arrythmia, Withdrawal, Infectious, Metabolic derangement. Given the patient's history of PE, we will obtain a cbc, cmp, coags, alcohol level, tsh, troponin, and CTA of the chest to evaluate further for possible etiologies of the patient's symptoms. We will continue to monitor and reassess while here in the ED. 10/11/17 17:29 CBC demonstrates a leukopenia to 2.2 and platelet count of 68. CMP demonstrates a sodium of 147, mag of 1.1 alcohol level of 49. Coags demonstrate an elevated inr to 5. Given the patient's lab abnormalities likely due to alcoholic liver disease as well continued symptoms here in the ED, we believe the patient requires admission for further management and monitoring of the patient's condition. We discussed the case with the hospitalist team who accepted the patient for admission. <Du Yoo - Last Filed: 10/12/17 12:33> *DC/Admit/Observation/Transfer <Ashanti Messina - Last Filed: 10/11/17 18:20> - Discharge Dispostion Admit: Yes <Du Yoo - Last Filed: 10/12/17 12:33> Diagnosis at time of Disposition: Palpitations, Elevated troponin, Elevated INR, SOB (shortness of breath) - Discharge Dispostion Condition at time of disposition: Stable
[2017-10-11 15:42] LABS: BASO % 1.4 % (0-2.0); EOS % 1.3 % (0-4.5); HEMATOCRIT 36.5 % (35.4-49); HEMOGLOBIN 12.5 GM/dL (11.7-16.9); LYMPH % 29.4 % (8-40); MCH 34.8 pg (25.7-33.7); MCHC 34.1 g/dl (32.0-35.9); MEAN CELL VOLUME 101.8 fl (80-96); MEAN PLT VOLUME 8.8 fl (7.5-11.1); MONO % 9.7 % (3.8-10.2); NEUT % 58.2 % (42.8-82.8); PLATELET COUNT 68 K/MM3 (134-434); RBC 3.59 M/mm3 (4.00-5.60); RDW 15.5 % (11.9-15.9); WHITE BLOOD COUNT 2.2 K/mm3 (4.0-10.0)
[2017-10-11 15:54] LABS: PROTHROMBIN TIME (PATIENT) 64.7 SEC (9.98-11.88)
[2017-10-11 15:57] LABS: ACTIVATED PTT 44.8 SECONDS (26.9-34.4)
[2017-10-11 16:06] LABS: ALBUMIN 3.4 g/dl (3.4-5.0); ANION GAP 10 (8-16); BILIRUBIN,TOTAL 0.7 mg/dL (0.2-1.0); BLOOD UREA NITROGEN 6 mg/dL (7-18); CALCIUM 8.3 mg/dL (8.5-10.1); CHLORIDE 113 mmol/L (98-107); CO2 24 mmol/L (21-32); CREATININE 0.8 mg/dL (0.7-1.3); GLUCOSE,RANDOM 85 mg/dL (74-106); MAGNESIUM 1.1 mg/dL (1.8-2.4); POTASSIUM 3.8 mmol/L (3.5-5.1); SGOT/AST 47 U/L (15-37); SGPT/ALT 37 U/L (12-78); SODIUM 147 mmol/L (136-145); TOT PROT 6.8 g/dl (6.4-8.2)
[2017-10-11 16:09] LABS: ALK PHOS 60 U/L (45-117)
[2017-10-11 16:16] LABS: INR 5.73 (0.82-1.09)
[2017-10-11] MEDS ORDERED: FOLIC ACID INJECTION - 1 MG, THIAMINE HCL 100 MG, MULTIVIT INJECTION ADULT 10 ML in SOD... IVPB ONE (16:16)
[2017-10-11] MEDS ORDERED: MAGNESIUM SULF 50% (8.12 MEQ/2 ML-1 GM VIAL) IVPB ONE (16:33)
[2017-10-11] MEDS ORDERED: MAGNESIUM SULF 50% (8.12 MEQ/2 ML-1 GM VIAL) ONE (17:44)
--- NOTE | 2017-10-11 19:18 | PN ---
Teaching Attending Note Name of Resident: Eliza Sultana ATTENDING PHYSICIAN STATEMENT I saw and evaluated the patient. I reviewed the resident's note and discussed the case with the resident. I agree with the resident's findings and plan as documented. SUBJECTIVE: 57 yo M with pmhx. of HTN, HLD, PE, DM who presents for evaluation of palpitations. States heart started pounding early this am.. Notes he drank etoh prior. Denies any chest pain or pressure. No shortness of breath. States he feels the palpitations have improved now. OBJECTIVE: Physical: VS: Vital Signs Period Temp Pulse Resp BP Sys/Kelley Pulse Ox Last 24 Hr 98.4 F 95 16-18 0-150/0-85 97-100 GEN: NAD, Resting in bed, AA0X3 HEENT: NCAT, PERRL, Throat without erythema or exudates CARD: RRR S1, S2 RESP: CTAB ABD: BSX4, NTD to palpation EXT: - C/C/E CBCD WBC 2.2 K/mm3 (4.0-10.0) L D 10/11/17 15:00 RBC 3.59 M/mm3 (4.00-5.60) L D 10/11/17 15:00 Hgb 12.5 GM/dL (11.7-16.9) D 10/11/17 15:00 Hct 36.5 % (35.4-49) D 10/11/17 15:00 MCV 101.8 fl (80-96) H 10/11/17 15:00 MCHC 34.1 g/dl (32.0-35.9) 10/11/17 15:00 RDW 15.5 % (11.9-15.9) 10/11/17 15:00 Plt Count 68 K/MM3 (134-434) L D 10/11/17 15:00 MPV 8.8 fl (7.5-11.1) 10/11/17 15:00 CMP Sodium 147 mmol/L (136-145) H 10/11/17 15:00 Potassium 3.8 mmol/L (3.5-5.1) 10/11/17 15:00 Chloride 113 mmol/L (98-107) H 10/11/17 15:00 Carbon Dioxide 24 mmol/L (21-32) 10/11/17 15:00 Anion Gap 10 (8-16) 10/11/17 15:00 BUN 6 mg/dL (7-18) L D 10/11/17 15:00 Creatinine 0.8 mg/dL (0.7-1.3) D 10/11/17 15:00 Creat Clearance w eGFR > 60 (>60) 10/11/17 15:00 Random Glucose 85 mg/dL (74-106) D 10/11/17 15:00 Calcium 8.3 mg/dL (8.5-10.1) L 10/11/17 15:00 Total Bilirubin 0.7 mg/dL (0.2-1.0) 10/11/17 15:00 AST 47 U/L (15-37) H D 10/11/17 15:00 ALT 37 U/L (12-78) 10/11/17 15:00 Alkaline Phosphatase 60 U/L (45-117) 10/11/17 15:00 Total Protein 6.8 g/dl (6.4-8.2) 10/11/17 15:00 Albumin 3.4 g/dl (3.4-5.0) 10/11/17 15:00 CARDIAC ENZYMES Creatine Kinase 342 IU/L (39-308) H 10/11/17 15:00 Troponin I 0.09 ng/ml (0.00-0.05) H D 10/11/17 15:00 Sinus Rhythm, Normal Rate (95), No acute ischemic changes, Prolonged Qt Home Medications Medication Instructions Recorded Cholecalciferol (Vitamin D3) 1,000 unit PO DAILY 7 Days #7 tab 07/05/17 [Vitamin D -] Gabapentin 300 mg PO TID #21 capsule 07/05/17 Hydrochlorothiazide [Hctz -] 25 mg PO DAILY #7 tablet 07/05/17 Metformin HCl 500 mg PO BID #14 tablet 07/05/17 Simvastatin 10 mg PO HS #7 tablet 07/05/17 Acetaminophen [Tylenol Arthritis] 1,300 mg PO Q8H PRN 10/11/17 Escitalopram Oxalate [Lexapro -] 10 mg PO DAILY 10/11/17 Lisinopril 5 mg PO DAILY 10/11/17 Tizanidine HCl 2 mg PO TID PRN 10/11/17 Warfarin Na [Coumadin] 1 mg PO DAILY 10/11/17 CTA: Small Pericardial Effusion NO PE, No dissection Scattered Subcm, mediastinal LN, Splenomegay EXAM: Duplex venous bilateral lower extremities REASON FOR EXAM: Bilateral leg swelling FINDINGS: No evidence of deep venous thrombosis in the visualized segments of the right or left lower extremity deep venous system. ASSESSMENT AND PLAN: 57 M with hx. of HTN, HLD, PE, and DM who presented with palpitations 1.) Palpitations - Echo in AM - Trend Trop/EKG - TSH - Cardio 2.) Hx. Of PE/Supratheraputic INR - Hold Coumadin - Goal INR 2-3 3.) HLD - C/W Statin 4.) DM - FS -RAISS 5.) ETOH Use - Banana Bag - Thiamine/Folic A - CIWA Librium 5.) Thrombocytopenia - ? Liver dx- Excessive etoh use - Trend - Hold Coumadin 6.) DVt Ppx - Supratheraputic INR
--- NOTE | 2017-10-11 20:21 | HP ---
CHIEF COMPLAINT: palpitations PCP: HISTORY OF PRESENT ILLNESS: This is obese male with a history or dvt, PE currently on warfarin, DM, HLD, HTN , who presents with complaints of palpitations at rest that started early this morning and lasted up until this afternoon, which provoked his visit. He was out last night drinking, 6 beers, and smoked 1 pack of cigarettes. He denies chest pain, diaphoresis, jaw pain, numbness, tingling, use of any recreational drugs. He does admit to chronic leg swelling. He takes 4mg of warfarin daily for hx of PE, dvt. He admits to taking all prescribes medications daily. He does admit to having more anxiety due to loosing his house and being homeless. ER course was notable for: ECG NSR; troponin 0.09; elevated CKMB; CTA pending report; blood alcohol 49; Recent Travel: no PAST MEDICAL HISTORY: HTN. 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 Drugs: none reported Family History: Allergies erythromycin base Allergy (Verified 10/11/17 14:37) HOME MEDICATIONS: Home Medications Medication Instructions Recorded Cholecalciferol (Vitamin D3) 1,000 unit PO DAILY 7 Days #7 tab 07/05/17 [Vitamin D -] Gabapentin 300 mg PO TID #21 capsule 07/05/17 Hydrochlorothiazide [Hctz -] 25 mg PO DAILY #7 tablet 07/05/17 Metformin HCl 500 mg PO BID #14 tablet 07/05/17 Simvastatin 10 mg PO HS #7 tablet 07/05/17 Acetaminophen [Tylenol Arthritis] 1,300 mg PO Q8H PRN 10/11/17 Escitalopram Oxalate [Lexapro -] 10 mg PO DAILY 10/11/17 Lisinopril 5 mg PO DAILY 10/11/17 Tizanidine HCl 2 mg PO TID PRN 10/11/17 Warfarin Na [Coumadin] 1 mg PO DAILY 10/11/17 REVIEW OF SYSTEMS CONSTITUTIONAL: Absent: fever, chills, diaphoresis, generalized weakness, malaise, loss of appetite, weight change HEENT: Absent: rhinorrhea, nasal congestion, throat pain, throat swelling, difficulty swallowing, mouth swelling, ear pain, eye pain, visual changes CARDIOVASCULAR: Positive: palpitations, Absent: chest pain, syncope, irregular heart rate, lightheadedness, peripheral edema RESPIRATORY: Absent: cough, shortness of breath, dyspnea with exertion, orthopnea, wheezing, stridor, hemoptysis GASTROINTESTINAL: Absent: abdominal pain, abdominal distension, nausea, vomiting, diarrhea, constipation, melena, hematochezia GENITOURINARY: Absent: dysuria, frequency, urgency, hesitancy, hematuria, flank pain, genital pain MUSCULOSKELETAL: Absent: myalgia, arthralgia, joint swelling, back pain, neck pain SKIN: Absent: rash, itching, pallor HEMATOLOGIC/IMMUNOLOGIC: Absent: easy bleeding, easy bruising, lymphadenopathy, frequent infections ENDOCRINE: Absent: unexplained weight gain, unexplained weight loss, heat intolerance, cold intolerance NEUROLOGIC: Absent: headache, focal weakness or paresthesias, dizziness, unsteady gait, seizure, mental status changes, bladder or bowel incontinence PSYCHIATRIC: Absent: anxiety, depression, suicidal or homicidal ideation, hallucinations. PHYSICAL EXAMINATION Vital Signs - 24 hr 10/11/17 10/11/17 14:31 17:40 Temperature 98.4 F Pulse Rate [ 95 H Apical] Respiratory 16 18 Rate Blood Pressure 0/0 Blood Pressure 150/85 [Right Arm] O2 Sat by Pulse 100 97 Oximetry (%) GENERAL: Obese, Awake, alert, and fully oriented, in no acute distress. HEAD: Normal with no signs of trauma. LUNGS: Breath sounds equal, clear to auscultation bilaterally. No wheezes, and no crackles. No accessory muscle use. HEART: Regular rate and rhythm, normal S1 and S2 without murmur, rub or gallop. ABDOMEN: very obese abdomen; normoactive bowel sounds, no guarding, no rebound, no masses. MUSCULOSKELETAL: Normal range of motion at all joints. No bony deformities or tenderness. No CVA tenderness. UPPER EXTREMITIES: 2+ pulses, warm, well-perfused. No cyanosis. No clubbing. No peripheral edema. LOWER EXTREMITIES: 2+ pulses, warm, well-perfused. No calf tenderness.bilateral led swelling; excoriation of bilateral LE NEUROLOGICAL: Cranial nerves II-XII intact. Normal speech. PSYCHIATRIC: Cooperative. Good eye contact.anxious SKIN: Warm, dry, normal turgor, no rashes or lesions noted, normal capillary refill. Laboratory Results - last 24 hr 10/11/17 10/11/17 10/11/17 15:00 15:00 15:00 WBC 2.2 L D RBC 3.59 L D Hgb 12.5 D Hct 36.5 D MCV 101.8 H MCH 34.8 H MCHC 34.1 RDW 15.5 Plt Count 68 L D MPV 8.8 Neutrophils % 58.2 Lymphocytes % 29.4 Monocytes % 9.7 Eosinophils % 1.3 Basophils % 1.4 PT with INR 64.70 H INR 5.73 H* D PTT (Actin FS) 44.8 H Sodium 147 H Potassium 3.8 Chloride 113 H Carbon Dioxide 24 Anion Gap 10 BUN 6 L D Creatinine 0.8 D Creat Clearance w eGFR > 60 Random Glucose 85 D Calcium 8.3 L Magnesium 1.1 L D Total Bilirubin 0.7 AST 47 H D ALT 37 Alkaline Phosphatase 60 Creatine Kinase 342 H Creatine Kinase Index 1.7 CK-MB (CK-2) 6.095 H Troponin I 0.09 H D B-Natriuretic Peptide Total Protein 6.8 Albumin 3.4 TSH 2.58 D Alcohol, Quantitative 49.84 H* 10/11/17 15:00 WBC RBC Hgb Hct MCV MCH MCHC RDW Plt Count MPV Neutrophils % Lymphocytes % Monocytes % Eosinophils % Basophils % PT with INR INR PTT (Actin FS) Sodium Potassium Chloride Carbon Dioxide Anion Gap BUN Creatinine Creat Clearance w eGFR Random Glucose Calcium Magnesium Total Bilirubin AST ALT Alkaline Phosphatase Creatine Kinase Creatine Kinase Index CK-MB (CK-2) Troponin I B-Natriuretic Peptide 291.32 H Total Protein Albumin TSH Alcohol, Quantitative Current Medications Generic Name Dose Route Start Last Admin Trade Name Kamila PRN Reason Stop Dose Admin Escitalopram Oxalate 10 mg 10/12/17 10:00 Lexapro - PO DAILY [facility] Gabapentin 300 mg 10/11/17 22:00 Neurontin - PO TID DANNY Hydrochlorothiazide 25 mg 10/12/17 10:00 Hctz - PO DAILY [facility] Folic Acid 1 mg/ Thiamine HCl 1,000 mls @ 125 mls/hr 10/11/17 16:16 10/11/17 18:50 100 mg/ Multivitamins/Minerals IVPB 10/12/17 00:15 125 mls/hr 10 ml/ Sodium Chloride ONCE ONE Administration Insulin Aspart 1 vial 10/11/17 22:00 Novolog Vial Sliding Scale - SQ ACHS DANNY Protocol Lisinopril 5 mg 10/12/17 10:00 Prinivil PO DAILY [facility] ASSESSMENT/PLAN: This is a 57 year old male who is now currently homeless, with a history of DM, HTN, HLD, DVT, hx of PE on coumadin, with complaints of palpitations after a night of drinking and smoking. R/o ACS. 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 #HTN: -lipid panel -cont lisinopril daily #DM: -insulin ss; bgm -hemoglobin a1C DVT ; proph; elevated iNR GI: will hold due to adverse effects of thrombocytopenia IVF: s/p bananna bag; po Diet: diabetic Disposition: obs tele Problem List - Problem (1) Elevated INR Code(s): R79.1 - ABNORMAL COAGULATION PROFILE (2) Elevated troponin Code(s): R74.8 - ABNORMAL LEVELS OF OTHER SERUM ENZYMES (3) Palpitations Code(s): R00.2 - PALPITATIONS (4) Diabetes Code(s): E11.9 - TYPE 2 DIABETES MELLITUS WITHOUT COMPLICATIONS (5) HLD (hyperlipidemia) Code(s): E78.5 - HYPERLIPIDEMIA, UNSPECIFIED (6) HTN (hypertension) Code(s): I10 - ESSENTIAL (PRIMARY) HYPERTENSION (7) Thrombocytopenia Code(s): D69.6 - THROMBOCYTOPENIA, UNSPECIFIED Visit type - Emergency Visit Emergency Visit: Yes ED Registration Date: 10/11/17 Care time: The patient presented to the Emergency Department on the above date and was hospitalized for further evaluation of their emergent condition. - New Patient This patient is new to me today: Yes Date on this admission: 10/11/17 - Critical Care Critical Care patient: No Hospitalist Screening - Colonoscopy Questionnaire Colonoscopy Questionnaire: Colonoscopy Questionnaire - Patient: 50 - 75 years old and never had a screening colonoscopy: Unknown History of colon or rectal polyps, or CA: Unknown History of IBD, Crohn's disease or UC: Unknown History of abdominal radiation therapy as a child: Unknown - Relative: 1 with colon or rectal CA, or polyps at age 60 or younger: Unknown Colon or rectal CA diagnosed at age 45 or younger: Unknown Multiple relatives with colon or rectal CA: Unknown - Outcome: Screening Result: Negative Screen
[2017-10-11] MEDS ORDERED: GABAPENTIN 100 MG CAPSULE (FP) ONE (22:44)
[2017-10-11] MEDS ORDERED: ATORVASTATIN CA 40 MG TABLET (FP) ONE (22:44)
[2017-10-11] MEDS: GABAPENTIN 300 MG CAPSULE (FP) PO SCH (23:18)
[2017-10-11] MEDS: ATORVASTATIN CA 20 MG TABLET (FP) PO SCH (23:18)
[2017-10-11] MEDS: INSULIN SLIDING SCALE (NOVOLOG) 1 VIAL SQ SCH (23:19)
[2017-10-12] MEDS: GABAPENTIN 300 MG CAPSULE (FP) PO SCH ×3 (06:30→21:02)
[2017-10-12] MEDS ORDERED: GABAPENTIN 100 MG CAPSULE (FP) ONE (06:45)
[2017-10-12 07:05] LABS: BASO % 1.3 % (0-2.0); EOS % 1.2 % (0-4.5); HEMATOCRIT 35.4 % (35.4-49); HEMOGLOBIN 12.1 GM/dL (11.7-16.9); LYMPH % 38.3 % (8-40); MCH 34.7 pg (25.7-33.7); MCHC 34.2 g/dl (32.0-35.9); MEAN CELL VOLUME 101.3 fl (80-96); MEAN PLT VOLUME 8.4 fl (7.5-11.1); MONO % 10.3 % (3.8-10.2); NEUT % 48.9 % (42.8-82.8); PLATELET COUNT 52 K/MM3 (134-434); RBC 3.49 M/mm3 (4.00-5.60); RDW 15.6 % (11.9-15.9)
[2017-10-12] MEDS: INSULIN SLIDING SCALE (NOVOLOG) 1 VIAL SQ SCH ×4 (07:10→21:02)
[2017-10-12 07:21] LABS: WHITE BLOOD COUNT 1.3 K/mm3 (4.0-10.0)
[2017-10-12 07:23] LABS: PROTHROMBIN TIME (PATIENT) 49.8 SEC (9.98-11.88)
[2017-10-12 07:31] LABS: INR 4.41 (0.82-1.09)
[2017-10-12 08:04] LABS: ALBUMIN 3.1 g/dl (3.4-5.0); ANION GAP 7 (8-16); BLOOD UREA NITROGEN 7 mg/dL (7-18); CALCIUM 7.7 mg/dL (8.5-10.1); CHLORIDE 109 mmol/L (98-107); CO2 27 mmol/L (21-32); CREATININE 0.8 mg/dL (0.7-1.3); GLUCOSE,RANDOM 82 mg/dL (74-106); MAGNESIUM 1.1 mg/dL (1.8-2.4); PHOSPHOROUS 2.2 mg/dL (2.5-4.9); POTASSIUM 3.5 mmol/L (3.5-5.1); SGOT/AST 37 U/L (15-37); SGPT/ALT 31 U/L (12-78); SODIUM 143 mmol/L (136-145)
[2017-10-12 08:07] LABS: ALK PHOS 68 U/L (45-117); BILIRUBIN,TOTAL 1.1 mg/dL (0.2-1.0); CHOLESTEROL 151 mg/dL (50-200); HDL CHOLESTEROL 60 mg/dL (40-60); LDL CHOLESTEROL (ONLY SJRH) 64 mg/dL (5-100); TRIGLYCERIDES 124 mg/dL (35-160)
[2017-10-12] MEDS ORDERED: ACETAMINOPHEN 325 MG TABLET (FP) PO PRN (09:27)
[2017-10-12] MEDS ORDERED: MAGNESIUM OXIDE 400 MG TABLET (FP) PO ONE (09:34)
[2017-10-12] MEDS ORDERED: ACETAMINOPHEN 325 MG TABLET (FP) ONE (09:37)
[2017-10-12] MEDS: HYDROCHLOROTHIAZIDE 25 MG TABLET (FP) PO SCH (09:46)
[2017-10-12] MEDS: CYANOCOBALAMIN (VITAMIN B-12) 100 MCG TABLET PO SCH (09:46)
[2017-10-12] MEDS: ESCITALOPRAM OXALATE 10 MG TABLET (FP) PO SCH (09:46)
[2017-10-12] MEDS: LISINOPRIL 5 MG TABLET (FP) PO SCH (09:46)
[2017-10-12] MEDS ORDERED: MAGNESIUM OXIDE 400 MG TABLET (FP) ONE (09:48)
[2017-10-12] MEDS: FOLIC ACID 1 MG TABLET (FP) PO SCH (09:52)
[2017-10-12 10:05] LABS: COCAINE, UR NEGATIVE ng/ml (CUTOFF=300); METHADONE, UR NEGATIVE ng/ml (CUTOFF=300); OPIATES, URI NEGATIVE ng/ml (CUTOFF=300); PHENCYCLIDINE,URINE NEGATIVE ng/ml (CUTOFF=25); URINE AMPHETAMINES NEGATIVE ng/ml (CUTOFF=500); URINE BARBITURATES NEGATIVE ng/ml (CUTOFF=200); URINE BENZODIAZEPINES NEGATIVE ng/ml (CUTOFF=200)
--- NOTE | 2017-10-12 10:25 | CON.CARD ---
Consult - History of Present Illness History of Present Illness: The patient is a 57 year old male with a history of HTN, HLD, PE, DM who presents for evaluation of palpitations. The patient reports a several hour history of sensation of palpitations and a pounding heart beginning earlier this morning prompting his presentation to the ED for evaluation. The patient states that he did consume alcohol and cigarrettes yesterday and has been feeling somewhat anxious and "shaky" this morning. He otherwise denies fevers, chills, SOB, chest pain, abdominal pain, nausea, vomiting, leg swelling, or changes with urination or bowel movements. - History Source History Provided By: Patient, Medical Record - Past Medical History Cardio/Vascular: Yes: HTN, Hyperlipdemia Endocrine: Yes: Diabetes Mellitus - Alcohol/Substance Use Hx Alcohol Use: No - Smoking History Smoking history: Current every day smoker Have you smoked in the past 12 months: Yes Aproximately how many cigarettes per day: 20 Home Medications - Allergies Allergies/Adverse Reactions: Allergies Allergy/AdvReac Type Severity Reaction Status Date / Time erythromycin base Allergy Verified 10/11/17 14:37 - Home Medications Home Medications: Ambulatory Orders Cholecalciferol (Vitamin D3) [Vitamin D -] 1,000 unit PO DAILY 7 Days #7 tab 01/13 Gabapentin 300 mg PO TID #21 capsule 07/05/17 Hydrochlorothiazide [Hctz -] 25 mg PO DAILY #7 tablet 07/05/17 Metformin HCl 500 mg PO BID #14 tablet 07/05/17 Simvastatin 10 mg PO HS #7 tablet 07/05/17 Acetaminophen [Tylenol Arthritis] 1,300 mg PO Q8H PRN 10/11/17 Escitalopram Oxalate [Lexapro -] 10 mg PO DAILY 10/11/17 Lisinopril 5 mg PO DAILY 10/11/17 Tizanidine HCl 2 mg PO TID PRN 10/11/17 Warfarin Na [Coumadin] 1 mg PO DAILY 10/11/17 Vital Signs: Vital Signs Temperature 99 F 10/12/17 08:20 Pulse Rate 99 H 10/12/17 08:20 Respiratory Rate 24 10/11/17 20:39 Blood Pressure 161/100 10/12/17 08:20 O2 Sat by Pulse Oximetry (%) 96 10/12/17 08:20 Constitutional: Yes: Well Nourished, No Distress, Calm Eyes: Yes: WNL, Conjunctiva Clear, EOM Intact HENT: Yes: WNL, Atraumatic, Normocephalic Neck: Yes: WNL, Supple, Trachea Midline Respiratory: Yes: WNL, Regular, CTA Bilaterally Gastrointestinal: Yes: WNL, Normal Bowel Sounds Renal/: Yes: WNL Cardiovascular: Yes: WNL, Regular Rate and Rhythm Musculoskeletal: Yes: WNL Extremities: Yes: WNL Edema: Yes Integumentary: Yes: WNL Neurological: Yes: WNL, Alert, Oriented ...Motor Strength: WNL Psychiatric: Yes: WNL, Alert, Oriented - Other Data Labs, Other Data: CBC, BMP 10/12/17 06:00 10/12/17 06:00 INR, PTT INR 4.41 (0.82-1.09) H* 10/12/17 06:00 Troponin, BNP 10/11/17 10/11/17 10/11/17 15:00 15:00 19:30 Troponin I 0.09 H D 0.09 H B-Natriuretic Peptide 291.32 H Troponin, BNP 10/11/17 10/11/17 10/11/17 15:00 15:00 19:30 Troponin I 0.09 H D 0.09 H B-Natriuretic Peptide 291.32 H Laboratory Tests 10/11/17 10/11/17 10/11/17 09:40 15:00 15:00 WBC 2.2 L D RBC 3.59 L D Hgb 12.5 D Hct 36.5 D MCV 101.8 H MCH 34.8 H MCHC 34.1 RDW 15.5 Plt Count 68 L D MPV 8.8 Neutrophils % 58.2 Lymphocytes % 29.4 Monocytes % 9.7 Eosinophils % 1.3 Basophils % 1.4 PT with INR 64.70 H INR 5.73 H* D PTT (Actin FS) 44.8 H Sodium Potassium Chloride Carbon Dioxide Anion Gap BUN Creatinine Creat Clearance w eGFR POC Glucometer Random Glucose Hemoglobin A1c % Calcium Phosphorus Magnesium Total Bilirubin AST ALT Alkaline Phosphatase Creatine Kinase Creatine Kinase Index CK-MB (CK-2) Troponin I B-Natriuretic Peptide Total Protein Albumin Triglycerides Cholesterol Total LDL Cholesterol HDL Cholesterol TSH Opiates Screen Negative Methadone Screen Negative Barbiturate Screen Negative Phencyclidine Screen Negative Ur Amphetamines Screen Negative MDMA (Ecstasy) Screen Negative Benzodiazepines Screen Negative Cocaine Screen Negative U Marijuana (THC) Screen Negative Alcohol, Quantitative 10/11/17 10/11/17 10/11/17 15:00 15:00 19:30 WBC RBC Hgb Hct MCV MCH MCHC RDW Plt Count MPV Neutrophils % Lymphocytes % Monocytes % Eosinophils % Basophils % PT with INR INR PTT (Actin FS) Sodium 147 H Potassium 3.8 Chloride 113 H Carbon Dioxide 24 Anion Gap 10 BUN 6 L D Creatinine 0.8 D Creat Clearance w eGFR > 60 POC Glucometer Random Glucose 85 D Hemoglobin A1c % Calcium 8.3 L Phosphorus Magnesium 1.1 L D Total Bilirubin 0.7 AST 47 H D ALT 37 Alkaline Phosphatase 60 Creatine Kinase 342 H 394 H Creatine Kinase Index 1.7 1.2 CK-MB (CK-2) 6.095 H 5.113 H Troponin I 0.09 H D 0.09 H B-Natriuretic Peptide 291.32 H Total Protein 6.8 Albumin 3.4 Triglycerides Cholesterol Total LDL Cholesterol HDL Cholesterol TSH 2.58 D Opiates Screen Methadone Screen Barbiturate Screen Phencyclidine Screen Ur Amphetamines Screen MDMA (Ecstasy) Screen Benzodiazepines Screen Cocaine Screen U Marijuana (THC) Screen Alcohol, Quantitative 49.84 H* 10/11/17 10/12/17 10/12/17 22:54 06:00 06:00 WBC 1.3 L* D RBC 3.49 L Hgb 12.1 Hct 35.4 MCV 101.3 H MCH 34.7 H MCHC 34.2 RDW 15.6 Plt Count 52 L D MPV 8.4 Neutrophils % 48.9 Lymphocytes % 38.3 D Monocytes % 10.3 H Eosinophils % 1.2 Basophils % 1.3 PT with INR 49.80 H INR 4.41 H* PTT (Actin FS) Sodium Potassium Chloride Carbon Dioxide Anion Gap BUN Creatinine Creat Clearance w eGFR POC Glucometer 103.70801 Random Glucose Hemoglobin A1c % Calcium Phosphorus Magnesium Total Bilirubin AST ALT Alkaline Phosphatase Creatine Kinase Creatine Kinase Index CK-MB (CK-2) Troponin I B-Natriuretic Peptide Total Protein Albumin Triglycerides Cholesterol Total LDL Cholesterol HDL Cholesterol TSH Opiates Screen Methadone Screen Barbiturate Screen Phencyclidine Screen Ur Amphetamines Screen MDMA (Ecstasy) Screen Benzodiazepines Screen Cocaine Screen U Marijuana (THC) Screen Alcohol, Quantitative 10/12/17 10/12/17 10/12/17 06:00 06:00 06:00 WBC RBC Hgb Hct MCV MCH MCHC RDW Plt Count MPV Neutrophils % Lymphocytes % Monocytes % Eosinophils % Basophils % PT with INR INR PTT (Actin FS) Sodium 143 Potassium 3.5 Chloride 109 H Carbon Dioxide 27 Anion Gap 7 L BUN 7 Creatinine 0.8 Creat Clearance w eGFR > 60 POC Glucometer Random Glucose 82 Hemoglobin A1c % 5.8 D Calcium 7.7 L Phosphorus 2.2 L D Magnesium 1.1 L Total Bilirubin 1.1 H D AST 37 D ALT 31 Alkaline Phosphatase 68 Creatine Kinase Creatine Kinase Index CK-MB (CK-2) Troponin I B-Natriuretic Peptide Total Protein 6.0 L Albumin 3.1 L Triglycerides 124 Cancelled Cholesterol 151 Cancelled Total LDL Cholesterol 64 Cancelled HDL Cholesterol 60 D Cancelled TSH Opiates Screen Methadone Screen Barbiturate Screen Phencyclidine Screen Ur Amphetamines Screen MDMA (Ecstasy) Screen Benzodiazepines Screen Cocaine Screen U Marijuana (THC) Screen Alcohol, Quantitative 10/12/17 07:00 WBC RBC Hgb Hct MCV MCH MCHC RDW Plt Count MPV Neutrophils % Lymphocytes % Monocytes % Eosinophils % Basophils % PT with INR INR PTT (Actin FS) Sodium Potassium Chloride Carbon Dioxide Anion Gap BUN Creatinine Creat Clearance w eGFR POC Glucometer 109.91454 Random Glucose Hemoglobin A1c % Calcium Phosphorus Magnesium Total Bilirubin AST ALT Alkaline Phosphatase Creatine Kinase Creatine Kinase Index CK-MB (CK-2) Troponin I B-Natriuretic Peptide Total Protein Albumin Triglycerides Cholesterol Total LDL Cholesterol HDL Cholesterol TSH Opiates Screen Methadone Screen Barbiturate Screen Phencyclidine Screen Ur Amphetamines Screen MDMA (Ecstasy) Screen Benzodiazepines Screen Cocaine Screen U Marijuana (THC) Screen Alcohol, Quantitative Imaging - Results Chest X-ray: Pending EKG: Image Reviewed (sr rep abn prolonged qt) Problem List - Problems (1) Elevated INR Code(s): R79.1 - ABNORMAL COAGULATION PROFILE (2) Elevated troponin Code(s): R74.8 - ABNORMAL LEVELS OF OTHER SERUM ENZYMES (3) Palpitations Code(s): R00.2 - PALPITATIONS (4) SOB (shortness of breath) Code(s): R06.02 - SHORTNESS OF BREATH (5) Clogged ear Code(s): H93.8X9 - OTHER SPECIFIED DISORDERS OF EAR, UNSPECIFIED EAR (6) DVT (deep venous thrombosis) Code(s): I82.409 - ACUTE EMBOLISM AND THOMBOS UNSP DEEP VN UNSP LOWER EXTREMITY Qualifiers: DVT location: lower extremity Affected thrombotic vein of extremity: popliteal Chronicity: acute Laterality: right Qualified Code(s): I82.431 - Acute embolism and thrombosis of right popliteal vein (7) Depression Code(s): F32.9 - MAJOR DEPRESSIVE DISORDER, SINGLE EPISODE, UNSPECIFIED (8) Diabetes Code(s): E11.9 - TYPE 2 DIABETES MELLITUS WITHOUT COMPLICATIONS (9) Elevated serum creatinine Code(s): R79.89 - OTHER SPECIFIED ABNORMAL FINDINGS OF BLOOD CHEMISTRY (10) [place] cardiac risk >20% in next 10 years Code(s): Z91.89 - OTH PERSONAL RISK FACTORS, NOT ELSEWHERE CLASSIFIED (11) HLD (hyperlipidemia) Code(s): E78.5 - HYPERLIPIDEMIA, UNSPECIFIED (12) HTN (hypertension) Code(s): I10 - ESSENTIAL (PRIMARY) HYPERTENSION (13) Headache Code(s): R51 - HEADACHE Qualifiers: Headache type: tension-type Headache chronicity pattern: acute headache Intractability: not intractable Qualified Code(s): G44.209 - Tension-type headache, unspecified, not intractable (14) Homeless Code(s): Z59.0 - HOMELESSNESS (15) Low back pain Code(s): M54.5 - LOW BACK PAIN Qualifiers: Chronicity: acute Back pain laterality: unspecified Sciatica presence: without sciatica Qualified Code(s): M54.5 - Low back pain (16) Morbid obesity Code(s): E66.01 - MORBID (SEVERE) OBESITY DUE TO EXCESS CALORIES (17) Pulmonary embolism Code(s): I26.99 - OTHER PULMONARY EMBOLISM WITHOUT ACUTE COR PULMONALE (18) Smokes cigarettes Code(s): F17.210 - NICOTINE DEPENDENCE, CIGARETTES, UNCOMPLICATED (19) Sternal fracture Code(s): S22.20XA - UNSP FRACTURE OF STERNUM, INIT ENCNTR FOR CLOSED FRACTURE Qualifiers: Encounter type: initial encounter Sternal location: body of sternum Fracture type: closed Qualified Code(s): S22.22XA - Fracture of body of sternum, initial encounter for closed fracture (20) Thrombocytopenia Code(s): D69.6 - THROMBOCYTOPENIA, UNSPECIFIED Assessment/Plan #palpitations r/o ACS -cardiac tele -ecg NSR; with prolonged QT 500 -tsh wnl -trend trop ; first was slightly elevated with elevated ckmb echo nle ef ischemic work up when stable #thrombocytopenia: -most likely alcohol indued; trend #elevated INR: -home dose 4mg daily -hold warfarin; trend INR #alcohol abuse: -last drink last night; says drinks "occasionally" -given banana bag in ER -monitor for DT; or need of librium -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
--- NOTE | 2017-10-12 12:25 | EKG ---
Test Reason : Blood Pressure : / mmHG Vent. Rate : 095 BPM Atrial Rate : 095 BPM P-R Int : 152 ms QRS Dur : 094 ms QT Int : 398 ms P-R-T Axes : 035 024 025 degrees QTc Int : 500 ms SINUS RHYTHM WITH PREMATURE SUPRAVENTRICULAR COMPLEXES POSSIBLE LEFT ATRIAL ENLARGEMENT PROLONGED QT ABNORMAL ECG WHEN COMPARED WITH ECG OF 25-JUN-2017 14:55, PREMATURE SUPRAVENTRICULAR COMPLEXES ARE NOW PRESENT QT HAS LENGTHENED Confirmed by LUI MUNIZ, MEENAKSHI ([id number]) on 10/12/2017 12:24:38 PM Referred By: Confirmed By:MEENAKSHI POE MD
[2017-10-12] MEDS ORDERED: amLODIPine BESYLATE 5 MG TABLET (FP) PO ONE (14:14)
[2017-10-12] MEDS ORDERED: amLODIPine BESYLATE 5 MG TABLET (FP) ONE (14:31)
[2017-10-12] MEDS: NAPH,MB-DB/K PH,MBDB POWDER PACKET PO SCH ×2 (14:42→21:03)
--- NOTE | 2017-10-12 18:47 | PN ---
Teaching Attending Note Name of Resident: Cruz Tobin ATTENDING PHYSICIAN STATEMENT I saw and evaluated the patient. I reviewed the resident's note and discussed the case with the resident. I agree with the resident's findings and plan as documented. SUBJECTIVE: Patient reports intermittent CP and palpitations. OBJECTIVE: Vital Signs Period Temp Pulse Resp BP Sys/Kelley Pulse Ox Last 24 Hr 98.2 F-99 F 91-99 18-24 152-183/73-100 94-98 HEART: S1S2, RRR LUNGS: Clear ABDOMEN: Obese, soft, non-tender, non-distended, normal BS EXTREMITIES: No edema Laboratory Results - last 24 hr 10/11/17 10/11/17 10/11/17 09:40 19:30 22:54 WBC RBC Hgb Hct MCV MCH MCHC RDW Plt Count MPV Neutrophils % Lymphocytes % Monocytes % Eosinophils % Basophils % PT with INR INR Sodium Potassium Chloride Carbon Dioxide Anion Gap BUN Creatinine Creat Clearance w eGFR POC Glucometer 103.15604 Random Glucose Hemoglobin A1c % Calcium Phosphorus Magnesium Total Bilirubin AST ALT Alkaline Phosphatase Creatine Kinase 394 H Creatine Kinase Index 1.2 CK-MB (CK-2) 5.113 H Troponin I 0.09 H Total Protein Albumin Triglycerides Cholesterol Total LDL Cholesterol HDL Cholesterol Opiates Screen Negative Methadone Screen Negative Barbiturate Screen Negative Phencyclidine Screen Negative Ur Amphetamines Screen Negative MDMA (Ecstasy) Screen Negative Benzodiazepines Screen Negative Cocaine Screen Negative U Marijuana (THC) Screen Negative 10/12/17 10/12/17 10/12/17 06:00 06:00 06:00 WBC 1.3 L* D RBC 3.49 L Hgb 12.1 Hct 35.4 MCV 101.3 H MCH 34.7 H MCHC 34.2 RDW 15.6 Plt Count 52 L D MPV 8.4 Neutrophils % 48.9 Lymphocytes % 38.3 D Monocytes % 10.3 H Eosinophils % 1.2 Basophils % 1.3 PT with INR 49.80 H INR 4.41 H* Sodium 143 Potassium 3.5 Chloride 109 H Carbon Dioxide 27 Anion Gap 7 L BUN 7 Creatinine 0.8 Creat Clearance w eGFR > 60 POC Glucometer Random Glucose 82 Hemoglobin A1c % Calcium 7.7 L Phosphorus 2.2 L D Magnesium 1.1 L Total Bilirubin 1.1 H D AST 37 D ALT 31 Alkaline Phosphatase 68 Creatine Kinase Creatine Kinase Index CK-MB (CK-2) Troponin I Total Protein 6.0 L Albumin 3.1 L Triglycerides 124 Cholesterol 151 Total LDL Cholesterol 64 HDL Cholesterol 60 D Opiates Screen Methadone Screen Barbiturate Screen Phencyclidine Screen Ur Amphetamines Screen MDMA (Ecstasy) Screen Benzodiazepines Screen Cocaine Screen U Marijuana (THC) Screen 10/12/17 10/12/17 10/12/17 06:00 06:00 07:00 WBC RBC Hgb Hct MCV MCH MCHC RDW Plt Count MPV Neutrophils % Lymphocytes % Monocytes % Eosinophils % Basophils % PT with INR INR Sodium Potassium Chloride Carbon Dioxide Anion Gap BUN Creatinine Creat Clearance w eGFR POC Glucometer 109.87943 Random Glucose Hemoglobin A1c % 5.8 D Calcium Phosphorus Magnesium Total Bilirubin AST ALT Alkaline Phosphatase Creatine Kinase Creatine Kinase Index CK-MB (CK-2) Troponin I Total Protein Albumin Triglycerides Cancelled Cholesterol Cancelled Total LDL Cholesterol Cancelled HDL Cholesterol Cancelled Opiates Screen Methadone Screen Barbiturate Screen Phencyclidine Screen Ur Amphetamines Screen MDMA (Ecstasy) Screen Benzodiazepines Screen Cocaine Screen U Marijuana (THC) Screen 10/12/17 10/12/17 10/12/17 11:07 13:45 17:23 WBC RBC Hgb Hct MCV MCH MCHC RDW Plt Count MPV Neutrophils % Lymphocytes % Monocytes % Eosinophils % Basophils % PT with INR INR Sodium Potassium Chloride Carbon Dioxide Anion Gap BUN Creatinine Creat Clearance w eGFR POC Glucometer 90.45740 96 Random Glucose Hemoglobin A1c % Calcium Phosphorus Magnesium Total Bilirubin AST ALT Alkaline Phosphatase Creatine Kinase Creatine Kinase Index CK-MB (CK-2) Troponin I 0.05 D Total Protein Albumin Triglycerides Cholesterol Total LDL Cholesterol HDL Cholesterol Opiates Screen Methadone Screen Barbiturate Screen Phencyclidine Screen Ur Amphetamines Screen MDMA (Ecstasy) Screen Benzodiazepines Screen Cocaine Screen U Marijuana (THC) Screen Current Medications Generic Name Dose Route Start Last Admin Trade Name Freq PRN Reason Stop Dose Admin Acetaminophen 650 mg 10/12/17 09:27 10/12/17 17:14 Tylenol - PO 650 mg Q6H PRN Administration PAIN Atorvastatin Calcium 20 mg 10/11/17 22:00 10/11/17 23:18 Lipitor - PO 20 mg HS DANNY Administration Cyanocobalamin 100 mcg 10/12/17 10:00 10/12/17 09:46 Vitamin B12 - PO 100 mcg DAILY DANNY Administration Escitalopram Oxalate 10 mg 10/12/17 10:00 10/12/17 09:46 Lexapro - PO Not Given DAILY DANNY Folic Acid 1 mg 10/12/17 10:00 10/12/17 09:52 Folic Acid - PO 1 mg DAILY DANNY Administration Gabapentin 300 mg 10/11/17 22:00 10/12/17 14:41 Neurontin - PO 300 mg TID DANNY Administration Hydrochlorothiazide 25 mg 10/12/17 10:00 10/12/17 09:46 Hctz - PO Not Given DAILY DANNY Insulin Aspart 1 vial 10/11/17 22:00 10/12/17 17:00 Novolog Vial Sliding Scale - SQ Not Given ACHS [facility] Protocol Lisinopril 5 mg 10/12/17 10:00 10/12/17 09:46 Prinivil PO Not Given DAILY DANNY Potassium Phos/Sodium Phos 1 packet 10/12/17 14:00 10/12/17 14:42 Phos-Nak Packet - PO 1 packet TID DANNY Administration ASSESSMENT AND PLAN: This is a 57 year old man with a history of type 2 DM, HTN, hyperlipidemia, DVT/ PE who presented to the ED with palpitations. 1. Chest pain, palpitations - No evidence of arrhythmias - Continue telemetry monitoring - TSH normal - Follow up echo - Correct magnesium - Consider stress test 2. Anemia and thrombocytopenia - Likely secondary to alcohol - Continue to monitor 3. Hypomagnesemia - Supplement magnesium 4. Hypophosphatemia - Supplement phosphorus 5. Episodic alcohol abuse - No evidence of withdrawal 6. History of DVT/PE - Continue Coumadin based on INR 7. HTN - Continue Lisinopril, HCTZ 8. Hyperlipidemia - Continue Lipitor 9. Type 2 DM - HgbA1c 5.8 - Continue Novolog sliding scale
--- NOTE | 2017-10-12 19:18 | PN ---
Physical Exam: SUBJECTIVE: Patient seen and examined at bedside. No new complaints, no event overnight. OBJECTIVE: Vital Signs Period Temp Pulse Resp BP Sys/Kelley Pulse Ox Last 24 Hr 98.2 F-99 F 91-99 18-24 152-183/73-100 94-98 GENERAL: The patient is awake, alert, and fully oriented, in no acute distress. HEAD: Normal with no signs of trauma. NECK: Trachea midline, full range of motion, supple. LUNGS: Breath sounds equal, clear to auscultation bilaterally, no wheezes, no crackles, no accessory muscle use. HEART: Regular rate and rhythm, S1, S2 without murmur, rub or gallop. ABDOMEN: Soft, nontender, nondistended, normoactive bowel sounds, no guarding, no rebound, no hepatosplenomegaly, no masses. EXTREMITIES: 2+ pulses, warm, well-perfused, no edema. NEUROLOGICAL: Cranial nerves II through X grossly intact. SKIN: Warm, dry, normal turgor, no rashes or lesions noted Laboratory Results - last 24 hr 10/11/17 10/11/17 10/11/17 09:40 19:30 22:54 WBC RBC Hgb Hct MCV MCH MCHC RDW Plt Count MPV Neutrophils % Lymphocytes % Monocytes % Eosinophils % Basophils % PT with INR INR Sodium Potassium Chloride Carbon Dioxide Anion Gap BUN Creatinine Creat Clearance w eGFR POC Glucometer 103.64051 Random Glucose Hemoglobin A1c % Calcium Phosphorus Magnesium Total Bilirubin AST ALT Alkaline Phosphatase Creatine Kinase 394 H Creatine Kinase Index 1.2 CK-MB (CK-2) 5.113 H Troponin I 0.09 H Total Protein Albumin Triglycerides Cholesterol Total LDL Cholesterol HDL Cholesterol Opiates Screen Negative Methadone Screen Negative Barbiturate Screen Negative Phencyclidine Screen Negative Ur Amphetamines Screen Negative MDMA (Ecstasy) Screen Negative Benzodiazepines Screen Negative Cocaine Screen Negative U Marijuana (THC) Screen Negative 10/12/17 10/12/17 10/12/17 06:00 06:00 06:00 WBC 1.3 L* D RBC 3.49 L Hgb 12.1 Hct 35.4 MCV 101.3 H MCH 34.7 H MCHC 34.2 RDW 15.6 Plt Count 52 L D MPV 8.4 Neutrophils % 48.9 Lymphocytes % 38.3 D Monocytes % 10.3 H Eosinophils % 1.2 Basophils % 1.3 PT with INR 49.80 H INR 4.41 H* Sodium 143 Potassium 3.5 Chloride 109 H Carbon Dioxide 27 Anion Gap 7 L BUN 7 Creatinine 0.8 Creat Clearance w eGFR > 60 POC Glucometer Random Glucose 82 Hemoglobin A1c % Calcium 7.7 L Phosphorus 2.2 L D Magnesium 1.1 L Total Bilirubin 1.1 H D AST 37 D ALT 31 Alkaline Phosphatase 68 Creatine Kinase Creatine Kinase Index CK-MB (CK-2) Troponin I Total Protein 6.0 L Albumin 3.1 L Triglycerides 124 Cholesterol 151 Total LDL Cholesterol 64 HDL Cholesterol 60 D Opiates Screen Methadone Screen Barbiturate Screen Phencyclidine Screen Ur Amphetamines Screen MDMA (Ecstasy) Screen Benzodiazepines Screen Cocaine Screen U Marijuana (THC) Screen 10/12/17 10/12/17 10/12/17 06:00 06:00 07:00 WBC RBC Hgb Hct MCV MCH MCHC RDW Plt Count MPV Neutrophils % Lymphocytes % Monocytes % Eosinophils % Basophils % PT with INR INR Sodium Potassium Chloride Carbon Dioxide Anion Gap BUN Creatinine Creat Clearance w eGFR POC Glucometer 109.64148 Random Glucose Hemoglobin A1c % 5.8 D Calcium Phosphorus Magnesium Total Bilirubin AST ALT Alkaline Phosphatase Creatine Kinase Creatine Kinase Index CK-MB (CK-2) Troponin I Total Protein Albumin Triglycerides Cancelled Cholesterol Cancelled Total LDL Cholesterol Cancelled HDL Cholesterol Cancelled Opiates Screen Methadone Screen Barbiturate Screen Phencyclidine Screen Ur Amphetamines Screen MDMA (Ecstasy) Screen Benzodiazepines Screen Cocaine Screen U Marijuana (THC) Screen 10/12/17 10/12/17 10/12/17 11:07 13:45 17:23 WBC RBC Hgb Hct MCV MCH MCHC RDW Plt Count MPV Neutrophils % Lymphocytes % Monocytes % Eosinophils % Basophils % PT with INR INR Sodium Potassium Chloride Carbon Dioxide Anion Gap BUN Creatinine Creat Clearance w eGFR POC Glucometer 90.67807 96 Random Glucose Hemoglobin A1c % Calcium Phosphorus Magnesium Total Bilirubin AST ALT Alkaline Phosphatase Creatine Kinase Creatine Kinase Index CK-MB (CK-2) Troponin I 0.05 D Total Protein Albumin Triglycerides Cholesterol Total LDL Cholesterol HDL Cholesterol Opiates Screen Methadone Screen Barbiturate Screen Phencyclidine Screen Ur Amphetamines Screen MDMA (Ecstasy) Screen Benzodiazepines Screen Cocaine Screen U Marijuana (THC) Screen Active Medications Generic Name Dose Route Start Last Admin Trade Name Freq PRN Reason Stop Dose Admin Acetaminophen 650 mg 10/12/17 09:27 10/12/17 17:14 Tylenol - PO 650 mg Q6H PRN Administration PAIN Atorvastatin Calcium 20 mg 10/11/17 22:00 10/11/17 23:18 Lipitor - PO 20 mg HS DANNY Administration Cyanocobalamin 100 mcg 10/12/17 10:00 10/12/17 09:46 Vitamin B12 - PO 100 mcg DAILY DANNY Administration Escitalopram Oxalate 10 mg 10/12/17 10:00 10/12/17 09:46 Lexapro - PO Not Given DAILY DANNY Folic Acid 1 mg 10/12/17 10:00 10/12/17 09:52 Folic Acid - PO 1 mg DAILY DANNY Administration Gabapentin 300 mg 10/11/17 22:00 10/12/17 14:41 Neurontin - PO 300 mg TID DANNY Administration Hydrochlorothiazide 25 mg 10/12/17 10:00 10/12/17 09:46 Hctz - PO Not Given DAILY DANNY Insulin Aspart 1 vial 10/11/17 22:00 10/12/17 17:00 Novolog Vial Sliding Scale - SQ Not Given ACHS [facility] Protocol Lisinopril 5 mg 10/12/17 10:00 10/12/17 09:46 Prinivil PO Not Given DAILY [facility] Potassium Phos/Sodium Phos 1 packet 10/12/17 14:00 10/12/17 14:42 Phos-Nak Packet - PO 1 packet TID [facility] Administration ASSESSMENT/PLAN: This is a 57 year old male who is now currently homeless, with a history of DM, HTN, HLD, DVT, hx of PE on coumadin, with complaints of palpitations after a night of drinking and smoking. R/o ACS. #palpitations and chest tightness; r/o ACS -EKG NSR, prolonged QT to 500 -trending trops ; .09 -> .09 -> .05 -echo shows EF 64%, no changes since 05/06/17 -cardio onboard #thrombocytopenia/neutropenia -plt 58 -> 62 -WBC 2.2 -> 1.3 -will trend consider heme onc consult if remains decreased #elevated INR: -5.73 -> 4.41 -trending INR -holding coumadin #ETOH abuse -monitor for withdrawal ssx -electrolyte derangements likley 2/2 abuse -replete lytes PRN #HTN: -c/w home lisinopril 5 daily -added norvasc 5mg today 2/2 increased BP -c/w home HCTZ 25 po daily #DM: -BGM ACHS -ISS ACHS -a1c 5.8 #prophy -holding AC in the setting of elevated INR and thrombocytopenia #FEN -no fluids indicated -replete lytes as above -DM diet #Dispo -admit to tele obs Visit type - Emergency Visit Emergency Visit: Yes ED Registration Date: 10/11/17 Care time: The patient presented to the Emergency Department on the above date and was hospitalized for further evaluation of their emergent condition. - New Patient This patient is new to me today: Yes Date on this admission: 10/12/17 - Critical Care Critical Care patient: No
[2017-10-12] MEDS: ATORVASTATIN CA 20 MG TABLET (FP) PO SCH (21:02)
[2017-10-13] MEDS: NAPH,MB-DB/K PH,MBDB POWDER PACKET PO SCH (05:04)
[2017-10-13] MEDS: GABAPENTIN 300 MG CAPSULE (FP) PO SCH ×3 (05:04→21:12)
[2017-10-13 06:57] LABS: MCH 34.8 pg (25.7-33.7); MCHC 34.3 g/dl (32.0-35.9); MEAN CELL VOLUME 101.4 fl (80-96); MEAN PLT VOLUME 9.5 fl (7.5-11.1); PLATELET COUNT 48 K/MM3 (134-434); RBC 3.45 M/mm3 (4.00-5.60); RDW 15.4 % (11.9-15.9)
[2017-10-13 07:05] LABS: INR 2.21 (0.82-1.09)
[2017-10-13 07:12] LABS: WHITE BLOOD COUNT 1.2 K/mm3 (4.0-10.0)
[2017-10-13 07:18] LABS: ANION GAP 10 (8-16); BLOOD UREA NITROGEN 9 mg/dL (7-18); CALCIUM 8.5 mg/dL (8.5-10.1); CHLORIDE 103 mmol/L (98-107); CO2 28 mmol/L (21-32); CREATININE 0.8 mg/dL (0.7-1.3); GLUCOSE,RANDOM 77 mg/dL (74-106); MAGNESIUM 1.5 mg/dL (1.8-2.4); PHOSPHOROUS 3.4 mg/dL (2.5-4.9); POTASSIUM 3.2 mmol/L (3.5-5.1); SODIUM 141 mmol/L (136-145)
[2017-10-13] MEDS: INSULIN SLIDING SCALE (NOVOLOG) 1 VIAL SQ SCH ×4 (07:51→21:12)
[2017-10-13] MEDS ORDERED: POTASSIUM CHLORIDE TABS 20 MEQ TABLET.ER (FP) PO ONE (08:45)
[2017-10-13] MEDS ORDERED: MAGNESIUM 2GM/50ML STERILE WATER IVPB IVPB ONE (09:00)
[2017-10-13] MEDS: FOLIC ACID 1 MG TABLET (FP) PO SCH (09:48)
[2017-10-13] MEDS: CYANOCOBALAMIN (VITAMIN B-12) 100 MCG TABLET PO SCH (09:48)
[2017-10-13] MEDS: ESCITALOPRAM OXALATE 10 MG TABLET (FP) PO SCH (09:49)
[2017-10-13] MEDS: HYDROCHLOROTHIAZIDE 25 MG TABLET (FP) PO SCH (09:49)
[2017-10-13] MEDS: LISINOPRIL 5 MG TABLET (FP) PO SCH (09:50)
--- NOTE | 2017-10-13 10:48 | PN ---
Progress Note, Physician History of Present Illness: The patient is a 57 year old male with a history of HTN, HLD, PE, DM who presents for evaluation of palpitations. The patient reports a several hour history of sensation of palpitations and a pounding heart beginning earlier this morning prompting his presentation to the ED for evaluation. The patient states that he did consume alcohol and cigarrettes yesterday and has been feeling somewhat anxious and "shaky" this morning. He otherwise denies fevers, chills, SOB, chest pain, abdominal pain, nausea, vomiting, leg swelling, or changes with urination or bowel movements. - Current Medication List Current Medications: Active Medications Acetaminophen (Tylenol -) 650 mg PO Q6H PRN PRN Reason: PAIN Last Admin: 10/12/17 17:14 Dose: 650 mg Atorvastatin Calcium (Lipitor -) 20 mg PO HS [facility] Last Admin: 10/12/17 21:02 Dose: 20 mg Cyanocobalamin (Vitamin B12 -) 100 mcg PO DAILY [facility] Last Admin: 10/13/17 09:48 Dose: 100 mcg Escitalopram Oxalate (Lexapro -) 10 mg PO DAILY [facility] Last Admin: 10/13/17 09:49 Dose: 10 mg Folic Acid (Folic Acid -) 1 mg PO DAILY [facility] Last Admin: 10/13/17 09:48 Dose: 1 mg Gabapentin (Neurontin -) 300 mg PO TID [facility] Last Admin: 10/13/17 05:04 Dose: 300 mg Hydrochlorothiazide (Hctz -) 25 mg PO DAILY [facility] Last Admin: 10/13/17 09:49 Dose: 25 mg Insulin Aspart (Novolog Vial Sliding Scale -) 1 vial SQ ACHS [facility] PRN Reason: Protocol Last Admin: 10/13/17 07:51 Dose: Not Given Lisinopril (Prinivil) 5 mg PO DAILY [facility] Last Admin: 10/13/17 09:50 Dose: 5 mg - Objective Vital Signs: Vital Signs Temperature 98.2 F 10/13/17 08:27 Pulse Rate 94 H 10/13/17 08:27 Respiratory Rate 20 10/13/17 08:27 Blood Pressure 149/76 10/13/17 08:27 O2 Sat by Pulse Oximetry (%) 98 10/13/17 08:00 Eyes: Yes: WNL, Conjunctiva Clear, EOM Intact HENT: Yes: WNL, Atraumatic, Normocephalic Neck: Yes: WNL, Supple, Trachea Midline Cardiovascular: Yes: WNL, Regular Rate and Rhythm Respiratory: Yes: WNL, Regular, CTA Bilaterally Gastrointestinal: Yes: WNL, Normal Bowel Sounds Genitourinary: Yes: WNL Musculoskeletal: Yes: WNL Extremities: Yes: WNL Edema: No Integumentary: Yes: WNL Neurological: Yes: WNL, Alert, Oriented ...Motor Strength: WNL Psychiatric: Yes: WNL Labs: CBC, BMP 10/13/17 06:30 10/13/17 06:30 INR, PTT INR 2.21 (0.82-1.09) H D 10/13/17 06:30 Problem List - Problems (1) Elevated INR Code(s): R79.1 - ABNORMAL COAGULATION PROFILE (2) Elevated troponin Code(s): R74.8 - ABNORMAL LEVELS OF OTHER SERUM ENZYMES (3) Palpitations Code(s): R00.2 - PALPITATIONS (4) SOB (shortness of breath) Code(s): R06.02 - SHORTNESS OF BREATH (5) Clogged ear Code(s): H93.8X9 - OTHER SPECIFIED DISORDERS OF EAR, UNSPECIFIED EAR (6) DVT (deep venous thrombosis) Code(s): I82.409 - ACUTE EMBOLISM AND THOMBOS UNSP DEEP VN UNSP LOWER EXTREMITY Qualifiers: DVT location: lower extremity Affected thrombotic vein of extremity: popliteal Chronicity: acute Laterality: right Qualified Code(s): I82.431 - Acute embolism and thrombosis of right popliteal vein (7) Depression Code(s): F32.9 - MAJOR DEPRESSIVE DISORDER, SINGLE EPISODE, UNSPECIFIED (8) Diabetes Code(s): E11.9 - TYPE 2 DIABETES MELLITUS WITHOUT COMPLICATIONS (9) Elevated serum creatinine Code(s): R79.89 - OTHER SPECIFIED ABNORMAL FINDINGS OF BLOOD CHEMISTRY (10) [place] cardiac risk >20% in next 10 years Code(s): Z91.89 - OTH PERSONAL RISK FACTORS, NOT ELSEWHERE CLASSIFIED (11) HLD (hyperlipidemia) Code(s): E78.5 - HYPERLIPIDEMIA, UNSPECIFIED (12) HTN (hypertension) Code(s): I10 - ESSENTIAL (PRIMARY) HYPERTENSION (13) Headache Code(s): R51 - HEADACHE Qualifiers: Headache type: tension-type Headache chronicity pattern: acute headache Intractability: not intractable Qualified Code(s): G44.209 - Tension-type headache, unspecified, not intractable (14) Homeless Code(s): Z59.0 - HOMELESSNESS (15) Low back pain Code(s): M54.5 - LOW BACK PAIN Qualifiers: Chronicity: acute Back pain laterality: unspecified Sciatica presence: without sciatica Qualified Code(s): M54.5 - Low back pain (16) Morbid obesity Code(s): E66.01 - MORBID (SEVERE) OBESITY DUE TO EXCESS CALORIES (17) Pulmonary embolism Code(s): I26.99 - OTHER PULMONARY EMBOLISM WITHOUT ACUTE COR PULMONALE (18) Smokes cigarettes Code(s): F17.210 - NICOTINE DEPENDENCE, CIGARETTES, UNCOMPLICATED (19) Sternal fracture Code(s): S22.20XA - UNSP FRACTURE OF STERNUM, INIT ENCNTR FOR CLOSED FRACTURE Qualifiers: Encounter type: initial encounter Sternal location: body of sternum Fracture type: closed Qualified Code(s): S22.22XA - Fracture of body of sternum, initial encounter for closed fracture (20) Thrombocytopenia Code(s): D69.6 - THROMBOCYTOPENIA, UNSPECIFIED Assessment/Plan #palpitations r/o ACS -cardiac tele -ecg NSR; with prolonged QT 500 -tsh wnl -trend trop ; first was slightly elevated with elevated ckmb echo nle ef ischemic work up when stable #thrombocytopenia: -most likely alcohol indued; trend #elevated INR: -home dose 4mg daily -hold warfarin; trend INR #alcohol abuse: -last drink last night; says drinks "occasionally" -given banana bag in ER -monitor for DT; or need of librium -clinical counselor #HTN: -lipid panel -cont lisinopril daily #DM: -insulin ss; bgm -hemoglobin a1C DVT ; proph; elevated iNR GI: will hold due to adverse effects of thrombocytopenia
[2017-10-13] MEDS ORDERED: ACETAMINOPHEN 325 MG TABLET (FP) PO PRN (14:02)
[2017-10-13] MEDS: WARFARIN NA 2 MG TABLET (UD) PO SCH (17:38)
--- NOTE | 2017-10-13 18:34 | PN ---
Teaching Attending Note Name of Resident: Cruz Tobin ATTENDING PHYSICIAN STATEMENT I saw and evaluated the patient. I reviewed the resident's note and discussed the case with the resident. I agree with the resident's findings and plan as documented. SUBJECTIVE: Patient continues to complain of chest pain and palpitations. OBJECTIVE: Vital Signs Period Temp Pulse Resp BP Sys/Kelley Pulse Ox Last 24 Hr 98.2 F-99.5 F 89-96 18-20 144-159/66-85 98-98 HEART: S1S2, RRR LUNGS: Clear ABDOMEN: Obese, soft, non-tender, non-distended, normal BS EXTREMITIES: No edema Laboratory Results - last 24 hr 10/12/17 10/12/17 10/13/17 18:35 20:48 04:55 WBC RBC Hgb Hct MCV MCH MCHC RDW Plt Count MPV Neutrophils % (Manual) PT with INR INR Sodium Potassium Chloride Carbon Dioxide Anion Gap BUN Creatinine POC Glucometer 107 91 Random Glucose Calcium Phosphorus Magnesium Troponin I 0.05 10/13/17 10/13/17 10/13/17 06:30 06:30 06:30 WBC 1.2 L* RBC 3.45 L Hgb 12.0 Hct 35.0 L MCV 101.4 H MCH 34.8 H MCHC 34.3 RDW 15.4 Plt Count 48 L MPV 9.5 D Neutrophils % (Manual) No Result Required. PT with INR 25.00 H INR 2.21 H D Sodium 141 Potassium 3.2 L Chloride 103 Carbon Dioxide 28 Anion Gap 10 BUN 9 D Creatinine 0.8 POC Glucometer Random Glucose 77 Calcium 8.5 Phosphorus 3.4 D Magnesium 1.5 L D Troponin I 10/13/17 10/13/17 11:12 17:28 WBC RBC Hgb Hct MCV MCH MCHC RDW Plt Count MPV Neutrophils % (Manual) PT with INR INR Sodium Potassium Chloride Carbon Dioxide Anion Gap BUN Creatinine POC Glucometer 99 153 Random Glucose Calcium Phosphorus Magnesium Troponin I Current Medications Generic Name Dose Route Start Last Admin Trade Name Freq PRN Reason Stop Dose Admin Acetaminophen 650 mg 10/13/17 14:02 Tylenol - PO Q6H PRN PAIN LEVEL 1-5 Atorvastatin Calcium 20 mg 10/11/17 22:00 10/12/17 21:02 Lipitor - PO 20 mg HS [facility] Administration Cyanocobalamin 100 mcg 10/12/17 10:00 10/13/17 09:48 Vitamin B12 - PO 100 mcg DAILY [facility] Administration Escitalopram Oxalate 10 mg 10/12/17 10:00 10/13/17 09:49 Lexapro - PO 10 mg DAILY [facility] Administration Folic Acid 1 mg 10/12/17 10:00 10/13/17 09:48 Folic Acid - PO 1 mg DAILY [facility] Administration Gabapentin 300 mg 10/11/17 22:00 10/13/17 14:00 Neurontin - PO 300 mg TID [facility] Administration Hydrochlorothiazide 25 mg 10/12/17 10:00 10/13/17 09:49 Hctz - PO 25 mg DAILY [facility] Administration Insulin Aspart 1 vial 10/11/17 22:00 10/13/17 17:34 Novolog Vial Sliding Scale - SQ 2 units ACHS [facility] Administration Protocol Lisinopril 10 mg 10/14/17 10:00 Prinivil PO DAILY [facility] Oxycodone HCl 5 mg 10/13/17 14:02 Roxicodone - PO Q6H PRN PAIN LEVEL 6-10 Warfarin Sodium 4 mg 10/13/17 18:00 10/13/17 17:38 Coumadin - PO 4 mg DAILY@1800 [facility] Administration ASSESSMENT AND PLAN: This is a 57 year old man with a history of type 2 DM, HTN, hyperlipidemia, DVT/ PE who presented to the ED with palpitations. 1. Chest pain, palpitations - No evidence of arrhythmias - Continue telemetry monitoring - TSH normal - Echo shows normal LV, normal LVEF, normal RV, no wall motion abnormalities - Correct magnesium - Consider stress test 2. Leukopenia and thrombocytopenia - Likely secondary to alcohol - Continue to monitor 3. Hypomagnesemia - Continue to supplement magnesium 4. Hypokalemia - Supplement potassium 5. Hypophosphatemia - Improved 6. Episodic alcohol abuse - No evidence of withdrawal 7. History of DVT/PE - Continue Coumadin based on INR 8. HTN - Continue Lisinopril, HCTZ 9. Hyperlipidemia - Continue Lipitor 10. Type 2 DM - HgbA1c 5.8 - Continue Novolog sliding scale 11. Morbid obesity with BMI 40.7
--- NOTE | 2017-10-13 19:10 | PN ---
Physical Exam: SUBJECTIVE: Patient seen and examined at bedside. No events on tele. Patient c/ o chronic back pain today. No leg weakness or incontinence. OBJECTIVE: Vital Signs Period Temp Pulse Resp BP Sys/Kelley Pulse Ox Last 24 Hr 98.2 F-99.5 F 89-96 18-20 144-159/66-85 98-98 GENERAL: The patient is awake, alert, and fully oriented, in no acute distress. NECK: Trachea midline, full range of motion, supple. LUNGS: Breath sounds equal, clear to auscultation bilaterally, no wheezes, no crackles, no accessory muscle use. HEART: Regular rate and rhythm, S1, S2 without murmur, rub or gallop. ABDOMEN: Soft, nontender, nondistended, normoactive bowel sounds, no guarding, no rebound, no hepatosplenomegaly, no masses. EXTREMITIES: 2+ pulses, warm, well-perfused, no edema. NEUROLOGICAL: Cranial nerves II through X grossly intact. Normal speech, gait not observed. strength 5/5 in both lower extremities at the ankle and hip PSYCH: Normal mood, normal affect. SKIN: Warm, dry, normal turgor, no rashes or lesions noted Laboratory Results - last 24 hr 10/12/17 10/12/17 10/13/17 18:35 20:48 04:55 WBC RBC Hgb Hct MCV MCH MCHC RDW Plt Count MPV Neutrophils % (Manual) PT with INR INR Sodium Potassium Chloride Carbon Dioxide Anion Gap BUN Creatinine POC Glucometer 107 91 Random Glucose Calcium Phosphorus Magnesium Troponin I 0.05 10/13/17 10/13/17 10/13/17 06:30 06:30 06:30 WBC 1.2 L* RBC 3.45 L Hgb 12.0 Hct 35.0 L MCV 101.4 H MCH 34.8 H MCHC 34.3 RDW 15.4 Plt Count 48 L MPV 9.5 D Neutrophils % (Manual) No Result Required. PT with INR 25.00 H INR 2.21 H D Sodium 141 Potassium 3.2 L Chloride 103 Carbon Dioxide 28 Anion Gap 10 BUN 9 D Creatinine 0.8 POC Glucometer Random Glucose 77 Calcium 8.5 Phosphorus 3.4 D Magnesium 1.5 L D Troponin I 10/13/17 10/13/17 11:12 17:28 WBC RBC Hgb Hct MCV MCH MCHC RDW Plt Count MPV Neutrophils % (Manual) PT with INR INR Sodium Potassium Chloride Carbon Dioxide Anion Gap BUN Creatinine POC Glucometer 99 153 Random Glucose Calcium Phosphorus Magnesium Troponin I Active Medications Generic Name Dose Route Start Last Admin Trade Name Kamila PRN Reason Stop Dose Admin Acetaminophen 650 mg 10/13/17 14:02 Tylenol - PO Q6H PRN PAIN LEVEL 1-5 Atorvastatin Calcium 20 mg 10/11/17 22:00 10/12/17 21:02 Lipitor - PO 20 mg HS [facility] Administration Cyanocobalamin 100 mcg 10/12/17 10:00 10/13/17 09:48 Vitamin B12 - PO 100 mcg DAILY [facility] Administration Escitalopram Oxalate 10 mg 10/12/17 10:00 10/13/17 09:49 Lexapro - PO 10 mg DAILY [facility] Administration Folic Acid 1 mg 10/12/17 10:00 10/13/17 09:48 Folic Acid - PO 1 mg DAILY [facility] Administration Gabapentin 300 mg 10/11/17 22:00 10/13/17 14:00 Neurontin - PO 300 mg TID [facility] Administration Hydrochlorothiazide 25 mg 10/12/17 10:00 10/13/17 09:49 Hctz - PO 25 mg DAILY [facility] Administration Insulin Aspart 1 vial 10/11/17 22:00 10/13/17 17:34 Novolog Vial Sliding Scale - SQ 2 units ACHS [facility] Administration Protocol Lisinopril 10 mg 10/14/17 10:00 Prinivil PO DAILY [facility] Oxycodone HCl 5 mg 10/13/17 14:02 Roxicodone - PO Q6H PRN PAIN LEVEL 6-10 Warfarin Sodium 4 mg 10/13/17 18:00 10/13/17 17:38 Coumadin - PO 4 mg DAILY@1800 [facility] Administration ASSESSMENT/PLAN: This is a 57 year old male who is now currently homeless, with a history of DM, HTN, HLD, DVT, hx of PE on coumadin, with complaints of palpitations after a night of drinking and smoking. R/o ACS. #palpitations and chest tightness; r/o ACS -trops neg x4 -echo shows EF 64%, no changes since 05/06/17 -cardio onboard #thrombocytopenia/neutropenia likley 2/2 reactive to ETOH -plt 58 -> 62 -WBC 2.2 -> 1.3 -> 1.2 -will trend consider heme onc consult if remains decreased -placed on neutropenic precautions #elevated INR: -5.73 -> 4.41 -> 2.21 today -trending INR -will resume home coumadin 4mg #ETOH abuse -monitor for withdrawal ssx -electrolyte derangements likley 2/2 abuse -replete lytes PRN #HTN: -c/w home lisinopril 5 daily -added norvasc 5mg today 2/2 increased BP -c/w home HCTZ 25 po daily #DM: -BGM ACHS -ISS ACHS -a1c 5.8 #prophy -holding AC in the setting of elevated INR and thrombocytopenia -offered HIV testing, pt consents. #FEN -no fluids indicated -replete lytes as above -DM diet #Dispo -admit to tele obs Visit type - Emergency Visit Emergency Visit: Yes ED Registration Date: 10/13/17 Care time: The patient presented to the Emergency Department on the above date and was hospitalized for further evaluation of their emergent condition. - New Patient This patient is new to me today: No - Critical Care Critical Care patient: No
[2017-10-13] MEDS: oxyCODONE HCL 5 MG TABLET PO PRN (20:20)
[2017-10-13] MEDS: ATORVASTATIN CA 20 MG TABLET (FP) PO SCH (21:12)
[2017-10-14] MEDS: oxyCODONE HCL 5 MG TABLET PO PRN ×2 (05:03→20:50)
[2017-10-14] MEDS: GABAPENTIN 300 MG CAPSULE (FP) PO SCH ×3 (05:04→21:09)
[2017-10-14] MEDS: INSULIN SLIDING SCALE (NOVOLOG) 1 VIAL SQ SCH ×2 (06:01→13:11)
[2017-10-14 07:11] LABS: HEMATOCRIT 37.4 % (35.4-49); HEMOGLOBIN 12.6 GM/dL (11.7-16.9); MCH 34.6 pg (25.7-33.7); MCHC 33.8 g/dl (32.0-35.9); MEAN CELL VOLUME 102.4 fl (80-96); MEAN PLT VOLUME 9.4 fl (7.5-11.1); PLATELET COUNT 57 K/MM3 (134-434); RBC 3.65 M/mm3 (4.00-5.60); RDW 15.7 % (11.9-15.9)
[2017-10-14 07:38] LABS: INR 1.53 (0.82-1.09); PROTHROMBIN TIME (PATIENT) 17.3 SEC (9.98-11.88)
[2017-10-14 07:49] LABS: ALBUMIN 3.2 g/dl (3.4-5.0); ANION GAP 8 (8-16); BLOOD UREA NITROGEN 15 mg/dL (7-18); CALCIUM 8.5 mg/dL (8.5-10.1); CHLORIDE 104 mmol/L (98-107); CO2 29 mmol/L (21-32); GLUCOSE,RANDOM 80 mg/dL (74-106); MAGNESIUM 1.5 mg/dL (1.8-2.4); POTASSIUM 3.6 mmol/L (3.5-5.1); SODIUM 141 mmol/L (136-145)
[2017-10-14 07:54] LABS: ALK PHOS 74 U/L (45-117); CREATININE 0.9 mg/dL (0.7-1.3); PHOSPHOROUS 3.8 mg/dL (2.5-4.9); SGOT/AST 43 U/L (15-37); SGPT/ALT 35 U/L (12-78); TOT PROT 6.6 g/dl (6.4-8.2)
[2017-10-14 08:23] LABS: WHITE BLOOD COUNT 1.7 K/mm3 (4.0-10.0)
[2017-10-14] MEDS: HYDROCHLOROTHIAZIDE 25 MG TABLET (FP) PO SCH (09:43)
[2017-10-14] MEDS: FOLIC ACID 1 MG TABLET (FP) PO SCH (09:43)
[2017-10-14] MEDS: LISINOPRIL 5 MG TABLET (FP) PO SCH (09:43)
[2017-10-14] MEDS: ESCITALOPRAM OXALATE 10 MG TABLET (FP) PO SCH (09:43)
[2017-10-14] MEDS: CYANOCOBALAMIN (VITAMIN B-12) 100 MCG TABLET PO SCH (09:43)
--- NOTE | 2017-10-14 10:50 | PN ---
Progress Note, Physician History of Present Illness: The patient is a 57 year old male with a history of HTN, HLD, PE, DM who presents for evaluation of palpitations. The patient reports a several hour history of sensation of palpitations and a pounding heart beginning earlier this morning prompting his presentation to the ED for evaluation. The patient states that he did consume alcohol and cigarrettes yesterday and has been feeling somewhat anxious and "shaky" this morning. He otherwise denies fevers, chills, SOB, chest pain, abdominal pain, nausea, vomiting, leg swelling, or changes with urination or bowel movements. - Current Medication List Current Medications: Active Medications Acetaminophen (Tylenol -) 650 mg PO Q6H PRN PRN Reason: PAIN LEVEL 1-5 Atorvastatin Calcium (Lipitor -) 20 mg PO HS [facility] Last Admin: 10/13/17 21:12 Dose: 20 mg Cyanocobalamin (Vitamin B12 -) 100 mcg PO DAILY [facility] Last Admin: 10/14/17 09:43 Dose: 100 mcg Escitalopram Oxalate (Lexapro -) 10 mg PO DAILY [facility] Last Admin: 10/14/17 09:43 Dose: 10 mg Folic Acid (Folic Acid -) 1 mg PO DAILY [facility] Last Admin: 10/14/17 09:43 Dose: 1 mg Gabapentin (Neurontin -) 300 mg PO TID [facility] Last Admin: 10/14/17 05:04 Dose: 300 mg Hydrochlorothiazide (Hctz -) 25 mg PO DAILY [facility] Last Admin: 10/14/17 09:43 Dose: 25 mg Insulin Aspart (Novolog Vial Sliding Scale -) 1 vial SQ ACHS [facility] PRN Reason: Protocol Last Admin: 10/14/17 06:01 Dose: Not Given Lisinopril (Prinivil) 10 mg PO DAILY [facility] Last Admin: 10/14/17 09:43 Dose: 10 mg Oxycodone HCl (Roxicodone -) 5 mg PO Q6H PRN PRN Reason: PAIN LEVEL 6-10 Last Admin: 10/14/17 05:03 Dose: 5 mg Warfarin Sodium (Coumadin -) 4 mg PO DAILY@1800 [facility] Last Admin: 10/13/17 17:38 Dose: 4 mg - Objective Vital Signs: Vital Signs Temperature 98.2 F 10/14/17 07:57 Pulse Rate 78 10/14/17 07:57 Respiratory Rate 20 10/14/17 08:05 Blood Pressure 149/90 10/14/17 07:57 O2 Sat by Pulse Oximetry (%) 96 10/14/17 08:05 Eyes: Yes: WNL, Conjunctiva Clear, EOM Intact HENT: Yes: WNL, Atraumatic, Normocephalic Neck: Yes: WNL, Supple, Trachea Midline Cardiovascular: Yes: WNL, Regular Rate and Rhythm Respiratory: Yes: WNL, Regular, CTA Bilaterally Gastrointestinal: Yes: WNL, Normal Bowel Sounds Genitourinary: Yes: WNL Musculoskeletal: Yes: WNL Extremities: Yes: WNL Edema: No Integumentary: Yes: WNL Neurological: Yes: WNL, Alert, Oriented ...Motor Strength: WNL Psychiatric: Yes: WNL Labs: CBC, BMP 10/14/17 06:16 10/14/17 06:16 INR, PTT INR 1.53 (0.82-1.09) H D 10/14/17 06:16 Problem List - Problems (1) Elevated INR Code(s): R79.1 - ABNORMAL COAGULATION PROFILE (2) Elevated troponin Code(s): R74.8 - ABNORMAL LEVELS OF OTHER SERUM ENZYMES (3) Palpitations Code(s): R00.2 - PALPITATIONS (4) SOB (shortness of breath) Code(s): R06.02 - SHORTNESS OF BREATH (5) Clogged ear Code(s): H93.8X9 - OTHER SPECIFIED DISORDERS OF EAR, UNSPECIFIED EAR (6) DVT (deep venous thrombosis) Code(s): I82.409 - ACUTE EMBOLISM AND THOMBOS UNSP DEEP VN UNSP LOWER EXTREMITY Qualifiers: DVT location: lower extremity Affected thrombotic vein of extremity: popliteal Chronicity: acute Laterality: right Qualified Code(s): I82.431 - Acute embolism and thrombosis of right popliteal vein (7) Depression Code(s): F32.9 - MAJOR DEPRESSIVE DISORDER, SINGLE EPISODE, UNSPECIFIED (8) Diabetes Code(s): E11.9 - TYPE 2 DIABETES MELLITUS WITHOUT COMPLICATIONS (9) Elevated serum creatinine Code(s): R79.89 - OTHER SPECIFIED ABNORMAL FINDINGS OF BLOOD CHEMISTRY (10) [place] cardiac risk >20% in next 10 years Code(s): Z91.89 - OTH PERSONAL RISK FACTORS, NOT ELSEWHERE CLASSIFIED (11) HLD (hyperlipidemia) Code(s): E78.5 - HYPERLIPIDEMIA, UNSPECIFIED (12) HTN (hypertension) Code(s): I10 - ESSENTIAL (PRIMARY) HYPERTENSION (13) Headache Code(s): R51 - HEADACHE Qualifiers: Headache type: tension-type Headache chronicity pattern: acute headache Intractability: not intractable Qualified Code(s): G44.209 - Tension-type headache, unspecified, not intractable (14) Homeless Code(s): Z59.0 - HOMELESSNESS (15) Low back pain Code(s): M54.5 - LOW BACK PAIN Qualifiers: Chronicity: acute Back pain laterality: unspecified Sciatica presence: without sciatica Qualified Code(s): M54.5 - Low back pain (16) Morbid obesity Code(s): E66.01 - MORBID (SEVERE) OBESITY DUE TO EXCESS CALORIES (17) Pulmonary embolism Code(s): I26.99 - OTHER PULMONARY EMBOLISM WITHOUT ACUTE COR PULMONALE (18) Smokes cigarettes Code(s): F17.210 - NICOTINE DEPENDENCE, CIGARETTES, UNCOMPLICATED (19) Sternal fracture Code(s): S22.20XA - UNSP FRACTURE OF STERNUM, INIT ENCNTR FOR CLOSED FRACTURE Qualifiers: Encounter type: initial encounter Sternal location: body of sternum Fracture type: closed Qualified Code(s): S22.22XA - Fracture of body of sternum, initial encounter for closed fracture (20) Thrombocytopenia Code(s): D69.6 - THROMBOCYTOPENIA, UNSPECIFIED Assessment/Plan #palpitations r/o ACS -cardiac tele -ecg NSR; with prolonged QT 500 -tsh wnl -trend trop ; first was slightly elevated with elevated ckmb echo nle ef ischemic work up when stable #thrombocytopenia: -most likely alcohol indued; trend #elevated INR: -home dose 4mg daily -hold warfarin; trend INR #alcohol abuse: -last drink last night; says drinks "occasionally" -given banana bag in ER -monitor for DT; or need of librium -chromosomal disorders counselor #HTN: -lipid panel -cont lisinopril daily #DM: -insulin ss; bgm -hemoglobin a1C DVT ; proph; elevated iNR GI: will hold due to adverse effects of thrombocytopenia cardiac wisde stable d/c telemetry
[2017-10-14] MEDS ORDERED: CYANOCOBALAMIN (VITAMIN B-12) 100 MCG TABLET PO SCH (11:24)
[2017-10-14] MEDS: THIAMINE HCL 100 MG TABLET (FP) PO SCH (13:09)
--- NOTE | 2017-10-14 14:30 | PN ---
Physical Exam: SUBJECTIVE: Patient seen and examined at bedside. Patient continues to experience palpitations and feelings of "my heart beating in my throat" whenever he turns or walks. No events on tele. Back pain from yesterday improved on medications. OBJECTIVE: Vital Signs Period Temp Pulse Resp BP Sys/Kelley Pulse Ox Last 24 Hr 98.2 F-99.5 F 78-96 20-20 142-153/77-90 96-98 GENERAL: The patient is awake, alert, and fully oriented, in no acute distress. HEAD: Normal with no signs of trauma. NECK: Trachea midline, full range of motion, supple. LUNGS: Breath sounds equal, clear to auscultation bilaterally, no wheezes, no crackles, no accessory muscle use. HEART: Regular rate and rhythm, S1, S2 without murmur, rub or gallop. ABDOMEN: Soft, nontender, nondistended, obese, normoactive bowel sounds, no guarding, no rebound, no hepatosplenomegaly, no masses. EXTREMITIES: 2+ pulses, warm, well-perfused, no edema. NEUROLOGICAL: Cranial nerves II through X grossly intact. Normal speech, gait not observed. PSYCH: Normal mood, normal affect. SKIN: Warm, dry, normal turgor, no rashes or lesions noted Laboratory Results - last 24 hr 10/13/17 10/13/17 10/14/17 17:28 20:21 05:00 WBC RBC Hgb Hct MCV MCH MCHC RDW Plt Count MPV PT with INR INR Sodium Potassium Chloride Carbon Dioxide Anion Gap BUN Creatinine Creat Clearance w eGFR POC Glucometer 153 108 92 Random Glucose Calcium Phosphorus Magnesium Total Bilirubin AST ALT Alkaline Phosphatase Total Protein Albumin Vitamin B12 HIV 1&2 Antibody Screen HIV P24 Antigen 10/14/17 10/14/17 10/14/17 06:00 06:16 06:16 WBC 1.7 L* D RBC 3.65 L Hgb 12.6 Hct 37.4 MCV 102.4 H MCH 34.6 H MCHC 33.8 RDW 15.7 Plt Count 57 L MPV 9.4 PT with INR INR Sodium Potassium Chloride Carbon Dioxide Anion Gap BUN Creatinine Creat Clearance w eGFR POC Glucometer Random Glucose Calcium Phosphorus Magnesium Total Bilirubin AST ALT Alkaline Phosphatase Total Protein Albumin Vitamin B12 Cancelled HIV 1&2 Antibody Screen Negative HIV P24 Antigen Negative 10/14/17 10/14/17 06:16 06:16 WBC RBC Hgb Hct MCV MCH MCHC RDW Plt Count MPV PT with INR 17.30 H INR 1.53 H D Sodium 141 Potassium 3.6 Chloride 104 Carbon Dioxide 29 Anion Gap 8 BUN 15 D Creatinine 0.9 Creat Clearance w eGFR > 60 POC Glucometer Random Glucose 80 Calcium 8.5 Phosphorus 3.8 Magnesium 1.5 L Total Bilirubin 1.0 AST 43 H ALT 35 Alkaline Phosphatase 74 Total Protein 6.6 Albumin 3.2 L Vitamin B12 193 D HIV 1&2 Antibody Screen HIV P24 Antigen Active Medications Generic Name Dose Route Start Last Admin Trade Name Freq PRN Reason Stop Dose Admin Acetaminophen 650 mg 10/13/17 14:02 Tylenol - PO Q6H PRN PAIN LEVEL 1-5 Atorvastatin Calcium 20 mg 10/11/17 22:00 10/13/17 21:12 Lipitor - PO 20 mg HS [facility] Administration Cyanocobalamin 1,000 mcg 10/14/17 11:24 Vitamin B12 - PO DAILY [facility] Escitalopram Oxalate 10 mg 10/12/17 10:00 10/14/17 09:43 Lexapro - PO 10 mg DAILY [facility] Administration Folic Acid 1 mg 10/12/17 10:00 10/14/17 09:43 Folic Acid - PO 1 mg DAILY [facility] Administration Gabapentin 300 mg 10/11/17 22:00 10/14/17 13:09 Neurontin - PO 300 mg TID [facility] Administration Hydrochlorothiazide 25 mg 10/12/17 10:00 10/14/17 09:43 Hctz - PO 25 mg DAILY [facility] Administration Insulin Aspart 1 vial 10/15/17 10:00 Novolog Vial Sliding Scale - SQ DAILY [facility] Protocol Lisinopril 10 mg 10/14/17 10:00 10/14/17 09:43 Prinivil PO 10 mg DAILY [facility] Administration Oxycodone HCl 5 mg 10/13/17 14:02 10/14/17 05:03 Roxicodone - PO 5 mg Q6H PRN Administration PAIN LEVEL 6-10 Thiamine HCl 100 mg 10/14/17 11:30 10/14/17 13:09 Vitamin B1 - PO 100 mg DAILY [facility] Administration Warfarin Sodium 4 mg 10/13/17 18:00 10/13/17 17:38 Coumadin - PO 4 mg DAILY@1800 [facility] Administration ASSESSMENT/PLAN: This is a 57 year old male who is now currently homeless, with a history of DM, HTN, HLD, DVT, hx of PE on coumadin, with complaints of palpitations after a night of drinking and smoking. R/o ACS. #palpitations and chest tightness; ACS ruled out. likely 2/2 anxiety vs product of hematologic abnormalities -trops neg x4 -echo shows EF 64%, no changes since 05/06/17 -per cardio, pt stable; no further inpatient ischemia workup indicated. -will d/c tele #thrombocytopenia/neutropenia likley 2/2 reactive to ETOH -plt 58 -> 62 -> 48 -> 57 -WBC 2.2 -> 1.3 -> 1.2 -> 1.7 -heme onc consult -placed on neutropenic precautions #elevated INR: -5.73 -> 4.41 -> 2.21 -> 1.53 today -trending INR -c/w home coumadin 4mg #ETOH abuse -monitor for withdrawal ssx -electrolyte derangements [facility] 2/2 abuse -replete lytes PRN #HTN: -home lisinopril increased from 5 to 10 daily -c/w home HCTZ 25 po daily #DM: -BGM ACHS -ISS ACHS -a1c 5.8 #prophy -holding AC in the setting of elevated INR and thrombocytopenia -offered HIV testing, pt consents. #FEN -no fluids indicated -replete lytes as above -DM diet #Dispo -d/c tele. admit to inpatient med surg Visit type - Emergency Visit Emergency Visit: Yes ED Registration Date: 10/13/17 Care time: The patient presented to the Emergency Department on the above date and was hospitalized for further evaluation of their emergent condition. - New Patient This patient is new to me today: No - Critical Care Critical Care patient: No
[2017-10-14] MEDS ORDERED: MAGNESIUM SULF 50% (8.12 MEQ/2 ML-1 GM VIAL) IVPB ONE (14:39)
--- NOTE | 2017-10-14 17:45 | PN ---
Progress Note (short form) - Note Progress Note: Patient seen and examined. chart reviewed. 57 year old man with a history of type 2 DM, HTN, hyperlipidemia, DVT/PE who presented to the ED with palpitations. Hematology called for neutropenia ROS is + for palpitations, dizziness, headache, still "shaky", no fevers, no cough, CP, SOB or unrinary sx. Cor: RSR, No murmurs, No gallops Lungs: Clear to P&A Abd: Soft, Normal bowel sounds, No organomegaly Ext:No significant edema Skin: No rashes, Integument intact Temp Pulse Resp BP Pulse Ox 98.5 F 73 20 156/88 96 10/14/17 14:05 10/14/17 14:05 10/14/17 14:05 10/14/17 14:05 10/14/17 08:05 CBC, BMP 10/14/17 06:16 10/14/17 06:16 Current Medications Generic Name Dose Route Start Last Admin Trade Name Freq PRN Reason Stop Dose Admin Acetaminophen 650 mg 10/13/17 14:02 Tylenol - PO Q6H PRN PAIN LEVEL 1-5 Atorvastatin Calcium 20 mg 10/11/17 22:00 10/13/17 21:12 Lipitor - PO 20 mg HS [facility] Administration Cyanocobalamin 1,000 mcg 10/14/17 11:24 Vitamin B12 - PO DAILY [facility] Escitalopram Oxalate 10 mg 10/12/17 10:00 10/14/17 09:43 Lexapro - PO 10 mg DAILY [facility] Administration Folic Acid 1 mg 10/12/17 10:00 10/14/17 09:43 Folic Acid - PO 1 mg DAILY [facility] Administration Gabapentin 300 mg 10/11/17 22:00 10/14/17 13:09 Neurontin - PO 300 mg TID [facility] Administration Hydrochlorothiazide 25 mg 10/12/17 10:00 10/14/17 09:43 Hctz - PO 25 mg DAILY [facility] Administration Insulin Aspart 1 vial 10/15/17 10:00 Novolog Vial Sliding Scale - SQ DAILY [facility] Protocol Lisinopril 10 mg 10/14/17 10:00 10/14/17 09:43 Prinivil PO 10 mg DAILY [facility] Administration Oxycodone HCl 5 mg 10/13/17 14:02 10/14/17 05:03 Roxicodone - PO 5 mg Q6H PRN Administration PAIN LEVEL 6-10 Thiamine HCl 100 mg 10/14/17 11:30 10/14/17 13:09 Vitamin B1 - PO 100 mg DAILY [facility] Administration Warfarin Sodium 4 mg 10/13/17 18:00 10/13/17 17:38 Coumadin - PO 4 mg DAILY@1800 [facility] Administration Neutropenia/thrombocytopenia: likely acute BM suppression from ETOH toxicity ,also with h/o steatohepatitis--- -> Splenomegaly ( 21cm ) r/o any infection. most of the w.u negative for flow/SPEP/Blood cx Thrombocytopenia was chronic h/o DVT/PE on coumadin advised to f/u with his pmd for age appropriate cancer screening ETOH WD: per Primary
--- NOTE | 2017-10-14 17:50 | PN ---
Teaching Attending Note Name of Resident: Cruz Tobin ATTENDING PHYSICIAN STATEMENT I saw and evaluated the patient. I reviewed the resident's note and discussed the case with the resident. I agree with the resident's findings and plan as documented. SUBJECTIVE: No fever or chills . has no CP at time of evaluation , but experienced an episode of palpitations and chest discomfort in am around 9 pm OBJECTIVE: NAD , comfortable CV: RRR Lungs : CTAB Ext: trace edema on LE ASSESSMENT AND PLAN: 57 y/o man with h/o binge drinking , DM , HTN, DVT/PE, and other medical problems who presented with palpitations and chest discomfort after binge drinking 1- Palpitations and chest dicomfort : possibly due to binge drinking and/or panic attack. tele review does not show any arrhythmias at time of sx this am . no further cardiac w/u advised about no ALcohol if sx persist , then will need event monitoring 2- pancytopenia and neutropenia . d/w heme , likely due to acute alcohol consumption - monitor - check B12 , and folate - add B12 and folate with thiamine - heme consult - flowcytometry and SPEp sent - blood cx ordered 3- ETOH abuse, binge drinking . - no signs of withdrawal 4- h/o PE /DVT : cont coumadin check INR 5- HTN: - cont HCTZ - increase lisinopril to 10 mg 6- DM : low a1c, but can cont metformin as out pt . dispo : possible dc tomorrow Neutropenic precautions homeless now , but will be able to get in with son tomorrow
[2017-10-14] MEDS: WARFARIN NA 2 MG TABLET (UD) PO SCH (17:56)
[2017-10-14] MEDS: ATORVASTATIN CA 20 MG TABLET (FP) PO SCH (21:09)
[2017-10-15] MEDS: GABAPENTIN 300 MG CAPSULE (FP) PO SCH ×2 (05:49→13:23)
[2017-10-15 07:49] LABS: HEMATOCRIT 38.8 % (35.4-49); HEMOGLOBIN 13.1 GM/dL (11.7-16.9); MCH 34.6 pg (25.7-33.7); MCHC 33.8 g/dl (32.0-35.9); MEAN CELL VOLUME 102.4 fl (80-96); MEAN PLT VOLUME 9.4 fl (7.5-11.1); PLATELET COUNT 71 K/MM3 (134-434); RBC 3.79 M/mm3 (4.00-5.60); RDW 15.7 % (11.9-15.9); WHITE BLOOD COUNT 2.5 K/mm3 (4.0-10.0)
[2017-10-15 07:52] LABS: INR 1.5 (0.82-1.09); PROTHROMBIN TIME (PATIENT) 16.9 SEC (9.98-11.88)
[2017-10-15] MEDS: HYDROCHLOROTHIAZIDE 25 MG TABLET (FP) PO SCH (09:34)
[2017-10-15] MEDS: FOLIC ACID 1 MG TABLET (FP) PO SCH (09:34)
[2017-10-15] MEDS: THIAMINE HCL 100 MG TABLET (FP) PO SCH (09:34)
[2017-10-15] MEDS: ESCITALOPRAM OXALATE 10 MG TABLET (FP) PO SCH (09:34)
[2017-10-15] MEDS: LISINOPRIL 5 MG TABLET (FP) PO SCH (09:34)
[2017-10-15] MEDS ORDERED: INSULIN SLIDING SCALE (NOVOLOG) 1 VIAL SQ SCH (10:00)
[2017-10-15] MEDS ORDERED: LISINOPRIL 20 MG TABLET (FP) PO SCH (10:01)
--- NOTE | 2017-10-15 10:51 | PN ---
Progress Note, Physician History of Present Illness: The patient is a 57 year old male with a history of HTN, HLD, PE, DM who presents for evaluation of palpitations. The patient reports a several hour history of sensation of palpitations and a pounding heart beginning earlier this morning prompting his presentation to the ED for evaluation. The patient states that he did consume alcohol and cigarrettes yesterday and has been feeling somewhat anxious and "shaky" this morning. He otherwise denies fevers, chills, SOB, chest pain, abdominal pain, nausea, vomiting, leg swelling, or changes with urination or bowel movements. - Current Medication List Current Medications: Active Medications Acetaminophen (Tylenol -) 650 mg PO Q6H PRN PRN Reason: PAIN LEVEL 1-5 Atorvastatin Calcium (Lipitor -) 20 mg PO HS [facility] Last Admin: 10/14/17 21:09 Dose: 20 mg Cyanocobalamin (Vitamin B12 -) 1,000 mcg PO DAILY [facility] Last Admin: 10/15/17 09:34 Dose: 1,000 mcg Escitalopram Oxalate (Lexapro -) 10 mg PO DAILY [facility] Last Admin: 10/15/17 09:34 Dose: 10 mg Folic Acid (Folic Acid -) 1 mg PO DAILY [facility] Last Admin: 10/15/17 09:34 Dose: 1 mg Gabapentin (Neurontin -) 300 mg PO TID [facility] Last Admin: 10/15/17 05:49 Dose: 300 mg Hydrochlorothiazide (Hctz -) 25 mg PO DAILY [facility] Last Admin: 10/15/17 09:34 Dose: 25 mg Insulin Aspart (Novolog Vial Sliding Scale -) 1 vial SQ DAILY [facility] PRN Reason: Protocol Last Admin: 10/15/17 09:34 Dose: Not Given Lisinopril (Prinivil) 20 mg PO DAILY [facility] Oxycodone HCl (Roxicodone -) 5 mg PO Q6H PRN PRN Reason: PAIN LEVEL 6-10 Last Admin: 10/14/17 20:50 Dose: 5 mg Thiamine HCl (Vitamin B1 -) 100 mg PO DAILY [facility] Last Admin: 10/15/17 09:34 Dose: 100 mg Warfarin Sodium (Coumadin -) 4 mg PO DAILY@1800 [facility] Last Admin: 10/14/17 17:56 Dose: 4 mg - Objective Vital Signs: Vital Signs Temperature 98.2 F 10/15/17 07:23 Pulse Rate 92 H 04/19/18 07:23 Respiratory Rate 20 10/15/17 07:26 Blood Pressure 147/82 10/15/17 07:23 O2 Sat by Pulse Oximetry (%) 98 10/15/17 07:26 Eyes: Yes: WNL, Conjunctiva Clear, EOM Intact HENT: Yes: WNL, Atraumatic, Normocephalic Neck: Yes: WNL, Supple, Trachea Midline Cardiovascular: Yes: WNL, Regular Rate and Rhythm Respiratory: Yes: WNL, Regular, CTA Bilaterally Gastrointestinal: Yes: WNL, Normal Bowel Sounds Genitourinary: Yes: WNL Musculoskeletal: Yes: WNL Extremities: Yes: WNL Edema: No Integumentary: Yes: WNL Neurological: Yes: WNL, Alert, Oriented ...Motor Strength: WNL Psychiatric: Yes: WNL Labs: CBC, BMP 10/15/17 06:18 10/14/17 06:16 INR, PTT INR 1.50 (0.82-1.09) H 10/15/17 06:18 Problem List - Problems (1) Elevated INR Code(s): R79.1 - ABNORMAL COAGULATION PROFILE (2) Elevated troponin Code(s): R74.8 - ABNORMAL LEVELS OF OTHER SERUM ENZYMES (3) Palpitations Code(s): R00.2 - PALPITATIONS (4) SOB (shortness of breath) Code(s): R06.02 - SHORTNESS OF BREATH (5) Clogged ear Code(s): H93.8X9 - OTHER SPECIFIED DISORDERS OF EAR, UNSPECIFIED EAR (6) DVT (deep venous thrombosis) Code(s): I82.409 - ACUTE EMBOLISM AND THOMBOS UNSP DEEP VN UNSP LOWER EXTREMITY Qualifiers: DVT location: lower extremity Affected thrombotic vein of extremity: popliteal Chronicity: acute Laterality: right Qualified Code(s): I82.431 - Acute embolism and thrombosis of right popliteal vein (7) Depression Code(s): F32.9 - MAJOR DEPRESSIVE DISORDER, SINGLE EPISODE, UNSPECIFIED (8) Diabetes Code(s): E11.9 - TYPE 2 DIABETES MELLITUS WITHOUT COMPLICATIONS (9) Elevated serum creatinine Code(s): R79.89 - OTHER SPECIFIED ABNORMAL FINDINGS OF BLOOD CHEMISTRY (10) [place] cardiac risk >20% in next 10 years Code(s): Z91.89 - OTH PERSONAL RISK FACTORS, NOT ELSEWHERE CLASSIFIED (11) HLD (hyperlipidemia) Code(s): E78.5 - HYPERLIPIDEMIA, UNSPECIFIED (12) HTN (hypertension) Code(s): I10 - ESSENTIAL (PRIMARY) HYPERTENSION (13) Headache Code(s): R51 - HEADACHE Qualifiers: Headache type: tension-type Headache chronicity pattern: acute headache Intractability: not intractable Qualified Code(s): G44.209 - Tension-type headache, unspecified, not intractable (14) Homeless Code(s): Z59.0 - HOMELESSNESS (15) Low back pain Code(s): M54.5 - LOW BACK PAIN Qualifiers: Chronicity: acute Back pain laterality: unspecified Sciatica presence: without sciatica Qualified Code(s): M54.5 - Low back pain (16) Morbid obesity Code(s): E66.01 - MORBID (SEVERE) OBESITY DUE TO EXCESS CALORIES (17) Pulmonary embolism Code(s): I26.99 - OTHER PULMONARY EMBOLISM WITHOUT ACUTE COR PULMONALE (18) Smokes cigarettes Code(s): F17.210 - NICOTINE DEPENDENCE, CIGARETTES, UNCOMPLICATED (19) Sternal fracture Code(s): S22.20XA - UNSP FRACTURE OF STERNUM, INIT ENCNTR FOR CLOSED FRACTURE Qualifiers: Encounter type: initial encounter Sternal location: body of sternum Fracture type: closed Qualified Code(s): S22.22XA - Fracture of body of sternum, initial encounter for closed fracture (20) Thrombocytopenia Code(s): D69.6 - THROMBOCYTOPENIA, UNSPECIFIED Assessment/Plan #palpitations r/o ACS -cardiac tele -ecg NSR; with prolonged QT 500 -tsh wnl -trend trop ; first was slightly elevated with elevated ckmb echo nle ef ischemic work up when stable #thrombocytopenia: -most likely alcohol indued; trend #elevated INR: resolved -restart warfarin; trend INR #alcohol abuse: -last drink last night; says drinks "occasionally" -given banana bag in ER -monitor for DT; or need of librium -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
[2017-10-15 13:35] LABS: ANISOCYTOSIS 1+; REACTIVE LYMPHOCYTES 3 % (0-80)
--- NOTE | 2017-10-15 17:04 | PN ---
Teaching Attending Note Name of Resident: Cruz Tobin ATTENDING PHYSICIAN STATEMENT I saw and evaluated the patient. I reviewed the resident's note and discussed the case with the resident. I agree with the resident's findings and plan as documented. SUBJECTIVE: no fever or chills. has no abd pain . cont to have episodes of palpitations and chest tightening especially after ambulating OBJECTIVE: NAD, comfortable walking in hallway CV: RRR Lungs: CTAB Ext: trace edema on LE. ASSESSMENT AND PLAN: 57 y/o man with h/o binge drinking , DM , HTN, DVT/PE, and other medical problems who presented with palpitations and chest discomfort after binge drinking 1- Palpitations and chest discomfort: unclear etiology. panic attacks/anxiety, vs alcohol effect tele reviewed. artifact as some leads were off. no evidence of arrhythmias, strips were faxed to Dr. Aviles no further cardiac w/u as inpt 2- pancytopenia . likely due to acute BM suppression from alcohol consumption -recovering - B12 on lower side , will cont supplements at dc - heme consult appreciated, flow and SPEP to be followed as outpt - blood cx neg x 24 hr 3- ETOH abuse, binge drinking . - no signs of withdrawal 4- h/o PE /DVT : cont coumadin 4 mg . next INR Thursday as outpt 5- HTN: - cont HCTZ - increase lisinopril to 20 mg 6- DM : low a1c, but can cont metformin as out pt . dc to a halfway if his brother can't take him home. f/u with PCP and card and heme .
[2017-10-15] MEDS: WARFARIN NA 2 MG TABLET (UD) PO SCH (17:22)
[2017-10-15 19:15] VITALS: BP 155/95; PULSE 89; TEMP 99.3
--- NOTE | 2017-10-15 22:12 | DS ---
Physical Exam: SUBJECTIVE: Patient seen and examined at bedside. continues to complain of palpitations. No events on tele. OBJECTIVE: Vital Signs Period Temp Pulse Resp BP Sys/Kelley Pulse Ox Last 24 Hr 98.2 F-99.3 F 82-92 20-20 130-171/62-95 98 PHYSICAL EXAM GENERAL: The patient is awake, alert, and fully oriented, in no acute distress. NECK: Trachea midline, full range of motion, supple. LUNGS: Breath sounds equal, clear to auscultation bilaterally, no wheezes, no crackles, no accessory muscle use. HEART: Regular rate and rhythm, S1, S2 without murmur, rub or gallop. ABDOMEN: Soft, nontender, nondistended, normoactive bowel sounds, no guarding, no rebound, no hepatosplenomegaly, no masses. EXTREMITIES: 2+ pulses, warm, well-perfused, no edema. NEUROLOGICAL: Cranial nerves II through X grossly intact. Normal speech, gait not observed. PSYCH: Normal mood, normal affect. SKIN: Warm, dry, normal turgor, no rashes or lesions noted. LABS Laboratory Results - last 24 hr 10/15/17 10/15/17 10/15/17 05:38 06:18 06:18 WBC 2.5 L D RBC 3.79 L Hgb 13.1 Hct 38.8 MCV 102.4 H MCH 34.6 H MCHC 33.8 RDW 15.7 Plt Count 71 L D MPV 9.4 Anisocytosis Macrocytosis PT with INR 16.90 H INR 1.50 H POC Glucometer 101 Vitamin B12 Serum Folate 10/15/17 10/15/17 10/15/17 06:18 06:18 16:40 WBC RBC Hgb Hct MCV MCH MCHC RDW Plt Count MPV Anisocytosis 1+ Macrocytosis 1+ PT with INR INR POC Glucometer 378 Vitamin B12 250 D Serum Folate 16 HOSPITAL COURSE: Date of Admission:10/13/17 The patient is a 57 yo m w/ PMH DVT, PE on AC, DM, HTN, HLD who came into the ed c/o palpitations which started early this morning. The patient had just spent several days binge drinking with friends. Per the patient, he did not drink often, but drank to excess the past weekend. In the ED, he was found to have a troponin of .09, an INR of 5 and a leukopenia to 2.2. An EKG showed NSR. The patient was admitted for the workup and treatment of these abnormalities. Cardiology was consulted. The patient's magnesium and phosphorus were found to be low. The patient's warfarin was held. He was treated with lisinopril, folic acid, thiamine, IV magnesium, phosnak packets and oxycodone for his back pain. Cardiology assessed the patient, ruled out ACS and deemed him stable to follow up with his tour bus driver for an ischemic workup as an outpatient. The patient's hospital course was complicated by persistent pancytopenia with a WBC count of 1.2 at its lowest and a platelet count of 48 at its lowest. Hematology was consulted and attributed these findings to acute bone marrow suppression secondary to heavy drinking the weekend before. The patient's hospital course was also complicated by persistent hypertension treated with increasing doses of lisinopril. The patient improved on the above medications. The patient's troponemia trended down, then normalized. The patient's INR dropped into a safe range and his home warfarin dose was restarted. He continued to complain of recurrent palpitations throughout his admission, but no events could be seen on constant tele monitoring. The patient's WBC and platelets began to rise. The patient was discharged with prescriptions for Vitamin b12, folic acid and thiamine. He was given a 30 day supply of warfarin 4mg daily and his lisinopril was increased from 5mg to 20mg. He was advised to have his blood drawn on 10/19 with a CBC and an INR to track his Coumadin response and to confirm that his WBC and platelets were continuing to rise. He was advised to follow up with his PCP, his tour bus driver as well as a distillation operator within 1 week of discharge home. Date of Discharge: 10/15/17 Minutes to complete discharge: 36 Discharge Summary Reason For Visit: PALPITATIONS, ELEVATED TROPONIN AND INR Condition: Improved - Instructions Diet, Activity, Other Instructions: You were admitted for the evaluation of your heart palpitations, and found to have low white blood cells as well as high INR Level. Follow-up: 1. A tour bus driver within 1 week of discharge home. It is important to get more tests done on your heart to make sure there are no blockages which may cause damage. Information for Dr. Aviles, who saw you during your hospital stay, has been included in your discharge paperwork. Please call to make an appointment. Contact information for Dr. Fontanez has been provided for you. 2. Have your blood checked on Thursday 10/19 . A prescription for your blood work has been provided for you.fax results to your tour bus driver for INR follow up and coumadin dosing instructions 3. Veterinary Surgery Technologist (blood doctor) within one week of discharge home. Information for Dr. Moore, who saw you during your admission, has been included in your discharge paperwork. Please call to make an appointment. 4. Primary care physician within one week of discharge home. If you do not have one, Information for Dr. Higgins has been included in your discharge paperwork. Please call to make an appointment. Contact information for Dr. Palmer has been provided for you. Medications: Your Lisinopril has been increased to 20mg daily from 5mg. A prescription for this new dosage has been sent to your pharmacy. If you begin to experience chest pain, shortness of breath, increasing palpitation or if any of your symptoms get worse, please call your doctor or return to the emergency department. Referrals: Edenilson Higgins MD [Staff Physician] - Kalen Aviles MD [Staff Physician] - Tika Moore MD [Staff Physician] - Temo Palmer MD [Non Staff, Medical] - Luisito Fontanez MD [Non Staff, Medical] - Disposition: HOME - Home Medications Comprehensive Discharge Medication List: Ambulatory Orders Cholecalciferol (Vitamin D3) [Vitamin D -] 1,000 unit PO DAILY 7 Days #7 tab 01/13 Gabapentin 300 mg PO TID #21 capsule 07/05/17 Hydrochlorothiazide [Hctz -] 25 mg PO DAILY #7 tablet 07/05/17 Metformin HCl 500 mg PO BID #14 tablet 07/05/17 Simvastatin 10 mg PO HS #7 tablet 07/05/17 Acetaminophen [Tylenol Arthritis] 1,300 mg PO Q8H PRN 10/11/17 Escitalopram Oxalate [Lexapro -] 10 mg PO DAILY 10/11/17 Tizanidine HCl 2 mg PO TID PRN 10/11/17 Cyanocobalamin [Vitamin B12 -] 1,000 mcg PO DAILY 30 Days tablet 10/15/17 Folic Acid - 1 mg PO DAILY #30 tablet 10/15/17 Lisinopril [Prinivil] 20 mg PO DAILY #30 tablet 10/15/17 Thiamine HCl [Vitamin B1 -] 100 mg PO DAILY #30 tablet 10/15/17 Warfarin Na [Coumadin -] 4 mg PO DAILY@1800 #60 tablet 10/15/17 This patient is new to me today: No Emergency Visit: Yes ED Registration Date: 10/13/17 Care time: The patient presented to the Emergency Department on the above date and was hospitalized for further evaluation of their emergent condition. Critical Care patient: No - Discharge Referral Referred to [facility] No
== END 2017-10-15 20:09 | disposition home or self-care (01) | DRG 660 ==
LOC: JER 14:30 → JERBED 18:53 → J4W 10-12 15:02 → OBSVTOIN 10-13 13:05
PROVIDERS: ADMIT Internal Medicine; ATTEND Internal Medicine
DX: D61.818 Other pancytopenia (principal); R00.2 Palpitations; I10 Essential (primary) hypertension; E78.5 Hyperlipidemia, unspecified; E11.9 Type 2 diabetes mellitus without complications; Z68.41 Body mass index [BMI] 40.0-44.9, adult; F17.200 Nicotine dependence, unspecified, uncomplicated; F10.10 Alcohol abuse, uncomplicated; F41.9 Anxiety disorder, unspecified; D69.6 Thrombocytopenia, unspecified; R74.8 Abnormal levels of other serum enzymes; R16.1 Splenomegaly, not elsewhere classified; R79.1 Abnormal coagulation profile; R07.89 Other chest pain; E66.01 Morbid (severe) obesity due to excess calories; D64.9 Anemia, unspecified; E83.42 Hypomagnesemia; M54.9 Dorsalgia, unspecified; E83.39 Other disorders of phosphorus metabolism; D72.819 Decreased white blood cell count, unspecified; E87.6 Hypokalemia; F41.0 Panic disorder [episodic paroxysmal anxiety]; Z59.0 Homelessness; Z86.718 Personal history of other venous thrombosis and embolism; Z86.711 Personal history of pulmonary embolism; Z79.01 Long term (current) use of anticoagulants
CPT/HCPCS: 36415; 71275-TC; 80048; 80053; 80061; 80307; 82550; 82553; 82607; 82746; 82784; 82962; 83036; 83721; 83735; 83880; 84100; 84155; 84165; 84443; 84484; 85025; 85027; 85610; 85730; 86334; 87040; 87389; 93005; 93010; 93306-TC; 93970-TC; 97116-GP; 97161-GP; 99285-25; G0378; J7030

== ENCOUNTER 2017-10-23 17:53 | Emergency (ER) | payer OTHER ==
[2017-10-23 18:26] VITALS: TEMP 98.1; BMI 40.6
--- NOTE | 2017-10-23 19:45 | PDOC ---
History of Present Illness - General History Source: Patient Exam Limitations: No Limitations - History of Present Illness Initial Comments: 10/23/17 19:40 Best Contact:[phone] PCP: Dr. Plascencia/[facility] [phone] Pmhx: Pshx: 1992/Dr. Johns Right ankle ORIF/[facility] Allergies: Erythromycin LMP: N/A 57-year-old male presents to the ER complaining of feeling dizzy for approximately 6 second while walking in a fast-paced. Patient states he did not eat breakfast or lunch this morning but denies nausea/vomiting, headache, lightheadedness, facial pains, confusion, neck pains, back pains, chest pain, shortness of breath, abdominal pains, flank pains, urinary symptoms. Patient states his symptoms has subsided since arrival to the ER. Patient denies swelling of the area lobe, redness or tenderness behind the ear, drainage in the ear bulging and drooping of the ear. <Ramo Lewis - Last Filed: 10/24/17 05:52> <Candie David - Last Filed: 10/24/17 06:33> - General Chief Complaint: Lightheaded Stated Complaint: WEAKNESS Time Seen by Provider: 10/23/17 19:31 Past History - Past Medical History Cardiac Disorders: Yes (P.E) CVA: No COPD: No DVT: No Diabetes: Yes HTN: Yes Hypercholesterolemia: Yes Psychiatric Problems: Yes (ANXEITY) - Immunization History Immunization Up to Date: Yes - Suicide/Smoking/Psychosocial Hx Smoking History: Current every day smoker Have you smoked in the past 12 months: Yes Number of Cigarettes Smoked Daily: 20 Information on smoking cessation initiated: Yes 'Breaking Loose' booklet given: 10/23/17 Hx Alcohol Use: No Drug/Substance Use Hx: No Substance Use Type: None Hx Substance Use Treatment: No <Ramo Lewis - Last Filed: 10/24/17 05:52> <Candie David - Last Filed: 10/24/17 06:33> - Past Medical History Allergies/Adverse Reactions: Allergies Allergy/AdvReac Type Severity Reaction Status Date / Time erythromycin base Allergy Verified 10/23/17 18:25 Home Medications: Ambulatory Orders Cholecalciferol (Vitamin D3) [Vitamin D -] 1,000 unit PO DAILY 7 Days #7 tab 01/13 Gabapentin 300 mg PO TID #21 capsule 07/05/17 Hydrochlorothiazide [Hctz -] 25 mg PO DAILY #7 tablet 07/05/17 Metformin HCl 500 mg PO BID #14 tablet 07/05/17 Simvastatin 10 mg PO HS #7 tablet 07/05/17 Acetaminophen [Tylenol Arthritis] 1,300 mg PO Q8H PRN 10/11/17 Escitalopram Oxalate [Lexapro -] 10 mg PO DAILY 10/11/17 Tizanidine HCl 2 mg PO TID PRN 10/11/17 Cyanocobalamin [Vitamin B12 -] 1,000 mcg PO DAILY 30 Days tablet 10/15/17 Folic Acid - 1 mg PO DAILY #30 tablet 10/15/17 Lisinopril [Prinivil] 20 mg PO DAILY #30 tablet 10/15/17 Thiamine HCl [Vitamin B1 -] 100 mg PO DAILY #30 tablet 10/15/17 Warfarin Na [Coumadin -] 4 mg PO DAILY@1800 #60 tablet 10/15/17 Amoxicillin/Potassium Clav [Augmentin 875-125 Tablet] 1 each PO BID #20 tablet 10/24/17 Review of Systems - Review of Systems Able to Perform ROS?: Yes Comments:: 10/24/17 05:47 CONSTITUTIONAL: Absent: fever, chills, diaphoresis, generalized weakness, malaise, loss of appetite HEENT: Absent: rhinorrhea, nasal congestion, throat pain, throat swelling, difficulty swallowing, mouth swelling, ear pain, eye pain, visual Changes CARDIOVASCULAR: Absent: chest pain, loss of consciousness, palpitations, irregular heart rate, peripheral edema RESPIRATORY: Absent: cough, shortness of breath, dyspnea with exertion, orthopnea, wheezing, stridor, hemoptysis GASTROINTESTINAL: Absent: abdominal pain, abdominal distension, nausea, vomiting, diarrhea, constipation, melena, hematochezia GENITOURINARY: Absent: dysuria, frequency, urgency, hesitancy, hematuria, flank pain, genital pain MUSCULOSKELETAL: Absent: myalgia, arthralgia, joint swelling SKIN: Absent: rash, itching, pallor HEMATOLOGIC/IMMUNOLOGIC: Absent: easy bleeding, easy bruising, lymphadenopathy, frequent infections ENDOCRINE: Absent: unexplained weight gain, unexplained weight loss, heat intolerance, cold intolerance NEUROLOGIC: Absent: headache, focal weakness or paresthesias, dizziness, unsteady gait, seizure, mental status changes, bladder or bowel incontinence PSYCHIATRIC: Absent: anxiety, depression, suicidal or homicidal ideation, hallucinations. Is the patient limited Puerto [place]ican proficient: No <Ramo Lewis - Last Filed: 10/24/17 05:52> *Physical Exam - Vital Signs Last Vital Signs Temp Pulse Resp BP Pulse Ox 98.1 F 70 18 70/47 98 10/23/17 18:25 10/23/17 18:58 10/23/17 18:58 10/23/17 18:58 10/23/17 18:58 - Physical Exam Comments: 10/24/17 05:48 GENERAL: Well developed, well nourished. Awake and alert. No acute distress. HEENT: Normocephalic, atraumatic. PERRLA, EOMI. No conjunctival pallor. Sclera are non- icteric. Moist mucous membranes. Oropharynx is clear. NECK: Supple. Full ROM. No JVD. Carotid pulses 2+ and symmetric, without bruits. No thyromegaly. No lymphadenopathy. CARDIOVASCULAR: Regular rate and rhythm. No murmurs, rubs, or gallops. Distal pulses are 2+ and symmetric. PULMONARY: No evidence of respiratory distress. Lungs clear to auscultation bilaterally. No wheezing, rales or rhonchi. ABDOMINAL: Soft. Non-tender. Non-distended. No rebound or guarding. No organomegaly. Normoactive bowel sounds. MUSCULOSKELETAL Normal range of motion at all joints. No bony deformities or tenderness. No CVA tenderness. EXTREMITIES: No cyanosis. No clubbing. No edema. No calf tenderness. SKIN: Warm and dry. Normal capillary refill. No rashes. No jaundice. NEUROLOGICAL: Alert, awake, appropriate. Cranial nerves 2-12 intact. No deficits to light touch and temperature in face, upper extremities and lower extremities. No motor deficits in the in face, upper extremities and lower extremities. Normoreflexic in the upper and lower extremities. Normal speech. Toes are down- going bilaterally. Gait is normal without ataxia. PSYCHIATRIC: Cooperative. Good eye contact. Appropriate mood and affect. <Ramo Lewis - Last Filed: 10/24/17 05:52> - Vital Signs Last Vital Signs Temp Pulse Resp BP Pulse Ox 98.1 F 82 15 104/56 92 L 10/23/17 18:25 10/23/17 21:27 10/23/17 21:27 10/23/17 21:27 10/23/17 21:27 <Candie David - Last Filed: 10/24/17 06:33> ED Treatment Course - LABORATORY CBC & Chemistry Diagram: 10/23/17 19:40 10/23/17 21:40 - RADIOLOGY Radiograph Interpretation: 10/24/17 05:52 CT head w/o contrast: Left mastoid air cell fluid suggests mild mastoid inflammation <Ramo Lewis - Last Filed: 10/24/17 05:52> - LABORATORY CBC & Chemistry Diagram: 10/23/17 19:40 10/23/17 21:40 - ADDITIONAL ORDERS Additional order review: Laboratory Results 10/23/17 10/23/17 21:40 19:40 Sodium 139 Cancelled Potassium 5.3 H D Cancelled Chloride 111 H Cancelled Carbon Dioxide 23 D Cancelled Anion Gap 5 L Cancelled BUN 30 H D Cancelled Creatinine 1.5 H D Cancelled Creat Clearance w eGFR 48.07 Cancelled Random Glucose 154 H D Cancelled Calcium 8.2 L Cancelled Total Bilirubin 0.6 D Cancelled AST 34 D Cancelled ALT 45 D Cancelled Alkaline Phosphatase 65 Cancelled Creatine Kinase 130 Cancelled Troponin I < 0.02 D Cancelled Total Protein 6.9 Cancelled Albumin 3.2 L Cancelled 10/23/17 19:40 RBC 3.63 L MCV 100.0 H MCHC 35.3 RDW 14.8 MPV 9.8 Neutrophils % 53.7 Lymphocytes % 35.0 Monocytes % 8.8 Eosinophils % 1.4 Basophils % 1.1 - Medications Given in the ED: ED Medications Discontinued Medications Generic Name Dose Route Start Last Admin Trade Name Freq PRN Reason Stop Dose Admin Amoxicillin/Clavulanate Potassium 1 tab 10/24/17 06:05 10/24/17 06:20 Augmentin - 875mg Tablet PO 10/24/17 06:06 1 tab ONCE ONE Administration Sodium Chloride 1,000 mls @ 1,000 mls/hr 10/23/17 19:47 10/23/17 20:34 Normal Saline - IV 10/23/17 20:46 1,000 mls/hr ASDIR STA Administration <Alison Davidth - Last Filed: 10/24/17 06:33> *DC/Admit/Observation/Transfer - Discharge Dispostion Admit: No <Ramo Lewis - Last Filed: 10/24/17 05:52> - Attestations Physician Attestion: I reviewed the case with the mid-level practitioner and agree with the mid- level practitioner's assessment, diagnosis and disposition. <Candie David - Last Filed: 10/24/17 06:33> Diagnosis at time of Disposition: Dizzy - Discharge Dispostion Disposition: HOME Condition at time of disposition: Stable - Prescriptions Prescriptions: Amoxicillin/Potassium Clav [Augmentin 875-125 Tablet] 1 each PO BID #20 tablet - Referrals Referrals: Harsha Rodas MD [Staff Physician] - - Patient Instructions Printed Discharge Instructions: Dizziness, Nonvertigo Additional Instructions: Your CAT scan of the head shows that you may have inflamed mastoid. Take antibiotics until completion: Augmentin 875 mg. You must follow up with the ENT physician: Dr. Rodas within 48 hours Return back to the emergency department for severe/persistent or worsening symptoms
[2017-10-23] MEDS ORDERED: SODIUM CHLORIDE 1,000 ML IV STA (19:47)
[2017-10-23 20:13] LABS: BASO % 1.1 % (0-2.0); EOS % 1.4 % (0-4.5); HEMATOCRIT 36.3 % (35.4-49); HEMOGLOBIN 12.8 GM/dL (11.7-16.9); MCH 35.3 pg (25.7-33.7); MCHC 35.3 g/dl (32.0-35.9); MEAN PLT VOLUME 9.8 fl (7.5-11.1); MONO % 8.8 % (3.8-10.2); NEUT % 53.7 % (42.8-82.8); PLATELET COUNT 77 K/MM3 (134-434); RBC 3.63 M/mm3 (4.00-5.60); RDW 14.8 % (11.9-15.9); WHITE BLOOD COUNT 2.1 K/mm3 (4.0-10.0)
[2017-10-23 21:28] VITALS: BP 104/56; PULSE 82
[2017-10-23 22:29] LABS: ALBUMIN 3.2 g/dl (3.4-5.0); ANION GAP 5 (8-16); BLOOD UREA NITROGEN 30 mg/dL (7-18); CALCIUM 8.2 mg/dL (8.5-10.1); CHLORIDE 111 mmol/L (98-107); CO2 23 mmol/L (21-32); CREATININE 1.5 mg/dL (0.7-1.3); GLUCOSE,RANDOM 154 mg/dL (74-106); POTASSIUM 5.3 mmol/L (3.5-5.1); SGOT/AST 34 U/L (15-37); SGPT/ALT 45 U/L (12-78); SODIUM 139 mmol/L (136-145)
[2017-10-23 22:33] LABS: ALK PHOS 65 U/L (45-117); BILIRUBIN,TOTAL 0.6 mg/dL (0.2-1.0); TOT PROT 6.9 g/dl (6.4-8.2)
[2017-10-24] MEDS ORDERED: HEMOQUE TEST 1 EACH EACH ONE (02:52)
[2017-10-24] MEDS ORDERED: AMOX TR/POT CLAV 875MG/125MG TABLETS (FP) PO ONE (06:05)
[2017-10-24] MEDS ORDERED: AMOX TR/POT CLAV 875MG/125MG TABLETS (FP) ONE (06:14)
--- NOTE | 2017-10-24 11:31 | EKG ---
Test Reason : Blood Pressure : / mmHG Vent. Rate : 061 BPM Atrial Rate : 061 BPM P-R Int : 158 ms QRS Dur : 102 ms QT Int : 416 ms P-R-T Axes : 031 027 021 degrees QTc Int : 418 ms NORMAL SINUS RHYTHM NORMAL ECG WHEN COMPARED WITH ECG OF 11-OCT-2017 14:49, PREMATURE SUPRAVENTRICULAR COMPLEXES ARE NO LONGER PRESENT VENT. RATE HAS DECREASED BY 34 BPM QT HAS SHORTENED Confirmed by MACARENA MUNIZ, ROSALINDA ([id number]) on 10/24/2017 11:30:50 AM Referred By: Confirmed By:ROSALINDA FIORE MD
== END 2017-10-24 06:21 | disposition home or self-care (01) ==
LOC: JER 17:53
PROC: 3E0337Z Introduction of Electrolytic and Water Balance Substance into Peripheral Vein, Percutaneous Approach (ICD-10-PCS; principal; 2017-10-23)
DX: R42 Dizziness and giddiness (principal); F17.210 Nicotine dependence, cigarettes, uncomplicated; F41.9 Anxiety disorder, unspecified; I10 Essential (primary) hypertension; E11.9 Type 2 diabetes mellitus without complications; E78.00 Pure hypercholesterolemia, unspecified
CPT/HCPCS: 36415; 70450-TC; 80053; 82550; 84484; 85025; 93005; 93010; 96360; 99282-25; J7030

== ENCOUNTER 2017-11-09 10:27 | Emergency (ER) | payer OTHER ==
[2017-11-09 10:32] VITALS: BMI 40.0
--- NOTE | 2017-11-09 11:12 | PDOC ---
History of Present Illness - General Chief Complaint: Pain Stated Complaint: R/O DVT, RT LEG SWELLING Time Seen by Provider: 11/09/17 10:39 History Source: Patient Exam Limitations: No Limitations - History of Present Illness Initial Comments: CHIEF COMPLAINT: 57 y/o afebrile male with PMH HTN, HLD, DM, CHF, DVT in leg ( on Coumadin) sent here by his PMD for right leg redness and swelling to r/o DVT. HISTORY OF PRESENT ILLNESS: The patient states he's had right leg swelling x 4 days. He does admit he stopped taking his HCTZ 1 week ago because he was urinating too much. He denies f/c, n/v/d, CP, SOB, abd pain, back pain, hematuria, dysuria, orthopnea, leg redness, recent travel. Vital signs on arrival are notable for BP of 165/90. REVIEW OF SYSTEMS: GENERAL/CONSTITUTIONAL: No fever/chills. No weakness. No weight change. MUSCULOSKELETAL: +right leg swelling and redness. No neck or back pain. SKIN: No rash or easy bruising. NEUROLOGIC: No headache, vertigo, loss of consciousness, or loss of sensation. PHYSICAL EXAM: VITAL_SIGNS: within normal limits GENERAL_APPEARANCE: alert, cooperative, no obvious discomfort. MENTAL_STATUS: speech clear, oriented X 3, responds appropriately to questions. NEURO: motor intact and sensory intact in injured extremity. EXTREMITIES: 2+ dorsalis pedis pulse right LE. 1+ pitting edema right LE without erythema or warmth. Negative Nilesh's sign b/l. No TTP of right calf. SKIN: warm, dry, good color. 0= Past History - Past Medical History Allergies/Adverse Reactions: Allergies Allergy/AdvReac Type Severity Reaction Status Date / Time erythromycin base Allergy Verified 11/09/17 10:29 Home Medications: Ambulatory Orders Cholecalciferol (Vitamin D3) [Vitamin D -] 1,000 unit PO DAILY 7 Days #7 tab 01/13 Gabapentin 300 mg PO TID #21 capsule 07/05/17 Hydrochlorothiazide [Hctz -] 25 mg PO DAILY #7 tablet 07/05/17 Metformin HCl 500 mg PO BID #14 tablet 07/05/17 Simvastatin 10 mg PO HS #7 tablet 07/05/17 Acetaminophen [Tylenol Arthritis] 1,300 mg PO Q8H PRN 10/11/17 Escitalopram Oxalate [Lexapro -] 10 mg PO DAILY 10/11/17 Tizanidine HCl 2 mg PO TID PRN 10/11/17 Cyanocobalamin [Vitamin B12 -] 1,000 mcg PO DAILY 30 Days tablet 10/15/17 Folic Acid - 1 mg PO DAILY #30 tablet 10/15/17 Lisinopril [Prinivil] 20 mg PO DAILY #30 tablet 10/15/17 Thiamine HCl [Vitamin B1 -] 100 mg PO DAILY #30 tablet 10/15/17 Warfarin Na [Coumadin -] 4 mg PO DAILY@1800 #60 tablet 10/15/17 Amoxicillin/Potassium Clav [Augmentin 875-125 Tablet] 1 each PO BID #20 tablet 10/24/17 Cardiac Disorders: Yes (P.E) CVA: No COPD: No DVT: No Diabetes: Yes HTN: Yes Hypercholesterolemia: Yes Psychiatric Problems: Yes (ANXEITY) - Immunization History Immunization Up to Date: Yes - Suicide/Smoking/Psychosocial Hx Smoking History: Current every day smoker Have you smoked in the past 12 months: Yes Number of Cigarettes Smoked Daily: 10 Information on smoking cessation initiated: Yes 'Breaking Loose' booklet given: 11/09/17 Hx Alcohol Use: No Drug/Substance Use Hx: No Substance Use Type: None Hx Substance Use Treatment: No *Physical Exam - Vital Signs Last Vital Signs Temp Pulse Resp BP Pulse Ox 98.6 F 92 H 18 165/90 100 11/09/17 10:30 11/09/17 10:30 11/09/17 10:30 11/09/17 10:30 11/09/17 10:30 ED Treatment Course - LABORATORY CBC & Chemistry Diagram: 11/09/17 13:11 11/09/17 13:11 Medical Decision Making - Medical Decision Making A/P: 57 y/o male here to r/o right LE DVT. Patient on daily coumadin. Will also work up for CHF exacerbation since patient hasn't taken his HCTZ for 1 week. Plan is as follows: 1. Labs 2. CXR 3. Venous doppler venous Doppler IMPRESSION: No evidence of DVT Labs unremarkable. Patient given results. Instructed him to restart his HCTZ as prescribed and return to his PMD if swelling does not improve with restarting HCTZ. Patient instructed to return to the ER with any worsening or concerning symptoms. The patient verbalizes understanding of all instructions, has no further questions and is awaiting discharge. *DC/Admit/Observation/Transfer Diagnosis at time of Disposition: Right leg swelling - Discharge Dispostion Disposition: HOME Condition at time of disposition: Good - Referrals Referrals: Temo Palmer MD [Primary Care Provider] - 1 week - Patient Instructions Printed Discharge Instructions: DI for Peripheral Edema, Unilateral Additional Instructions: Discharge Instructions: -Your ultrasound showed NO BLOOD CLOT -You have a slightly elevated BNP, which could account for your leg swelling -Treatment for your leg swelling is for you to restart your hydrochlorithiazide medication and take as prescribed -Follow up with your primary doctor in 1 week if no improvement in symptoms after restarting your water pill. -Return to the ER immediately with any worsening or concerning symptoms - Post Discharge Activity
[2017-11-09 13:49] LABS: BASO % 0.9 % (0-2.0); EOS % 1.6 % (0-4.5); HEMATOCRIT 39.2 % (35.4-49); HEMOGLOBIN 13.1 GM/dL (11.7-16.9); LYMPH % 31.5 % (8-40); MCH 34.1 pg (25.7-33.7); MCHC 33.5 g/dl (32.0-35.9); MONO % 6.8 % (3.8-10.2); NEUT % 59.2 % (42.8-82.8); PLATELET COUNT 77 K/MM3 (134-434); RBC 3.84 M/mm3 (4.00-5.60); WHITE BLOOD COUNT 3.4 K/mm3 (4.0-10.0)
[2017-11-09 14:16] LABS: ALBUMIN 3.5 g/dl (3.4-5.0); ALK PHOS 61 U/L (45-117); ANION GAP 7 (8-16); BILIRUBIN,TOTAL 0.6 mg/dL (0.2-1.0); BLOOD UREA NITROGEN 15 mg/dL (7-18); CALCIUM 8.8 mg/dL (8.5-10.1); CHLORIDE 111 mmol/L (98-107); CO2 25 mmol/L (21-32); GLUCOSE,RANDOM 121 mg/dL (74-106); POTASSIUM 4.1 mmol/L (3.5-5.1); SGOT/AST 30 U/L (15-37); SGPT/ALT 38 U/L (12-78); SODIUM 143 mmol/L (136-145); TOT PROT 7.3 g/dl (6.4-8.2)
[2017-11-09 14:17] LABS: INR 1.49 (0.82-1.09); PROTHROMBIN TIME (PATIENT) 16.8 SEC (9.7-13.0)
[2017-11-09 14:18] LABS: N-TERMINAL BNP 277.42 pg/ml (5-125)
[2017-11-09 14:19] LABS: ACTIVATED PTT 32.9 SECONDS (26.9-34.4)
[2017-11-09 16:00] VITALS: BP 148/88; PULSE 91; TEMP 98.2
== END 2017-11-09 16:00 | disposition home or self-care (01) ==
LOC: JER 10:27
DX: R60.0 Localized edema (principal); I50.9 Heart failure, unspecified; I10 Essential (primary) hypertension; E78.5 Hyperlipidemia, unspecified; E78.00 Pure hypercholesterolemia, unspecified; E11.9 Type 2 diabetes mellitus without complications; F41.9 Anxiety disorder, unspecified; Z86.718 Personal history of other venous thrombosis and embolism; Z79.01 Long term (current) use of anticoagulants; Z91.14 Patient's other noncompliance with medication regimen; Z79.84 Long term (current) use of oral hypoglycemic drugs
CPT/HCPCS: 36415; 71046-TC-FY; 80053; 82550; 83880; 84484; 85025; 85610; 85730; 93971-TC; 99283-25

== ENCOUNTER 2017-12-12 07:18 | Inpatient (IN) | payer OTHER ==
--- NOTE | 2017-12-12 08:25 | PDOC ---
History of Present Illness - General Chief Complaint: Shortness of Breath Stated Complaint: SOB, ANKLES SWOLLEN Time Seen by Provider: 12/12/17 08:04 History Source: Patient Exam Limitations: No Limitations - History of Present Illness Initial Comments: This is a 57 YOM with h/o known RLE DVT/PE (supposed to be on warfarin but has prescription/healthcare access problems and has not been taking it x3 weeks), CHF and HTN (supposed to be taking HCTZ but has not for the past month), HLD, and NIDDM (taking his metformin compliantly) who p/w worsening SOB for the past week, worsening leg swelling for the past 2-3 weeks, and intermittent palpitations for the past week. He additionally notes generalized weakness and right calf intermittent pain, and frequent fluctuation of about 10 lbs in his weight. He denies fever, chills, nausea, vomiting, chest pain, headache, dizziness, lightheaded, back pain, abdominal pain, or other symptoms. He is currently homeless, intermittently staying with family but not lately, and he is "living on the streets" which causes him to walk around frequently. He initially attributed his increased leg swelling to this. Past History - Past Medical History Allergies/Adverse Reactions: Allergies Allergy/AdvReac Type Severity Reaction Status Date / Time erythromycin base Allergy Verified 12/12/17 07:27 Home Medications: Ambulatory Orders Cholecalciferol (Vitamin D3) [Vitamin D -] 1,000 unit PO DAILY 7 Days #7 tab 01/13 Gabapentin 300 mg PO TID #21 capsule 07/05/17 Hydrochlorothiazide [Hctz -] 25 mg PO DAILY #7 tablet 07/05/17 Simvastatin 10 mg PO HS #7 tablet 07/05/17 metFORMIN HCL [Metformin HCl] 500 mg PO BID #14 tablet 07/05/17 Acetaminophen [Tylenol Arthritis] 1,300 mg PO Q8H PRN 10/11/17 Escitalopram Oxalate [Lexapro -] 10 mg PO DAILY 10/11/17 Tizanidine HCl 2 mg PO TID PRN 10/11/17 Cyanocobalamin [Vitamin B12 -] 1,000 mcg PO DAILY 30 Days tablet 10/15/17 Folic Acid - 1 mg PO DAILY #30 tablet 10/15/17 Lisinopril [Prinivil] 20 mg PO DAILY #30 tablet 10/15/17 Thiamine HCl [Vitamin B1 -] 100 mg PO DAILY #30 tablet 10/15/17 Warfarin Na [Coumadin -] 4 mg PO DAILY@1800 #60 tablet 10/15/17 Amoxicillin/Potassium Clav [Augmentin 875-125 Tablet] 1 each PO BID #20 tablet 10/24/17 Cardiac Disorders: Yes (P.E) CVA: No COPD: No DVT: No Diabetes: Yes HTN: Yes Hypercholesterolemia: Yes Psychiatric Problems: Yes (ANXEITY) - Immunization History Immunization Up to Date: Yes - Suicide/Smoking/Psychosocial Hx Smoking History: Current every day smoker Have you smoked in the past 12 months: Yes Number of Cigarettes Smoked Daily: 10 Information on smoking cessation initiated: No 'Breaking Loose' booklet given: 11/09/17 Hx Alcohol Use: No Drug/Substance Use Hx: No Substance Use Type: None Hx Substance Use Treatment: No Review of Systems - Review of Systems Able to Perform ROS?: Yes Constitutional: No: Chills, Fever, Unexplained wgt Loss HEENTM: No: Nose Congestion, Throat Pain Respiratory: Yes: Shortness of Breath. No: Cough, Orthopnea, Wheezing, Productive cough Cardiac (ROS): Yes: Edema, Palpitations. No: Chest Pain, Lightheadedness, Syncope ABD/GI: No: Constipated, Diarrhea, Nausea, Vomiting : No: Burning, Dysuria Musculoskeletal: No: Back Pain, Neck Pain Integumentary: No: Bruising, Rash Neurological: No: Headache, Numbness, Tingling, Weakness, Dizziness Endocrine: No: Unexplained Weight Gain, Unexplained Weight Loss *Physical Exam - Vital Signs Last Vital Signs Temp Pulse Resp BP Pulse Ox 98.4 F 87 18 139/92 98 12/12/17 07:19 12/12/17 07:19 12/12/17 07:19 12/12/17 07:19 12/12/17 07:19 - Physical Exam General Appearance: Yes: Nourished, Appropriately Dressed, Obese, Other ( morbidly obese but nontoxic appearing adult male who is a/ox4 and answers questions appropriately). No: Apparent Distress HEENT: positive: EOMI, EDWARDO, Normal ENT Inspection, Normal Voice, Hearing Grossly Normal. negative: Scleral Icterus (R), Scleral Icterus (L), Nasal Congestion Neck: positive: Trachea midline, Supple. negative: Tender, Rigid Respiratory/Chest: positive: Lungs Clear, Normal Breath Sounds, Rapid RR (mildly ), Crackles (minimal at bilateral bases). negative: Chest Tender, Rhonchi, Stridor, Wheezing Cardiovascular: positive: Regular Rhythm, Regular Rate. negative: Murmur Gastrointestinal/Abdominal: positive: Normal Bowel Sounds, Soft, Protuberent. negative: Tender, Organomegaly, Pulsatile Mass, Guarding Musculoskeletal: positive: Normal Inspection. negative: Decreased Range of Motion, Vertebral Tenderness Extremity: positive: Normal Capillary Refill, Normal Inspection, Normal Range of Motion. negative: Tender, Cyanosis Integumentary: positive: Normal Color, Dry, Warm. negative: Erythema, Rash, Bruising Neurologic: positive: dock hand II-XII NML intact, Fully Oriented, Alert, Normal Mood/ Affect, Normal Response, Motor Strength 10/31 ED Treatment Course - LABORATORY CBC & Chemistry Diagram: 12/12/17 09:45 12/12/17 09:45 - RADIOLOGY Radiology Studies Ordered: Category Date Time Status CXRPORT [CHEST X-RAY PORTABLE*] [RAD] Stat Radiology 12/12/17 08:11 Ordered DUPLEX VASCUL US-2LEGS [US] Stat Ultrasound 12/12/17 08:17 Ordered Medical Decision Making - Medical Decision Making 12/12/17 09:19 Patient with h/o PE and CHF who p/w SOB, leg swelling. Initial Vital Signs Temp Pulse Resp BP Pulse Ox 98.4 F 87 18 139/92 98 12/12/17 07:19 12/12/17 07:19 12/12/17 07:19 12/12/17 07:19 12/12/17 07:19 Exam: bilateral basilar crackles, 2/6 systolic murmur, mild tachypnea, 2+ pitting edema BLE DDX IBNLT: PE with increased clot burden, CHF, pulmonary edema, COPD, asthma, other lung disease, PNA/bronchitis, anemia, ACS, pericarditis, tamponade, AD, PE , PTX, allergic reaction, malignancy (e.g. causing pericardial effusion or vascular shunt), other infection, pulmonary HTN, etc. W/U ordered: CBCD CMP Mg Phos Troponin CK CKMB BNP Blood Gas UA UCx EKG CXR TX ordered: Lasix IV push, O2, BiPAP, Pt positioned with head of bed up EKG: NSR, rate 79, normal axis and intervals, no ischemic changes. CXR: Prominent vascular markings and mediastinum. Laboratory Tests 12/12/17 12/12/17 09:45 09:45 WBC 1.9 L* D RBC 3.69 L Hgb 12.6 Hct 37.7 MCV 102.1 H MCH 34.0 H MCHC 33.3 RDW 14.3 Plt Count 65 L MPV 8.7 Absolute Neuts (auto) 1.1 Total Counted 98 Neutrophils % 58.1 Neutrophils % (Manual) 59.2 Band Neutrophils % 0.0 Lymphocytes % 30.7 Lymphocytes % (Manual) 28.6 Monocytes % 8.6 Monocytes % (Manual) 3 L Eosinophils % 1.9 Eosinophils % (Manual) 2.0 Basophils % 0.7 Basophils % (Manual) 1.0 Myelocytes % (Man) 0 Promyelocytes % (Man) 0 Blast Cells % (Manual) 0 Nucleated RBC % 0 Metamyelocytes 0 Hypochromia 1+ Platelet Estimate Normal Microcytosis 1+ Sodium 145 Potassium 3.8 Chloride 111 H Carbon Dioxide 29 Anion Gap 5 L BUN 11 D Creatinine 0.8 Creat Clearance w eGFR > 60 Random Glucose 103 Calcium 8.2 L Phosphorus 3.6 Magnesium 1.7 L Total Bilirubin 0.5 AST 26 ALT 30 D Alkaline Phosphatase 60 Creatine Kinase 53 Troponin I 0.02 B-Natriuretic Peptide < 5.00 L Total Protein 6.8 Albumin 3.2 L Reassessment: Unchanged, patient in no distress, states legs swelling more. Vital Signs Temperature 98.4 F 12/12/17 18:24 Pulse Rate 88 12/12/17 18:24 Respiratory Rate 18 12/12/17 18:24 Blood Pressure 134/89 12/12/17 18:24 O2 Sat by Pulse Oximetry (%) 100 12/12/17 18:24 The Pt is unsafe for discharge at this time. They require further hospital observation, workup, and treatment. Patient needs IV meds 2/2 likely bowel edema as PO medications likely less effective. Microblog sent to [facility] for admission. Spoke with Jacqueline, in agreement Pt to be admitted to [facility] Obs. Decision to Admit order placed to covering attending Dr. Batista. *DC/Admit/Observation/Transfer Diagnosis at time of Disposition: Edema, Thrombocytopenia, Leukopenia CHF (congestive heart failure) Qualifiers: Heart failure type: unspecified Heart failure chronicity: unspecified Qualified Code(s): I50.9 - Heart failure, unspecified - Discharge Dispostion Condition at time of disposition: Guarded Decision to Admit order: Yes - Referrals Referrals: Temo Palmer MD [Primary Care Provider] - - Patient Instructions - Post Discharge Activity
[2017-12-12] MEDS ORDERED: FUROSEMIDE 40 MG/4 ML INJECTABLE VIAL IVPUSH ONE (09:17)
[2017-12-12 10:14] LABS: BASO % 0.7 % (0-2.0); EOS % 1.9 % (0-4.5); HEMATOCRIT 37.7 % (35.4-49); HEMOGLOBIN 12.6 GM/dL (11.7-16.9); LYMPH % 30.7 % (8-40); MCHC 33.3 g/dl (32.0-35.9); MEAN CELL VOLUME 102.1 fl (80-96); MEAN PLT VOLUME 8.7 fl (7.5-11.1); MONO % 8.6 % (3.8-10.2); NEUT % 58.1 % (42.8-82.8); PLATELET COUNT 65 K/MM3 (134-434); RBC 3.69 M/mm3 (4.00-5.60); RDW 14.3 % (11.9-15.9)
[2017-12-12 10:23] LABS: WHITE BLOOD COUNT 1.9 K/mm3 (4.0-10.0)
[2017-12-12] MEDS ORDERED: FUROSEMIDE 40 MG TABLET (FP) ONE (10:24)
[2017-12-12] MEDS ORDERED: FUROSEMIDE 40 MG/4 ML INJECTABLE VIAL ONE (10:24)
[2017-12-12 10:43] LABS: ALBUMIN 3.2 g/dl (3.4-5.0); ANION GAP 5 (8-16); BILIRUBIN,TOTAL 0.5 mg/dL (0.2-1.0); CALCIUM 8.2 mg/dL (8.5-10.1); CHLORIDE 111 mmol/L (98-107); CO2 29 mmol/L (21-32); CREATININE 0.8 mg/dL (0.7-1.3); GLUCOSE,RANDOM 103 mg/dL (74-106); MAGNESIUM 1.7 mg/dL (1.8-2.4); PHOSPHOROUS 3.6 mg/dL (2.5-4.9); POTASSIUM 3.8 mmol/L (3.5-5.1); SGOT/AST 26 U/L (15-37); SGPT/ALT 30 U/L (12-78); SODIUM 145 mmol/L (136-145); TOT PROT 6.8 g/dl (6.4-8.2)
[2017-12-12 11:06] LABS: ALK PHOS 60 U/L (45-117); BLOOD UREA NITROGEN 11 mg/dL (7-18); N-TERMINAL BNP < 5.00 pg/ml (5-125)
--- NOTE | 2017-12-12 11:08 | PDOC ---
Attending Attestation - Resident Resident Name: Lindsay Petersen - ED Attending Attestation I have performed the following: I have examined & evaluated the patient, The case was reviewed & discussed with the resident, I agree w/resident's findings & plan, Exceptions are as noted - HPI HPI: 12/12/17 11:05 57 M with h/o DVT, PE (warfarin, noncompliant), type 2 diabetes, htn, hld, depression, presenting with SOB. Pt states that he has been getting progressively more SOB over the past week. Also reports associated swelling of both legs. Pt admits to not taking his meds, including his coumadin and water pills, due to lack of access to healthcare. Pt denies CP. Denies F/C. Allergies: Erythromycin " - Physicial Exam PE: 12/12/17 11:07 "GENERAL: Awake, alert, and fully oriented, in no acute distress. HEAD: No signs of trauma EYES: PERRLA, EOMI, sclera anicteric, conjunctiva clear ENT: Auricles normal inspection, hearing grossly normal, nares patent, oropharynx clear without exudates. Moist mucosa NECK: Nontender, no stepoffs, Normal ROM, supple, no lymphadenopathy, JVD, or masses LUNGS: + bilateral rales HEART: Regular rate and rhythm, normal S1 and S2, no murmurs, rubs or gallops ABDOMEN: Soft, nontender, normoactive bowel sounds. No guarding, no rebound. No masses EXTREMITIES: + BLE swelling NEUROLOGICAL: Cranial nerves II through XII intact. 5/5 strength and sensation in all extremities, Normal speech, normal gait, normal cerebellar function SKIN: Warm, Dry, normal turgor, no rashes or lesions noted. " - Medical Decision Making 12/12/17 11:08 57 M with h/o DVT not on coumadin and CHF presenting with SOB and BLE swelling. Likely volume overload 2/2 med noncompliance. However, given h/o DVT not on AC, will need to r/o PE as well. - Labs, trop, BNP - CXR - CTA chest - Admit
[2017-12-12 12:26] LABS: PLATELET ESTIMATE NORMAL
[2017-12-12 18:57] VITALS: BMI 40.0
--- NOTE | 2017-12-12 19:25 | PN ---
Teaching Attending Note Name of Resident: Joanie Shin ATTENDING PHYSICIAN STATEMENT I saw and evaluated the patient. I reviewed the resident's note and discussed the case with the resident. I agree with the resident's findings and plan as documented. SUBJECTIVE: CC: WEATHERS , palpitaitons and LE edema HPI: 57 y/o man with h/o ETOH , DM , HTN, DVT/PE, and other medical problems who presented with palpitations WEATHERS and LE edema He is homeless , has limited access to health care , not compliant with meds. stopped HCTZ 3 weeks ago. Has not taken his coumadin. has developed WEATHERS x 2 weeks . No CP , no fever or chills . intermittent palpitations . last admission was w/u for pancytopenia , and was advised to follow with heme , which he did not do . labs reviewed. cxray : possible congestion . ASSESSMENT AND PLAN: 57 y/o man with h/o ETOH , DM , HTN, DVT/PE, and other medical problems who presented with palpitations WEATHERS and LE edema 1- WEATHERS: No PE on CT scan , no DVTon US . Unlikely ACS. no PNA likely acute diastolic heart failure , especially hhe improved on IV lasix in ER - try IV lasix daily , expect him to need only 2-3 doses . - resume lisinopril - tele for palpitations - last echo in 10/14 reviewed. diastolic dysfunction , NL EF - card 2- Neutropenia ( since 10/14) and thrombocytpenia ( chronic ) . has splenomegaly : ? MDS . B12 def last admission SPEP was done nad no M spike was seen . never followed with heme B12 is low as well . was started on B12 supplements ( not taking ) heme 3- h/o DVT /PE : not compliant with coumadin . last time came in [facility] , this time not taking at all . weathers snot even know his PCP name . high risk for AC due to above - will start ASA - his PE was likely provoked. now no evidence of clot in lung or LE . unlikely to need IVCF, but will d/w heme 4- HTN: cont lisinopril 4- Dm : SSI HLO C
--- NOTE | 2017-12-12 19:43 | HP ---
CHIEF COMPLAINT: lower extremity edema, SOB x 3-4 wks PCP: Dr. Palmer HISTORY OF PRESENT ILLNESS: 57 y/o homeless M with PMH RLE DVT/PE (dx April; initially on lovenox 2 wks, transitioned to coumadin 4mg. pt has not been compliant with d/t social situation, has not seen PCP), diastolic CHF, HTN (has not taken HCTZ in 3 weeks) , HLD, DM (on metformin), who presents to the ED c/o lower extremity edema, and SOB over the past 3-4 weeks. As per pt, these sx have persisted over the past 3- 4 wks, however they have worsened recently as he became homeless. Pt states that his son kicked him out of his house. Ever since, he has been walking on the street and overexerting himself. For this reason, his sx have been exacerbated over the last few days, so much so that he is SOB walking half a block. At baseline, he "can walk forever." During this time, pt also endorses intermittent palpitations that are not a/w chest pain or pressure. He also c/o lumbar back pain which he attributes to past herniated disc. Denies EVANS, fever, cough, chills, or changes in urinary or bowel function. Of note, pt was at [facility] and underwent hematologic workup, however never followed up. He was also seen in the ED last month (October) for painful RLE, and underwent a duplex which was neg for DVT. ER course was notable for: (1) Lasix 40mg IVP x 1 (2) (3) Recent Travel: walking on street; homeless PAST MEDICAL HISTORY: as above PAST SURGICAL HISTORY: R ankle compound fx (1993) [facility], hernia as child (3 yrs old), tonsillectomy Social History: currently does not work. 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 recently removed from his son's house, homeless on the streets. unable to take his medications because he does not follow with his PCP. non-compliant Smokin-10 cigarettes/day since he was 9 yrs old; thoughts of quitting. Alcohol: in past, socially Drugs: stopped smoking marijuana a month ago ; denies other recreational drug use Family History: father- passed from PNA, had brain aneurysm. mother - passed from heart dz, had alzheimer's. grandma- cardiac issues Allergies erythromycin base Allergy (Verified 12/12/17 07:27) - rash HOME MEDICATIONS: Home Medications Medication Instructions Recorded Cholecalciferol (Vitamin D3) 1,000 unit PO DAILY 7 Days #7 tab 07/05/17 [Vitamin D -] Gabapentin 300 mg PO TID #21 capsule 07/05/17 Hydrochlorothiazide [Hctz -] 25 mg PO DAILY #7 tablet 07/05/17 Simvastatin 10 mg PO HS #7 tablet 07/05/17 metFORMIN HCL [Metformin HCl] 500 mg PO BID #14 tablet 07/05/17 Acetaminophen [Tylenol Arthritis] 1,300 mg PO Q8H PRN 10/11/17 Escitalopram Oxalate [Lexapro -] 10 mg PO DAILY 10/11/17 Tizanidine HCl 2 mg PO TID PRN 10/11/17 Cyanocobalamin [Vitamin B12 -] 1,000 mcg PO DAILY 30 Days tablet 10/15/17 Folic Acid - 1 mg PO DAILY #30 tablet 10/15/17 Lisinopril [Prinivil] 20 mg PO DAILY #30 tablet 10/15/17 Thiamine HCl [Vitamin B1 -] 100 mg PO DAILY #30 tablet 10/15/17 Warfarin Na [Coumadin -] 4 mg PO DAILY@1800 #60 tablet 10/15/17 Amoxicillin/Potassium Clav 1 each PO BID #20 tablet 10/24/17 [Augmentin 875-125 Tablet] REVIEW OF SYSTEMS CONSTITUTIONAL: Absent: fever, chills, diaphoresis, generalized weakness, malaise, loss of appetite, weight change HEENT: Absent: rhinorrhea, nasal congestion, throat pain, throat swelling, difficulty swallowing, mouth swelling, ear pain, eye pain, visual changes CARDIOVASCULAR: +peripheral edema Absent: chest pain, syncope, palpitations, irregular heart rate, lightheadedness RESPIRATORY: +SOB, WEATHERS Absent: cough, orthopnea, wheezing, stridor, hemoptysis GASTROINTESTINAL: Absent: abdominal pain, abdominal distension, nausea, vomiting, diarrhea, constipation, melena, hematochezia GENITOURINARY: Absent: dysuria, frequency, urgency, hesitancy, hematuria, flank pain, genital pain MUSCULOSKELETAL: Absent: myalgia, arthralgia, joint swelling, back pain, neck pain SKIN: Absent: rash, itching, pallor HEMATOLOGIC/IMMUNOLOGIC: Absent: easy bleeding, easy bruising, lymphadenopathy, frequent infections ENDOCRINE: Absent: unexplained weight gain, unexplained weight loss, heat intolerance, cold intolerance NEUROLOGIC: Absent: headache, focal weakness or paresthesias, dizziness, unsteady gait, seizure, mental status changes, bladder or bowel incontinence PSYCHIATRIC: Absent: anxiety, depression, suicidal or homicidal ideation, hallucinations. PHYSICAL EXAMINATION Vital Signs - 24 hr 12/12/17 12/12/17 12/12/17 07:19 07:30 18:24 Temperature 98.4 F 98.9 F 98.4 F Pulse Rate 87 86 Pulse Rate [ 88 Left Radial] Respiratory 18 18 18 Rate Blood Pressure 139/92 126/89 Blood Pressure 134/89 [Left Arm] O2 Sat by Pulse 98 99 100 Oximetry (%) GENERAL: Pleasant. Sitting comfortably. Poor hygiene, awake, alert, and fully oriented, in no acute distress. HEAD: Normal with no signs of trauma. EYES: Pupils equal, round and reactive to light, extraocular movements intact, sclera anicteric, conjunctiva clear. EARS, NOSE, THROAT: oropharynx clear without exudates. Moist mucous membranes. NECK: Normal range of motion, supple without lymphadenopathy LUNGS: +mild crackles appreciated at bases. without accessory m usage HEART: Regular rate and rhythm, normal S1 and S2 without murmur, rub or gallop. ABDOMEN: Soft, obese, nontender, distended, normoactive bowel sounds, no guarding, no rebound LOWER EXTREMITIES: 2+ pulses, warm, well-perfused. No calf tenderness. No peripheral edema. NEUROLOGICAL: Cranial nerves II-XII intact. Normal speech. Normal gait. PSYCHIATRIC: Cooperative. Good eye contact. Appropriate mood and affect. SKIN: Warm, dry, normal turgor, no rashes or lesions noted, normal capillary refill. Laboratory Results - last 24 hr 12/12/17 12/12/17 09:45 09:45 WBC 1.9 L* D RBC 3.69 L Hgb 12.6 Hct 37.7 MCV 102.1 H MCH 34.0 H MCHC 33.3 RDW 14.3 Plt Count 65 L MPV 8.7 Absolute Neuts (auto) 1.1 Total Counted 98 Neutrophils % 58.1 Neutrophils % (Manual) 59.2 Band Neutrophils % 0.0 Lymphocytes % 30.7 Lymphocytes % (Manual) 28.6 Monocytes % 8.6 Monocytes % (Manual) 3 L Eosinophils % 1.9 Eosinophils % (Manual) 2.0 Basophils % 0.7 Basophils % (Manual) 1.0 Myelocytes % (Man) 0 Promyelocytes % (Man) 0 Blast Cells % (Manual) 0 Nucleated RBC % 0 Metamyelocytes 0 Hypochromia 1+ Platelet Estimate Normal Microcytosis 1+ Sodium 145 Potassium 3.8 Chloride 111 H Carbon Dioxide 29 Anion Gap 5 L BUN 11 D Creatinine 0.8 Creat Clearance w eGFR > 60 Random Glucose 103 Calcium 8.2 L Phosphorus 3.6 Magnesium 1.7 L Total Bilirubin 0.5 AST 26 ALT 30 D Alkaline Phosphatase 60 Creatine Kinase 53 Troponin I 0.02 B-Natriuretic Peptide < 5.00 L Total Protein 6.8 Albumin 3.2 L IMAGING 12/12/17 EKG: NSR, possible LAE. vent rate 79bpm, AK 146ms, QRS 90ms, Qtc 460ms 12/12/17 CTA: no definite pulmonary emboli b/l, cirrhosis- nodular contour of liver, splenomegaly, partial healing of mid sternal fx 12/12/17 CXR: congestion, overexposure. blunting L costophrenic angle, central markings 12/12/17: R duplex: (-) DVT ASSESSMENT/PLAN: 57 y/o homeless M with PMH RLE DVT/PE (dx April; initially on lovenox 2 wks, transitioned to coumadin 4mg. pt has not been compliant with d/t social situation, has not seen PCP), diastolic CHF, HTN (has not taken HCTZ in 3 weeks) , HLD, DM (on metformin), who presents to the ED c/o lower extremity edema, and SOB over the past 3-4 weeks. #Acute diastolic CHF exacerbation d/t non-compliance -pt stopped taking lasix, HCTZ d/t social issues -received lasix 40mg IVP x 1 in ED -continue lasix 40mg IVP qd -hold HCTZ -strict I's and O's -daily weights -Na/fluid restrict -1st trop (-), no current signs of demand ischemia -ECHO: 10/12/17: 60-65% EF, normal LV systolic fnc -Cardio consult: Dr. Hernandez -tele monitoring #Hx RLE DVT/PE -pt not compliant, recently on coumadin 4mg PO qd -Follow INR -will start on asa 81mg PO qd, to avoid need for monitoring -duplex (-), CTA (-) for clot #Leukopenia, thrombocytopenia (chronic) -Possibly 2/2 myelodysplastic dz or hepatotoxicity from past alcohol use -with continued splenomegaly could be 2/2 cirrhosis, back up of pressure -has been seen by heme-onc in past, did not follow up -continue B12 1000mcg qd , folic acid 1mg PO qd -will reconsult heme - Dr. Moore #HTN- controlled -holding HCTZ -continue lisinopril 20mg PO qd #HLD -continue simvastatin 10mg PO qd #DM -holding metformin -ISS -BGM #F/E/N no IVF at this time; CHF overload continue to follow lytes sodium controlled, diabetic diet #PPX SCD's; asa 81mg qd. with thrombocytopenia expect short duration stay <48hrs #Dispo obs tele monitoring Visit type - Emergency Visit Emergency Visit: Yes ED Registration Date: 12/12/17 Care time: The patient presented to the Emergency Department on the above date and was hospitalized for further evaluation of their emergent condition. - New Patient This patient is new to me today: Yes Date on this admission: 12/12/17 - Critical Care Critical Care patient: No Hospitalist Screening - Colonoscopy Questionnaire Colonoscopy Questionnaire: Colonoscopy Questionnaire - Patient: 50 - 75 years old and never had a screening colonoscopy: Unknown History of colon or rectal polyps, or CA: Unknown History of IBD, Crohn's disease or UC: Unknown History of abdominal radiation therapy as a child: Unknown - Relative: 1 with colon or rectal CA, or polyps at age 60 or younger: Unknown Colon or rectal CA diagnosed at age 45 or younger: Unknown Multiple relatives with colon or rectal CA: Unknown - Outcome: Screening Result: Negative Screen
[2017-12-12] MEDS: ATORVASTATIN CA 10 MG TABLET (FP) PO SCH (21:51)
[2017-12-12] MEDS: ASPIRIN 81 MG CHEWABLE TABLETS PO SCH (21:51)
[2017-12-12] MEDS ORDERED: INSULIN SLIDING SCALE (NOVOLOG) 1 VIAL SQ SCH (22:00)
[2017-12-12] MEDS: INSULIN SLIDING SCALE (NOVOLOG) 1 VIAL SQ SCH (23:29)
[2017-12-13] MEDS: INSULIN SLIDING SCALE (NOVOLOG) 1 VIAL SQ SCH ×4 (06:49→20:59)
[2017-12-13 08:01] LABS: BASO % 1.2 % (0-2.0); EOS % 1.9 % (0-4.5); HEMATOCRIT 39.4 % (35.4-49); HEMOGLOBIN 13.3 GM/dL (11.7-16.9); LYMPH % 29.2 % (8-40); MCH 34.4 pg (25.7-33.7); MCHC 33.8 g/dl (32.0-35.9); MEAN CELL VOLUME 101.7 fl (80-96); MEAN PLT VOLUME 9.1 fl (7.5-11.1); MONO % 9.7 % (3.8-10.2); PLATELET COUNT 70 K/MM3 (134-434); RBC 3.87 M/mm3 (4.00-5.60); RDW 14.1 % (11.9-15.9); WHITE BLOOD COUNT 2.3 K/mm3 (4.0-10.0)
[2017-12-13 08:17] LABS: INR 1.12 (0.82-1.09); PROTHROMBIN TIME (PATIENT) 12.6 SEC (9.7-13.0)
[2017-12-13 08:32] LABS: CHLORIDE 106 mmol/L (98-107); POTASSIUM 4.1 mmol/L (3.5-5.1); SODIUM 143 mmol/L (136-145)
[2017-12-13 08:50] LABS: ALBUMIN 3.2 g/dl (3.4-5.0); ALK PHOS 53 U/L (45-117); ANION GAP 6 (8-16); BILIRUBIN,TOTAL 0.9 mg/dL (0.2-1.0); BLOOD UREA NITROGEN 14 mg/dL (7-18); CO2 31 mmol/L (21-32); CREATININE 0.9 mg/dL (0.7-1.3); GLUCOSE,RANDOM 94 mg/dL (74-106); MAGNESIUM 1.8 mg/dL (1.8-2.4); PHOSPHOROUS 3.9 mg/dL (2.5-4.9); SGOT/AST 22 U/L (15-37); SGPT/ALT 28 U/L (12-78); TOT PROT 6.7 g/dl (6.4-8.2)
--- NOTE | 2017-12-13 08:56 | EKG ---
Test Reason : Blood Pressure : / mmHG Vent. Rate : 079 BPM Atrial Rate : 079 BPM P-R Int : 146 ms QRS Dur : 090 ms QT Int : 402 ms P-R-T Axes : 019 013 017 degrees QTc Int : 460 ms NORMAL SINUS RHYTHM POSSIBLE LEFT ATRIAL ENLARGEMENT BORDERLINE ECG WHEN COMPARED WITH ECG OF 23-OCT-2017 19:12, NO SIGNIFICANT CHANGE WAS FOUND Confirmed by SARTHAK HADDAD MD ([id number]) on 12/13/2017 8:55:45 AM Referred By: Confirmed By:SARTHAK HADDAD MD
[2017-12-13] MEDS: FUROSEMIDE 40 MG/4 ML INJECTABLE VIAL IVPUSH SCH (09:59)
[2017-12-13] MEDS: ASPIRIN 81 MG CHEWABLE TABLETS PO SCH (09:59)
[2017-12-13] MEDS: FOLIC ACID 1 MG TABLET (FP) PO SCH (09:59)
[2017-12-13] MEDS: LISINOPRIL 20 MG TABLET (FP) PO SCH (09:59)
[2017-12-13] MEDS ORDERED: CYANOCOBALAMIN (VITAMIN B-12) 100 MCG TABLET PO SCH (10:00)
[2017-12-13] MEDS: THIAMINE HCL 100 MG TABLET (FP) PO SCH (10:00)
--- NOTE | 2017-12-13 10:34 | PN ---
Progress Note (short form) - Note Progress Note: 57 year old man with a history of type 2 DM, HTN, hyperlipidemia, DVT/PE who presented to the ED with palpitations. Hematology called for neutropenia Now admitted for LE edema and SOB. Did not f/u as an OP. Presently homeless Cor: RSR, No murmurs, No gallops Lungs: Clear to P&A Abd: Soft, Normal bowel sounds, No organomegaly Ext:No significant edema Skin Temp Pulse Resp BP Pulse Ox 97.9 F 78 18 142/60 93 L 12/13/17 09:55 12/13/17 09:55 12/13/17 09:55 12/13/17 09:55 12/12/17 21:00 CBC, BMP 12/13/17 07:30 12/13/17 07:30 Current Medications Generic Name Dose Route Start Last Admin Trade Name Ozzieq PRN Reason Stop Dose Admin Aspirin 81 mg 12/12/17 20:15 12/13/17 09:59 Asa - PO 81 mg DAILY DANNY Administration Atorvastatin Calcium 10 mg 12/12/17 22:00 12/12/17 21:51 Lipitor - PO 10 mg HS DANNY Administration Cyanocobalamin 1,000 mcg 12/13/17 10:20 Vitamin B12 - PO DAILY DANNY Folic Acid 1 mg 12/13/17 10:00 12/13/17 09:59 Folic Acid - PO 1 mg DAILY DANNY Administration Furosemide 40 mg 12/13/17 10:00 12/13/17 09:59 Lasix Injection - IVPUSH 40 mg DAILY DANNY Administration Insulin Aspart 1 vial 12/12/17 22:00 12/13/17 06:49 Novolog Vial Sliding Scale - SQ Not Given ACHS [facility] Protocol Lisinopril 20 mg 12/13/17 10:00 12/13/17 09:59 Prinivil PO 20 mg DAILY DANNY Administration Thiamine HCl 100 mg 12/13/17 10:00 12/13/17 10:00 Vitamin B1 - PO 100 mg DAILY DANNY Administration h/o DVT/PE: Now not seen likely provoked in 04/2017 as of the past visits, he completed >3m of AC. check d-dimer for risk stratification no indication for IVC filter Now c/w baby asa. h/o Neutropenia/thrombocytopenia likely from underlying hepatocellular disease last w/u was negative flow was not reported last time-will re-send check MMA/Homo-cysteine.
--- NOTE | 2017-12-13 10:34 | PN ---
Progress Note (short form) - Note Progress Note: Subjective: feels better , no abd pain , NO SOB . LE edema is better Objective: Vital Signs: Last Vital Signs Temp Pulse Resp BP Pulse Ox 97.9 F 78 18 142/60 93 L 12/13/17 09:55 12/13/17 09:55 12/13/17 09:55 12/13/17 09:55 12/12/17 21:00 Laboratory Results - last 24 hr 12/12/17 12/12/17 12/12/17 09:45 09:45 21:50 WBC RBC Hgb Hct MCV MCH MCHC RDW Plt Count MPV Absolute Neuts (auto) Total Counted 98 Neutrophils % Neutrophils % (Manual) 59.2 Band Neutrophils % 0.0 Lymphocytes % Lymphocytes % (Manual) 28.6 Monocytes % Monocytes % (Manual) 3 L Eosinophils % Eosinophils % (Manual) 2.0 Basophils % Basophils % (Manual) 1.0 Myelocytes % (Man) 0 Promyelocytes % (Man) 0 Blast Cells % (Manual) 0 Nucleated RBC % 0 Metamyelocytes 0 Hypochromia 1+ Platelet Estimate Normal Microcytosis 1+ PT with INR INR Sodium 145 Potassium 3.8 Chloride 111 H Carbon Dioxide 29 Anion Gap 5 L BUN 11 D Creatinine 0.8 Creat Clearance w eGFR > 60 POC Glucometer 101 Random Glucose 103 Calcium 8.2 L Phosphorus 3.6 Magnesium 1.7 L Total Bilirubin 0.5 AST 26 ALT 30 D Alkaline Phosphatase 60 Creatine Kinase 53 Troponin I 0.02 B-Natriuretic Peptide < 5.00 L Total Protein 6.8 Albumin 3.2 L 12/13/17 12/13/17 12/13/17 05:25 07:30 07:30 WBC 2.3 L RBC 3.87 L Hgb 13.3 Hct 39.4 MCV 101.7 H MCH 34.4 H MCHC 33.8 RDW 14.1 Plt Count 70 L MPV 9.1 Absolute Neuts (auto) 1.3 Total Counted Neutrophils % 58.0 Neutrophils % (Manual) Band Neutrophils % Lymphocytes % 29.2 Lymphocytes % (Manual) Monocytes % 9.7 Monocytes % (Manual) Eosinophils % 1.9 Eosinophils % (Manual) Basophils % 1.2 Basophils % (Manual) Myelocytes % (Man) Promyelocytes % (Man) Blast Cells % (Manual) Nucleated RBC % 0 Metamyelocytes Hypochromia Platelet Estimate Microcytosis PT with INR 12.60 INR 1.12 Sodium Potassium Chloride Carbon Dioxide Anion Gap BUN Creatinine Creat Clearance w eGFR POC Glucometer 109 Random Glucose Calcium Phosphorus Magnesium Total Bilirubin AST ALT Alkaline Phosphatase Creatine Kinase Troponin I B-Natriuretic Peptide Total Protein Albumin 12/13/17 07:30 WBC RBC Hgb Hct MCV MCH MCHC RDW Plt Count MPV Absolute Neuts (auto) Total Counted Neutrophils % Neutrophils % (Manual) Band Neutrophils % Lymphocytes % Lymphocytes % (Manual) Monocytes % Monocytes % (Manual) Eosinophils % Eosinophils % (Manual) Basophils % Basophils % (Manual) Myelocytes % (Man) Promyelocytes % (Man) Blast Cells % (Manual) Nucleated RBC % Metamyelocytes Hypochromia Platelet Estimate Microcytosis PT with INR INR Sodium 143 Potassium 4.1 Chloride 106 Carbon Dioxide 31 Anion Gap 6 L BUN 14 D Creatinine 0.9 Creat Clearance w eGFR > 60 POC Glucometer Random Glucose 94 Calcium 9.0 Phosphorus 3.9 Magnesium 1.8 Total Bilirubin 0.9 D AST 22 ALT 28 Alkaline Phosphatase 53 Creatine Kinase Troponin I B-Natriuretic Peptide Total Protein 6.7 Albumin 3.2 L Physical Exam: NAD CV: RRR Lungs: CTAB , decreased breath sounds at bases Abd: obese. NT, ND LE: 2+ pitting edema ( improved ) ,no erythema , no tenderness. Original Note: ASSESSMENT AND PLAN: 57 y/o man with h/o ETOH , DM , HTN, DVT/PE, and other medical problems who presented with palpitations WEATHERS and LE edema 1- WEATHERS: due to D CHF exacerbation No PE on CT scan , no DVT on US . Unlikely ACS. no PNA improved with diuresis - cont IV lasix - cont tle ( 2 episodes of ? SVTs ) - start BB - last echo in 10/14. diastolic dysfunction , NL EF - card consult pending 2- Neutropenia ( since 10/14) and thrombocytpenia ( chronic ) . has splenomegaly : ? MDS . B12 def last admission SPEP was done and no M spike was seen . never followed with heme B12 is low as well . was started on B12 supplements ( not taking ) - cont B 12 supplement - heme 3- palpitations : possible SVTs on tele . cont tele - BB - echo 4-h/o DVT /PE : not compliant with [facility]madin . [facility] not [facility] at all . weathers snot even know his PCP name . high risk for AC due to above - ASA for now - his PE was likely provoked. now no evidence of clot in lung or LE . unlikely to need IVCF, but will d/w heme 5- HTN: cont lisinopril . add BB as there is evidence of SVTS 6- Dm : SSI HLOC Visit type - Emergency Visit Emergency Visit: Yes ED Registration Date: 12/12/17 Care time: The patient presented to the Emergency Department on the above date and was hospitalized for further evaluation of their emergent condition. - New Patient This patient is new to me today: No - Critical Care Critical Care patient: No
[2017-12-13] MEDS: CYANOCOBALAMIN 1,000 MCG TABLET (FP) PO SCH (10:37)
[2017-12-13] MEDS ORDERED: metoPROLOL SUCCINATE 25 MG TAB.SR.24H (FP) PO SCH (10:45)
--- NOTE | 2017-12-13 17:42 | CON.CARD ---
Consult Consult Specialty:: Cardiology Reason for Consultation:: WEATHERS - History of Present Illness Chief Complaint: WEATHERS. Homeless History of Present Illness: This is a 49 year old male with a PMH of ETOH , DM , HTN, and a hiostory of DVT /PE. He is homeless and has limited access to health care. He was supposed to be on HCTZ and coumadin but has not taken them. Over the past 2 weeks he has developed WEATHERS. CT chest showed no PE. Echo 10/12/17 EF 60 - 65% - Past Medical History Cardio/Vascular: Yes: HTN, Hyperlipdemia Endocrine: Yes: Diabetes Mellitus - Alcohol/Substance Use Hx Alcohol Use: No - Smoking History Smoking history: Current every day smoker Have you smoked in the past 12 months: Yes Aproximately how many cigarettes per day: 10 If you are a former smoker, when did you quit?: no Home Medications - Allergies Allergies/Adverse Reactions: Allergies Allergy/AdvReac Type Severity Reaction Status Date / Time erythromycin base Allergy Verified 12/12/17 07:27 - Home Medications Home Medications: Ambulatory Orders Cholecalciferol (Vitamin D3) [Vitamin D -] 1,000 unit PO DAILY 7 Days #7 tab 01/13 Gabapentin 300 mg PO TID #21 capsule 07/05/17 Hydrochlorothiazide [Hctz -] 25 mg PO DAILY #7 tablet 07/05/17 Simvastatin 10 mg PO HS #7 tablet 07/05/17 metFORMIN HCL [Metformin HCl] 500 mg PO BID #14 tablet 07/05/17 Acetaminophen [Tylenol Arthritis] 1,300 mg PO Q8H PRN 10/11/17 Escitalopram Oxalate [Lexapro -] 10 mg PO DAILY 10/11/17 Tizanidine HCl 2 mg PO TID PRN 10/11/17 Cyanocobalamin [Vitamin B12 -] 1,000 mcg PO DAILY 30 Days tablet 10/15/17 Folic Acid - 1 mg PO DAILY #30 tablet 10/15/17 Lisinopril [Prinivil] 20 mg PO DAILY #30 tablet 10/15/17 Thiamine HCl [Vitamin B1 -] 100 mg PO DAILY #30 tablet 10/15/17 Warfarin Na [Coumadin -] 4 mg PO DAILY@1800 #60 tablet 10/15/17 Amoxicillin/Potassium Clav [Augmentin 875-125 Tablet] 1 each PO BID #20 tablet 10/24/17 Review of Systems Findings/Remarks: As per HPI Vital Signs: Vital Signs Temperature 98.7 F 12/13/17 13:35 Pulse Rate 77 12/13/17 13:35 Respiratory Rate 18 12/13/17 13:35 Blood Pressure 134/66 12/13/17 13:35 O2 Sat by Pulse Oximetry (%) 94 L 12/13/17 09:00 Constitutional: Yes: Poor Hygeine Eyes: Yes: WNL HENT: Yes: WNL Neck: Yes: WNL Respiratory: Yes: CTA Bilaterally Gastrointestinal: Yes: WNL Cardiovascular: Yes: Regular Rate and Rhythm (NL S1S2 No MRHG) JVD: No Extremities: Yes: WNL Neurological: Yes: Alert, Oriented - Other Data Labs, Other Data: CBC, BMP 12/13/17 07:30 12/13/17 07:30 INR, PTT INR 1.12 (0.82-1.09) 12/13/17 07:30 Assessment/Plan 57 y/o man with h/o ETOH , DM , HTN, DVT/PE, and other medical problems who presented with palpitations WEATHERS and LE edema He is homeless , has limited access to health care , not compliant with meds. stopped HCTZ 3 weeks ago. Has not taken his coumadin. has developed WEATHERS x 2 weeks . No CP , no fever or chills . intermittent palpitations . last admission was w/u for pancytopenia , and was advised to follow with heme , which he did not do . labs reviewed. cxray : possible congestion . WEATHERS Eitology is unclear No PE BNP is low so dCHF is unlikely No pneumonia Continue Coumadin Consider a pulmonary evaluation Complete 3 sets of cardiac enzyme HTN/HLD Continue Simvastatin/HCTZ/Lisinopril
[2017-12-13] MEDS: ATORVASTATIN CA 10 MG TABLET (FP) PO SCH (20:59)
[2017-12-14] MEDS: INSULIN SLIDING SCALE (NOVOLOG) 1 VIAL SQ SCH ×3 (06:04→17:46)
[2017-12-14 07:01] LABS: BASO % 0.7 % (0-2.0); EOS % 2.4 % (0-4.5); HEMATOCRIT 40.1 % (35.4-49); HEMOGLOBIN 13.6 GM/dL (11.7-16.9); LYMPH % 29.8 % (8-40); MCH 34.3 pg (25.7-33.7); MEAN CELL VOLUME 101.1 fl (80-96); MEAN PLT VOLUME 9.1 fl (7.5-11.1); MONO % 10.1 % (3.8-10.2); PLATELET COUNT 78 K/MM3 (134-434); RBC 3.97 M/mm3 (4.00-5.60); WHITE BLOOD COUNT 2.9 K/mm3 (4.0-10.0)
[2017-12-14 07:46] LABS: CHLORIDE 105 mmol/L (98-107); POTASSIUM 3.7 mmol/L (3.5-5.1); SODIUM 142 mmol/L (136-145)
[2017-12-14 07:58] LABS: ANION GAP 9 (8-16); BLOOD UREA NITROGEN 16 mg/dL (7-18); CO2 28 mmol/L (21-32); CREATININE 0.9 mg/dL (0.7-1.3); GLUCOSE,RANDOM 89 mg/dL (74-106)
[2017-12-14] MEDS: ASPIRIN 81 MG CHEWABLE TABLETS PO SCH (10:13)
[2017-12-14] MEDS: CYANOCOBALAMIN 1,000 MCG TABLET (FP) PO SCH (10:14)
[2017-12-14] MEDS: FOLIC ACID 1 MG TABLET (FP) PO SCH (10:14)
[2017-12-14] MEDS: THIAMINE HCL 100 MG TABLET (FP) PO SCH (10:14)
[2017-12-14] MEDS: FUROSEMIDE 40 MG/4 ML INJECTABLE VIAL IVPUSH SCH (10:14)
[2017-12-14] MEDS: LISINOPRIL 20 MG TABLET (FP) PO SCH (10:14)
--- NOTE | 2017-12-14 14:07 | PN ---
Progress Note, Physician Chief Complaint: SOB and LE edema improved History of Present Illness: 57 y/o man with h/o ETOH , DM , HTN, DVT/PE, and other medical problems who presented with palpitations WEATHERS and LE edema He is homeless , has limited access to health care , not compliant with meds. stopped HCTZ 3 weeks ago. Has not taken his coumadin. has developed WEATHERS x 2 weeks . No CP , no fever or chills . intermittent palpitations . last admission was w/u for pancytopenia , and was advised to follow with heme , which he did not do . labs reviewed. cxray : possible congestion . - Current Medication List Current Medications: Active Medications Aspirin (Asa -) 81 mg PO DAILY [facility] Last Admin: 12/14/17 10:13 Dose: 81 mg Atorvastatin Calcium (Lipitor -) 10 mg PO HS [facility] Last Admin: 12/13/17 20:59 Dose: 10 mg Cyanocobalamin (Vitamin B12 -) 1,000 mcg PO DAILY [facility] Last Admin: 12/14/17 10:14 Dose: 1,000 mcg Folic Acid (Folic Acid -) 1 mg PO DAILY [facility] Last Admin: 12/14/17 10:14 Dose: 1 mg Furosemide (Lasix Injection -) 40 mg IVPUSH DAILY [facility] Last Admin: 12/14/17 10:14 Dose: 40 mg Insulin Aspart (Novolog Vial Sliding Scale -) 1 vial SQ ACHS [facility]; Protocol Last Admin: 12/14/17 11:46 Dose: Not Given Lisinopril (Prinivil) 20 mg PO DAILY [facility] Last Admin: 12/14/17 10:14 Dose: 20 mg Metoprolol Succinate (Toprol Xl -) 50 mg PO DAILY [facility] Last Admin: 12/14/17 10:14 Dose: 50 mg Thiamine HCl (Vitamin B1 -) 100 mg PO DAILY [facility] Last Admin: 12/14/17 10:14 Dose: 100 mg - Objective Vital Signs: Vital Signs Temperature 98 F 12/14/17 10:00 Pulse Rate 68 12/14/17 10:00 Respiratory Rate 20 12/14/17 10:00 Blood Pressure 134/56 12/14/17 10:00 O2 Sat by Pulse Oximetry (%) 97 12/14/17 09:00 Constitutional: Yes: No Distress Neck: Yes: WNL Cardiovascular: Yes: Regular Rate and Rhythm, S1, S2. No: JVD, Murmur Respiratory: Yes: CTA Bilaterally Gastrointestinal: Yes: Soft Edema: No Labs: CBC, BMP 12/14/17 06:45 12/14/17 06:45 INR, PTT INR 1.12 (0.82-1.09) 12/13/17 07:30 Assessment/Plan 57 y/o man with h/o ETOH , DM , HTN, DVT/PE, and other medical problems who presented with palpitations WEATHERS and LE edema He is homeless , has limited access to health care , not compliant with meds. stopped HCTZ 3 weeks ago. Has not taken his coumadin. has developed WEATHERS x 2 weeks . No CP , no fever or chills . intermittent palpitations . last admission was w/u for pancytopenia , and was advised to follow with heme , which he did not do . labs reviewed. cxray : possible congestion . BNP low Echo with normal LVEF and no significant valve disease 1) WEATHERS Eitology is unclear No PE BNP is low so dCHF is unlikely No pneumonia CE's negative Seems like symptoms improved. No sob with ambulating today. Continue Coumadin as per primary team Consider a pulmonary evaluation 2)HTN/HLD Continue Simvastatin/HCTZ/Lisinopril/Metoprolol 3) SVT SVT morning of 12/13/17. No recurrence since. On metoprolol. Lytes normal at this time. Abstain from etoh Will sign off at this time. Please call back as needed. No further cardiac testing at this time.
[2017-12-14 15:25] VITALS: BP 136/72; PULSE 67; TEMP 98.4
--- NOTE | 2017-12-14 16:11 | PN ---
Teaching Attending Note Name of Resident: Joanie Shin ATTENDING PHYSICIAN STATEMENT I saw and evaluated the patient. I reviewed the resident's note and discussed the case with the resident. I agree with the resident's findings and plan as documented. SUBJECTIVE: no fever or chills . SOB much improved , has been ambulating per RN. LE edema has resolved . OBJECTIVE: NAD CV: RRR Lungs: CTAB , decreased breath sounds at bases Abd: obese. NT, ND LE: no LE edema, no erythema ASSESSMENT AND PLAN: 57 y/o man with h/o ETOH , DM , HTN, DVT/PE, and other medical problems who presented with palpitations WEATHERS and LE edema 1- WEATHERS: likely due to D CHF exacerbation despite low BNP . significantly improved sx ( SOB and LE edema ) ECho reviewed. - cont 20 mg of lasix as out pt - cont BB due to SVT on monitor yesterday f/u with card 2- Neutropenia ( since 10/14) and thrombocytpenia ( chronic ) . has splenomegaly : ? MDS . B12 def last admission SPEP was done and no M spike was seen . - cont B 12 supplement . MMA level pending - heme f/u as out pt 3- palpitations SVTs on tele yesterday . - increase torpol as BP neds better control 4-h/o DVT /PE : not compliant with coumadin . d/w Dr. gibson . He needs continued prophylactic dose of AC as he has periods of immobility . start eliquis 2.5 mg BID . risks of bleeding discussed with him by resident covered by insurance f/u with heme 5- HTN: cont lisinopril . and BB 6- Dm :cont metformin at [facility] home . refused to work with PT , but has been ambulating per RN and has steady gait
--- NOTE | 2017-12-14 19:59 | DS ---
Physical Exam: SUBJECTIVE: Patient seen and examined at bedside. No acute events overnight. Today, pt refusing PT however ambulated on own to nurse's station down the olsen to ask questions. Agreeable to dispo plan. Denies EVNAS, fever, chills, SOB, or changes in urinary or bowel function. OBJECTIVE: Vital Signs Period Temp Pulse Resp BP Sys/Kelley Pulse Ox Last 24 Hr 97.8 F-98.4 F 67-77 18-20 134-169/56-82 94-97 PHYSICAL EXAM GENERAL: The patient is awake, alert, and fully oriented, in no acute distress. HEAD: Normal with no signs of trauma. EYES: PERRL, extraocular movements intact, sclera anicteric, conjunctiva clear. ENT: Ears normal, nares patent, oropharynx clear without exudates, moist mucous membranes. NECK: Trachea midline, full range of motion, supple. LUNGS: +decreased breath sounds at bases HEART: Regular rate and rhythm, S1, S2 without murmur, rub or gallop. ABDOMEN: Soft, obese, nontender, nondistended, normoactive bowel sounds, no guarding EXTREMITIES: 2+ pt pulses, warm, well-perfused, trace pedal edema NEUROLOGICAL: Cranial nerves II through XII grossly intact. Normal speech, without antalgic gait PSYCH: Normal mood, normal affect. SKIN: Warm, dry, normal turgor, no rashes or lesions LABS Laboratory Results - last 24 hr 12/13/17 12/14/17 12/14/17 20:56 05:55 06:45 WBC 2.9 L RBC 3.97 L Hgb 13.6 Hct 40.1 MCV 101.1 H MCH 34.3 H MCHC 34.0 RDW 14.0 Plt Count 78 L MPV 9.1 Absolute Neuts (auto) 1.6 Neutrophils % 57.0 Lymphocytes % 29.8 Monocytes % 10.1 Eosinophils % 2.4 Basophils % 0.7 Nucleated RBC % 0 POC Glucometer 101 89 Random Glucose 12/14/17 12/14/17 12/14/17 06:45 06:45 11:45 D-Dimer 643 H Sodium 142 Potassium 3.7 Chloride 105 Carbon Dioxide 28 Anion Gap 9 BUN 16 Creatinine 0.9 Creat Clearance w eGFR > 60 POC Glucometer 103 Random Glucose 89 Calcium 9.0 CBC Trend 06/12/13/17 12/14/17 09:45 07:30 06:45 WBC 1.9 L* D 2.3 L 2.9 L Hgb 12.6 13.3 13.6 Hct 37.7 39.4 40.1 Plt Count 65 L 70 L 78 L Laboratory Tests to be followed up as outpatient 12/14/17 06:45 2-Methylcitric Acid Pending Methylmalonic Acid Pending Cystathionine Pending IMAGING 12/12/17 EKG: NSR, possible LAE. vent rate 79bpm, FL 146ms, QRS 90ms, Qtc 460ms 12/12/17 CTA: no definite pulmonary emboli b/l, cirrhosis- nodular contour of liver, splenomegaly, partial healing of mid sternal fx 12/12/17 CXR: congestion, overexposure. blunting L costophrenic angle, central markings 12/12/17: R duplex: (-) DVT 12/14/17: ECHO: tech limited study with many views suboptimal. moderate concentric LVH. LVSF normal. no regional wall motion abnormalities. EF 65-70%. E /A reversal consistent with but not diagnostic of poor LV compliance. RV systolic function is normal. LA moderately dilated. mild TR. RVSP normal. trivial pericardial effusion not hemodynamically significant. HOSPITAL COURSE: Date of Admission:12/12/17 Date of Discharge: 12/14/17 Admit diagnosis: acute diastolic CHF exacerbation 57 y/o homeless M with PMH RLE DVT/PE (dx April; initially on lovenox 2 wks, transitioned to coumadin 4mg. pt has not been compliant with d/t social situation, has not seen PCP), diastolic CHF, HTN (has not taken HCTZ in 3 weeks) , HLD, DM (on metformin), who presented to the ED c/o lower extremity edema, and SOB over 3-4 weeks. As per pt, these sx had persisted over the past 3-4 wks , however they worsened recently as he became homeless. Pt stated that his son kicked him out of his house. Ever since, he had been walking on the street and overexerting himself. His sx have been exacerbated over the last few days, so much so that he is SOB walking half a block. At baseline, he "can walk forever. " During this time, pt also endorses intermittent palpitations that are not a/w chest pain or pressure. Pt admitted for acute diastolic CHF exacerbation d/t non compliance. While hospitalized, pt managed for the following: Acute diastolic CHF exacerbation Likely d/t medication non compliance. As per pt, d/t social situation, had been unable to take meds for the last three weeks. With poor follow-up. Pt was maintained on lasix 40mg IVP qd initially. He is being d/c on 20mg PO qd. During this time, pt also on strict intake and output, daily weights, and fluid/ Na restriction. His first troponin was neg, no overt signs of demand ischemia. Pt seen by Cardio. ECHO revealed EF 60-65%, normal LV syst funct. Findings are consistent with diastolic HF. He was adequately diuresed during his hospitalization, and was able to ambulate with improved ease on day of d/c. Hx of RLE DVT/PE As per pt, recently was on coumadin 4mg PO qd, however did not continue. Initially, pt was started on asa 81mg PO qd for anticoagulation, however after d /w heme, he was changed to eliquis 2.5mg PO BID. Pt's initial DVT was likely provoked however 2/2 to immobilization. As pt still with periods of immobilization d/t lower extremity pain, will need to anticoagulate to avoid repeat episode. CTA was done which neg for PE. R duplex also performed (-) for DVT. Episodes of palpitations dose of metoprolol succ changed to 50 mg PO qd. Chronic leukopenia, thrombocytopenia As per heme, pt's leukopenia, thrombocytopenia are chronic. May be 2/2 myeloplastic dz or hepatotoxicity from past alcohol use. Also with splenomegaly. Had been seen by heme-onc in past, however lost to f/u. Will continue on B12, folic acid on dc, To f/u with heme-onc on d/c; need to f/u on cystathione, methylmalonyl labs. HTN HCTZ held. But pt continued on lisinopril 20mg PO qd, metoprolol succinate 50mg PO qd . DM Pt during stay on [facility], however will switch to home med metformin 500mg BID upon d/c. Smoking cessation Upon pt request, provided with nicotine patch . Minutes to complete discharge: 45 Discharge Summary Reason For Visit: DIZZINESS, CONGESTIVE HEART FAILURE, EDEMA Condition: Improved - Instructions Diet, Activity, Other Instructions: You were in the hospital because you had an exacerbation in your congestive heart failure. This caused you to have increased swelling in your legs. Your visit You were seen by the medicine, cardiology and hematology-oncology teams Medications You are being sent home on the following medications, please note the following changes: -Eliquis 2.5 mg (1 pill) - take twice daily. This is a new blood thinner. -Folic acid 1mg daily -Thiamine 100mg daily -Cyanocobalamin 1000 mcg daily -Lasix 20mg daily -Lipitor 10mg daily -Lisinopril 20mg daily -Metoprolol succinate (Toprol XL) 50mg daily -Metformin 500mg twice a day -Nicotine patch to stop smoking - change patch daily. The following meds have been discontinued: Warfarin, aspirin, augmentin, hydrochlorothiazide. Do not take these. Care -you are on a blood thinner. You may experience increased bruising. Please call your doctor if you feel lightheaded, dizzy, as if you will pass out. Or if you cough up/vomit blood, or see blood in your stool or urine. Follow up Please follow up with: -Dr. Palmer, your primary care doctor -1 week -Dr. Christine - the unit secy that saw you in the hospital - 1 week -Dr. Moore, the business operations coordinator/oncologist that saw you in the hospital - 1 week to evaluate your low count ( you might have a bone marrow problem ) also there are certain tests that need to be followed It is very important that you take your medications and follow up with the above doctors. If you develop chest pain or shortness of breath, please go to the hospital. We hope you feel better soon. Referrals: Du Christine MD [Staff Physician] - 1 Week Tika Moore MD [Staff Physician] - 1 Week Temo Palmer MD [Primary Care Provider] - 1 Week Disposition: HOME - Home Medications Comprehensive Discharge Medication List: Ambulatory Orders Cholecalciferol (Vitamin D3) [Vitamin D -] 1,000 unit PO DAILY 7 Days #7 tab 01/13 Gabapentin 300 mg PO TID #21 capsule 07/05/17 Simvastatin 10 mg PO HS #7 tablet 07/05/17 metFORMIN HCL [Metformin HCl] 500 mg PO BID #14 tablet 07/05/17 Escitalopram Oxalate [Lexapro -] 10 mg PO DAILY 10/11/17 Tizanidine HCl 2 mg PO TID PRN 10/11/17 Cyanocobalamin [Vitamin B12 -] 1,000 mcg PO DAILY 30 Days tablet 10/15/17 Folic Acid - 1 mg PO DAILY #30 tablet 10/15/17 Lisinopril [Prinivil] 20 mg PO DAILY #30 tablet 10/15/17 Thiamine HCl [Vitamin B1 -] 100 mg PO DAILY #30 tablet 10/15/17 Apixaban [Eliquis] 2.5 mg PO BID #60 tablet 12/14/17 Furosemide [Lasix] 20 mg PO DAILY #30 tablet 12/14/17 Metoprolol Succinate [Toprol XL -] 50 mg PO DAILY #30 tab.sr.24h 12/14/17 Nicotine Patch [Nicoderm Patch -] 14 mg TD DAILY #14 patch 12/14/17 This patient is new to me today: No Emergency Visit: No Critical Care patient: No - Discharge Referral Referred to [facility] No
== END 2017-12-14 18:57 | disposition home or self-care (01) | DRG 194 ==
LOC: JER 07:18 → JERBED 17:38 → OBSVTOIN 19:29 → J4W 20:45
PROVIDERS: ADMIT Internal Medicine; ATTEND Internal Medicine
DX: I11.0 Hypertensive heart disease with heart failure (principal); I50.31 Acute diastolic (congestive) heart failure; F17.210 Nicotine dependence, cigarettes, uncomplicated; E78.00 Pure hypercholesterolemia, unspecified; F41.8 Other specified anxiety disorders; R16.1 Splenomegaly, not elsewhere classified; D70.9 Neutropenia, unspecified; K76.9 Liver disease, unspecified; R46.0 Very low level of personal hygiene; I47.1 Supraventricular tachycardia; Z86.718 Personal history of other venous thrombosis and embolism; Z86.711 Personal history of pulmonary embolism; Z91.14 Patient's other noncompliance with medication regimen; Z59.0 Homelessness; D69.6 Thrombocytopenia, unspecified
CPT/HCPCS: 36415; 71045-TC-FY; 71275-TC; 80048; 80053; 82136; 82550; 82962; 83735; 83880; 83918; 84100; 84484; 85025; 85379; 85610; 93005; 93010; 93306-TC; 93970-TC; 99282-25; G0378

== ENCOUNTER 2018-07-27 21:23 | Emergency (ER) | payer OTHER ==
[2018-07-27 21:54] VITALS: TEMP 97.5; BMI 40.6
--- NOTE | 2018-07-27 21:55 | PDOC ---
Rapid Medical Evaluation Chief Complaint: Edema Time Seen by Provider: 07/27/18 21:50 Medical Evaluation: Allergies Allergy/AdvReac Type Severity Reaction Status Date / Time erythromycin base Allergy Verified 12/12/17 07:27 07/27/18 21:50 I have performed a brief in-person evaluation of this patient. The patient presents with a chief complaint of: bilateral ankle swelling for the past week with occasional difficulty breathing. He has been undomiciled for 2 weeks. Also c/o diffuse back pain which has been worsening lately. Pt stopped taking his meds for 2 weeks, just started 2 days ago again. PMHx CHF, DVT, PE, DM, HTN, smoker Pertinent physical exam findings: Lungs CTA. Bilateral ankle edema I have ordered the following: FS, EKG, CBC, CMP, probnp, cardiac markers, CXR The patient will proceed to the ED for further evaluation 07/27/18 21:57 Discharge Disposition - Diagnosis Swollen ankles - Referrals - Patient Instructions - Post Discharge Activity
[2018-07-27 22:13] LABS: BASO % 0.9 % (0-2.0); EOS % 1.7 % (0-4.5); HEMATOCRIT 41.9 % (35.4-49); HEMOGLOBIN 14.3 GM/dL (11.7-16.9); LYMPH % 29.2 % (8-40); MCH 35.2 pg (25.7-33.7); MEAN CELL VOLUME 103.4 fl (80-96); MEAN PLT VOLUME 9.4 fl (7.5-11.1); MONO % 10.5 % (3.8-10.2); NEUT % 57.7 % (42.8-82.8); PLATELET COUNT 83 K/MM3 (134-434); RBC 4.06 M/mm3 (4.00-5.60); RDW 14.4 % (11.9-15.9); WHITE BLOOD COUNT 4.6 K/mm3 (4.0-10.0)
[2018-07-27 22:37] LABS: MAGNESIUM 1.7 mg/dL (1.8-2.4); PHOSPHOROUS 3.6 mg/dL (2.5-4.9)
[2018-07-27 22:40] LABS: ALBUMIN 3.7 g/dl (3.4-5.0); ALK PHOS 67 U/L (45-117); ANION GAP 7 MMOL/L (8-16); BILIRUBIN,TOTAL 0.8 mg/dL (0.2-1); BLOOD UREA NITROGEN 18 mg/dL (7-18); CALCIUM 8.9 mg/dL (8.5-10.1); CHLORIDE 107 mmol/L (98-107); CO2 28 mmol/L (21-32); CREATININE 0.9 mg/dL (0.55-1.3); GLUCOSE,RANDOM 85 mg/dL (74-106); N-TERMINAL BNP 69.4 pg/ml (5-125); POTASSIUM 3.8 mmol/L (3.5-5.1); SGOT/AST 19 U/L (15-37); SGPT/ALT 34 U/L (13-61); SODIUM 142 mmol/L (136-145); TOT PROT 7.7 g/dl (6.4-8.2)
--- NOTE | 2018-07-28 00:47 | PDOC ---
History of Present Illness <Xin Trejo - Last Filed: 07/28/18 06:24> - General History Source: Patient - History of Present Illness Initial Comments: 07/28/18 04:33 58 year old male c/o b/l lower extremity edema worse over the last two weeks as patient has been living on [address]. patient reports that he has been sitting up for two weeks now the swelling is worse. patient reports that he has a PMHX, HTN, CHF Timing/Duration: 1-3 hours <Joanne Hermosillo - Last Filed: 07/28/18 06:47> - General Chief Complaint: Edema Stated Complaint: PAIN Time Seen by Provider: 07/27/18 21:50 Past History <Xin Trejo - Last Filed: 07/28/18 06:24> - Past Medical History Cardiac Disorders: Yes (P.E) CVA: No COPD: No CHF: Yes DVT: No Diabetes: Yes HTN: Yes Hypercholesterolemia: Yes Psychiatric Problems: Yes (ANXEITY) Other medical history: chronic back pain - Immunization History Immunization Up to Date: Yes - Suicide/Smoking/Psychosocial Hx Smoking History: Current every day smoker Have you smoked in the past 12 months: Yes Number of Cigarettes Smoked Daily: 10 If you are a former smoker, when did you quit?: no Information on smoking cessation initiated: No 'Breaking Loose' booklet given: 11/09/17 Hx Alcohol Use: No Drug/Substance Use Hx: No Substance Use Type: None Hx Substance Use Treatment: No <Joanne Hermosillo - Last Filed: 07/28/18 06:47> - Past Medical History Allergies/Adverse Reactions: Allergies Allergy/AdvReac Type Severity Reaction Status Date / Time erythromycin base Allergy Verified 07/27/18 21:53 Home Medications: Ambulatory Orders Cholecalciferol (Vitamin D3) [Vitamin D -] 1,000 unit PO DAILY 7 Days #7 tab 01/13 Gabapentin 300 mg PO TID #21 capsule 07/05/17 Simvastatin 10 mg PO HS #7 tablet 07/05/17 metFORMIN HCL [Metformin HCl] 500 mg PO BID #14 tablet 07/05/17 Escitalopram Oxalate [Lexapro -] 10 mg PO DAILY 10/11/17 Tizanidine HCl 2 mg PO TID PRN 10/11/17 Cyanocobalamin [Vitamin B12 -] 1,000 mcg PO DAILY 30 Days tablet 10/15/17 Folic Acid - 1 mg PO DAILY #30 tablet 10/15/17 Lisinopril [Prinivil] 20 mg PO DAILY #30 tablet 10/15/17 Thiamine HCl [Vitamin B1 -] 100 mg PO DAILY #30 tablet 10/15/17 Apixaban [Eliquis] 2.5 mg PO BID #60 tablet 12/14/17 Furosemide [Lasix] 20 mg PO DAILY #30 tablet 12/14/17 Metoprolol Succinate [Toprol XL -] 50 mg PO DAILY #30 tab.sr.24h 12/14/17 Nicotine Patch [Nicoderm Patch -] 14 mg TD DAILY #14 patch 12/14/17 Cephalexin Monohydrate [Keflex -] 500 mg PO Q8H #30 capsule 07/28/18 Cephalexin [Keflex] 500 mg PO QID #28 capsule 07/28/18 Sulfamethoxazole/Trimethoprim [Bactrim Ds -] 1 tab PO BID #20 tablet 07/28/18 Review of Systems - Review of Systems Able to Perform ROS?: Yes Is the patient limited [place] proficient: No Constitutional: No: Symptoms Reported, See HPI, Chills, Diaphoresis, Fever, Loss of Appetite, Malaise, Night Sweats, Weakness, Weight Stable, Unintentional Wgt. Loss, Unexplained wgt Loss, Other HEENTM: No: Symptoms Reported, See HPI, Eye Pain, Blurred Vision, Tearing, Recent change in vision, Double Vision, Cataracts, Ear Pain, Ocular Prothesis, Ear Discharge, Nose Pain, Nose Congestion, Tinnitus, Nose Bleeding, Hearing Loss , Throat Pain, Throat Swelling, Mouth Pain, Dental Problems, Difficulty Swallowing, Mouth Swelling, Other Respiratory: No: Symptoms reported, See HPI, Cough, Orthopnea, SOB with Exertion , SOB at Rest, Stridor, Wheezing, Productive cough, Hemoptysis, Other Cardiac (ROS): Yes: Palpitations. No: Symptoms Reported, See HPI, Chest Pain, Edema, Irregular Heart Rate, Lightheadedness, Syncope, Chest Tightness, Other ABD/GI: No: Symptoms Reported, See HPI, Abdominal Distended, Abd. Pain w/ defecation, Blood Streaked Bowels, Constipated, Diarrhea, Difficulty Swallowing , Nausea, Poor Appetite, Poor Fluid Intake, Rectal Bleeding, Vomiting, Indigestion, Abdominal cramping, Tarry Stools, Other Musculoskeletal: Yes: Other (ankle edema) Neurological: No: Symptoms reported, See HPI, Headache, Numbness, Paresthesia, Pre-Existing Deficit, Seizure, Tingling, Tremors, Weakness, Unsteady Gait, Ataxia, Dizziness, Other Psychiatric: No: Anxiety, Depression, Frequent Crying, Stressors, Sleep Pattern Change, Emotional Problems, Mood Swings, Change in Appetite, Other Endocrine: No: Symptoms Reported, See HPI, Excessive Sweating, Flushing, Intolerance to Cold, Intolerance to Heat, Increased Hunger, Increased Thirst, Increased Urine, Unexplained Weight Gain, Unexplained Weight Loss, Change in Weight, Other <Joanne Hermosillo - Last Filed: 07/28/18 06:47> *Physical Exam - Vital Signs Last Vital Signs Temp Pulse Resp BP Pulse Ox 97.5 F L 80 18 108/79 96 07/27/18 21:50 07/28/18 05:42 07/28/18 05:42 07/28/18 05:42 07/28/18 05:42 <Xin Trejo - Last Filed: 07/28/18 06:24> - Vital Signs Last Vital Signs Temp Pulse Resp BP Pulse Ox 97.5 F L 66 24 H 154/82 96 07/27/18 21:50 07/27/18 21:50 07/27/18 21:50 07/27/18 21:50 07/27/18 21:50 - Physical Exam General Appearance: Yes: Appropriately Dressed Respiratory/Chest: positive: Lungs Clear, Normal Breath Sounds. negative: Chest Tender Cardiovascular: positive: Regular Rhythm, Regular Rate Extremity: positive: Normal Capillary Refill, Pedal Edema (b/l pitting ) Integumentary: positive: Normal Color, Dry, Warm Neurologic: positive: Fully Oriented, Alert <Joanne Hermosillo - Last Filed: 07/28/18 06:47> Moderate Sedation - Procedure Monitoring Vital Signs: Procedure Monitoring Vital Signs Temperature 97.5 F L 07/27/18 21:50 Pulse Rate 80 07/28/18 05:42 Respiratory Rate 18 07/28/18 05:42 Blood Pressure 108/79 07/28/18 05:42 O2 Sat by Pulse Oximetry (%) 96 07/28/18 05:42 <Xin Trejo - Last Filed: 07/28/18 06:24> - Procedure Monitoring Vital Signs: Procedure Monitoring Vital Signs Temperature 97.5 F L 07/27/18 21:50 Pulse Rate 66 07/27/18 21:50 Respiratory Rate 24 H 07/27/18 21:50 Blood Pressure 154/82 07/27/18 21:50 O2 Sat by Pulse Oximetry (%) 96 07/27/18 21:50 <Joanne Hermosillo - Last Filed: 07/28/18 06:47> ED Treatment Course - LABORATORY CBC & Chemistry Diagram: 07/27/18 22:04 07/27/18 22:04 - ADDITIONAL ORDERS Additional order review: Laboratory Results 07/28/18 07/27/18 07/27/18 04:55 22:04 22:04 Sodium Potassium Chloride Carbon Dioxide Anion Gap BUN Creatinine Creat Clearance w eGFR Random Glucose Calcium Phosphorus 3.6 Magnesium 1.7 L Total Bilirubin AST ALT Alkaline Phosphatase Creatine Kinase 47 Troponin I < 0.02 B-Natriuretic Peptide Cancelled Total Protein Albumin Lipase 145 07/27/18 22:04 Sodium 142 Potassium 3.8 Chloride 107 Carbon Dioxide 28 Anion Gap 7 L BUN 18 Creatinine 0.9 Creat Clearance w eGFR > 60 Random Glucose 85 Calcium 8.9 Phosphorus Magnesium Total Bilirubin 0.8 AST 19 ALT 34 Alkaline Phosphatase 67 Creatine Kinase 57 Troponin I < 0.02 B-Natriuretic Peptide 69.4 Total Protein 7.7 Albumin 3.7 Lipase 07/27/18 22:04 RBC 4.06 MCV 103.4 H MCHC 34.0 RDW 14.4 MPV 9.4 Neutrophils % 57.7 Lymphocytes % 29.2 Monocytes % 10.5 H Eosinophils % 1.7 Basophils % 0.9 <Xin Trejo - Last Filed: 07/28/18 06:24> - LABORATORY CBC & Chemistry Diagram: 07/27/18 22:04 07/27/18 22:04 - ADDITIONAL ORDERS Additional order review: Laboratory Results 07/27/18 07/27/18 07/27/18 22:04 22:04 22:04 Sodium 142 Potassium 3.8 Chloride 107 Carbon Dioxide 28 Anion Gap 7 L BUN 18 Creatinine 0.9 Creat Clearance w eGFR > 60 Random Glucose 85 Calcium 8.9 Phosphorus 3.6 Magnesium 1.7 L Total Bilirubin 0.8 AST 19 ALT 34 Alkaline Phosphatase 67 Creatine Kinase 57 Troponin I < 0.02 B-Natriuretic Peptide Cancelled 69.4 Total Protein 7.7 Albumin 3.7 Lipase 145 07/27/18 22:04 RBC 4.06 MCV 103.4 H MCHC 34.0 RDW 14.4 MPV 9.4 Neutrophils % 57.7 Lymphocytes % 29.2 Monocytes % 10.5 H Eosinophils % 1.7 Basophils % 0.9 <Joanne Hermosillo - Last Filed: 07/28/18 06:47> Medical Decision Making - Medical Decision Making 07/28/18 04:42 A: palpitation, lower extremity edema P: labs xray 07/28/18 06:05 left 4 th and 5th toe with burst blister from swelling and tight shoe. will give antibiotic due to NIDDM on metformin. patient is advised for a wound check in 48 hours. <Joanne Hermosillo - Last Filed: 07/28/18 06:47> *DC/Admit/Observation/Transfer - Discharge Dispostion Decision to Admit order: No <Xin Trejo - Last Filed: 07/28/18 06:24> <Joanne Hermosillo - Last Filed: 07/28/18 06:47> Diagnosis at time of Disposition: Lower extremity edema Blister of toe of left foot Qualifiers: Encounter type: initial encounter Qualified Code(s): S90.425A - Blister ( nonthermal), left lesser toe(s), initial encounter - Discharge Dispostion Disposition: HOME Condition at time of disposition: Stable - Prescriptions Prescriptions: Cephalexin [Keflex] 500 mg PO QID #28 capsule Cephalexin Monohydrate [Keflex -] 500 mg PO Q8H #30 capsule Sulfamethoxazole/Trimethoprim [Bactrim Ds -] 1 tab PO BID #20 tablet - Referrals Referrals: John Scott MD [Non Staff, Medical] - - Patient Instructions Printed Discharge Instructions: Blisters, DI for Atypical Chest Pain Additional Instructions: follow up with you doctor in 2 days for a wound check, return to the ER if symptoms worsen, Additional Instructions: * Please call your personal physician to report your Emergency Department visit and to report your progress, if any. * If there is no improvement in symptoms in 2 days call your physician. * Return to the Emergency Department for any worsening symptoms.
--- NOTE | 2018-07-28 00:48 | PDOC ---
*Physical Exam - Vital Signs Last Vital Signs Temp Pulse Resp BP Pulse Ox 97.5 F L 66 24 H 154/82 96 07/27/18 21:50 07/27/18 21:50 07/27/18 21:50 07/27/18 21:50 07/27/18 21:50 ED Treatment Course - LABORATORY CBC & Chemistry Diagram: 07/27/18 22:04 07/27/18 22:04 - ADDITIONAL ORDERS Additional order review: Laboratory Results 07/27/18 07/27/18 07/27/18 22:04 22:04 22:04 Sodium 142 Potassium 3.8 Chloride 107 Carbon Dioxide 28 Anion Gap 7 L BUN 18 Creatinine 0.9 Creat Clearance w eGFR > 60 Random Glucose 85 Calcium 8.9 Phosphorus 3.6 Magnesium 1.7 L Total Bilirubin 0.8 AST 19 ALT 34 Alkaline Phosphatase 67 Creatine Kinase 57 Troponin I < 0.02 B-Natriuretic Peptide Cancelled 69.4 Total Protein 7.7 Albumin 3.7 Lipase 145 07/27/18 22:04 RBC 4.06 MCV 103.4 H MCHC 34.0 RDW 14.4 MPV 9.4 Neutrophils % 57.7 Lymphocytes % 29.2 Monocytes % 10.5 H Eosinophils % 1.7 Basophils % 0.9 Medical Decision Making - Medical Decision Making 07/28/18 00:48 Patient seen by the advanced practice provider under my direct supervision. Ancillary testing reviewed as necessary. I agree with plan as outlined by the advanced practice provider. *DC/Admit/Observation/Transfer Diagnosis at time of Disposition: Swollen ankles - Referrals - Patient Instructions - Post Discharge Activity
[2018-07-28 05:43] VITALS: BP 108/79; PULSE 80
[2018-07-28] MEDS ORDERED: SULFAMETHOXAZOLE/TRIMETHOPRIM 800MG/160MG D.S. TABLET PO ONE (06:04)
[2018-07-28] MEDS ORDERED: CEPHALEXIN MONOHYDRATE 500 MG CAPSULE (UD) PO ONE (06:04)
[2018-07-28] MEDS ORDERED: SULFAMETHOXAZOLE/TRIMETHOPRIM 800MG/160MG D.S. TABLET ONE (06:23)
[2018-07-28] MEDS ORDERED: CEPHALEXIN MONOHYDRATE 500 MG CAPSULE (UD) ONE (06:23)
--- NOTE | 2018-07-28 14:56 | EKG ---
Test Reason : Blood Pressure : / mmHG Vent. Rate : 076 BPM Atrial Rate : 076 BPM P-R Int : 160 ms QRS Dur : 092 ms QT Int : 428 ms P-R-T Axes : 024 022 023 degrees QTc Int : 481 ms NORMAL SINUS RHYTHM POSSIBLE LEFT ATRIAL ENLARGEMENT PROLONGED QT ABNORMAL ECG WHEN COMPARED WITH ECG OF 12-DEC-2017 18:26, NO SIGNIFICANT CHANGE WAS FOUND Confirmed by CATIE MUNIZ, SARTHAK ([id number]) on 07/28/2018 2:56:28 PM Referred By: Confirmed By:SARTHAK HADDAD MD
== END 2018-07-28 07:35 | disposition home or self-care (01) ==
LOC: JER 21:23
DX: R60.0 Localized edema (principal); S90.425A Blister (nonthermal), left lesser toe(s), initial encounter; I11.0 Hypertensive heart disease with heart failure; I50.9 Heart failure, unspecified; E11.9 Type 2 diabetes mellitus without complications; Z79.84 Long term (current) use of oral hypoglycemic drugs; E78.00 Pure hypercholesterolemia, unspecified; F41.9 Anxiety disorder, unspecified; Z86.711 Personal history of pulmonary embolism; Z79.01 Long term (current) use of anticoagulants; Z59.0 Homelessness; W49.09XA Other specified item causing external constriction, initial encounter; Y93.89 Activity, other specified; Y92.89 Other specified places as the place of occurrence of the external cause; Y99.8 Other external cause status
CPT/HCPCS: 36415; 71046-TC-FY; 80053; 82550; 83690; 83735; 83880; 84100; 84484; 85025; 93005; 93010; 99283-25

== ENCOUNTER 2018-10-06 23:23 | Inpatient (IN) | payer OTHER ==
--- NOTE | 2018-10-06 23:38 | PDOC ---
History of Present Illness - General Chief Complaint: Shortness of Breath Stated Complaint: DIFFICULTY BREATHING Time Seen by Provider: 10/06/18 23:31 - History of Present Illness Initial Comments: 10/06/18 23:39 Mr. Jules is a 58 yo male w/ pmh of prior RLE DVT confirmed on US to R popliteal 08/30/18, currently on eliquis, CHF, HTN, HLD, NIDDM, prior PE who presents for evaluation of sudden onset shortness of breath, palpitations, and chest pain that started today while he was out shopping. Patient reports he attempted to sit and catch his breath however was unable to and is still experiencing these same symptoms now. Describes chest pain as his whole chest. Mr. Jules is a long time smoker as well. The patient denies headache and dizziness. Denies fever, chills, nausea, vomit, diarrhea and constipation. Denies dysuria, frequency, urgency and hematuria. Past History - Past Medical History Allergies/Adverse Reactions: Allergies Allergy/AdvReac Type Severity Reaction Status Date / Time erythromycin base Allergy Verified 10/06/18 23:48 Home Medications: Ambulatory Orders Cholecalciferol (Vitamin D3) [Vitamin D -] 1,000 unit PO DAILY 7 Days #7 tab 01/13 Gabapentin 300 mg PO TID #21 capsule 07/05/17 Simvastatin 10 mg PO HS #7 tablet 07/05/17 metFORMIN HCL [Metformin HCl] 500 mg PO BID #14 tablet 07/05/17 Escitalopram Oxalate [Lexapro -] 10 mg PO DAILY 10/11/17 Tizanidine HCl 2 mg PO TID PRN 10/11/17 Cyanocobalamin [Vitamin B12 -] 1,000 mcg PO DAILY 30 Days tablet 10/15/17 Folic Acid - 1 mg PO DAILY #30 tablet 10/15/17 Lisinopril [Prinivil] 20 mg PO DAILY #30 tablet 10/15/17 Thiamine HCl [Vitamin B1 -] 100 mg PO DAILY #30 tablet 10/15/17 Apixaban [Eliquis] 2.5 mg PO BID #60 tablet 12/14/17 Furosemide [Lasix] 20 mg PO DAILY #30 tablet 12/14/17 Metoprolol Succinate [Toprol XL -] 50 mg PO DAILY #30 tab.sr.24h 12/14/17 Nicotine Patch [Nicoderm Patch -] 14 mg TD DAILY #14 patch 12/14/17 Cardiac Disorders: Yes (P.E) CVA: No COPD: No CHF: Yes DVT: No Diabetes: Yes HTN: Yes Hypercholesterolemia: Yes Psychiatric Problems: Yes (ANXEITY) - Immunization History Immunization Up to Date: Yes - Suicide/Smoking/Psychosocial Hx Smoking History: Current every day smoker Have you smoked in the past 12 months: Yes Number of Cigarettes Smoked Daily: 20 If you are a former smoker, when did you quit?: no Information on smoking cessation initiated: No 'Breaking Loose' booklet given: 11/09/17 Hx Alcohol Use: No Drug/Substance Use Hx: No Substance Use Type: None Hx Substance Use Treatment: No Review of Systems - Review of Systems Comments:: 10/07/18 00:00 GENERAL/CONSTITUTIONAL: No fever or chills. No weakness. HEAD, EYES, EARS, NOSE AND THROAT: No change in vision. No ear pain or discharge. No sore throat. CARDIOVASCULAR: +SOB and chest pain as described. RESPIRATORY: No cough, wheezing, or hemoptysis. GASTROINTESTINAL: No nausea, vomiting, diarrhea or constipation. GENITOURINARY: No dysuria, frequency, or change in urination. MUSCULOSKELETAL: No joint or muscle swelling or pain. No neck or back pain. SKIN: No rash NEUROLOGIC: No headache, vertigo, loss of consciousness, or change in strength/ sensation. ENDOCRINE: No increased thirst. No abnormal weight change HEMATOLOGIC/LYMPHATIC: No anemia, easy bleeding, or history of blood clots. ALLERGIC/IMMUNOLOGIC: No hives or skin allergy. *Physical Exam - Vital Signs Last Vital Signs Temp Pulse Resp BP Pulse Ox 97.7 F 75 20 158/87 95 10/06/18 23:35 10/06/18 23:35 10/06/18 23:35 10/06/18 23:35 10/06/18 23:35 - Physical Exam Comments: 10/07/18 00:00 GENERAL: Awake, alert, and fully oriented, in no acute distress HEAD: No signs of trauma, normocephalic, atraumatic EYES: PERRLA, EOMI, sclera anicteric, conjunctiva clear ENT: Auricles normal inspection, hearing grossly normal, nares patent, oropharynx clear without exudates. Moist mucosa NECK: Normal ROM, supple, no lymphadenopathy, JVD, or masses LUNGS: +Coarse lung sounds appreciated throughout. No distress, speaks full sentences HEART: Regular rate and rhythm, normal S1 and S2, no murmurs, rubs or gallops, peripheral pulses normal and equal bilaterally. ABDOMEN: Soft, nontender, normoactive bowel sounds. No guarding, no rebound. No masses EXTREMITIES: +CITLALLI Pedal edema CITLALLI. Normal range of motion, no edema. No clubbing or cyanosis. NEUROLOGICAL: Cranial nerves II through XII grossly intact. Normal speech, normal gait, no focal sensorimotor deficits SKIN: Warm, Dry, normal turgor, no rashes or lesions noted. Heart Score/ECG Review - History History: Highly suspicious - Electrocardiogram EKG: Non specific repolarization disturbance - Age Age: 45-65 - Risk Factors Risk Factors Heart Score: Yes Hx Hypercholesterolemia, Yes Hx Hypertension, Yes Hx Diabetes, Yes Smoking History, Yes Hx Obesity Based on the list above the patient has:: >/=3 risk factors or Hx atherosclerotic disease - Troponin Troponin: </= normal limit - Score Heart Score - Total: 6 ED Treatment Course - LABORATORY CBC & Chemistry Diagram: 10/06/18 23:55 10/06/18 23:55 Medical Decision Making - Medical Decision Making 10/07/18 01:33 Mr. Jules is a 58 yo male w/ pmh as described who presents for evaluation of symptoms concerning for ACS vs. PE vs. other acute process. Workup started with labs as below. Patient scheduled for repeat CITLALLI LE US as well as Chest CTA for r/o PE. 10/07/18 02:36 Labs grossly wnl. CTA negative for acute process. Significant for splenomegaly only. Patient will be admitted to ED for further cardiac evaluation. Laboratory Results - last 24 hr 10/06/18 10/06/18 10/06/18 00:00 23:55 23:55 WBC 3.2 L RBC 3.82 L Hgb 13.2 Hct 39.3 MCV 102.9 H MCH 34.5 H MCHC 33.5 RDW 14.5 Plt Count 69 L MPV 9.1 Absolute Neuts (auto) 2.0 Neutrophils % 63.5 Lymphocytes % 24.1 Monocytes % 9.3 Eosinophils % 2.5 Basophils % 0.6 Nucleated RBC % 0 PT with INR 12.60 INR 1.07 PTT (Actin FS) 36.3 Sodium Potassium Chloride Carbon Dioxide Anion Gap BUN Creatinine Creat Clearance w eGFR Random Glucose Calcium Total Bilirubin AST ALT Alkaline Phosphatase Creatine Kinase Troponin I B-Natriuretic Peptide Cancelled Total Protein Albumin Blood Type Antibody Screen 10/06/18 10/06/18 23:55 23:55 WBC RBC Hgb Hct MCV MCH MCHC RDW Plt Count MPV Absolute Neuts (auto) Neutrophils % Lymphocytes % Monocytes % Eosinophils % Basophils % Nucleated RBC % PT with INR INR PTT (Actin FS) Sodium 141 Potassium 4.0 Chloride 111 H Carbon Dioxide 25 Anion Gap 5 L BUN 14 Creatinine 0.8 Creat Clearance w eGFR 98.94 Random Glucose 108 H Calcium 8.7 Total Bilirubin 0.7 AST 26 ALT 24 Alkaline Phosphatase 65 Creatine Kinase 82 Troponin I 0.02 B-Natriuretic Peptide 126.1 H Total Protein 7.5 Albumin 3.4 Blood Type A POSITIVE Antibody Screen Negative *DC/Admit/Observation/Transfer Diagnosis at time of Disposition: Shortness of breath, Palpitations Chest pain Qualifiers: Chest pain type: unspecified Qualified Code(s): R07.9 - Chest pain, unspecified - Discharge Dispostion Condition at time of disposition: Fair Decision to Admit order: Yes - Referrals - Patient Instructions - Post Discharge Activity
--- NOTE | 2018-10-06 23:47 | PDOC ---
Attending Attestation - HPI HPI: 10/07/18 00:02 The patient is a 58 year old male with a PMH of RLE DVT 08/30/18, on eliquis, CHF , HTN, HLD, NIDDM, and PE who presents to the ER for shortness of breath, palpitations, and chest pain in the setting of shopping earlier today. Patient states the symptoms have been persistent since and do not improve with rest. Patient is a current smoker. The patient denies headache and dizziness. Denies fever, chills, nausea, vomit, diarrhea and constipation. Denies dysuria, frequency, urgency and hematuria. Allergies: NKA Past surgical history: None reported Social history: No reported alcohol or drug use. Current smoker. - Physicial Exam PE: 10/07/18 00:06 ADULT PHYSICAL EXAM Constitutional: Awake, alert, oriented. No acute distress. (+) Morbidly obese. Head: Normocephalic. Atraumatic Eyes: PERRL. EOMI. Conjunctivae are not pale. ENT: Mucous membranes are moist and intact. Posterior pharynx without exudates or erythema. Uvula midline. Neck: Supple. Full ROM. No lymphadenopathy. Cardiovascular: Regular rate. Regular rhythm. S1, S2 regular. Distal pulses are 2+ and symmetric. Pulmonary/Chest: (+) Diminished breath sounds but coarse at the bases bilaterally. (+) Mild conversational dyspnea. No wheezing, rales or rhonchi. Abdominal: Soft and non-distended. There is no tenderness. No rebound, guarding or rigidity. No organomegaly. No palpable masses. Good bowel sounds. Back: No CVA tenderness. Musculoskeletal: (+) 2+ pitting edema bilaterally. (+) Pain behind the right knee on palpation. No cyanosis. No clubbing. Full range of motion in all extremities. Radial/pedal pulses are intact and 2+ bilaterally Skin: Skin is warm and dry. No petechiae. No purpura. Neurological: Alert and oriented to person, place, and time. Cranial nerves II -XII are grossly intact. Normal speech. Strength is grossly symmetric. No sensory deficits. Psychiatric: Good eye contact. Normal interaction, affect and behavior. - Medical Decision Making 10/07/18 00:09 Documentation prepared by Ania Terrazas, acting as medical office technology instructor for Sheila Macias DO. 10/07/18 01:38 Imaging: Vascular US Impression: No DVT Reported by: Dr. Rondon <Ania Terrazas - Last Filed: 10/07/18 01:38> - Resident Resident Name: FreddybeckyClayton cabrales - ED Attending Attestation I have performed the following: I have examined & evaluated the patient, The case was reviewed & discussed with the resident, I agree w/resident's findings & plan, Exceptions are as noted - Medical Decision Making 10/06/18 23:47 I, Dr. Sheila Macias, DO, attest that this document has been prepared under my direction and personally reviewed by me in its entirety. I further attest, that it accurately reflects all work, treatment, procedures and medical decision -making performed by me. 10/07/18 00:18 a/p: 58yo male with recent dx of dvt on ultrasound, on elaquis, but sometimes misses doses worsening leg pain and cp/sob -concern for worsening dvt +/- PE -will send labs, trop, ekg -cta chest -will repeat dopplers -will monitor and reassess 10/07/18 01:28 trop negative pt in US for dvt exam and then ct 10/07/18 02:01 dvt study negative pt to ct 10/07/18 02:08 pt with sob and cp, will need obs for further eval bnp 126 <Sheila Macias - Last Filed: 10/07/18 02:08> Heart Score/ECG Review - ECG Intrepretation Comment:: 10/07/18 00:20 sinus at 74, nl axis, nl interval, no acute st/t wave findings <Sheila Macias - Last Filed: 10/07/18 02:08>
[2018-10-07 00:09] LABS: BASO % 0.6 % (0-2.0); EOS % 2.5 % (0-4.5); HEMATOCRIT 39.3 % (35.4-49); HEMOGLOBIN 13.2 GM/dL (11.7-16.9); LYMPH % 24.1 % (8-40); MCH 34.5 pg (25.7-33.7); MCHC 33.5 g/dl (32.0-35.9); MEAN CELL VOLUME 102.9 fl (80-96); MEAN PLT VOLUME 9.1 fl (7.5-11.1); MONO % 9.3 % (3.8-10.2); NEUT % 63.5 % (42.8-82.8); PLATELET COUNT 69 K/MM3 (134-434); RBC 3.82 M/mm3 (4.00-5.60); RDW 14.5 % (11.9-15.9); WHITE BLOOD COUNT 3.2 K/mm3 (4.0-10.0)
[2018-10-07 00:45] LABS: ALBUMIN 3.4 g/dl (3.4-5.0); ALK PHOS 65 U/L (45-117); ANION GAP 5 MMOL/L (8-16); BILIRUBIN,TOTAL 0.7 mg/dL (0.2-1); BLOOD UREA NITROGEN 14 mg/dL (7-18); CALCIUM 8.7 mg/dL (8.5-10.1); CHLORIDE 111 mmol/L (98-107); CO2 25 mmol/L (21-32); CREATININE 0.8 mg/dL (0.55-1.3); GLUCOSE,RANDOM 108 mg/dL (74-106); INR 1.07 (0.83-1.09); N-TERMINAL BNP 126.1 pg/ml (5-125); PROTHROMBIN TIME (PATIENT) 12.6 SEC (9.7-13.0); SGOT/AST 26 U/L (15-37); SGPT/ALT 24 U/L (13-61); SODIUM 141 mmol/L (136-145); TOT PROT 7.5 g/dl (6.4-8.2)
[2018-10-07 00:48] LABS: ACTIVATED PTT 36.3 SECONDS (25.2-36.5)
[2018-10-07] MEDS ORDERED: ASPIRIN 81 MG CHEWABLE TABLETS PO ONE (02:46)
[2018-10-07] MEDS ORDERED: ACETAMINOPHEN 500 MG TABLET (FP) PO ONE (02:46)
[2018-10-07] MEDS ORDERED: ASPIRIN 81 MG CHEWABLE TABLETS ONE (03:00)
[2018-10-07] MEDS ORDERED: ACETAMINOPHEN 325 MG TABLET (FP) ONE ×2 (03:00→14:09)
--- NOTE | 2018-10-07 03:25 | PN ---
Teaching Attending Note Name of Resident: [place] ATTENDING PHYSICIAN STATEMENT I saw and evaluated the patient. I reviewed the resident's note and discussed the case with the resident. I agree with the resident's findings and plan as documented. SUBJECTIVE: Patient is a 58 year old man with PMH of alcohol abuse, ?Vitamin b12 deficiency , leukopenia and thrombocytopenia, RLE DVT confirmed on US to R popliteal 08/30/18 , currently on Eliquis, CHF, HTN, HLD, Morbid obesity, Tobacco use, NIDDM and PE who presents for evaluation of sudden onset shortness of breath, palpitations , and chest pain that started today while he was out shopping. Patient reports he attempted to sit and catch his breath however was unable to and is still experiencing these same symptoms now. Describes chest pain as his whole chest. Patient is a long time smoker. Denies headache, dizziness or melena stool. Denies fever, chills, nausea, vomiting, change in bowel habit, dysuria, frequency, urgency or hematuria. OBJECTIVE: Alert Vital Signs Period Temp Pulse Resp BP Sys/Kelley Pulse Ox Last 24 Hr 97.7 F-98.8 F 75-79 20-20 158-174/82-87 95-98 HEENT: No Jaundice, eye redness or discharge, PERRLA, EOMI. Normocephalic, atraumatic. External ears are normal and hearing is grossly intact. No nasal discharge. Neck: Supple, nontender. No palpable adenopathy or thyromegaly. No JVD Chest: Good effort. Diminished breath sounds. Clear to percussion. Heart: Regular. No S3, rub or murmur Abdomen: Not distended, soft, nontender and no HSM. No rebound or guarding. Normal bowel sounds. Ext: Peripheral pulses intact. Chronic leg edema. Skin: Warm and dry. No petechiae, rash or ecchymosis. Neuro: Alert. Oriented x3. CN 2-12 grossly intact. Sensation grossly intact in all four extremities and DTR are symmetric. Psych: Appropriate mood and affect. Good insight. Home Medications Medication Instructions Recorded Cholecalciferol (Vitamin D3) 1,000 unit PO DAILY 7 Days #7 tab 07/05/17 [Vitamin D -] Gabapentin 300 mg PO TID #21 capsule 07/05/17 Simvastatin 10 mg PO HS #7 tablet 07/05/17 metFORMIN HCL [Metformin HCl] 500 mg PO BID #14 tablet 07/05/17 Escitalopram Oxalate [Lexapro -] 10 mg PO DAILY 10/11/17 Tizanidine HCl 2 mg PO TID PRN 10/11/17 Cyanocobalamin [Vitamin B12 -] 1,000 mcg PO DAILY 30 Days tablet 10/15/17 Folic Acid - 1 mg PO DAILY #30 tablet 10/15/17 Lisinopril [Prinivil] 20 mg PO DAILY #30 tablet 10/15/17 Thiamine HCl [Vitamin B1 -] 100 mg PO DAILY #30 tablet 10/15/17 Apixaban [Eliquis] 2.5 mg PO BID #60 tablet 12/14/17 Furosemide [Lasix] 20 mg PO DAILY #30 tablet 12/14/17 Metoprolol Succinate [Toprol XL -] 50 mg PO DAILY #30 tab.sr.24h 12/14/17 Nicotine Patch [Nicoderm Patch -] 14 mg TD DAILY #14 patch 12/14/17 Abnormal Lab Results 10/06/18 10/06/18 23:55 23:55 WBC 3.2 L RBC 3.82 L MCV 102.9 H MCH 34.5 H Plt Count 69 L Chloride 111 H Anion Gap 5 L Random Glucose 108 H B-Natriuretic Peptide 126.1 H ASSESSMENT AND PLAN: 1. Chest pain - With associated SOB and palpitations, he may have undiagnosed COPD as well as a component of obesity-hypoventilation syndrome. He is also at risk for arrhythmia and may be having "paroxysmal" bouts that may not be evident by the time he arrives the ER. He has had a similar presentation several times in the past 2 years and ECHO on 12/14/17 showed EF of 65-70% and moderate concentric LVH. EKG shows NSR with no ST-T wave changes. No PE on CTA and no DVT on leg doppler today. Will treat him with duoneb, oxygen and solumedrol. Consult Pulmonary. He will benefit from outpatient PFTs, evaluation for home oxygen and possibly outpatient cardiac event monitoring as well as smoking cessation. Consult cardiology to advice on whether he should be taken off beta janine. His leukopenia and thrombocytopenia have been previously worked up and attributed to splenomegaly. He is nonadherent to prescribed Vit B12 for low B12. Will reconsult hematology 2. DM For now, we will hold the home diabetes drugs and implement sliding scale insulin regimen. Provide comprehensive diabetes care with patient teaching and counseling about the importance of adherence to prescribed diabetes regimen, euglycemia, eye care and foot care. 3. Tobacco Use Counseled on risks associated with tobacco use. We will provide patient all the necessary assistance to facilitate smoking cessation and prescribe Nicotine patch. 4. Morbid Obesity Counseled on the risks associated with obesity. Will provide patient all the necessary assistance, counseling and positive reinforcement to facilitate weight loss. Consult senior health physics technician. 5. Alcohol abuse - Implement [facility] alcohol withdrawal protocol and do neurochecks. Implement seizure, fall and aspiration precautions. Treat with thiamine and folic acid and monitor electrolytes (Ca,Mg,K,P). Counseled patient about abstaining from alcohol and will refer to alcohol detox upon discharge. 6. Uncontrolled Hypertension - Restart outpatient antihypertensive drugs and revise regimen to ensure smooth [id number] good BP control. Nonpharmacologic measures to control hypertension like weight loss, salt restriction and exercise discussed. 7. DVT prophylaxis - On Eliquis for DVT/PE - check with PCP for why he is on just 2.5 mg bid.? 8. Advance directives - Full code
[2018-10-07] MEDS ORDERED: ALBUTEROL SO4 0.083% IH SOL 2.5 MG/3 ML VIAL.NEB. NEB PRN (04:05)
--- NOTE | 2018-10-07 04:21 | HP ---
CHIEF COMPLAINT: SOB, CP PCP: Angelina Mccord HISTORY OF PRESENT ILLNESS: Patient is a 58 y/o M w/ PMHx R popliteral DVT Dx 08/30/18 on eliquis, CHF, HTN, HLD, NIDDM, prior PE, BIBEMS for sudden onset SOB and diffuse CP while out shopping today. Hypertensive on presentation, VS otherwise stable. Labs unremarkable, leukopenia is chronic. Troponin negative x 1, EKG benign. Current 1ppd smoker w/ 50 pack year Hx. No known h/o pulmonary disease. Chest CTA negative for PE. Duplex studies negative for DVT. CP was resolved at time of encounter, SOB ongoing, Pt required O2 by [place] for comfort. ER course was notable for: (1) chest CTA negative (2) duplex negative (3) troponin, EKG negative Recent Travel: PAST MEDICAL HISTORY: As per HPI PAST SURGICAL HISTORY: Social History: Smokin py Hx Alcohol: Drugs: Family History: Allergies erythromycin base Allergy (Verified 10/06/18 23:48) HOME MEDICATIONS: Home Medications Medication Instructions Recorded Cholecalciferol (Vitamin D3) 1,000 unit PO DAILY 7 Days #7 tab 07/05/17 [Vitamin D -] Gabapentin 300 mg PO TID #21 capsule 07/05/17 Simvastatin 10 mg PO HS #7 tablet 07/05/17 metFORMIN HCL [Metformin HCl] 500 mg PO BID #14 tablet 07/05/17 Escitalopram Oxalate [Lexapro -] 10 mg PO DAILY 10/11/17 Tizanidine HCl 2 mg PO TID PRN 10/11/17 Cyanocobalamin [Vitamin B12 -] 1,000 mcg PO DAILY 30 Days tablet 10/15/17 Folic Acid - 1 mg PO DAILY #30 tablet 10/15/17 Lisinopril [Prinivil] 20 mg PO DAILY #30 tablet 10/15/17 Thiamine HCl [Vitamin B1 -] 100 mg PO DAILY #30 tablet 10/15/17 Apixaban [Eliquis] 2.5 mg PO BID #60 tablet 12/14/17 Furosemide [Lasix] 20 mg PO DAILY #30 tablet 12/14/17 Metoprolol Succinate [Toprol XL -] 50 mg PO DAILY #30 tab.sr.24h 12/14/17 Nicotine Patch [Nicoderm Patch -] 14 mg TD DAILY #14 patch 12/14/17 REVIEW OF SYSTEMS As per HPI PHYSICAL EXAMINATION Vital Signs - 24 hr 10/06/18 10/06/18 10/06/18 23:23 23:35 23:38 Temperature 98.8 F 97.7 F Pulse Rate 79 75 Respiratory 20 20 Rate Blood Pressure 174/82 H 158/87 O2 Sat by Pulse 98 95 96 Oximetry (%) 10/06/18 23:41 Temperature Pulse Rate 75 Respiratory Rate Blood Pressure O2 Sat by Pulse 96 Oximetry (%) GENERAL: A&Ox3, NAD HEENT: NC/AT, PERRLA, EOMI, MMM NECK: Normal range of motion, supple without lymphadenopathy, JVD, or masses. LUNGS: CTA b/l HEART: RRR no m/r/g ABDOMEN: +bs, soft, NT, ND, obese UPPER EXTREMITIES: 2+ pulses, warm, well-perfused. No cyanosis. No clubbing. No peripheral edema. LOWER EXTREMITIES: 2+ pulses, warm, well-perfused. No calf tenderness. 1+ pitting edema b/l at baseline per Pt. NEUROLOGICAL: yard associate, motor, sensory systems w/o focal deficit PSYCHIATRIC: Cooperative. Good eye contact. Appropriate mood and affect. SKIN: Warm, dry, normal turgor, no rashes or lesions noted, normal capillary refill. Laboratory Results - last 24 hr 10/06/18 10/06/18 10/06/18 00:00 23:55 23:55 WBC 3.2 L RBC 3.82 L Hgb 13.2 Hct 39.3 MCV 102.9 H MCH 34.5 H MCHC 33.5 RDW 14.5 Plt Count 69 L MPV 9.1 Absolute Neuts (auto) 2.0 Neutrophils % 63.5 Lymphocytes % 24.1 Monocytes % 9.3 Eosinophils % 2.5 Basophils % 0.6 Nucleated RBC % 0 PT with INR 12.60 INR 1.07 PTT (Actin FS) 36.3 Sodium Potassium Chloride Carbon Dioxide Anion Gap BUN Creatinine Creat Clearance w eGFR Random Glucose Calcium Total Bilirubin AST ALT Alkaline Phosphatase Creatine Kinase Troponin I B-Natriuretic Peptide Cancelled Total Protein Albumin Blood Type Antibody Screen 10/06/18 10/06/18 23:55 23:55 WBC RBC Hgb Hct MCV MCH MCHC RDW Plt Count MPV Absolute Neuts (auto) Neutrophils % Lymphocytes % Monocytes % Eosinophils % Basophils % Nucleated RBC % PT with INR INR PTT (Actin FS) Sodium 141 Potassium 4.0 Chloride 111 H Carbon Dioxide 25 Anion Gap 5 L BUN 14 Creatinine 0.8 Creat Clearance w eGFR 98.94 Random Glucose 108 H Calcium 8.7 Total Bilirubin 0.7 AST 26 ALT 24 Alkaline Phosphatase 65 Creatine Kinase 82 Troponin I 0.02 B-Natriuretic Peptide 126.1 H Total Protein 7.5 Albumin 3.4 Blood Type A POSITIVE Antibody Screen Negative ASSESSMENT/PLAN: 58 y/o M w/ PMHx R popliteral DVT Dx 08/30/18 on eliquis, CHF, HTN, HLD, NIDDM, prior PE, BIBEMS for sudden onset SOB and diffuse CP while out shopping today. Cardiac w/u thus far unrevealing. -chest CTA and duplex studies negative -trend troponins, repeat EKG -last echo November 2017, will repeat -pulmonary consulted for possible COPD component -empiric bronchodilators standing and PRN, steroids -restarted home Lasix, lisinopril, Toprol -requires med rec -home Eliquis for DVT PPx -diabetic diet -no IVF -3L O2 by [place] titrate as necessary -monitor BMP -observe on telemetry Visit type - Emergency Visit Emergency Visit: Yes ED Registration Date: 10/07/18 Care time: The patient presented to the Emergency Department on the above date and was hospitalized for further evaluation of their emergent condition. - New Patient This patient is new to me today: Yes Date on this admission: 10/07/18 - Critical Care Critical Care patient: No
[2018-10-07] MEDS ORDERED: ALBUTEROL SO4 2.5/IPRATROPIUM 0.5 INH SOL 3 ML VIAL.NEB. NEB ONE ×3 (04:34→12:44)
[2018-10-07] MEDS ORDERED: methylPREDNISolone NA SUCC 125 MG/2 ML VIAL ONE (04:35)
[2018-10-07] MEDS: methylPREDNISolone NA SUCC 125 MG/2 ML VIAL IVPUSH SCH ×2 (04:46→14:26)
[2018-10-07] MEDS: ALBUTEROL SO4 2.5/IPRATROPIUM 0.5 INH SOL 3 ML VIAL.NEB. NEB SCH ×3 (04:46→12:46)
[2018-10-07 06:08] LABS: BASO % 0.5 % (0-2.0); EOS % 2.2 % (0-4.5); HEMATOCRIT 37.4 % (35.4-49); HEMOGLOBIN 12.7 GM/dL (11.7-16.9); LYMPH % 31.6 % (8-40); MEAN CELL VOLUME 103.2 fl (80-96); MEAN PLT VOLUME 9.4 fl (7.5-11.1); MONO % 10.1 % (3.8-10.2); NEUT % 55.6 % (42.8-82.8); PLATELET COUNT 53 K/MM3 (134-434); RBC 3.63 M/mm3 (4.00-5.60); RDW 14.6 % (11.9-15.9); WHITE BLOOD COUNT 2.2 K/mm3 (4.0-10.0)
[2018-10-07] MEDS: INSULIN SLIDING SCALE (NOVOLOG) 1 VIAL SQ SCH ×4 (06:19→21:21)
[2018-10-07 06:36] LABS: ANION GAP 5 MMOL/L (8-16); BLOOD UREA NITROGEN 13 mg/dL (7-18); CALCIUM 8.4 mg/dL (8.5-10.1); CHLORIDE 111 mmol/L (98-107); CO2 25 mmol/L (21-32); CREATININE 0.8 mg/dL (0.55-1.3); GLUCOSE,RANDOM 112 mg/dL (74-106); MAGNESIUM 1.7 mg/dL (1.8-2.4); PHOSPHOROUS 3.2 mg/dL (2.5-4.9); SODIUM 141 mmol/L (136-145)
[2018-10-07] MEDS ORDERED: MAGNESIUM SULF 50% (8.12 MEQ/2 ML-1 GM VIAL) IVPB ONE (08:30)
[2018-10-07] MEDS ORDERED: MAGNESIUM 1GM/D5W - 1 GM/100 ML IVPB IVPB ONE (08:43)
[2018-10-07] MEDS ORDERED: LISINOPRIL 20 MG TABLET (FP) PO SCH (10:00)
[2018-10-07] MEDS ORDERED: FUROSEMIDE 20 MG TABLET (FP) PO SCH (10:00)
[2018-10-07] MEDS ORDERED: NICOTINE 14 MG/24 HOURS TOPICAL PATCH TD SCH (10:00)
[2018-10-07] MEDS: APIXABAN 2.5 MG TABLET PO SCH ×2 (11:03→21:10)
[2018-10-07] MEDS ORDERED: INSULIN (NOVOLOG) ASPART 100 UNITS/ML 10ML VIAL ONE ×2 (11:33→21:06)
[2018-10-07] MEDS ORDERED: ACETAMINOPHEN 325 MG TABLET (FP) PO PRN (14:25)
--- NOTE | 2018-10-07 14:31 | CON.PULM ---
Consult Consult Specialty:: PULMONARY Referred by:: Dr Mak Reason for Consultation:: shortness of breath - History of Present Illness Chief Complaint: shortness of breath History of Present Illness: 58yo male with h/o HTN, DM, CHF, h/o DVT/PE on anticoagulation who was admitted with sudden onset of shortness of breath and chest pain during shopping. + nonproductive cough and wheezing. No fevers, chills or sweats. No leg swelling. Started smoking at age 8, smokes 1 PPD. CTA chest and LE dopplers done in the ER which were negative for VTE. Currently feels better after receiving steroids and bronchodilators. - History Source History Provided By: Patient, Medical Record Limitations to Obtaining History: No Limitations - Past Medical History Cardio/Vascular: Yes: HTN, Hyperlipdemia Endocrine: Yes: Diabetes Mellitus - Alcohol/Substance Use Hx Alcohol Use: No - Smoking History Smoking history: Current every day smoker Have you smoked in the past 12 months: Yes Aproximately how many cigarettes per day: 20 If you are a former smoker, when did you quit?: no Home Medications - Allergies Allergies/Adverse Reactions: Allergies Allergy/AdvReac Type Severity Reaction Status Date / Time erythromycin base Allergy Verified 10/06/18 23:48 - Home Medications Home Medications: Ambulatory Orders Cholecalciferol (Vitamin D3) [Vitamin D -] 1,000 unit PO DAILY 7 Days #7 tab 01/13 Gabapentin 300 mg PO TID #21 capsule 07/05/17 Simvastatin 10 mg PO HS #7 tablet 07/05/17 metFORMIN HCL [Metformin HCl] 500 mg PO BID #14 tablet 07/05/17 Escitalopram Oxalate [Lexapro -] 10 mg PO DAILY 10/11/17 Tizanidine HCl 2 mg PO TID PRN 10/11/17 Cyanocobalamin [Vitamin B12 -] 1,000 mcg PO DAILY 30 Days tablet 10/15/17 Folic Acid - 1 mg PO DAILY #30 tablet 10/15/17 Lisinopril [Prinivil] 20 mg PO DAILY #30 tablet 10/15/17 Thiamine HCl [Vitamin B1 -] 100 mg PO DAILY #30 tablet 10/15/17 Apixaban [Eliquis] 2.5 mg PO BID #60 tablet 12/14/17 Furosemide [Lasix] 20 mg PO DAILY #30 tablet 12/14/17 Metoprolol Succinate [Toprol XL -] 50 mg PO DAILY #30 tab.sr.24h 12/14/17 Nicotine Patch [Nicoderm Patch -] 14 mg TD DAILY #14 patch 12/14/17 Review of Systems - Review of Systems Constitutional: denies: Chills, Fever Eyes: denies: Recent Change in Vision HENT: denies: Nasal Congestion, Throat Pain Neck: denies: Stiffness, Tenderness Cardiovascular: reports: Chest Pain, Edema, Shortness of Breath. denies: Palpitations Respiratory: reports: Cough, SOB on Exertion, Wheezing. denies: Hemoptysis Gastrointestinal: denies: Abdominal Pain, Nausea, Vomiting Genitourinary: denies: Dysuria, Hematuria Neurological: denies: Dizziness, Headache Endocrine: denies: Unexplained Weight Loss Physical Exam Vital Sings: Vital Signs Temperature 97.7 F 10/06/18 23:35 Pulse Rate 80 10/07/18 11:15 Respiratory Rate 18 10/07/18 11:15 Blood Pressure 173/71 H 10/07/18 11:15 O2 Sat by Pulse Oximetry (%) 94 L 10/07/18 11:15 Constitutional: Yes: Calm Eyes: Yes: Conjunctiva Clear, EOM Intact HENT: Yes: Atraumatic, Normocephalic Neck: Yes: Supple, Trachea Midline Cardiovascular: Yes: Regular Rate and Rhythm Respiratory: Yes: Diminished (distant breath sounds), Poor Air Entry ...Clubbing: No Gastrointestinal: Yes: Normal Bowel Sounds, Soft. No: Tenderness Edema: Yes Neurological: Yes: Alert, Oriented Labs: CBC, BMP 10/07/18 05:30 10/07/18 05:30 Imaging - Results Cat Scan: Report Reviewed, Image Reviewed (chronic changes) Problem List - Problems (1) COPD with acute exacerbation Code(s): J44.1 - CHRONIC OBSTRUCTIVE PULMONARY DISEASE W (ACUTE) EXACERBATION (2) Chest pain Code(s): R07.9 - CHEST PAIN, UNSPECIFIED Qualifiers: Chest pain type: unspecified Qualified Code(s): R07.9 - Chest pain, unspecified (3) Diabetes Code(s): E11.9 - TYPE 2 DIABETES MELLITUS WITHOUT COMPLICATIONS (4) HLD (hyperlipidemia) Code(s): E78.5 - HYPERLIPIDEMIA, UNSPECIFIED (5) HTN (hypertension) Code(s): I10 - ESSENTIAL (PRIMARY) HYPERTENSION Assessment/Plan Acute COPD Exacerbation Chest Pain LV Diastolic Dysfunction h/o DVT/PE HTN DM Hyperlipidemia Smoker - agree with IV medrol - inhaled bronchodilators - O2 to keep spO2 >90% - continue anticoagulation - smoking cessation discussed - outpt PFTs - DVT prophylaxis Thank you for this consult Cristobal Hardy MD
--- NOTE | 2018-10-07 14:36 | ECHO ---
Name: SILVINOCLARENCECESARNATHALIE Exam:Adult Echocardiogram Study Date: 10/07/2018 09:29 AM Age: 58 yrs Reason For Study: ASSESS LVEF VALVULAR FUNCTION Height: 72 in Weight: 330 lb BSA: 2.6 m2 MMode/2D Measurements & Calculations IVSd: 0.87 cm Ao root diam: 3.0 cm LVIDd: 5.8 cm LA dimension: 4.7 cm LVIDs: 3.6 cm LVPWd: 0.95 cm EDV(Teich): 164.5 ml LVOT diam: 2.1 cm ESV(Teich): 55.7 ml Doppler Measurements & Calculations MV E max melvin: 109.7 cm/sec Ao V2 max: 223.2 cm/sec MV A max melvin: 74.6 cm/sec Ao max P.9 mmHg MV E/A: 1.5 Ao V2 mean: 162.1 cm/sec MV dec time: 0.14 sec Ao mean P.7 mmHg Ao V2 VTI: 47.4 cm MADELINE(I,D): 1.9 cm2 MADELINE(V,D): 1.8 cm2 LV V1 max P.2 mmHg MR max melvin: 505.4 cm/sec LV V1 mean P.1 mmHg MR max P.6 mmHg LV V1 max: 114.1 cm/sec LV V1 mean: 82.6 cm/sec LV V1 VTI: 25.9 cm SV(LVOT): 92.3 ml TR max melvin: 271.5 cm/sec TR max P.5 mmHg Med Peak E' Melvin: 5.7 cm/sec Med E/e': 19.1 Lat Peak E' Melvin: 8.2 cm/sec Lat E/e': 13.3 Procedure A complete two-dimensional transthoracic echocardiogram was performed (2D, M-mode, Doppler and color flow Doppler). Left Ventricle The left ventricular size, thickness and function are normal. The left ventricular ejection fraction is normal. Ejection Fraction = 60-65%. The left ventricular wall motion is normal. Right Ventricle The right ventricle is normal in size and function. Atria Normal left and right atrial size and function. Mitral Valve There is mild mitral regurgitation. Tricuspid Valve No tricuspid regurgitation. There was insufficient TR detected to calculate RV systolic pressure. Aortic Valve Mild valvular aortic stenosis. No aortic regurgitation is present. Pulmonic Valve There is no pulmonic valvular regurgitation. Great Vessels The aortic root is normal size. Pericardium/Pleura There is no pericardial effusion. Interpretation Summary The left ventricular size, thickness and function are normal The right ventricle is normal in size and function. There is mild mitral regurgitation. Mild valvular aortic stenosis. MD To Serna 10/07/2018 02:35 PM
--- NOTE | 2018-10-07 16:35 | EKG ---
Test Reason : Blood Pressure : / mmHG Vent. Rate : 082 BPM Atrial Rate : 082 BPM P-R Int : 174 ms QRS Dur : 094 ms QT Int : 386 ms P-R-T Axes : 049 022 025 degrees QTc Int : 450 ms NORMAL SINUS RHYTHM POSSIBLE LEFT ATRIAL ENLARGEMENT BORDERLINE ECG WHEN COMPARED WITH ECG OF 07-OCT-2018 00:05, NO SIGNIFICANT CHANGE WAS FOUND Confirmed by ROSALINDA FIORE MD ([id number]) on 10/07/2018 4:34:29 PM Referred By: Confirmed By:ROSALINDA FIORE MD
--- NOTE | 2018-10-07 16:36 | EKG ---
Test Reason : Blood Pressure : / mmHG Vent. Rate : 074 BPM Atrial Rate : 074 BPM P-R Int : 172 ms QRS Dur : 092 ms QT Int : 428 ms P-R-T Axes : 068 024 039 degrees QTc Int : 475 ms NORMAL SINUS RHYTHM NORMAL ECG WHEN COMPARED WITH ECG OF 28-JUL-2018 01:47, NO SIGNIFICANT CHANGE WAS FOUND Confirmed by ROSALINDA FIORE MD ([id number]) on 10/07/2018 4:35:57 PM Referred By: Confirmed By:ROSALINDA FIORE MD
--- NOTE | 2018-10-07 17:18 | PN ---
Physical Exam: SUBJECTIVE: Patient seen and examined this AM. Admits hx of medication noncompliance and continued tobacco use. SOB has improved and Chest pain has resolved since admission. OBJECTIVE: Vital Signs Period Temp Pulse Resp BP Sys/Kelley Pulse Ox Last 24 Hr 97.7 F-98.8 F 75-85 18-20 148-174/71-87 93-98 GENERAL: A&Ox3, NAD HEAD: NCAT EYES: PERRL, EOMI NECK: Supple LUNGS: Diminished breath sounds at the bases, no wheezes, no crackles HEART: Regular rate and rhythm, S1, S2 without murmur ABDOMEN: Obese, Soft, nontender, nondistended, + bowel sounds, no guarding EXTREMITIES: 1+ edema. NEUROLOGICAL: Cranial nerves II through XII grossly intact. SKIN: Warm, dry Laboratory Results - last 24 hr 10/06/18 10/06/18 10/06/18 00:00 23:55 23:55 WBC 3.2 L RBC 3.82 L Hgb 13.2 Hct 39.3 MCV 102.9 H MCH 34.5 H MCHC 33.5 RDW 14.5 Plt Count 69 L MPV 9.1 Absolute Neuts (auto) 2.0 Neutrophils % 63.5 Lymphocytes % 24.1 Monocytes % 9.3 Eosinophils % 2.5 Basophils % 0.6 Nucleated RBC % 0 PT with INR 12.60 INR 1.07 PTT (Actin FS) 36.3 Sodium Potassium Chloride Carbon Dioxide Anion Gap BUN Creatinine Creat Clearance w eGFR POC Glucometer Random Glucose Calcium Phosphorus Magnesium Total Bilirubin AST ALT Alkaline Phosphatase Creatine Kinase Troponin I B-Natriuretic Peptide Cancelled Total Protein Albumin Blood Type Antibody Screen 10/06/18 10/06/18 10/07/18 23:55 23:55 05:30 WBC RBC Hgb Hct MCV MCH MCHC RDW Plt Count MPV Absolute Neuts (auto) Neutrophils % Lymphocytes % Monocytes % Eosinophils % Basophils % Nucleated RBC % PT with INR INR PTT (Actin FS) Sodium 141 Potassium 4.0 Chloride 111 H Carbon Dioxide 25 Anion Gap 5 L BUN 14 Creatinine 0.8 Creat Clearance w eGFR 98.94 POC Glucometer Random Glucose 108 H Calcium 8.7 Phosphorus Magnesium Total Bilirubin 0.7 AST 26 ALT 24 Alkaline Phosphatase 65 Creatine Kinase 82 Troponin I 0.02 B-Natriuretic Peptide 126.1 H Total Protein 7.5 Albumin 3.4 Blood Type A POSITIVE A POSITIVE Antibody Screen Negative 10/07/18 10/07/18 10/07/18 05:30 05:30 05:30 WBC 2.2 L RBC 3.63 L Hgb 12.7 Hct 37.4 MCV 103.2 H MCH 35.0 H MCHC 34.0 RDW 14.6 Plt Count 53 L D MPV 9.4 Absolute Neuts (auto) 1.2 L Neutrophils % 55.6 Lymphocytes % 31.6 D Monocytes % 10.1 Eosinophils % 2.2 Basophils % 0.5 Nucleated RBC % 0 PT with INR INR PTT (Actin FS) Sodium 141 Potassium 4.0 Chloride 111 H Carbon Dioxide 25 Anion Gap 5 L BUN 13 Creatinine 0.8 Creat Clearance w eGFR 98.94 POC Glucometer Random Glucose 112 H Calcium 8.4 L Phosphorus 3.2 Magnesium 1.7 L Total Bilirubin AST ALT Alkaline Phosphatase Creatine Kinase Troponin I 0.02 B-Natriuretic Peptide Total Protein Albumin Blood Type Antibody Screen 10/07/18 10/07/18 10/07/18 06:16 11:07 14:14 WBC RBC Hgb Hct MCV MCH MCHC RDW Plt Count MPV Absolute Neuts (auto) Neutrophils % Lymphocytes % Monocytes % Eosinophils % Basophils % Nucleated RBC % PT with INR INR PTT (Actin FS) Sodium Potassium Chloride Carbon Dioxide Anion Gap BUN Creatinine Creat Clearance w eGFR POC Glucometer 107 198 313 Random Glucose Calcium Phosphorus Magnesium Total Bilirubin AST ALT Alkaline Phosphatase Creatine Kinase Troponin I B-Natriuretic Peptide Total Protein Albumin Blood Type Antibody Screen Active Medications Acetaminophen (Tylenol -) 650 mg PO Q4H PRN PRN Reason: PAIN Albuterol Sulfate (Ventolin 0.083% Nebulizer Soln -) 1 amp NEB Q4H PRN PRN Reason: SHORT OF BREATH/WHEEZING Albuterol/Ipratropium (Duoneb -) 1 amp NEB RQ4H [facility] Last Admin: 10/07/18 12:46 Dose: 1 amp Apixaban (Eliquis -) 2.5 mg PO BID [facility] Last Admin: 10/07/18 11:03 Dose: 2.5 mg Atorvastatin Calcium (Lipitor -) 10 mg PO HS [facility] Furosemide (Lasix -) 20 mg PO DAILY [facility] Last Admin: 10/07/18 11:03 Dose: 20 mg Insulin Aspart (Novolog Vial Sliding Scale -) 1 vial SQ ACHS [facility]; Protocol Last Admin: 10/07/18 11:34 Dose: 2 units Lisinopril (Prinivil) 20 mg PO DAILY [facility] Last Admin: 10/07/18 11:03 Dose: 20 mg Methylprednisolone Sodium Succinate (Solu-Medrol -) 60 mg IVPUSH Q8H-IV DANNY Metoprolol Succinate (Toprol Xl -) 50 mg PO DAILY [facility] Last Admin: 10/07/18 11:03 Dose: 50 mg Nicotine (Nicoderm Patch -) 14 mg TD DAILY [facility] Last Admin: 10/07/18 11:03 Dose: 14 mg IMAGING: -CTA: No evidence of pulmonary embolism. Mild chronic lung disease with no evidence of acute pathology within the chest. -LE Duplex: No evidence of deep venous thrombosis. -EKG: NSR, LAE, VR 82, QTc 450 -ECHO: LV Size function thickness are normal. Mild MR. Mild valvular ASSESSMENT/PLAN: 58 y/o M w/ PMHx R popliteral DVT (now on eliquis), prior PE, CHF, HTN, HLD, NIDDM, presented after sudden onset SOB and diffuse CP #SOB -Likely due to Acute COPD Exacerbation; Components of OHS; R/O ACS, PE -CTA, LE Duplex Noted above -Trop 0.02 x2; EKG, Echo noted above -Bronchodilators--Albuterol Neb Q4H PRN, Albuterol/Ipratropium NEB Q4H -Continue IV Methylprednisolone 60mg Q8H -Supplemental O2 to maintain SpO2 88-92% -Pulmonary consulted, appreciate rec's -Counselled on smoking cessation--currently 1ppd #Hx of DVT/ PE -Imaging noted above -Continue Apixaban 2.5 mg PO BID #Hx of CHF, HTN, HLD -Continue Atorvastatin 10mg HS, Furosemide 20mg PO daily, Lisinopril 20mg PO Daily, Metoprolol Succinate 50mg PO Daily -HTN remains uncontrolled, will continue to monitor and optimize med's #Hx of NIDDM -ISS BGMs ACHS #Hx of Splenomegaly with subsequent leukopenia and thrombocytopenia -Patient admits noncompliance with prescribed Vit B12 #FEN -No standing fluids -Lytes WNL -Diabetic diet #PPx -DVT: Apixaban Visit type - Emergency Visit Emergency Visit: Yes ED Registration Date: 10/07/18 Care time: The patient presented to the Emergency Department on the above date and was hospitalized for further evaluation of their emergent condition. - New Patient This patient is new to me today: Yes Date on this admission: 10/07/18 - Critical Care Critical Care patient: No - Discharge Referral Referred to [facility] Med P.C.: No
[2018-10-07] MEDS: methylPREDNISolone NA SUCC 40 MG/1 ML VIAL IVPUSH SCH (18:04)
--- NOTE | 2018-10-07 19:09 | PN ---
Teaching Attending Note Name of Resident: Nikkie Nicholsno ATTENDING PHYSICIAN STATEMENT I saw and evaluated the patient. I reviewed the resident's note and discussed the case with the resident. I agree with the resident's findings and plan as documented. SUBJECTIVE: Patient is a 58yo male presented with cough and shortness of breath. OBJECTIVE: Vital Signs Temperature 97.7 F 10/06/18 23:35 Pulse Rate 80 10/07/18 11:15 Respiratory Rate 18 10/07/18 11:15 Blood Pressure 173/71 H 10/07/18 11:15 O2 Sat by Pulse Oximetry (%) 94 L 10/07/18 11:15 GENERAL: The patient is awake, alert, and fully oriented, in no acute distress. HEAD: Normal with no signs of trauma. Facial flushing EYES: PERRL, extraocular movements intact, sclera anicteric, conjunctiva clear. . ENT: Ears normal, oropharynx clear without exudates, moist mucous membranes. NECK: Trachea midline, full range of motion, supple. LUNGS: decreased Breath sounds bl, no wheezes, no crackles, mild accessory muscle use. HEART: Regular rate and rhythm, S1, S2 without murmur, rub or gallop. ABDOMEN: Soft, nontender, nondistended, normoactive bowel sounds, no guarding, no rebound, no hepatosplenomegaly, no masses. EXTREMITIES: 2+ pulses, warm, well-perfused, no edema. NEUROLOGICAL: Cranial nerves II through XII grossly intact. Normal speech, gait is stable. PSYCH: Normal mood, normal affect. SKIN: Warm, dry, normal turgor, no rashes or lesions noted CBCD WBC 2.2 K/mm3 (4.0-10.0) L 10/07/18 05:30 RBC 3.63 M/mm3 (4.00-5.60) L 10/07/18 05:30 Hgb 12.7 GM/dL (11.7-16.9) 10/07/18 05:30 Hct 37.4 % (35.4-49) 10/07/18 05:30 MCV 103.2 fl (80-96) H 10/07/18 05:30 MCHC 34.0 g/dl (32.0-35.9) 10/07/18 05:30 RDW 14.6 % (11.9-15.9) 10/07/18 05:30 Plt Count 53 K/MM3 (134-434) L D 10/07/18 05:30 MPV 9.4 fl (7.5-11.1) 10/07/18 05:30 CMP Sodium 141 mmol/L (136-145) 10/07/18 05:30 Potassium 4.0 mmol/L (3.5-5.1) 10/07/18 05:30 Chloride 111 mmol/L (98-107) H 10/07/18 05:30 Carbon Dioxide 25 mmol/L (21-32) 10/07/18 05:30 Anion Gap 5 MMOL/L (8-16) L 10/07/18 05:30 BUN 13 mg/dL (7-18) 10/07/18 05:30 Creatinine 0.8 mg/dL (0.55-1.3) 10/07/18 05:30 Creat Clearance w eGFR 98.94 (>60) 10/07/18 05:30 Random Glucose 112 mg/dL (74-106) H 10/07/18 05:30 Calcium 8.4 mg/dL (8.5-10.1) L 10/07/18 05:30 Total Bilirubin 0.7 mg/dL (0.2-1) 10/06/18 23:55 AST 26 U/L (15-37) 10/06/18 23:55 ALT 24 U/L (13-61) 10/06/18 23:55 Alkaline Phosphatase 65 U/L (45-117) 10/06/18 23:55 Total Protein 7.5 g/dl (6.4-8.2) 10/06/18 23:55 Albumin 3.4 g/dl (3.4-5.0) 10/06/18 23:55 CARDIAC ENZYMES Creatine Kinase 82 U/L (26-308) 10/06/18 23:55 Troponin I 0.02 ng/ml (0.00-0.05) 10/07/18 05:30 Current Medications Generic Name Dose Route Start Last Admin Trade Name Freq PRN Reason Stop Dose Admin Acetaminophen 650 mg 10/07/18 14:25 Tylenol - PO Q4H PRN PAIN Albuterol Sulfate 1 amp 10/07/18 04:05 Ventolin 0.083% Nebulizer Soln - NEB Q4H PRN SHORT OF BREATH/WHEEZING Albuterol/Ipratropium 1 amp 10/07/18 04:30 10/07/18 12:46 Duoneb - NEB 1 amp RQ4H DANNY Administration Apixaban 2.5 mg 10/07/18 10:00 10/07/18 11:03 Eliquis - PO 2.5 mg BID DANNY Administration Atorvastatin Calcium 10 mg 10/07/18 22:00 Lipitor - PO HS DANNY Furosemide 20 mg 10/07/18 10:00 10/07/18 11:03 Lasix - PO 20 mg DAILY DANNY Administration Insulin Aspart 1 vial 10/07/18 07:00 10/07/18 17:34 Novolog Vial Sliding Scale - SQ Not Given ACHS [facility] Protocol Lisinopril 20 mg 10/07/18 10:00 10/07/18 11:03 Prinivil PO 20 mg DAILY DANNY Administration Methylprednisolone Sodium Succinate 60 mg 10/07/18 18:00 10/07/18 18:04 Solu-Medrol - IVPUSH 60 mg Q8H-IV DANNY Administration Metoprolol Succinate 50 mg 10/07/18 10:00 10/07/18 11:03 Toprol Xl - PO 50 mg DAILY DANNY Administration Nicotine 14 mg 10/07/18 10:00 10/07/18 11:03 Nicoderm Patch - TD 14 mg DAILY DANNY Administration Home Medications Medication Instructions Recorded Cholecalciferol (Vitamin D3) 1,000 unit PO DAILY 7 Days #7 tab 07/05/17 [Vitamin D -] Simvastatin 10 mg PO HS #7 tablet 07/05/17 metFORMIN HCL [Metformin HCl] 500 mg PO BID #14 tablet 07/05/17 Escitalopram Oxalate [Lexapro -] 10 mg PO DAILY 10/11/17 Tizanidine HCl 2 mg PO TID PRN 10/11/17 Cyanocobalamin [Vitamin B12 -] 1,000 mcg PO DAILY 30 Days tablet 10/15/17 Folic Acid - 1 mg PO DAILY #30 tablet 10/15/17 Lisinopril [Prinivil] 20 mg PO DAILY #30 tablet 10/15/17 Thiamine HCl [Vitamin B1 -] 100 mg PO DAILY #30 tablet 10/15/17 Apixaban [Eliquis] 2.5 mg PO BID #60 tablet 12/14/17 Furosemide [Lasix] 20 mg PO DAILY #30 tablet 12/14/17 Metoprolol Succinate [Toprol XL -] 50 mg PO DAILY #30 tab.sr.24h 12/14/17 Nicotine Patch [Nicoderm Patch -] 14 mg TD DAILY #14 patch 12/14/17 Acetaminophen [Tylenol 8 Hour] 1,300 mg PO Q8H PRN 10/07/18 Celecoxib [Celebrex] 400 mg PO DAILY PRN 10/07/18 Furosemide [Lasix] 40 mg PO DAILY 10/07/18 Gabapentin 600 mg PO TID 10/07/18 Oxycodone HCl/Acetaminophen 1 each PO Q8H PRN 10/07/18 [Oxycodon-Acetaminophen 7.5-325] Sertraline HCl 50 mg PO DAILY 10/07/18 CTA: No evidence of pulmonary embolism. Mild chronic lung disease with no evidence of acute pathology within the chest. -LE Duplex: No evidence of deep venous thrombosis. -EKG: NSR, LAE, VR 82, QTc 450 -ECHO: LV Size function thickness are normal. Mild MR. Mild valvular ASSESSMENT AND PLAN: Patient is a 58yo male with PMHx R popliteral DVT (now on eliquis), prior PE, CHF, HTN, HLD, NIDDM, presented after sudden onset SOB and diffuse CP #SOB most likely due to undiagnosed COPD exacerbation, CTA was done negative for PE, continue nebs., pulmonary consult #Hx of DVT/ PE: on Apixaban 5mg PO BID #Hx of CHF continue meds, increased lasix to 40mg daily #Hx of HTN: contine meds #Hx of HLD continue meds #Hx of NIDDM: ISS [facility] [place] ACHS #B/L Knee Pain: with OA; Lidocaine patch to each knee Dvt Px: Apixaban
[2018-10-07] MEDS ORDERED: oxyCODONE HCL 5 MG TABLET PO ONE (20:33)
[2018-10-07] MEDS: LISINOPRIL 20 MG TABLET (FP) PO SCH (21:11)
[2018-10-07] MEDS ORDERED: ATORVASTATIN CA 10 MG TABLET (FP) PO SCH (22:00)
[2018-10-08] MEDS: methylPREDNISolone NA SUCC 40 MG/1 ML VIAL IVPUSH SCH ×3 (02:02→17:35)
[2018-10-08] MEDS: INSULIN SLIDING SCALE (NOVOLOG) 1 VIAL SQ SCH ×4 (07:10→22:17)
[2018-10-08] MEDS: ALBUTEROL SO4 2.5/IPRATROPIUM 0.5 INH SOL 3 ML VIAL.NEB. NEB SCH ×5 (07:35→23:08)
[2018-10-08] MEDS ORDERED: PT OWN MED DRAWER 7, Y5N ONE (07:41)
[2018-10-08] MEDS ORDERED: ACETAMINOPHEN 325 MG TABLET (FP) PO PRN ×2 (07:57→21:16)
[2018-10-08 08:01] LABS: BASO % 0.2 % (0-2.0); EOS % 0.1 % (0-4.5); HEMATOCRIT 37.7 % (35.4-49); HEMOGLOBIN 12.5 GM/dL (11.7-16.9); LYMPH % 13.5 % (8-40); MCH 33.7 pg (25.7-33.7); MCHC 33.3 g/dl (32.0-35.9); MEAN CELL VOLUME 101.3 fl (80-96); MEAN PLT VOLUME 9.6 fl (7.5-11.1); MONO % 2.6 % (3.8-10.2); NEUT % 83.6 % (42.8-82.8); PLATELET COUNT 50 K/MM3 (134-434); RBC 3.72 M/mm3 (4.00-5.60); RDW 14.1 % (11.9-15.9); WHITE BLOOD COUNT 2.3 K/mm3 (4.0-10.0)
[2018-10-08 08:34] LABS: ALBUMIN 3.2 g/dl (3.4-5.0); ALK PHOS 58 U/L (45-117); ANION GAP 7 MMOL/L (8-16); BILIRUBIN,TOTAL 0.6 mg/dL (0.2-1); BLOOD UREA NITROGEN 16 mg/dL (7-18); CALCIUM 8.6 mg/dL (8.5-10.1); CHLORIDE 107 mmol/L (98-107); CO2 26 mmol/L (21-32); CREATININE 0.7 mg/dL (0.55-1.3); GLUCOSE,RANDOM 176 mg/dL (74-106); MAGNESIUM 2.2 mg/dL (1.8-2.4); PHOSPHOROUS 3.6 mg/dL (2.5-4.9); POTASSIUM 4.4 mmol/L (3.5-5.1); SGOT/AST 15 U/L (15-37); SGPT/ALT 22 U/L (13-61); SODIUM 140 mmol/L (136-145); TOT PROT 7.2 g/dl (6.4-8.2)
[2018-10-08] MEDS: APIXABAN 2.5 MG TABLET PO SCH ×2 (09:54→22:06)
[2018-10-08] MEDS: FUROSEMIDE 20 MG TABLET (FP) PO SCH (09:54)
[2018-10-08] MEDS: NICOTINE 14 MG/24 HOURS TOPICAL PATCH TD SCH (09:54)
[2018-10-08] MEDS: LISINOPRIL 20 MG TABLET (FP) PO SCH ×2 (09:56→22:06)
--- NOTE | 2018-10-08 11:42 | PN ---
Progress Note (short form) - Note Progress Note: PULMONARY USING NEBS SUBJECTIVE IMPROVEMENT W/U FOR VTE IS NEGATIVE W/U FOR ACS IS NEGATIVE CONGESTED COUGH CONTINUES VSS/AFEBRILE ANICTERIC SCATTERED MINIMAL B/L RHONCHI S1S2 OBESE 1-2 + EDEMA B/L LOWER EXT LABS/MEDS/NOTES/IMAGES REVIEWED Acute COPD Exacerbation Chest Pain syndrome LV Diastolic Dysfunction h/o DVT/PE HTN DM Hyperlipidemia Smoker - agree with IV medrol - inhaled bronchodilators - O2 to keep spO2 >90% - continue anticoagulation - smoking cessation discussed - outpt PFTs - DVT prophylaxis - Likely ready for discharge in AM R ERIK MUNIZ
[2018-10-08] MEDS: BUDESONIDE/FORMETEROL FUMARATE 160/4.5 mcg INHALER IH SCH ×2 (16:36→22:09)
--- NOTE | 2018-10-08 17:27 | PN ---
Physical Exam: SUBJECTIVE: Patient seen and examined this AM. SOB has improved however continues to have congestion. Otherwise, no new complaints. OBJECTIVE: Vital Signs Period Temp Pulse Resp BP Sys/Kelley Pulse Ox Last 24 Hr 98.2 F-98.6 F 77-97 18-20 131-163/78-87 95-95 GENERAL: A&Ox3, NAD HEAD: NCAT EYES: PERRL, EOMI NECK: Supple LUNGS: Diminished breath sounds at the bases, no wheezes, no crackles HEART: Regular rate and rhythm, S1, S2 without murmur ABDOMEN: Obese, Soft, nontender, nondistended, + bowel sounds, no guarding EXTREMITIES: 1+ edema. NEUROLOGICAL: Cranial nerves II through XII grossly intact. SKIN: Warm, dry Laboratory Results - last 24 hr 10/07/18 10/07/18 10/08/18 17:32 21:09 05:53 WBC RBC Hgb Hct MCV MCH MCHC RDW Plt Count MPV Absolute Neuts (auto) Neutrophils % Lymphocytes % Monocytes % Eosinophils % Basophils % Nucleated RBC % Sodium Potassium Chloride Carbon Dioxide Anion Gap BUN Creatinine Creat Clearance w eGFR POC Glucometer 141 150 174 Random Glucose Calcium Phosphorus Magnesium Total Bilirubin AST ALT Alkaline Phosphatase Total Protein Albumin 10/08/18 10/08/18 10/08/18 06:30 06:40 11:31 WBC 2.3 L RBC 3.72 L Hgb 12.5 Hct 37.7 MCV 101.3 H MCH 33.7 MCHC 33.3 RDW 14.1 Plt Count 50 L MPV 9.6 Absolute Neuts (auto) 1.9 Neutrophils % 83.6 H D Lymphocytes % 13.5 D Monocytes % 2.6 L Eosinophils % 0.1 D Basophils % 0.2 Nucleated RBC % 0 Sodium 140 Potassium 4.4 Chloride 107 Carbon Dioxide 26 Anion Gap 7 L BUN 16 Creatinine 0.7 Creat Clearance w eGFR 115.43 POC Glucometer 239 Random Glucose 176 H Calcium 8.6 Phosphorus 3.6 Magnesium 2.2 Total Bilirubin 0.6 AST 15 ALT 22 Alkaline Phosphatase 58 Total Protein 7.2 Albumin 3.2 L Active Medications Acetaminophen (Tylenol -) 650 mg PO Q4H PRN PRN Reason: PAIN Albuterol Sulfate (Ventolin 0.083% Nebulizer Soln -) 1 amp NEB Q4H PRN PRN Reason: SHORT OF BREATH/WHEEZING Albuterol/Ipratropium (Duoneb -) 1 amp NEB RQ4H [facility] Last Admin: 10/08/18 15:45 Dose: 1 amp Apixaban (Eliquis -) 2.5 mg PO BID [facility] Last Admin: 10/08/18 09:54 Dose: 2.5 mg Atorvastatin Calcium (Lipitor -) 10 mg PO HS [facility]AN[facility] Budesonide/Formoterol Fumarate (Symbicort 160/4.5mcg -) 2 puff IH BID [facility] Last Admin: 10/08/18 16:36 Dose: 2 inh Furosemide (Lasix -) 20 mg PO DAILY [facility] Last Admin: 10/08/18 09:54 Dose: 20 mg Insulin Aspart (Novolog Vial Sliding Scale -) 1 vial SQ [facility]; Protocol Last Admin: 10/08/18 11:39 Dose: 4 units Lisinopril (Prinivil) 20 mg PO BID [facility] Last Admin: 10/08/18 09:56 Dose: 20 mg Methylprednisolone Sodium Succinate (Solu-Medrol -) 60 mg IVPUSH Q8H-IV [facility] Last Admin: 10/08/18 09:54 Dose: 60 mg Metoprolol Succinate (Toprol Xl -) 50 mg PO DAILY [facility] Last Admin: 10/08/18 09:55 Dose: 50 mg Nicotine (Nicoderm Patch -) 14 mg TD DAILY [facility] Last Admin: 10/08/18 09:54 Dose: 14 mg IMAGING: -CTA: No evidence of pulmonary embolism. Mild chronic lung disease with no evidence of acute pathology within the chest. -LE Duplex: No evidence of deep venous thrombosis. -EKG: NSR, LAE, VR 82, QTc 450 -ECHO: LV Size function thickness are normal. Mild MR. Mild valvular ASSESSMENT/PLAN: 58 y/o M w/ PMHx R popliteral DVT (now on eliquis), prior PE, CHF, HTN, HLD, NIDDM, presented after sudden onset SOB and diffuse CP #SOB -Likely due to Acute COPD Exacerbation; Components of OHS -Bronchodilators--Albuterol Neb Q4H PRN, Albuterol/Ipratropium NEB Q4H -Continue IV Methylprednisolone 60mg Q8H -Sleep Screen -Supplemental O2 to maintain SpO2 88-92% -Pulmonary consulted, appreciate rec's #Hx of DVT/ PE -Continue Apixaban 2.5 mg PO BID #Hx of CHF, HTN, HLD -HTN remains uncontrolled -Continue Atorvastatin 10mg HS, Furosemide 20mg PO daily, Lisinopril 20mg PO BID -Increase Metoprolol Succinate to 75mg PO Daily #Hx of NIDDM -ISS BGMs ACHS #Hx of Splenomegaly with subsequent leukopenia and thrombocytopenia -Patient admits noncompliance with prescribed Vit B12 #B/L Knee Pain -Likely OA -Add Lidocaine patch to each knee #FEN -No standing fluids -Lytes WNL -Diabetic diet #PPx -DVT: Apixaban Visit type - Emergency Visit Emergency Visit: Yes ED Registration Date: 10/08/18 Care time: The patient presented to the Emergency Department on the above date and was hospitalized for further evaluation of their emergent condition. - New Patient This patient is new to me today: No - Critical Care Critical Care patient: No - Discharge Referral Referred to [facility] No
[2018-10-08] MEDS: LIDOCAINE 5% TOPICAL PATCH TP SCH (17:34)
[2018-10-08] MEDS ORDERED: traMADol HCL 50 MG TABLET PO ONE (20:55)
--- NOTE | 2018-10-08 21:10 | PN ---
Teaching Attending Note Name of Resident: Nikkie Nicholson ATTENDING PHYSICIAN STATEMENT I saw and evaluated the patient. I reviewed the resident's note and discussed the case with the resident. I agree with the resident's findings and plan as documented. SUBJECTIVE: Patient continues to have shortness of breath with cough. OBJECTIVE: Vital Signs Temperature 98.2 F 10/08/18 20:00 Pulse Rate 86 10/08/18 20:00 Respiratory Rate 17 10/08/18 20:00 Blood Pressure 158/82 10/08/18 20:00 O2 Sat by Pulse Oximetry (%) 95 10/08/18 20:16 GENERAL: The patient is awake, alert, and fully oriented, in no acute distress. HEAD: Normal with no signs of trauma. Facial flushing EYES: PERRL, extraocular movements intact, sclera anicteric, conjunctiva clear. . ENT: Ears normal, oropharynx clear without exudates, moist mucous membranes. NECK: Trachea midline, full range of motion, supple. LUNGS: decreased Breath sounds bl, no wheezes, no crackles, mild accessory muscle use. HEART: Regular rate and rhythm, S1, S2 without murmur, rub or gallop. ABDOMEN: Soft, nontender, nondistended, normoactive bowel sounds, no guarding, no rebound, no hepatosplenomegaly, no masses. EXTREMITIES: 2+ pulses, warm, well-perfused, no edema. NEUROLOGICAL: Cranial nerves II through XII grossly intact. Normal speech, gait is stable. PSYCH: Normal mood, normal affect. SKIN: Warm, dry, normal turgor, no rashes or lesions noted CBCD WBC 2.3 K/mm3 (4.0-10.0) L 10/08/18 06:40 RBC 3.72 M/mm3 (4.00-5.60) L 10/08/18 06:40 Hgb 12.5 GM/dL (11.7-16.9) 10/08/18 06:40 Hct 37.7 % (35.4-49) 10/08/18 06:40 MCV 101.3 fl (80-96) H 10/08/18 06:40 MCHC 33.3 g/dl (32.0-35.9) 10/08/18 06:40 RDW 14.1 % (11.9-15.9) 10/08/18 06:40 Plt Count 50 K/MM3 (134-434) L 10/08/18 06:40 MPV 9.6 fl (7.5-11.1) 10/08/18 06:40 CMP Sodium 140 mmol/L (136-145) 10/08/18 06:30 Potassium 4.4 mmol/L (3.5-5.1) 10/08/18 06:30 Chloride 107 mmol/L (98-107) 10/08/18 06:30 Carbon Dioxide 26 mmol/L (21-32) 10/08/18 06:30 Anion Gap 7 MMOL/L (8-16) L 10/08/18 06:30 BUN 16 mg/dL (7-18) 10/08/18 06:30 Creatinine 0.7 mg/dL (0.55-1.3) 10/08/18 06:30 Creat Clearance w eGFR 115.43 (>60) 10/08/18 06:30 Random Glucose 176 mg/dL (74-106) H 10/08/18 06:30 Calcium 8.6 mg/dL (8.5-10.1) 10/08/18 06:30 Total Bilirubin 0.6 mg/dL (0.2-1) 10/08/18 06:30 AST 15 U/L (15-37) 10/08/18 06:30 ALT 22 U/L (13-61) 10/08/18 06:30 Alkaline Phosphatase 58 U/L (45-117) 10/08/18 06:30 Total Protein 7.2 g/dl (6.4-8.2) 10/08/18 06:30 Albumin 3.2 g/dl (3.4-5.0) L 10/08/18 06:30 CARDIAC ENZYMES Creatine Kinase 82 U/L (26-308) 10/06/18 23:55 Troponin I 0.02 ng/ml (0.00-0.05) 10/07/18 05:30 Home Medications Medication Instructions Recorded Cholecalciferol (Vitamin D3) 1,000 unit PO DAILY 7 Days #7 tab 07/05/17 [Vitamin D -] Simvastatin 10 mg PO HS #7 tablet 07/05/17 metFORMIN HCL [Metformin HCl] 500 mg PO BID #14 tablet 07/05/17 Escitalopram Oxalate [Lexapro -] 10 mg PO DAILY 10/11/17 Tizanidine HCl 2 mg PO TID PRN 10/11/17 Cyanocobalamin [Vitamin B12 -] 1,000 mcg PO DAILY 30 Days tablet 10/15/17 Folic Acid - 1 mg PO DAILY #30 tablet 10/15/17 Lisinopril [Prinivil] 20 mg PO DAILY #30 tablet 10/15/17 Thiamine HCl [Vitamin B1 -] 100 mg PO DAILY #30 tablet 10/15/17 Apixaban [Eliquis] 2.5 mg PO BID #60 tablet 12/14/17 Furosemide [Lasix] 20 mg PO DAILY #30 tablet 12/14/17 Metoprolol Succinate [Toprol XL -] 50 mg PO DAILY #30 tab.sr.24h 12/14/17 Nicotine Patch [Nicoderm Patch -] 14 mg TD DAILY #14 patch 12/14/17 Acetaminophen [Tylenol 8 Hour] 1,300 mg PO Q8H PRN 10/07/18 Atorvastatin Ca [Lipitor] 10 mg PO HS 10/07/18 Celecoxib [Celebrex] 400 mg PO DAILY PRN 10/07/18 Furosemide [Lasix] 40 mg PO DAILY 10/07/18 Gabapentin 600 mg PO TID 10/07/18 Oxycodone HCl/Acetaminophen 1 each PO Q8H PRN 10/07/18 [Oxycodon-Acetaminophen 7.5-325] Sertraline HCl 50 mg PO DAILY 10/07/18 Current Medications Generic Name Dose Route Start Last Admin Trade Name Freq PRN Reason Stop Dose Admin Acetaminophen 650 mg 10/08/18 21:16 Tylenol - PO Q6H PRN PAIN Albuterol Sulfate 1 amp 10/08/18 07:57 Ventolin 0.083% Nebulizer Soln - NEB Q4H PRN SHORT OF BREATH/WHEEZING Albuterol/Ipratropium 1 amp 10/08/18 08:00 10/08/18 20:37 Duoneb - NEB 1 amp RQ4H DANNY Administration Amlodipine Besylate 5 mg 10/08/18 21:15 Norvasc - PO DAILY DANNY Apixaban 2.5 mg 10/08/18 10:00 10/08/18 09:54 Eliquis - PO 2.5 mg BID DANNY Administration Atorvastatin Calcium 40 mg 10/08/18 22:00 Lipitor - PO HS DANNY Budesonide/Formoterol Fumarate 2 puff 10/08/18 12:00 10/08/18 16:36 Symbicort 160/4.5mcg - IH 2 inh BID DANNY Administration Furosemide 20 mg 10/08/18 10:00 10/08/18 09:54 Lasix - PO 20 mg DAILY DANNY Administration Insulin Aspart 1 vial 10/08/18 11:00 10/08/18 17:35 Novolog Vial Sliding Scale - SQ 4 units ACHS DNA[facility] Administration Protocol Lidocaine 2 patch 10/08/18 17:00 10/08/18 17:34 Lidoderm Patch - TP 2 patch DAILY [facility]ANNY Administration Lisinopril 20 mg 10/07/18 19:30 10/08/18 09:56 Prinivil PO 20 mg BID DANNY Administration Methylprednisolone Sodium Succinate 60 mg 10/08/18 10:00 10/08/18 17:35 Solu-Medrol - IVPUSH 60 mg Q8H-IV DANNY Administration Metoprolol Succinate 75 mg 10/08/18 17:04 Toprol Xl - PO DAILY DANNY Miscellaneous 2 each 10/08/18 22:00 Lidoderm Patch Removal MC DAILY@2200 DANNY Nicotine 14 mg 10/08/18 10:00 10/08/18 09:54 Nicoderm Patch - TD 14 mg DAILY [facility]NY Administration CTA: No evidence of pulmonary embolism. Mild chronic lung disease with no evidence of acute pathology within the chest. -LE Duplex: No evidence of deep venous thrombosis. -EKG: NSR, LAE, VR 82, QTc 450 -ECHO: LV Size function thickness are normal. Mild MR. Mild valvular ASSESSMENT AND PLAN: Patient is a 58yo male with PMHx R popliteral DVT (now on eliquis), prior PE, CHF, HTN, HLD, NIDDM, presented after sudden onset SOB and diffuse CP #SOB/cough due to undiagnosed COPD exacerbation, CTA was done negative for PE, continue nebs., pulmonary consult , continue current therapy. will add Robitussin ac. #Hx of DVT/ PE: on Apixaban 5mg PO BID #Hx of CHF continue meds, increased lasix to 40mg daily #Hx of HTN: contine meds #Hx of HLD continue meds #Hx of NIDDM: ISS BGMs ACHS #B/L Knee Pain: with OA; Lidocaine patch to each knee Dvt Px: Apixaban
[2018-10-08] MEDS ORDERED: ATORVASTATIN CA 10 MG TABLET (FP) PO SCH (22:00)
[2018-10-08] MEDS: amLODIPine BESYLATE 5 MG TABLET (FP) PO SCH (22:06)
[2018-10-08] MEDS: LIDOCAINE PATCH REMOVAL MC SCH (22:08)
[2018-10-08] MEDS: ATORVASTATIN CA 10 MG TABLET (FP) PO SCH (22:08)
[2018-10-09] MEDS: methylPREDNISolone NA SUCC 40 MG/1 ML VIAL IVPUSH SCH ×3 (02:41→17:47)
[2018-10-09] MEDS: ALBUTEROL SO4 2.5/IPRATROPIUM 0.5 INH SOL 3 ML VIAL.NEB. NEB SCH ×6 (03:19→23:06)
[2018-10-09] MEDS: ALBUTEROL SO4 0.083% IH SOL 2.5 MG/3 ML VIAL.NEB. NEB PRN (06:00)
[2018-10-09] MEDS: INSULIN SLIDING SCALE (NOVOLOG) 1 VIAL SQ SCH ×4 (06:06→22:06)
[2018-10-09] MEDS ORDERED: INSULIN (LEVEMIR) 100 UNITS/ML UNITS SQ SCH (07:00)
[2018-10-09] MEDS: LISINOPRIL 20 MG TABLET (FP) PO SCH ×3 (07:35→21:28)
[2018-10-09 08:02] LABS: HEMATOCRIT 38.9 % (35.4-49); HEMOGLOBIN 12.9 GM/dL (11.7-16.9); MCH 33.8 pg (25.7-33.7); MCHC 33.2 g/dl (32.0-35.9); MEAN CELL VOLUME 101.8 fl (80-96); MEAN PLT VOLUME 9.9 fl (7.5-11.1); PLATELET COUNT 57 K/MM3 (134-434); RBC 3.82 M/mm3 (4.00-5.60); RDW 14.5 % (11.9-15.9); WHITE BLOOD COUNT 2.9 K/mm3 (4.0-10.0)
[2018-10-09] MEDS ORDERED: PT OWN MED DRAWER 7, Y5N ONE (09:46)
[2018-10-09] MEDS: amLODIPine BESYLATE 5 MG TABLET (FP) PO SCH (09:49)
[2018-10-09] MEDS: FUROSEMIDE 20 MG TABLET (FP) PO SCH (09:49)
[2018-10-09] MEDS: LIDOCAINE 5% TOPICAL PATCH TP SCH (09:50)
[2018-10-09] MEDS: NICOTINE 14 MG/24 HOURS TOPICAL PATCH TD SCH (09:50)
[2018-10-09] MEDS: BUDESONIDE/FORMETEROL FUMARATE 160/4.5 mcg INHALER IH SCH ×2 (09:58→22:07)
[2018-10-09] MEDS: APIXABAN 2.5 MG TABLET PO SCH ×2 (09:58→21:29)
--- NOTE | 2018-10-09 13:27 | PN ---
Progress Note (short form) - Note Progress Note: PULMONARY Still with shortness of breath, chest congestion and nonproductive cough. Vital Signs Period Temp Pulse Resp BP Sys/Kelley Pulse Ox Last 24 Hr 97.8 F-98.3 F 78-88 17-20 139-158/64-86 94-95 Gen: NAD at rest Heart: RRR Lung: scattered rhonchi Abd: soft, nontender Ext: + edema CBC, BMP 10/09/18 06:30 10/08/18 06:30 Active Medications Acetaminophen (Tylenol -) 650 mg PO Q6H PRN PRN Reason: PAIN Albuterol Sulfate (Ventolin 0.083% Nebulizer Soln -) 1 amp NEB Q4H PRN PRN Reason: SHORT OF BREATH/WHEEZING Last Admin: 10/09/18 06:00 Dose: 1 amp Albuterol/Ipratropium (Duoneb -) 1 amp NEB RQ4H [facility] Last Admin: 10/09/18 11:05 Dose: 1 amp Amlodipine Besylate (Norvasc -) 5 mg PO DAILY [facility] Last Admin: 10/09/18 09:49 Dose: 5 mg Apixaban (Eliquis -) 2.5 mg PO BID [facility] Last Admin: 10/09/18 09:58 Dose: 2.5 mg Atorvastatin Calcium (Lipitor -) 40 mg PO HS [facility] Last Admin: 10/08/18 22:08 Dose: 40 mg Budesonide/Formoterol Fumarate (Symbicort 160/4.5mcg -) 2 puff IH BID [facility] Last Admin: 10/09/18 09:58 Dose: 2 puff Furosemide (Lasix -) 20 mg PO DAILY [facility] Last Admin: 10/09/18 09:49 Dose: 20 mg Insulin Aspart (Novolog Vial Sliding Scale -) 1 vial SQ ACHS [facility]; Protocol Last Admin: 10/09/18 11:48 Dose: 4 units Lidocaine (Lidoderm Patch -) 2 patch TP DAILY [facility] Last Admin: 10/09/18 09:50 Dose: 2 patch Lisinopril (Prinivil) 20 mg PO BID [facility] Last Admin: 10/09/18 09:49 Dose: 20 mg Methylprednisolone Sodium Succinate (Solu-Medrol -) 60 mg IVPUSH Q8H-IV [facility] Last Admin: 10/09/18 09:49 Dose: 60 mg Metoprolol Succinate (Toprol Xl -) 75 mg PO DAILY [facility] Last Admin: 10/09/18 09:57 Dose: 75 mg Miscellaneous (Lidoderm Patch Removal) 2 each MC DAILY@2200 [facility] Last Admin: 10/08/18 22:08 Dose: Not Given Nicotine (Nicoderm Patch -) 14 mg TD DAILY [facility] Last Admin: 10/09/18 09:50 Dose: 14 mg A/P Acute COPD Exacerbation Chest Pain LV Diastolic Dysfunction h/o DVT/PE HTN DM Hyperlipidemia Smoker - continue medrol at same dose - inhaled bronchodilators - O2 to keep spO2 >90% - will add cough suppressant - continue anticoagulation - smoking cessation discussed - outpt PFTs - DVT prophylaxis Problem List - Problems (1) COPD with acute exacerbation Code(s): J44.1 - CHRONIC OBSTRUCTIVE PULMONARY DISEASE W (ACUTE) EXACERBATION (2) Chest pain Code(s): R07.9 - CHEST PAIN, UNSPECIFIED Qualifiers: Chest pain type: unspecified Qualified Code(s): R07.9 - Chest pain, unspecified (3) Diabetes Code(s): E11.9 - TYPE 2 DIABETES MELLITUS WITHOUT COMPLICATIONS (4) HLD (hyperlipidemia) Code(s): E78.5 - HYPERLIPIDEMIA, UNSPECIFIED (5) HTN (hypertension) Code(s): I10 - ESSENTIAL (PRIMARY) HYPERTENSION
[2018-10-09] MEDS: guaiFENesin/CODEINE 10 ML UNIT-DOSE CUPS PO PRN ×2 (15:40→23:36)
--- NOTE | 2018-10-09 20:16 | PN ---
Progress Note (short form) - Note Progress Note: Patient is comfortable with no acute distress. continues to cough. Vital Signs Temperature 98.6 F 10/09/18 17:18 Pulse Rate 79 10/09/18 17:18 Respiratory Rate 20 10/09/18 17:18 Blood Pressure 127/84 10/09/18 17:18 O2 Sat by Pulse Oximetry (%) 94 L 10/09/18 09:00 GENERAL: The patient is awake, alert, and fully oriented, in no acute distress. HEAD: Normal with no signs of trauma. Facial flushing EYES: PERRL, extraocular movements intact, sclera anicteric, conjunctiva clear. . ENT: Ears normal, oropharynx clear without exudates, moist mucous membranes. NECK: Trachea midline, full range of motion, supple. LUNGS: decreased Breath sounds bl, no wheezes, no crackles, mild accessory muscle use. HEART: Regular rate and rhythm, S1, S2 without murmur, rub or gallop. ABDOMEN: Soft, nontender, nondistended, normoactive bowel sounds, no guarding, no rebound, no hepatosplenomegaly, no masses. EXTREMITIES: 2+ pulses, warm, well-perfused, no edema. NEUROLOGICAL: Cranial nerves II through XII grossly intact. Normal speech, gait is stable. PSYCH: Normal mood, normal affect. SKIN: Warm, dry, normal turgor, no rashes or lesions noted WBC 2.9 K/mm3 (4.0-10.0) L 10/09/18 06:30 RBC 3.82 M/mm3 (4.00-5.60) L 10/09/18 06:30 Hgb 12.9 GM/dL (11.7-16.9) 10/09/18 06:30 Hct 38.9 % (35.4-49) 10/09/18 06:30 MCV 101.8 fl (80-96) H 10/09/18 06:30 MCHC 33.2 g/dl (32.0-35.9) 10/09/18 06:30 RDW 14.5 % (11.9-15.9) 10/09/18 06:30 Plt Count 57 K/MM3 (134-434) L 10/09/18 06:30 MPV 9.9 fl (7.5-11.1) 10/09/18 06:30 CMP Sodium 140 mmol/L (136-145) 10/08/18 06:30 Potassium 4.4 mmol/L (3.5-5.1) 10/08/18 06:30 Chloride 107 mmol/L (98-107) 10/08/18 06:30 Carbon Dioxide 26 mmol/L (21-32) 10/08/18 06:30 Anion Gap 7 MMOL/L (8-16) L 10/08/18 06:30 BUN 16 mg/dL (7-18) 10/08/18 06:30 Creatinine 0.7 mg/dL (0.55-1.3) 10/08/18 06:30 Creat Clearance w eGFR 115.43 (>60) 10/08/18 06:30 Random Glucose 176 mg/dL (74-106) H 10/08/18 06:30 Calcium 8.6 mg/dL (8.5-10.1) 10/08/18 06:30 Total Bilirubin 0.6 mg/dL (0.2-1) 10/08/18 06:30 AST 15 U/L (15-37) 10/08/18 06:30 ALT 22 U/L (13-61) 10/08/18 06:30 Alkaline Phosphatase 58 U/L (45-117) 10/08/18 06:30 Total Protein 7.2 g/dl (6.4-8.2) 10/08/18 06:30 Albumin 3.2 g/dl (3.4-5.0) L 10/08/18 06:30 CARDIAC ENZYMES Creatine Kinase 82 U/L (26-308) 10/06/18 23:55 Troponin I 0.02 ng/ml (0.00-0.05) 10/07/18 05:30 Current Medications Generic Name Dose Route Start Last Admin Trade Name Freq PRN Reason Stop Dose Admin Acetaminophen 650 mg 10/08/18 21:16 10/09/18 15:41 Tylenol - PO 650 mg Q6H PRN Administration PAIN Albuterol Sulfate 1 amp 10/08/18 07:57 10/09/18 06:00 Ventolin 0.083% Nebulizer Soln - NEB 1 amp Q4H PRN Administration SHORT OF BREATH/WHEEZING Albuterol/Ipratropium 1 amp 10/08/18 08:00 10/09/18 16:10 Duoneb - NEB 1 amp RQ4H DANNY Administration Amlodipine Besylate 5 mg 10/08/18 21:15 10/09/18 09:49 Norvasc - PO 5 mg DAILY DANNY Administration Apixaban 2.5 mg 10/08/18 10:00 10/09/18 09:58 Eliquis - PO 2.5 mg BID DANNY Administration Atorvastatin Calcium 40 mg 10/08/18 22:00 10/08/18 22:08 Lipitor - PO 40 mg HS DANNY Administration Budesonide/Formoterol Fumarate 2 puff 10/08/18 12:00 10/09/18 09:58 Symbicort 160/4.5mcg - IH 2 puff BID DANNY Administration Furosemide 20 mg 10/08/18 10:00 10/09/18 09:49 Lasix - PO 20 mg DAILY DANNY Administration Guaifenesin/Codeine Phosphate 10 ml 10/09/18 13:28 10/09/18 15:40 Robitussin Ac - PO 10 ml Q8H PRN Administration COUGH Insulin Aspart 1 vial 10/08/18 11:00 10/09/18 17:42 Novolog Vial Sliding Scale - SQ 6 units ACHS DANNY Administration Protocol Lidocaine 2 patch 10/08/18 17:00 10/09/18 09:50 Lidoderm Patch - TP 2 patch DAILY DANNY Administration Lisinopril 20 mg 10/07/18 19:30 10/09/18 09:49 Prinivil PO 20 mg BID DANNY Administration Methylprednisolone Sodium Succinate 60 mg 10/08/18 10:00 10/09/18 17:47 Solu-Medrol - IVPUSH 60 mg Q8H-IV DANNY Administration Metoprolol Succinate 75 mg 10/08/18 17:04 10/09/18 09:57 Toprol Xl - PO 75 mg DAILY DANNY Administration Miscellaneous 2 each 10/08/18 22:00 10/08/18 22:08 Lidoderm Patch Removal MC Not Given DAILY@2200 DANNY Nicotine 14 mg 10/08/18 10:00 10/09/18 09:50 Nicoderm Patch - TD 14 mg DAILY DANNY Administration Home Medications Medication Instructions Recorded Cholecalciferol (Vitamin D3) 1,000 unit PO DAILY 7 Days #7 tab 07/05/17 [Vitamin D -] Simvastatin 10 mg PO HS #7 tablet 07/05/17 metFORMIN HCL [Metformin HCl] 500 mg PO BID #14 tablet 07/05/17 Escitalopram Oxalate [Lexapro -] 10 mg PO DAILY 10/11/17 Tizanidine HCl 2 mg PO TID PRN 10/11/17 Cyanocobalamin [Vitamin B12 -] 1,000 mcg PO DAILY 30 Days tablet 10/15/17 Folic Acid - 1 mg PO DAILY #30 tablet 10/15/17 Lisinopril [Prinivil] 20 mg PO DAILY #30 tablet 10/15/17 Thiamine HCl [Vitamin B1 -] 100 mg PO DAILY #30 tablet 10/15/17 Apixaban [Eliquis] 2.5 mg PO BID #60 tablet 12/14/17 Furosemide [Lasix] 20 mg PO DAILY #30 tablet 12/14/17 Metoprolol Succinate [Toprol XL -] 50 mg PO DAILY #30 tab.sr.24h 12/14/17 Nicotine Patch [Nicoderm Patch -] 14 mg TD DAILY #14 patch 12/14/17 Acetaminophen [Tylenol 8 Hour] 1,300 mg PO Q8H PRN 10/07/18 Atorvastatin Ca [Lipitor] 10 mg PO HS 10/07/18 Celecoxib [Celebrex] 400 mg PO DAILY PRN 10/07/18 Furosemide [Lasix] 40 mg PO DAILY 10/07/18 Gabapentin 600 mg PO TID 10/07/18 Oxycodone HCl/Acetaminophen 1 each PO Q8H PRN 10/07/18 [Oxycodon-Acetaminophen 7.5-325] Sertraline HCl 50 mg PO DAILY 10/07/18 CTA: No evidence of pulmonary embolism. Mild chronic lung disease with no evidence of acute pathology within the chest. -LE Duplex: No evidence of deep venous thrombosis. -EKG: NSR, LAE, VR 82, QTc 450 -ECHO: LV Size function thickness are normal. Mild MR. Mild valvular ASSESSMENT AND PLAN: Patient is a 58yo male with PMHx R popliteral DVT (now on eliquis), prior PE, CHF, HTN, HLD, NIDDM, presented after sudden onset SOB and diffuse CP #SOB/cough due to undiagnosed COPD exacerbation, CTA was done negative for PE, continue nebs., pulmonary consult appreciated ,continue Robitussin ac. sleep study needed. #Hx of DVT/ PE: on Apixaban 5mg PO BID #Hx of CHF continue meds, increased lasix to 40mg daily #Hx of HTN: contine meds #Hx of HLD continue meds #Hx of NIDDM: ISS BGMs ACHS #B/L Knee Pain: with OA; Lidocaine patch to each knee Dvt Px: Apixaban Visit type - Emergency Visit Emergency Visit: Yes ED Registration Date: 10/08/18 Care time: The patient presented to the Emergency Department on the above date and was hospitalized for further evaluation of their emergent condition. - New Patient This patient is new to me today: No - Critical Care Critical Care patient: No - Discharge Referral Referred to [facility] No
[2018-10-09] MEDS: LIDOCAINE PATCH REMOVAL MC SCH (21:29)
[2018-10-09] MEDS: ATORVASTATIN CA 10 MG TABLET (FP) PO SCH (21:29)
[2018-10-09] MEDS ORDERED: INSULIN (NOVOLOG) ASPART 100 UNITS/ML 10ML VIAL ONE (21:30)
[2018-10-10] MEDS: methylPREDNISolone NA SUCC 40 MG/1 ML VIAL IVPUSH SCH ×3 (01:51→18:03)
[2018-10-10] MEDS: ALBUTEROL SO4 2.5/IPRATROPIUM 0.5 INH SOL 3 ML VIAL.NEB. NEB SCH ×5 (04:16→21:40)
[2018-10-10] MEDS: INSULIN SLIDING SCALE (NOVOLOG) 1 VIAL SQ SCH ×4 (06:33→22:24)
[2018-10-10] MEDS ORDERED: PT OWN MED DRAWER 7, Y5N ONE (10:07)
[2018-10-10] MEDS: FUROSEMIDE 40 MG TABLET (FP) PO SCH (10:14)
[2018-10-10] MEDS: LISINOPRIL 20 MG TABLET (FP) PO SCH (10:14)
[2018-10-10] MEDS: amLODIPine BESYLATE 5 MG TABLET (FP) PO SCH (10:15)
[2018-10-10] MEDS: BUDESONIDE/FORMETEROL FUMARATE 160/4.5 mcg INHALER IH SCH ×2 (10:15→22:24)
[2018-10-10] MEDS: LIDOCAINE 5% TOPICAL PATCH TP SCH (10:15)
[2018-10-10] MEDS: NICOTINE 14 MG/24 HOURS TOPICAL PATCH TD SCH (10:15)
[2018-10-10] MEDS: APIXABAN 2.5 MG TABLET PO SCH (10:15)
--- NOTE | 2018-10-10 10:44 | PN ---
Physical Exam: SUBJECTIVE: Patient seen and examined this AM. Continues to feel SOB and having nonproductive cough. OBJECTIVE: Vital Signs Period Temp Pulse Resp BP Sys/Kelley Pulse Ox Last 24 Hr 97.9 F-98.6 F 72-82 20-20 127-163/72-94 94 GENERAL: A&Ox3, NAD HEAD: NCAT EYES: PERRL, EOMI NECK: Supple LUNGS: Coarse breath sounds throughout, no wheezes, no crackles HEART: Regular rate and rhythm, S1, S2 without murmur ABDOMEN: Obese, Soft, nontender, nondistended, + bowel sounds, no guarding EXTREMITIES: 1+ edema. NEUROLOGICAL: Cranial nerves II through XII grossly intact. SKIN: Warm, dry Laboratory Results - last 24 hr 10/09/18 10/09/18 10/09/18 11:47 17:40 21:26 POC Glucometer 234 254 203 10/10/18 06:31 POC Glucometer 164 Active Medications Acetaminophen (Tylenol -) 650 mg PO Q6H PRN PRN Reason: PAIN Last Admin: 10/09/18 15:41 Dose: 650 mg Albuterol Sulfate (Ventolin 0.083% Nebulizer Soln -) 1 amp NEB Q4H PRN PRN Reason: SHORT OF BREATH/WHEEZING Last Admin: 10/09/18 06:00 Dose: 1 amp Albuterol/Ipratropium (Duoneb -) 1 amp NEB Q6H DANNY Last Admin: 10/10/18 07:20 Dose: 1 amp Amlodipine Besylate (Norvasc -) 5 mg PO DAILY [facility] Last Admin: 10/10/18 10:15 Dose: 5 mg Apixaban (Eliquis -) 2.5 mg PO BID DANNY Last Admin: 10/10/18 10:15 Dose: 2.5 mg Atorvastatin Calcium (Lipitor -) 40 mg PO HS [facility] Last Admin: 10/09/18 21:29 Dose: 40 mg Budesonide/Formoterol Fumarate (Symbicort 160/4.5mcg -) 2 puff IH BID [facility] Last Admin: 10/10/18 10:15 Dose: 2 puff Furosemide (Lasix -) 40 mg PO DAILY [facility] Last Admin: 10/10/18 10:14 Dose: 40 mg Guaifenesin/Codeine Phosphate (Robitussin Ac -) 10 ml PO Q8H PRN PRN Reason: COUGH Last Admin: 10/09/18 23:36 Dose: 10 ml Insulin Aspart (Novolog Vial Sliding Scale -) 1 vial SQ ACHS [facility]; Protocol Last Admin: 10/10/18 06:33 Dose: 2 units Lidocaine (Lidoderm Patch -) 2 patch TP DAILY [facility] Last Admin: 10/10/18 10:15 Dose: 2 patch Lisinopril (Prinivil) 20 mg PO BID [facility] Last Admin: 10/10/18 10:14 Dose: 20 mg Methylprednisolone Sodium Succinate (Solu-Medrol -) 40 mg IVPUSH Q8H-IV DANNY Last Admin: 10/10/18 10:15 Dose: 40 mg Metoprolol Succinate (Toprol Xl -) 75 mg PO DAILY [facility] Last Admin: 10/10/18 10:14 Dose: 75 mg Miscellaneous (Lidoderm Patch Removal) 2 each MC DAILY@2200 [facility] Last Admin: 10/09/18 21:29 Dose: Not Given Nicotine (Nicoderm Patch -) 14 mg TD DAILY [facility] Last Admin: 10/10/18 10:15 Dose: 14 mg IMAGING: -CTA: No evidence of pulmonary embolism. Mild chronic lung disease with no evidence of acute pathology within the chest. -LE Duplex: No evidence of deep venous thrombosis. -EKG: NSR, LAE, VR 82, QTc 450 -ECHO: LV Size function thickness are normal. Mild MR. Mild valvular ASSESSMENT/PLAN: 58 y/o M w/ PMHx R popliteral DVT (now on eliquis), prior PE, CHF, HTN, HLD, NIDDM, presented after sudden onset SOB and diffuse CP #SOB -Likely due to Acute COPD Exacerbation; Components of OHS, [place] -Bronchodilators--Albuterol Neb Q4H PRN, Albuterol/Ipratropium NEB Q4H, Budesonide/Formoterol -Taper IV Methylprednisolone -Sleep Screen -NIPPV Trial HS (04/02/12/40%) -Supplemental O2 to maintain SpO2 88-92% -Pulmonary consulted, appreciate rec's #Hx of DVT/ PE -Continue Apixaban 5mg PO BID #Hx of CHF, HTN, HLD -HTN remains uncontrolled -Continue Atorvastatin 10mg HS, Furosemide 20mg PO daily, Lisinopril 20mg PO Daily, Amlodipine 5mg PO Daily -Increase Metoprolol Succinate to 100mg PO Daily #Hx of NIDDM -ISS BGMs ACHS #Hx of Splenomegaly with subsequent leukopenia and thrombocytopenia -Patient admits noncompliance with prescribed Vit B12 #B/L Knee Pain -Likely OA -Add Lidocaine patch to each knee -Continue Celecoxib #FEN -No standing fluids -Lytes WNL -Diabetic diet #PPx -DVT: Apixaban Visit type - Emergency Visit Emergency Visit: Yes ED Registration Date: 10/08/18 Care time: The patient presented to the Emergency Department on the above date and was hospitalized for further evaluation of their emergent condition. - New Patient This patient is new to me today: No - Critical Care Critical Care patient: No - Discharge Referral Referred to [facility] Med P.C.: No
[2018-10-10] MEDS ORDERED: metoPROLOL SUCCINATE 25 MG TAB.SR.24H (FP) PO ONE (11:15)
[2018-10-10 11:25] VITALS: BMI 42.1
--- NOTE | 2018-10-10 12:54 | PN ---
Progress Note (short form) - Note Progress Note: PULMONARY Still with shortness of breath, chest congestion and nonproductive cough. Vital Signs Period Temp Pulse Resp BP Sys/Kelley Pulse Ox Last 24 Hr 97.9 F-98.6 F 72-82 20-20 127-163/72-94 94 Gen: NAD at rest Heart: RRR Lung: scattered rhonchi Abd: soft, nontender Ext: + edema CBC, BMP 10/09/18 06:30 10/08/18 06:30 Active Medications Acetaminophen (Tylenol -) 650 mg PO Q6H PRN PRN Reason: PAIN Last Admin: 10/09/18 15:41 Dose: 650 mg Albuterol Sulfate (Ventolin 0.083% Nebulizer Soln -) 1 amp NEB Q4H PRN PRN Reason: SHORT OF BREATH/WHEEZING Last Admin: 10/09/18 06:00 Dose: 1 amp Albuterol/Ipratropium (Duoneb -) 1 amp NEB Q6H DANNY Last Admin: 10/10/18 07:20 Dose: 1 amp Amlodipine Besylate (Norvasc -) 5 mg PO DAILY [facility] Last Admin: 10/10/18 10:15 Dose: 5 mg Apixaban (Eliquis -) 2.5 mg PO BID [facility] Last Admin: 10/10/18 10:15 Dose: 2.5 mg Atorvastatin Calcium (Lipitor -) 40 mg PO HS [facility] Last Admin: 10/09/18 21:29 Dose: 40 mg Budesonide/Formoterol Fumarate (Symbicort 160/4.5mcg -) 2 puff IH BID [facility] Last Admin: 10/10/18 10:15 Dose: 2 puff Furosemide (Lasix -) 40 mg PO DAILY [facility] Last Admin: 10/10/18 10:14 Dose: 40 mg Guaifenesin/Codeine Phosphate (Robitussin Ac -) 10 ml PO Q8H PRN PRN Reason: COUGH Last Admin: 10/09/18 23:36 Dose: 10 ml Insulin Aspart (Novolog Vial Sliding Scale -) 1 vial SQ ACHS [facility]; Protocol Last Admin: 10/10/18 11:44 Dose: 6 units Lidocaine (Lidoderm Patch -) 2 patch TP DAILY [facility] Last Admin: 10/10/18 10:15 Dose: 2 patch Lisinopril (Prinivil) 20 mg PO DAILY [facility] Methylprednisolone Sodium Succinate (Solu-Medrol -) 40 mg IVPUSH Q8H-IV DANNY Last Admin: 10/10/18 10:15 Dose: 40 mg Metoprolol Succinate (Toprol Xl -) 100 mg PO DAILY [facility] Miscellaneous (Lidoderm Patch Removal) 2 each MC DAILY@2200 [facility] Last Admin: 10/09/18 21:29 Dose: Not Given Nicotine (Nicoderm Patch -) 14 mg TD DAILY [facility] Last Admin: 10/10/18 10:15 Dose: 14 mg A/P Acute COPD Exacerbation Chest Pain LV Diastolic Dysfunction h/o DVT/PE HTN DM Hyperlipidemia Smoker - can decrease medrol 40mg q8h - inhaled bronchodilators - O2 to keep spO2 >90% - cough suppressant - continue anticoagulation - trial of BiPAP at night - smoking cessation discussed - outpt PFTs - DVT prophylaxis Problem List - Problems (1) COPD with acute exacerbation Code(s): J44.1 - CHRONIC OBSTRUCTIVE PULMONARY DISEASE W (ACUTE) EXACERBATION (2) Chest pain Code(s): R07.9 - CHEST PAIN, UNSPECIFIED Qualifiers: Chest pain type: unspecified Qualified Code(s): R07.9 - Chest pain, unspecified (3) Diabetes Code(s): E11.9 - TYPE 2 DIABETES MELLITUS WITHOUT COMPLICATIONS (4) HLD (hyperlipidemia) Code(s): E78.5 - HYPERLIPIDEMIA, UNSPECIFIED (5) HTN (hypertension) Code(s): I10 - ESSENTIAL (PRIMARY) HYPERTENSION
[2018-10-10] MEDS ORDERED: APIXABAN 2.5 MG TABLET PO SCH (13:15)
--- NOTE | 2018-10-10 18:54 | PN ---
Teaching Attending Note Name of Resident: Nikkie Nicholson ATTENDING PHYSICIAN STATEMENT I saw and evaluated the patient. I reviewed the resident's note and discussed the case with the resident. I agree with the resident's findings and plan as documented. SUBJECTIVE: Patient continues to have shortness of breath but feels better. OBJECTIVE: Vital Signs Temperature 98 F 10/10/18 18:18 Pulse Rate 71 10/10/18 18:18 Respiratory Rate 20 10/10/18 18:18 Blood Pressure 157/77 10/10/18 18:18 O2 Sat by Pulse Oximetry (%) 92 L 10/10/18 09:00 GENERAL: The patient is awake, alert, and fully oriented, in no acute distress. HEAD: Normal with no signs of trauma. Facial flushing EYES: PERRL, extraocular movements intact, sclera anicteric, conjunctiva clear. . ENT: Ears normal, oropharynx clear without exudates, moist mucous membranes. NECK: Trachea midline, full range of motion, supple. LUNGS: decreased Breath sounds bl, no wheezes, no crackles, mild accessory muscle use. HEART: Regular rate and rhythm, S1, S2 without murmur, rub or gallop. ABDOMEN: Soft, nontender, nondistended, normoactive bowel sounds, no guarding, no rebound, no hepatosplenomegaly, no masses. EXTREMITIES: 2+ pulses, warm, well-perfused, no edema. NEUROLOGICAL: Cranial nerves II through XII grossly intact. Normal speech, gait is stable. PSYCH: Normal mood, normal affect. SKIN: Warm, dry, normal turgor, no rashes or lesions noted CBCD WBC 2.9 K/mm3 (4.0-10.0) L 10/09/18 06:30 RBC 3.82 M/mm3 (4.00-5.60) L 10/09/18 06:30 Hgb 12.9 GM/dL (11.7-16.9) 10/09/18 06:30 Hct 38.9 % (35.4-49) 10/09/18 06:30 MCV 101.8 fl (80-96) H 10/09/18 06:30 MCHC 33.2 g/dl (32.0-35.9) 10/09/18 06:30 RDW 14.5 % (11.9-15.9) 10/09/18 06:30 Plt Count 57 K/MM3 (134-434) L 10/09/18 06:30 MPV 9.9 fl (7.5-11.1) 10/09/18 06:30 CMP Sodium 140 mmol/L (136-145) 10/08/18 06:30 Potassium 4.4 mmol/L (3.5-5.1) 10/08/18 06:30 Chloride 107 mmol/L (98-107) 10/08/18 06:30 Carbon Dioxide 26 mmol/L (21-32) 10/08/18 06:30 Anion Gap 7 MMOL/L (8-16) L 10/08/18 06:30 BUN 16 mg/dL (7-18) 10/08/18 06:30 Creatinine 0.7 mg/dL (0.55-1.3) 10/08/18 06:30 Creat Clearance w eGFR 115.43 (>60) 10/08/18 06:30 Random Glucose 176 mg/dL (74-106) H 10/08/18 06:30 Calcium 8.6 mg/dL (8.5-10.1) 10/08/18 06:30 Total Bilirubin 0.6 mg/dL (0.2-1) 10/08/18 06:30 AST 15 U/L (15-37) 10/08/18 06:30 ALT 22 U/L (13-61) 10/08/18 06:30 Alkaline Phosphatase 58 U/L (45-117) 10/08/18 06:30 Total Protein 7.2 g/dl (6.4-8.2) 10/08/18 06:30 Albumin 3.2 g/dl (3.4-5.0) L 10/08/18 06:30 CARDIAC ENZYMES Creatine Kinase 82 U/L (26-308) 10/06/18 23:55 Troponin I 0.02 ng/ml (0.00-0.05) 10/07/18 05:30 Current Medications Generic Name Dose Route Start Last Admin Trade Name Freq PRN Reason Stop Dose Admin Acetaminophen 650 mg 10/08/18 21:16 10/09/18 15:41 Tylenol - PO 650 mg Q6H PRN Administration PAIN Albuterol Sulfate 1 amp 10/08/18 07:57 10/09/18 06:00 Ventolin 0.083% Nebulizer Soln - NEB 1 amp Q4H PRN Administration SHORT OF BREATH/WHEEZING Albuterol/Ipratropium 1 amp 10/10/18 09:15 10/10/18 15:51 Duoneb - NEB 1 amp Q6H DANNY Administration Amlodipine Besylate 5 mg 10/08/18 21:15 10/10/18 10:15 Norvasc - PO 5 mg DAILY DANNY Administration Apixaban 5 mg 10/10/18 22:00 Eliquis - PO BID DANNY Atorvastatin Calcium 40 mg 10/08/18 22:00 10/09/18 21:29 Lipitor - PO 40 mg HS DANNY Administration Budesonide/Formoterol Fumarate 2 puff 10/08/18 12:00 10/10/18 10:15 Symbicort 160/4.5mcg - IH 2 puff BID DANNY Administration Furosemide 40 mg 10/10/18 09:15 10/10/18 10:14 Lasix - PO 40 mg DAILY DANNY Administration Guaifenesin/Codeine Phosphate 10 ml 10/09/18 13:28 10/09/18 23:36 Robitussin Ac - PO 10 ml Q8H PRN Administration COUGH Insulin Aspart 1 vial 10/08/18 11:00 10/10/18 18:07 Novolog Vial Sliding Scale - SQ 6 units ACHS DANNY Administration Protocol Lidocaine 2 patch 10/08/18 17:00 10/10/18 10:15 Lidoderm Patch - TP 2 patch DAILY DANNY Administration Lisinopril 20 mg 10/11/18 10:00 Prinivil PO DAILY [facility] Methylprednisolone Sodium Succinate 40 mg 10/10/18 09:16 10/10/18 18:03 Solu-Medrol - IVPUSH 40 mg Q8H-IV DANNY Administration Metoprolol Succinate 100 mg 10/11/18 10:00 Toprol Xl - PO DAILY DANNY Miscellaneous 2 each 10/08/18 22:00 10/09/18 21:29 Lidoderm Patch Removal MC Not Given DAILY@2200 DANNY Nicotine 14 mg 10/08/18 10:00 10/10/18 10:15 Nicoderm Patch - TD 14 mg DAILY DANNY Administration Home Medications Medication Instructions Recorded metFORMIN HCL [Metformin HCl] 500 mg PO BID #14 tablet 07/05/17 Folic Acid - 1 mg PO DAILY #30 tablet 10/15/17 Lisinopril [Prinivil] 20 mg PO DAILY #30 tablet 10/15/17 Apixaban [Eliquis] 2.5 mg PO BID #60 tablet 12/14/17 Metoprolol Succinate [Toprol XL -] 50 mg PO DAILY #30 tab.sr.24h 12/14/17 Acetaminophen [Tylenol 8 Hour] 1,300 mg PO Q8H PRN 10/07/18 Atorvastatin Ca [Lipitor] 10 mg PO HS 10/07/18 Celecoxib [Celebrex] 400 mg PO DAILY PRN 10/07/18 Furosemide [Lasix] 40 mg PO DAILY 10/07/18 Gabapentin 600 mg PO TID 10/07/18 Oxycodone HCl/Acetaminophen 1 each PO Q8H PRN 10/07/18 [Oxycodon-Acetaminophen 7.5-325] Sertraline HCl 50 mg PO DAILY 10/07/18 CTA: No evidence of pulmonary embolism. Mild chronic lung disease with no evidence of acute pathology within the chest. -LE Duplex: No evidence of deep venous thrombosis. -EKG: NSR, LAE, VR 82, QTc 450 -ECHO: LV Size function thickness are normal. Mild MR. Mild valvular ASSESSMENT AND PLAN: Patient is a 58yo male with PMHx R popliteral DVT (now on eliquis), prior PE, CHF, HTN, HLD, NIDDM, presented after sudden onset SOB and diffuse CP #SOB with cough will continue current treatment will discontinue Lisinopril since patient continues cough , COPD exacerbation will continue the treatment, CTA was done negative for PE. continue meds. pulmonary consult. #Hx of DVT/ PE: on Apixaban 5mg PO BID #Hx of CHF continue meds, increased lasix to 40mg daily #Hx of HTN: contine meds #Hx of HLD continue meds #Hx of NIDDM: ISS BGMs ACHS #B/L Knee Pain: with OA; Lidocaine patch to each knee Dvt Px: Apixaban
[2018-10-10] MEDS: APIXABAN 5 MG TABLET PO SCH (22:23)
[2018-10-10] MEDS: LIDOCAINE PATCH REMOVAL MC SCH (22:24)
[2018-10-10] MEDS: ATORVASTATIN CA 10 MG TABLET (FP) PO SCH (22:24)
[2018-10-11] MEDS: methylPREDNISolone NA SUCC 40 MG/1 ML VIAL IVPUSH SCH ×3 (01:04→16:00)
[2018-10-11] MEDS: INSULIN SLIDING SCALE (NOVOLOG) 1 VIAL SQ SCH ×4 (06:36→21:44)
[2018-10-11 07:02] LABS: HEMATOCRIT 38.8 % (35.4-49); LYMPH % 11.8 % (8-40); MCH 33.7 pg (25.7-33.7); MCHC 33.4 g/dl (32.0-35.9); MEAN CELL VOLUME 100.9 fl (80-96); MEAN PLT VOLUME 9.7 fl (7.5-11.1); NEUT % 83.2 % (42.8-82.8); PLATELET COUNT 54 K/MM3 (134-434); RBC 3.85 M/mm3 (4.00-5.60); RDW 14.2 % (11.9-15.9); WHITE BLOOD COUNT 2.6 K/mm3 (4.0-10.0)
[2018-10-11] MEDS: ALBUTEROL SO4 2.5/IPRATROPIUM 0.5 INH SOL 3 ML VIAL.NEB. NEB SCH ×4 (07:48→20:59)
[2018-10-11 08:36] LABS: ALBUMIN 3.3 g/dl (3.4-5.0); ALK PHOS 50 U/L (45-117); ANION GAP 6 MMOL/L (8-16); BILIRUBIN,TOTAL 0.6 mg/dL (0.2-1); BLOOD UREA NITROGEN 32 mg/dL (7-18); CALCIUM 8.2 mg/dL (8.5-10.1); CHLORIDE 107 mmol/L (98-107); CO2 27 mmol/L (21-32); CREATININE 0.9 mg/dL (0.55-1.3); GLUCOSE,RANDOM 172 mg/dL (74-106); POTASSIUM 4.1 mmol/L (3.5-5.1); SGOT/AST 19 U/L (15-37); SGPT/ALT 33 U/L (13-61); SODIUM 140 mmol/L (136-145); TOT PROT 6.9 g/dl (6.4-8.2)
[2018-10-11] MEDS ORDERED: PT OWN MED DRAWER 7, Y5N ONE ×2 (09:41→20:55)
[2018-10-11] MEDS: amLODIPine BESYLATE 5 MG TABLET (FP) PO SCH (09:43)
[2018-10-11] MEDS: APIXABAN 5 MG TABLET PO SCH ×2 (09:44→21:39)
[2018-10-11] MEDS: LIDOCAINE 5% TOPICAL PATCH TP SCH (09:44)
[2018-10-11] MEDS: FUROSEMIDE 40 MG TABLET (FP) PO SCH (09:44)
[2018-10-11] MEDS: NICOTINE 14 MG/24 HOURS TOPICAL PATCH TD SCH (09:44)
[2018-10-11] MEDS: BUDESONIDE/FORMETEROL FUMARATE 160/4.5 mcg INHALER IH SCH ×2 (09:45→21:38)
[2018-10-11] MEDS ORDERED: LISINOPRIL 20 MG TABLET (FP) PO SCH (10:00)
--- NOTE | 2018-10-11 10:09 | PN ---
Progress Note (short form) - Note Progress Note: Still with shortness of breath, chest congestion and nonproductive cough. Did not tolerate NIPPV. [place] that the pressure was too high. Intake & Output 10/08/18 10/09/18 10/10/18 10/11/18 23:59 23:59 23:59 23:59 Intake Total 640 2340 1500 Output Total 1900 1700 400 700 Balance -3209 505 6820 -700 Weight 311 lb 4.8 oz 311 lb 310 lb Last Vital Signs Temp Pulse Resp BP Pulse Ox 97.8 F 67 20 137/74 92 L 10/11/18 06:00 10/11/18 06:00 10/11/18 06:00 10/11/18 06:00 10/10/18 09:00 Active Medications Acetaminophen (Tylenol -) 650 mg PO Q6H PRN PRN Reason: PAIN Last Admin: 10/09/18 15:41 Dose: 650 mg Albuterol Sulfate (Ventolin 0.083% Nebulizer Soln -) 1 amp NEB Q4H PRN PRN Reason: SHORT OF BREATH/WHEEZING Last Admin: 10/09/18 06:00 Dose: 1 amp Albuterol/Ipratropium (Duoneb -) 1 amp NEB Q6H DANNY Last Admin: 10/11/18 07:48 Dose: 1 amp Amlodipine Besylate (Norvasc -) 5 mg PO DAILY [facility] Last Admin: 10/11/18 09:43 Dose: 5 mg Apixaban (Eliquis -) 5 mg PO BID [facility] Last Admin: 10/11/18 09:44 Dose: 5 mg Atorvastatin Calcium (Lipitor -) 40 mg PO HS [facility] Last Admin: 10/10/18 22:24 Dose: 40 mg Budesonide/Formoterol Fumarate (Symbicort 160/4.5mcg -) 2 puff IH BID [facility] Last Admin: 10/11/18 09:45 Dose: 2 puff Furosemide (Lasix -) 40 mg PO DAILY [facility] Last Admin: 10/11/18 09:44 Dose: 40 mg Guaifenesin/Codeine Phosphate (Robitussin Ac -) 10 ml PO Q8H PRN PRN Reason: COUGH Last Admin: 10/09/18 23:36 Dose: 10 ml Insulin Aspart (Novolog Vial Sliding Scale -) 1 vial SQ ACHS [facility]; Protocol Last Admin: 10/11/18 06:36 Dose: 2 units Lidocaine (Lidoderm Patch -) 2 patch TP DAILY [facility] Last Admin: 10/11/18 09:44 Dose: 2 patch Lisinopril (Prinivil) 20 mg PO DAILY [facility] Last Admin: 10/11/18 09:43 Dose: 20 mg Methylprednisolone Sodium Succinate (Solu-Medrol -) 40 mg IVPUSH Q8H-IV [facility] Last Admin: 10/11/18 09:44 Dose: 40 mg Metoprolol Succinate (Toprol Xl -) 100 mg PO DAILY [facility] Last Admin: 10/11/18 09:43 Dose: 100 mg Miscellaneous (Lidoderm Patch Removal) 2 each MC DAILY@2200 [facility] Last Admin: 10/10/18 22:24 Dose: Not Given Nicotine (Nicoderm Patch -) 14 mg TD DAILY [facility] Last Admin: 10/11/18 09:44 Dose: 14 mg Gen: NAD at rest Heart: RRR Lung: scattered rhonchi, mild expiratory wheeze Abd: soft, nontender Ext: + edema Laboratory Results - last 24 hr 10/10/18 10/10/18 10/11/18 11:40 18:04 06:00 WBC 2.6 L RBC 3.85 L Hgb 13.0 Hct 38.8 MCV 100.9 H MCH 33.7 MCHC 33.4 RDW 14.2 Plt Count 54 L MPV 9.7 Absolute Neuts (auto) 2.1 Neutrophils % 83.2 H Lymphocytes % 11.8 Monocytes % 5.0 D Eosinophils % 0.0 D Basophils % 0.0 Nucleated RBC % 0 Sodium Potassium Chloride Carbon Dioxide Anion Gap BUN Creatinine Creat Clearance w eGFR POC Glucometer 253 265 Random Glucose Hemoglobin A1c % Calcium Total Bilirubin AST ALT Alkaline Phosphatase Total Protein Albumin 10/11/18 10/11/18 10/11/18 06:00 06:00 06:33 WBC RBC Hgb Hct MCV MCH MCHC RDW Plt Count MPV Absolute Neuts (auto) Neutrophils % Lymphocytes % Monocytes % Eosinophils % Basophils % Nucleated RBC % Sodium 140 Potassium 4.1 Chloride 107 Carbon Dioxide 27 Anion Gap 6 L BUN 32 H Creatinine 0.9 Creat Clearance w eGFR 86.37 POC Glucometer 160 Random Glucose 172 H Hemoglobin A1c % 5.9 Calcium 8.2 L Total Bilirubin 0.6 AST 19 ALT 33 Alkaline Phosphatase 50 Total Protein 6.9 Albumin 3.3 L Problem List - Problems (1) COPD with acute exacerbation Code(s): J44.1 - CHRONIC OBSTRUCTIVE PULMONARY DISEASE W (ACUTE) EXACERBATION (2) Chest pain Code(s): R07.9 - CHEST PAIN, UNSPECIFIED Qualifiers: Chest pain type: unspecified Qualified Code(s): R07.9 - Chest pain, unspecified (3) Diabetes Code(s): E11.9 - TYPE 2 DIABETES MELLITUS WITHOUT COMPLICATIONS (4) HLD (hyperlipidemia) Code(s): E78.5 - HYPERLIPIDEMIA, UNSPECIFIED (5) HTN (hypertension) Code(s): I10 - ESSENTIAL (PRIMARY) HYPERTENSION A/P Acute COPD Exacerbation Chest Pain LV Diastolic Dysfunction h/o DVT/PE HTN DM Hyperlipidemia Smoker Suspected OSAS - NIPPV settings changed - Medrol at current dose - inhaled bronchodilators - O2 to keep spO2 >90% - cough suppressant - continue anticoagulation - smoking cessation discussed - outpt PFTs and sleep testing - DVT prophylaxis Dr Castle
[2018-10-11] MEDS ORDERED: BENZOCAINE/MENTH/CETYLPYRD CL 1 EACH LOZENGE MM PRN (11:38)
--- NOTE | 2018-10-11 11:44 | PN ---
Physical Exam: SUBJECTIVE: Patient seen and examined this AM. Did not tolerate NIPPV overnight. Continues to have nonproductive cough. OBJECTIVE: Vital Signs Period Temp Pulse Resp BP Sys/Kelley Pulse Ox Last 24 Hr 97.5 F-98 F 67-78 20-20 118-157/61-77 GENERAL: A&Ox3, NAD HEAD: NCAT EYES: PERRL, EOMI NECK: Supple LUNGS: Coarse breath sounds throughout, no wheezes, no crackles HEART: Regular rate and rhythm, S1, S2 without murmur ABDOMEN: Obese, Soft, nontender, nondistended, + bowel sounds, no guarding EXTREMITIES: 1+ edema. NEUROLOGICAL: Cranial nerves II through XII grossly intact. SKIN: Warm, dry Laboratory Results - last 24 hr 10/10/18 10/10/18 10/11/18 11:40 18:04 06:00 WBC 2.6 L RBC 3.85 L Hgb 13.0 Hct 38.8 MCV 100.9 H MCH 33.7 MCHC 33.4 RDW 14.2 Plt Count 54 L MPV 9.7 Absolute Neuts (auto) 2.1 Neutrophils % 83.2 H Lymphocytes % 11.8 Monocytes % 5.0 D Eosinophils % 0.0 D Basophils % 0.0 Nucleated RBC % 0 Sodium Potassium Chloride Carbon Dioxide Anion Gap BUN Creatinine Creat Clearance w eGFR POC Glucometer 253 265 Random Glucose Hemoglobin A1c % Calcium Total Bilirubin AST ALT Alkaline Phosphatase Total Protein Albumin 10/11/18 10/11/18 10/11/18 06:00 06:00 06:33 WBC RBC Hgb Hct MCV MCH MCHC RDW Plt Count MPV Absolute Neuts (auto) Neutrophils % Lymphocytes % Monocytes % Eosinophils % Basophils % Nucleated RBC % Sodium 140 Potassium 4.1 Chloride 107 Carbon Dioxide 27 Anion Gap 6 L BUN 32 H Creatinine 0.9 Creat Clearance w eGFR 86.37 POC Glucometer 160 Random Glucose 172 H Hemoglobin A1c % 5.9 Calcium 8.2 L Total Bilirubin 0.6 AST 19 ALT 33 Alkaline Phosphatase 50 Total Protein 6.9 Albumin 3.3 L Active Medications Acetaminophen (Tylenol -) 650 mg PO Q6H PRN PRN Reason: PAIN Last Admin: 10/09/18 15:41 Dose: 650 mg Albuterol Sulfate (Ventolin 0.083% Nebulizer Soln -) 1 amp NEB Q4H PRN PRN Reason: SHORT OF BREATH/WHEEZING Last Admin: 10/09/18 06:00 Dose: 1 amp Albuterol/Ipratropium (Duoneb -) 1 amp NEB Q6H [facility] Last Admin: 10/11/18 11:24 Dose: 1 amp Amlodipine Besylate (Norvasc -) 5 mg PO DAILY [facility] Last Admin: 10/11/18 09:43 Dose: 5 mg Apixaban (Eliquis -) 5 mg PO BID [facility] Last Admin: 10/11/18 09:44 Dose: 5 mg Atorvastatin Calcium (Lipitor -) 40 mg PO HS [facility] Last Admin: 10/10/18 22:24 Dose: 40 mg Benzocaine/Menthol (Cepacol Lozenge -) 1 each MM PRN PRN PRN Reason: SORE THROAT Budesonide/Formoterol Fumarate (Symbicort 160/4.5mcg -) 2 puff IH BID [facility] Last Admin: 10/11/18 09:45 Dose: 2 puff Furosemide (Lasix -) 40 mg PO DAILY [facility] Last Admin: 10/11/18 09:44 Dose: 40 mg Guaifenesin/Codeine Phosphate (Robitussin Ac -) 10 ml PO Q8H PRN PRN Reason: COUGH Last Admin: 10/09/18 23:36 Dose: 10 ml Insulin Aspart (Novolog Vial Sliding Scale -) 1 vial SQ ACHS [facility]; Protocol Last Admin: 10/11/18 06:36 Dose: 2 units Lidocaine (Lidoderm Patch -) 2 patch TP DAILY [facility] Last Admin: 10/11/18 09:44 Dose: 2 patch Methylprednisolone Sodium Succinate (Solu-Medrol -) 40 mg IVPUSH Q8H-IV [facility] Last Admin: 10/11/18 09:44 Dose: 40 mg Metoprolol Succinate (Toprol Xl -) 100 mg PO DAILY [facility] Last Admin: 10/11/18 09:43 Dose: 100 mg Miscellaneous (Lidoderm Patch Removal) 2 each MC DAILY@2200 [facility] Last Admin: 10/10/18 22:24 Dose: Not Given Nicotine (Nicoderm Patch -) 14 mg TD DAILY [facility] Last Admin: 10/11/18 09:44 Dose: 14 mg Ambulatory Orders metFORMIN HCL [Metformin HCl] 500 mg PO BID #14 tablet 07/05/17 Folic Acid - 1 mg PO DAILY #30 tablet 10/15/17 Lisinopril [Prinivil] 20 mg PO DAILY #30 tablet 10/15/17 Apixaban [Eliquis] 2.5 mg PO BID #60 tablet 12/14/17 Metoprolol Succinate [Toprol XL -] 50 mg PO DAILY #30 tab.sr.24h 12/14/17 Acetaminophen [Tylenol 8 Hour] 1,300 mg PO Q8H PRN 10/07/18 Atorvastatin Ca [Lipitor] 10 mg PO HS 10/07/18 Celecoxib [Celebrex] 400 mg PO DAILY PRN 10/07/18 Furosemide [Lasix] 40 mg PO DAILY 10/07/18 Gabapentin 600 mg PO TID 10/07/18 Oxycodone HCl/Acetaminophen [Oxycodon-Acetaminophen 7.5-325] 1 each PO Q8H PRN 10/07/18 Sertraline HCl 50 mg PO DAILY 10/07/18 IMAGING: -CTA: No evidence of pulmonary embolism. Mild chronic lung disease with no evidence of acute pathology within the chest. -LE Duplex: No evidence of deep venous thrombosis. -EKG: NSR, LAE, VR 82, QTc 450 -ECHO: LV Size function thickness are normal. Mild MR. Mild valvular ASSESSMENT/PLAN: 58 y/o M w/ PMHx R popliteral DVT (now on eliquis), prior PE, CHF, HTN, HLD, NIDDM, presented after sudden onset SOB and diffuse CP #SOB -Likely due to Acute COPD Exacerbation; Components of OHS, KOSTAS -Bronchodilators--Albuterol Neb Q4H PRN, Albuterol/Ipratropium NEB Q4H, Budesonide/Formoterol -Taper IV Methylprednisolone -NIPPV settings lowered -Supplemental O2 to maintain SpO2 88-92% -Pulmonary consulted, appreciate rec's #Hx of DVT/ PE -Apixaban 5mg PO BID #Hx of CHF, HTN, HLD -Atorvastatin 10mg HS, Furosemide 20mg PO daily, Amlodipine 5mg PO Daily, Metoprolol Succinate 100mg PO Daily -Hold lisinopril as this may be contributing to cough #Hx of NIDDM -ISS BGMs ACHS #Hx of Splenomegaly with subsequent leukopenia and thrombocytopenia -Patient admits noncompliance with prescribed Vit B12 #B/L Knee Pain -Lidocaine patch #FEN -No standing fluids -Lytes WNL -Diabetic diet #PPx -DVT: Apixaban Visit type - Emergency Visit Emergency Visit: Yes ED Registration Date: 10/08/18 Care time: The patient presented to the Emergency Department on the above date and was hospitalized for further evaluation of their emergent condition. - New Patient This patient is new to me today: No - Critical Care Critical Care patient: No - Discharge Referral Referred to [facility] Med P.C.: No
--- NOTE | 2018-10-11 19:06 | PN ---
Teaching Attending Note Name of Resident: Nikkie Nicholson ATTENDING PHYSICIAN STATEMENT I saw and evaluated the patient. I reviewed the resident's note and discussed the case with the resident. I agree with the resident's findings and plan as documented. SUBJECTIVE: Patient is better but continues to cough. OBJECTIVE: Vital Signs Temperature 98.1 F 10/11/18 14:00 Pulse Rate 68 10/11/18 14:00 Respiratory Rate 21 H 10/11/18 14:00 Blood Pressure 148/76 10/11/18 14:00 O2 Sat by Pulse Oximetry (%) 92 L 10/10/18 09:00 GENERAL: The patient is awake, alert, and fully oriented, in no acute distress. HEAD: Normal with no signs of trauma. Facial flushing EYES: PERRL, extraocular movements intact, sclera anicteric, conjunctiva clear. . ENT: Ears normal, oropharynx clear without exudates, moist mucous membranes. NECK: Trachea midline, full range of motion, supple. LUNGS: decreased Breath sounds bl, no wheezes, no crackles, mild accessory muscle use. HEART: Regular rate and rhythm, S1, S2 without murmur, rub or gallop. ABDOMEN: Soft, nontender, nondistended, normoactive bowel sounds, no guarding, no rebound, no hepatosplenomegaly, no masses. EXTREMITIES: 2+ pulses, warm, well-perfused, no edema. NEUROLOGICAL: Cranial nerves II through XII grossly intact. Normal speech, gait is stable. PSYCH: Normal mood, normal affect. SKIN: Warm, dry, normal turgor, no rashes or lesions noted CBCD WBC 2.6 K/mm3 (4.0-10.0) L 10/11/18 06:00 RBC 3.85 M/mm3 (4.00-5.60) L 10/11/18 06:00 Hgb 13.0 GM/dL (11.7-16.9) 10/11/18 06:00 Hct 38.8 % (35.4-49) 10/11/18 06:00 MCV 100.9 fl (80-96) H 10/11/18 06:00 MCHC 33.4 g/dl (32.0-35.9) 10/11/18 06:00 RDW 14.2 % (11.9-15.9) 10/11/18 06:00 Plt Count 54 K/MM3 (134-434) L 10/11/18 06:00 MPV 9.7 fl (7.5-11.1) 10/11/18 06:00 CMP Sodium 140 mmol/L (136-145) 10/11/18 06:00 Potassium 4.1 mmol/L (3.5-5.1) 10/11/18 06:00 Chloride 107 mmol/L (98-107) 10/11/18 06:00 Carbon Dioxide 27 mmol/L (21-32) 10/11/18 06:00 Anion Gap 6 MMOL/L (8-16) L 10/11/18 06:00 BUN 32 mg/dL (7-18) H 10/11/18 06:00 Creatinine 0.9 mg/dL (0.55-1.3) 10/11/18 06:00 Creat Clearance w eGFR 86.37 (>60) 10/11/18 06:00 Random Glucose 172 mg/dL (74-106) H 10/11/18 06:00 Calcium 8.2 mg/dL (8.5-10.1) L 10/11/18 06:00 Total Bilirubin 0.6 mg/dL (0.2-1) 10/11/18 06:00 AST 19 U/L (15-37) 10/11/18 06:00 ALT 33 U/L (13-61) 10/11/18 06:00 Alkaline Phosphatase 50 U/L (45-117) 10/11/18 06:00 Total Protein 6.9 g/dl (6.4-8.2) 10/11/18 06:00 Albumin 3.3 g/dl (3.4-5.0) L 10/11/18 06:00 CARDIAC ENZYMES Creatine Kinase 82 U/L (26-308) 10/06/18 23:55 Troponin I 0.02 ng/ml (0.00-0.05) 10/07/18 05:30 Current Medications Generic Name Dose Route Start Last Admin Trade Name Freq PRN Reason Stop Dose Admin Acetaminophen 650 mg 10/08/18 21:16 10/09/18 15:41 Tylenol - PO 650 mg Q6H PRN Administration PAIN Albuterol Sulfate 1 amp 10/08/18 07:57 10/09/18 06:00 Ventolin 0.083% Nebulizer Soln - NEB 1 amp Q4H PRN Administration SHORT OF BREATH/WHEEZING Albuterol/Ipratropium 1 amp 10/10/18 09:15 10/11/18 16:04 Duoneb - NEB 1 amp Q6H [facility]ANNY Administration Amlodipine Besylate 5 mg 10/08/18 21:15 10/11/18 09:43 Norvasc - PO 5 mg DAILY [facility] Administration Apixaban 5 mg 10/10/18 22:00 10/11/18 09:44 Eliquis - PO 5 mg BID [facility]ANNY Administration Atorvastatin Calcium 40 mg 10/08/18 22:00 10/10/18 22:24 Lipitor - PO 40 mg HS [facility]ANNY Administration Benzocaine/Menthol 1 each 10/11/18 11:38 Cepacol Lozenge - MM PRN PRN SORE THROAT Budesonide/Formoterol Fumarate 2 puff 10/08/18 12:00 10/11/18 09:45 Symbicort 160/4.5mcg - IH 2 puff BID [facility] Administration Furosemide 40 mg 10/10/18 09:15 10/11/18 09:44 Lasix - PO 40 mg DAILY [facility] Administration Guaifenesin/Codeine Phosphate 10 ml 10/09/18 13:28 10/09/18 23:36 Robitussin Ac - PO 10 ml Q8H PRN Administration COUGH Insulin Aspart 1 vial 10/08/18 11:00 10/11/18 17:13 Novolog Vial Sliding Scale - SQ 4 units ACHS [facility] Administration Protocol Lidocaine 2 patch 10/08/18 17:00 10/11/18 09:44 Lidoderm Patch - TP 2 patch DAILY [facility] Administration Methylprednisolone Sodium Succinate 40 mg 10/10/18 09:16 10/11/18 09:44 Solu-Medrol - IVPUSH 40 mg Q8H-IV [facility] Administration Metoprolol Succinate 100 mg 10/11/18 10:00 10/11/18 09:43 Toprol Xl - PO 100 mg DAILY [facility] Administration Miscellaneous 2 each 10/08/18 22:00 10/10/18 22:24 Lidoderm Patch Removal MC Not Given DAILY@2200 [facility] Nicotine 14 mg 10/08/18 10:00 10/11/18 09:44 Nicoderm Patch - TD 14 mg DAILY [facility] Administration Home Medications Medication Instructions Recorded metFORMIN HCL [Metformin HCl] 500 mg PO BID #14 tablet 07/05/17 Folic Acid - 1 mg PO DAILY #30 tablet 10/15/17 Lisinopril [Prinivil] 20 mg PO DAILY #30 tablet 10/15/17 Apixaban [Eliquis] 2.5 mg PO BID #60 tablet 12/14/17 Metoprolol Succinate [Toprol XL -] 50 mg PO DAILY #30 tab.sr.24h 12/14/17 Acetaminophen [Tylenol 8 Hour] 1,300 mg PO Q8H PRN 10/07/18 Atorvastatin Ca [Lipitor] 10 mg PO HS 10/07/18 Celecoxib [Celebrex] 400 mg PO DAILY PRN 10/07/18 Furosemide [Lasix] 40 mg PO DAILY 10/07/18 Gabapentin 600 mg PO TID 10/07/18 Oxycodone HCl/Acetaminophen 1 each PO Q8H PRN 10/07/18 [Oxycodon-Acetaminophen 7.5-325] Sertraline HCl 50 mg PO DAILY 10/07/18 CTA: No evidence of pulmonary embolism. Mild chronic lung disease with no evidence of acute pathology within the chest. -LE Duplex: No evidence of deep venous thrombosis. -EKG: NSR, LAE, VR 82, QTc 450 -ECHO: LV Size function thickness are normal. Mild MR. Mild valvular ASSESSMENT AND PLAN: Patient is a 58yo male with PMHx R popliteral DVT (now on eliquis), prior PE, CHF, HTN, HLD, NIDDM, presented after sudden onset SOB and diffuse CP #SOB with cough continues ,will discontinue Lisinopril since patient continues cough , COPD exacerbation will continue the treatment, CTA was done negative for PE. continue meds. pulmonary consult. #Hx of DVT/ PE: on Apixaban 5mg PO BID #Hx of CHF continue meds, increased lasix to 40mg daily #Hx of HTN: contine meds #Hx of HLD continue meds #Hx of NIDDM: ISS BGMs ACHS #B/L Knee Pain: with OA; Lidocaine patch to each knee Dvt Px: Apixaban
[2018-10-11] MEDS: guaiFENesin/CODEINE 10 ML UNIT-DOSE CUPS PO PRN (21:39)
[2018-10-11] MEDS: LIDOCAINE PATCH REMOVAL MC SCH (21:39)
[2018-10-11] MEDS: ATORVASTATIN CA 10 MG TABLET (FP) PO SCH (21:39)
[2018-10-12] MEDS: methylPREDNISolone NA SUCC 40 MG/1 ML VIAL IVPUSH SCH ×3 (02:35→17:08)
[2018-10-12] MEDS: ALBUTEROL SO4 2.5/IPRATROPIUM 0.5 INH SOL 3 ML VIAL.NEB. NEB SCH ×5 (03:15→21:00)
[2018-10-12] MEDS: INSULIN SLIDING SCALE (NOVOLOG) 1 VIAL SQ SCH ×4 (06:00→21:38)
--- NOTE | 2018-10-12 06:42 | PN ---
Physical Exam: SUBJECTIVE: Patient seen and examined this AM. Says he tolerated NIPPV on lower settings for half the night but then felt anxious. Continues to have nonproductive cough and feels SOB. No acute events overnight. OBJECTIVE: Vital Signs Period Temp Pulse Resp BP Sys/Kelley Pulse Ox Last 24 Hr 97.5 F-98.4 F 61-68 20-21 124-151/68-87 96-96 GENERAL: A&Ox3, NAD HEAD: NCAT EYES: PERRL, EOMI NECK: Supple LUNGS: Coarse breath sounds throughout, no wheezes, no crackles HEART: Regular rate and rhythm, S1, S2 without murmur ABDOMEN: Obese, Soft, nontender, nondistended, + bowel sounds, no guarding EXTREMITIES: 1+ edema. NEUROLOGICAL: Cranial nerves II through XII grossly intact. SKIN: Warm, dry Laboratory Results - last 24 hr 10/11/18 10/11/18 10/11/18 06:00 06:00 06:00 WBC 2.6 L RBC 3.85 L Hgb 13.0 Hct 38.8 MCV 100.9 H MCH 33.7 MCHC 33.4 RDW 14.2 Plt Count 54 L MPV 9.7 Absolute Neuts (auto) 2.1 Neutrophils % 83.2 H Lymphocytes % 11.8 Monocytes % 5.0 D Eosinophils % 0.0 D Basophils % 0.0 Nucleated RBC % 0 Sodium 140 Potassium 4.1 Chloride 107 Carbon Dioxide 27 Anion Gap 6 L BUN 32 H Creatinine 0.9 Creat Clearance w eGFR 86.37 POC Glucometer Random Glucose 172 H Hemoglobin A1c % 5.9 Calcium 8.2 L Total Bilirubin 0.6 AST 19 ALT 33 Alkaline Phosphatase 50 Total Protein 6.9 Albumin 3.3 L 10/11/18 10/11/18 10/11/18 12:33 17:11 21:43 WBC RBC Hgb Hct MCV MCH MCHC RDW Plt Count MPV Absolute Neuts (auto) Neutrophils % Lymphocytes % Monocytes % Eosinophils % Basophils % Nucleated RBC % Sodium Potassium Chloride Carbon Dioxide Anion Gap BUN Creatinine Creat Clearance w eGFR POC Glucometer 225 237 301 Random Glucose Hemoglobin A1c % Calcium Total Bilirubin AST ALT Alkaline Phosphatase Total Protein Albumin 10/12/18 05:58 WBC RBC Hgb Hct MCV MCH MCHC RDW Plt Count MPV Absolute Neuts (auto) Neutrophils % Lymphocytes % Monocytes % Eosinophils % Basophils % Nucleated RBC % Sodium Potassium Chloride Carbon Dioxide Anion Gap BUN Creatinine Creat Clearance w eGFR POC Glucometer 169 Random Glucose Hemoglobin A1c % Calcium Total Bilirubin AST ALT Alkaline Phosphatase Total Protein Albumin Active Medications Acetaminophen (Tylenol -) 650 mg PO Q6H PRN PRN Reason: PAIN Last Admin: 10/09/18 15:41 Dose: 650 mg Albuterol Sulfate (Ventolin 0.083% Nebulizer Soln -) 1 amp NEB Q4H PRN PRN Reason: SHORT OF BREATH/WHEEZING Last Admin: 10/09/18 06:00 Dose: 1 amp Albuterol/Ipratropium (Duoneb -) 1 amp NEB Q6H [facility] Last Admin: 10/12/18 03:15 Dose: Not Given Amlodipine Besylate (Norvasc -) 5 mg PO DAILY [facility] Last Admin: 10/11/18 09:43 Dose: 5 mg Apixaban (Eliquis -) 5 mg PO BID [facility] Last Admin: 10/11/18 21:39 Dose: 5 mg Atorvastatin Calcium (Lipitor -) 40 mg PO HS [facility] Last Admin: 10/11/18 21:39 Dose: 40 mg Benzocaine/Menthol (Cepacol Lozenge -) 1 each MM PRN PRN PRN Reason: SORE THROAT Budesonide/Formoterol Fumarate (Symbicort 160/4.5mcg -) 2 puff IH BID [facility] Last Admin: 10/11/18 21:38 Dose: 2 puff Furosemide (Lasix -) 40 mg PO DAILY [facility] Last Admin: 10/11/18 09:44 Dose: 40 mg Guaifenesin/Codeine Phosphate (Robitussin Ac -) 10 ml PO Q8H PRN PRN Reason: COUGH Last Admin: 10/11/18 21:39 Dose: 10 ml Insulin Aspart (Novolog Vial Sliding Scale -) 1 vial SQ ACHS [facility]; Protocol Last Admin: 10/12/18 06:00 Dose: 2 units Lidocaine (Lidoderm Patch -) 2 patch TP DAILY [facility] Last Admin: 10/11/18 09:44 Dose: 2 patch Methylprednisolone Sodium Succinate (Solu-Medrol -) 40 mg IVPUSH Q8H-IV [facility] Last Admin: 10/12/18 02:35 Dose: 40 mg Metoprolol Succinate (Toprol Xl -) 100 mg PO DAILY [facility] Last Admin: 10/11/18 09:43 Dose: 100 mg Miscellaneous (Lidoderm Patch Removal) 2 each MC DAILY@2200 [facility] Last Admin: 10/11/18 21:39 Dose: Not Given Nicotine (Nicoderm Patch -) 14 mg TD DAILY [facility] Last Admin: 10/11/18 09:44 Dose: 14 mg IMAGING: -CTA: No evidence of pulmonary embolism. Mild chronic lung disease with no evidence of acute pathology within the chest. -LE Duplex: No evidence of deep venous thrombosis. -EKG: NSR, LAE, VR 82, QTc 450 -ECHO: LV Size function thickness are normal. Mild MR. Mild valvular ASSESSMENT/PLAN: 58 y/o M w/ PMHx R popliteral DVT (now on eliquis), prior PE, CHF, HTN, HLD, NIDDM, presented after sudden onset SOB and diffuse CP #SOB -Likely due to Acute COPD Exacerbation; Components of OHS, KOSTAS -Bronchodilators--Albuterol Neb Q4H PRN, Albuterol/Ipratropium NEB Q4H, Budesonide/Formoterol -Contine IV Methylprednisolone--Change to PO in AM -Guaifenesin/Codeine increased to 15mL Q6H -NIPPV HS and PRN -Supplemental O2 to maintain SpO2 88-92% -Pulmonary consulted, appreciate rec's #Hx of DVT/ PE -Apixaban 2.5mg PO BID #Hx of CHF, HTN, HLD -Atorvastatin 10mg HS, Furosemide 20mg PO daily, Amlodipine 5mg PO Daily, Metoprolol Succinate 100mg PO Daily -Hold lisinopril as this may be contributing to cough #Hx of NIDDM -ISS BGMs ACHS #Hx of Splenomegaly with subsequent leukopenia and thrombocytopenia -Patient admits noncompliance with prescribed Vit B12 -Hematology (Dr. Choudhury) consulted #B/L Knee Pain -Lidocaine patch #FEN -No standing fluids -Lytes WNL -Diabetic diet #PPx -DVT: Apixaban Visit type - Emergency Visit Emergency Visit: Yes ED Registration Date: 10/08/18 Care time: The patient presented to the Emergency Department on the above date and was hospitalized for further evaluation of their emergent condition. - New Patient This patient is new to me today: No - Critical Care Critical Care patient: No - Discharge Referral Referred to [facility] Med P.C.: No
--- NOTE | 2018-10-12 09:32 | PN ---
Progress Note (short form) - Note Progress Note: Used NIPPV for about 5 hours overnight with benefit. Less shortness of breath and chest congestion. No change in cough. Intake & Output 10/09/18 10/10/18 10/11/18 10/12/18 23:59 23:59 23:59 23:59 Intake Total 2340 1500 2480 480 Output Total 9569 934 2563 Balance 640 1100 580 480 Weight 311 lb 4.8 oz 311 lb 310 lb 308 lb 8 oz Last Vital Signs Temp Pulse Resp BP Pulse Ox 97.5 F L 61 20 147/68 96 10/12/18 06:00 10/12/18 06:00 10/12/18 06:00 10/12/18 06:00 10/11/18 23:47 Active Medications Acetaminophen (Tylenol -) 650 mg PO Q6H PRN PRN Reason: PAIN Last Admin: 10/09/18 15:41 Dose: 650 mg Albuterol Sulfate (Ventolin 0.083% Nebulizer Soln -) 1 amp NEB Q4H PRN PRN Reason: SHORT OF BREATH/WHEEZING Last Admin: 10/09/18 06:00 Dose: 1 amp Albuterol/Ipratropium (Duoneb -) 1 amp NEB RQID [facility] Amlodipine Besylate (Norvasc -) 5 mg PO DAILY [facility] Last Admin: 10/11/18 09:43 Dose: 5 mg Apixaban (Eliquis -) 5 mg PO BID [facility] Last Admin: 10/11/18 21:39 Dose: 5 mg Atorvastatin Calcium (Lipitor -) 40 mg PO HS [facility] Last Admin: 10/11/18 21:39 Dose: 40 mg Benzocaine/Menthol (Cepacol Lozenge -) 1 each MM PRN PRN PRN Reason: SORE THROAT Budesonide/Formoterol Fumarate (Symbicort 160/4.5mcg -) 2 puff IH BID [facility] Last Admin: 10/11/18 21:38 Dose: 2 puff Furosemide (Lasix -) 40 mg PO DAILY [facility] Last Admin: 10/11/18 09:44 Dose: 40 mg Guaifenesin/Codeine Phosphate (Robitussin Ac -) 10 ml PO Q8H PRN PRN Reason: COUGH Last Admin: 10/11/18 21:39 Dose: 10 ml Insulin Aspart (Novolog Vial Sliding Scale -) 1 vial SQ ACHS [facility]; Protocol Last Admin: 10/12/18 06:00 Dose: 2 units Lidocaine (Lidoderm Patch -) 2 patch TP DAILY [facility] Last Admin: 10/11/18 09:44 Dose: 2 patch Methylprednisolone Sodium Succinate (Solu-Medrol -) 40 mg IVPUSH Q8H-IV [facility] Last Admin: 10/12/18 02:35 Dose: 40 mg Metoprolol Succinate (Toprol Xl -) 100 mg PO DAILY [facility] Last Admin: 10/11/18 09:43 Dose: 100 mg Miscellaneous (Lidoderm Patch Removal) 2 each MC DAILY@2200 [facility] Last Admin: 10/11/18 21:39 Dose: Not Given Nicotine (Nicoderm Patch -) 14 mg TD DAILY [facility] Last Admin: 10/11/18 09:44 Dose: 14 mg Gen: NAD at rest Heart: RRR Lung: scattered rhonchi, No expiratory wheeze appreciated Abd: soft, nontender Ext: + edema Laboratory Results - last 24 hr 10/11/18 10/11/18 10/11/18 12:33 17:11 21:43 POC Glucometer 225 237 301 10/12/18 05:58 POC Glucometer 169 Problem List - Problems (1) COPD with acute exacerbation Code(s): J44.1 - CHRONIC OBSTRUCTIVE PULMONARY DISEASE W (ACUTE) EXACERBATION (2) Chest pain Code(s): R07.9 - CHEST PAIN, UNSPECIFIED Qualifiers: Chest pain type: unspecified Qualified Code(s): R07.9 - Chest pain, unspecified (3) Diabetes Code(s): E11.9 - TYPE 2 DIABETES MELLITUS WITHOUT COMPLICATIONS (4) HLD (hyperlipidemia) Code(s): E78.5 - HYPERLIPIDEMIA, UNSPECIFIED (5) HTN (hypertension) Code(s): I10 - ESSENTIAL (PRIMARY) HYPERTENSION A/P Acute COPD Exacerbation Chest Pain LV Diastolic Dysfunction h/o DVT/PE HTN DM Hyperlipidemia Smoker Suspected OSAS Leukopenia: (?) Due to hyperspleenism - NIPPV as tolerated QHS and PRN - Medrol at current dose: Can likely change to Prednisone in AM - inhaled bronchodilators - O2 to keep spO2 >90% - cough suppressant - continue anticoagulation - smoking cessation discussed - outpt PFTs and sleep testing - DVT prophylaxis - Leukopenia workup per Primary team Dr Castle
[2018-10-12] MEDS: LIDOCAINE 5% TOPICAL PATCH TP SCH (10:07)
[2018-10-12] MEDS: FUROSEMIDE 40 MG TABLET (FP) PO SCH (10:07)
[2018-10-12] MEDS: APIXABAN 5 MG TABLET PO SCH ×2 (10:07→21:37)
[2018-10-12] MEDS: NICOTINE 14 MG/24 HOURS TOPICAL PATCH TD SCH (10:07)
[2018-10-12] MEDS: amLODIPine BESYLATE 5 MG TABLET (FP) PO SCH (10:07)
[2018-10-12] MEDS: BUDESONIDE/FORMETEROL FUMARATE 160/4.5 mcg INHALER IH SCH ×2 (10:11→21:34)
--- NOTE | 2018-10-12 15:41 | CONSULT ---
Consultation: REQUESTING PROVIDER: CONSULT REQUEST: We have been asked to medically evaluate this patient for heme/ onc HISTORY OF PRESENT ILLNESS: 58 y/o M w/PMH of R popliteal DVT and PE (on eliquis), CHF, HTN, HLD, NIDDM, and currently homeless presented to the ER initially with CP and SOB and was found to be in COPD exacerbation and PE was ruled out. He currently feels better compared to when he came in. [facility] consulted for pancytopenia. On recent imaging of Chest CTA he was found to have splenomegaly but the complete spleen was not visualized. He reports last year he was having his usual medical follow up when his blood counts were found to be low and he was to follow with an oncologist in [place] who he did see. Due to outside circumstances he became homeless and had decreased medical follow up and was not able to complete his workup with oncologist. He was not formally diagnosed with anything yet but he was found to have an issue with his spleen but is unsure what. He denies any recent travel, mono infection, trauma to the spleen. He is taking his eliquis and some of his medications. He states he does drink alcohol but very infrequently - once or twice a month. He has been a lifelong smoker including marijuana. Due to money issues he has been smoking two cigars per day and inhaling the smoke from the cigars. 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 Current daily smoker, currently smoking cigars for last 2 months but has been smoking cigarettes most of his life before that Infrequent alcohol use - 1 to 2 times per month 1 to 2 beers Marijuana use FH: Denies any cancer or heme disorders in his family Allergies: Erythromycin REVIEW OF SYSTEMS: CONSTITUTIONAL: Absent: fever, chills CARDIOVASCULAR: Absent: chest pain RESPIRATORY: +mild WEATHERS Absent: cough, shortness of breath GASTROINTESTINAL: Absent: abdominal pain, nausea, vomiting GENITOURINARY: Absent: dysuria MUSCULOSKELETAL: +chronic back and knee pains NEUROLOGIC: Absent: headache PHYSICAL EXAMINATION Vital Signs - 24 hr 10/11/18 10/11/18 10/11/18 21:00 22:00 23:47 Temperature 98.4 F Pulse Rate 65 Respiratory 20 20 Rate Blood Pressure 124/87 O2 Sat by Pulse 96 96 Oximetry (%) 10/12/18 10/12/18 10/12/18 02:00 06:00 09:00 Temperature 97.6 F 97.5 F L Pulse Rate 63 61 Respiratory 20 20 20 Rate Blood Pressure 151/87 147/68 O2 Sat by Pulse Oximetry (%) 10/12/18 10:00 Temperature 98 F Pulse Rate 70 Respiratory 20 Rate Blood Pressure 146/86 O2 Sat by Pulse Oximetry (%) GENERAL: Awake, alert, and fully oriented, in no acute distress. EYES: extraocular movements intact, sclera anicteric, conjunctiva clear EARS, NOSE, THROAT: Ears normal, nares patent NECK: Normal range of motion LUNGS: Breath sounds equal, clear to auscultation bilaterally. HEART: Regular rate and rhythm, normal S1 and S2 ABDOMEN: Soft, nontender, obese. Unable to palpate spleen due to body habitus. LOWER EXTREMITIES: warm, well-perfused. No peripheral edema. NEUROLOGICAL: Cranial nerves II-XII grossly intact. Normal speech. Gait not observed. PSYCHIATRIC: Cooperative. Good eye contact. Appropriate mood and affect. SKIN: Warm, dry TESTICULAR: Refused Laboratory Results - last 24 hr 10/11/18 10/11/18 10/12/18 17:11 21:43 05:58 POC Glucometer 237 301 169 10/12/18 12:06 POC Glucometer 201 Active Medications Generic Name Dose Route Start Last Admin Trade Name Freq PRN Reason Stop Dose Admin Acetaminophen 650 mg 10/08/18 21:16 10/09/18 15:41 Tylenol - PO 650 mg Q6H PRN Administration PAIN Albuterol Sulfate 1 amp 10/08/18 07:57 10/09/18 06:00 Ventolin 0.083% Nebulizer Soln - NEB 1 amp Q4H PRN Administration SHORT OF BREATH/WHEEZING Albuterol/Ipratropium 1 amp 10/12/18 08:00 10/12/18 12:36 Duoneb - NEB 1 amp RQID DANNY Administration Amlodipine Besylate 5 mg 10/08/18 21:15 10/12/18 10:07 Norvasc - PO 5 mg DAILY DANNY Administration Apixaban 2.5 mg 10/12/18 22:00 Eliquis - PO BID DANNY Atorvastatin Calcium 40 mg 10/08/18 22:00 04/15/19 21:39 Lipitor - PO 40 mg HS DANNY Administration Benzocaine/Menthol 1 each 10/11/18 11:38 Cepacol Lozenge - MM PRN PRN SORE THROAT Budesonide/Formoterol Fumarate 2 puff 10/08/18 12:00 10/12/18 10:11 Symbicort 160/4.5mcg - IH 2 puff BID DANNY Administration Furosemide 40 mg 10/10/18 09:15 10/12/18 10:07 Lasix - PO 40 mg DAILY DANNY Administration Guaifenesin/Codeine Phosphate 15 ml 10/12/18 10:19 Robitussin Ac - PO Q6H PRN COUGH Insulin Aspart 1 vial 10/08/18 11:00 10/12/18 12:28 Novolog Vial Sliding Scale - SQ 2 units ACHS DANNY Administration Protocol Lidocaine 2 patch 10/08/18 17:00 10/12/18 10:07 Lidoderm Patch - TP 2 patch DAILY DANNY Administration Methylprednisolone Sodium Succinate 40 mg 10/10/18 09:16 10/12/18 10:08 Solu-Medrol - IVPUSH 40 mg Q8H-IV DANNY Administration Metoprolol Succinate 100 mg 10/11/18 10:00 10/12/18 10:07 Toprol Xl - PO 100 mg DAILY DANNY Administration Miscellaneous 2 each 10/08/18 22:00 10/11/18 21:39 Lidoderm Patch Removal MC Not Given DAILY@2200 DANNY Nicotine 14 mg 10/08/18 10:00 10/12/18 10:07 Nicoderm Patch - TD 14 mg DAILY DANNY Administration ASSESSMENT/PLAN: 58 y/o M w/PMH of R popliteal DVT and PE (on eliquis), CHF, HTN, HLD, NIDDM, and currently homeless presented to the ER initially with CP and SOB and was found to be in COPD exacerbation. Heme consulted for pancytopenia. -Pancytopenia -Pt with splenomegaly on Chest CTA. -In 2017 imaging abd U/S: Hepatosplenomegaly. Dense echotexture of the liver consistent with fatty liver versus hepatocellular disease. -Has a history of alcohol abuse in the past from previous notes in chart. -Liver/Spleen Ultrasound -Hgb electrophoresis, HEENA, Hep panel, [id number], ESR, LD, Retic, B12, folate, RF (r/o felty syndrome) -Will need to get JACKIE level as well. Needs to be approved by lab. -Consider Bone marrow biopsy in the future. -Consider anti-mitochondrial ab, and anti-smooth muscle ab in the future as well for further w/u of liver pathology and GI. -History of DVT and PE -c/w eliquis 2.5 mg po bid -U/S B/L LE neg for DVT -Chest CTA neg for PE Dispo: We will continue to follow the patient. Thank you for this consultative opportunity. Visit type - Emergency Visit Emergency Visit: Yes ED Registration Date: 10/08/18 Care time: The patient presented to the Emergency Department on the above date and was hospitalized for further evaluation of their emergent condition. - New Patient This patient is new to me today: Yes Date on this admission: 10/12/18 - Critical Care Critical Care patient: No
--- NOTE | 2018-10-12 18:05 | PN ---
Teaching Attending Note Name of Resident: Estuardo Scott ATTENDING PHYSICIAN STATEMENT I saw and evaluated the patient. I reviewed the resident's note and discussed the case with the resident. I agree with the resident's findings and plan as documented. SUBJECTIVE: Patient seen and examined History of pancytopenia dating back several years at , minimum associated with hepatosplenomegaly Presents with acute exacerbation of COPD on steroid therapy. Past hx of DVT and P.E. . Last Vital Signs Temp Pulse Resp BP Pulse Ox 98 F 59 L 22 H 146/87 96 10/12/18 16:30 10/12/18 16:30 10/12/18 16:30 10/12/18 16:30 10/11/18 23:47 HEENT: PAULINE, EOM Intact Oropharynx: No thrush, No mucositis, edentulous Neck: Supple Nodes: Without adenopathy Breasts: Without masses Cor: RSR, No murmurs, No gallops Lungs: scattered rhonchi Abd: Soft, Normal bowel sounds, No organomegaly, obese testes descended, circumcsed Ext:No significant edema Skin: No rashes, Integument intact, tatoos CBC, BMP 10/11/18 06:00 10/11/18 06:00 Current Medications Generic Name Dose Route Start Last Admin Trade Name Freq PRN Reason Stop Dose Admin Acetaminophen 650 mg 10/08/18 21:16 10/09/18 15:41 Tylenol - PO 650 mg Q6H PRN Administration PAIN Albuterol Sulfate 1 amp 10/08/18 07:57 10/09/18 06:00 Ventolin 0.083% Nebulizer Soln - NEB 1 amp Q4H PRN Administration SHORT OF BREATH/WHEEZING Albuterol/Ipratropium 1 amp 10/12/18 08:00 10/12/18 17:10 Duoneb - NEB 1 amp RQID DANNY Administration Amlodipine Besylate 5 mg 10/08/18 21:15 10/12/18 10:07 Norvasc - PO 5 mg DAILY DANNY Administration Apixaban 2.5 mg 10/12/18 22:00 Eliquis - PO BID DANNY Atorvastatin Calcium 40 mg 10/08/18 22:00 10/11/18 21:39 Lipitor - PO 40 mg HS DANNY Administration Benzocaine/Menthol 1 each 10/11/18 11:38 Cepacol Lozenge - MM PRN PRN SORE THROAT Budesonide/Formoterol Fumarate 2 puff 10/08/18 12:00 10/12/18 10:11 Symbicort 160/4.5mcg - IH 2 puff BID DANNY Administration Furosemide 40 mg 10/10/18 09:15 10/12/18 10:07 Lasix - PO 40 mg DAILY DANNY Administration Guaifenesin/Codeine Phosphate 15 ml 10/12/18 10:19 Robitussin Ac - PO Q6H PRN COUGH Insulin Aspart 1 vial 10/08/18 11:00 10/12/18 17:09 Novolog Vial Sliding Scale - SQ 4 units ACHS DANNY Administration Protocol Lidocaine 2 patch 10/08/18 17:00 10/12/18 10:07 Lidoderm Patch - TP 2 patch DAILY DANNY Administration Methylprednisolone Sodium Succinate 40 mg 10/10/18 09:16 10/12/18 17:08 Solu-Medrol - IVPUSH 40 mg Q8H-IV DANNY Administration Metoprolol Succinate 100 mg 10/11/18 10:00 10/12/18 10:07 Toprol Xl - PO 100 mg DAILY DANNY Administration Miscellaneous 2 each 10/08/18 22:00 10/11/18 21:39 Lidoderm Patch Removal MC Not Given DAILY@2200 DANNY Nicotine 14 mg 10/08/18 10:00 10/12/18 10:07 Nicoderm Patch - TD 14 mg DAILY DANNY Administration Impression: Leukopenia /thrombocytopenia date back a minimum of 2 years . Hepatosplenomegaly also present at that time. Fatty liver - past ETOH, elevated cholesterol, dietary indiscretion, congestive changes, can all cause resultant spenomegaly with component of hypersplenism. Has macrocytosis and will screen with megaloblastic and non megaloblastic etiologies . Will check with HEENA, rheumatoid factor ( RHEUMATOID ARTHRITIS, SPLENOMEGALY- FELTY'S) Check LDH, beta-2 microglobulin , ESR Was seen at [facility] and speak with oncologist and see what prior work up had been performed Additional problems, _COPD, H/O DVT/PE/obesity/DM/HBP/HPL/. OBJECTIVE: ASSESSMENT AND PLAN:
--- NOTE | 2018-10-12 21:00 | PN ---
Teaching Attending Note Name of Resident: Nikkie Nicholson ATTENDING PHYSICIAN STATEMENT I saw and evaluated the patient. I reviewed the resident's note and discussed the case with the resident. I agree with the resident's findings and plan as documented. SUBJECTIVE: Patient continues to have shortness of breath. OBJECTIVE: Vital Signs Temperature 97.8 F 10/12/18 20:00 Pulse Rate 70 10/12/18 20:00 Respiratory Rate 18 10/12/18 20:00 Blood Pressure 146/74 10/12/18 20:00 O2 Sat by Pulse Oximetry (%) 95 10/12/18 20:02 GENERAL: The patient is awake, alert, and fully oriented, in no acute distress. HEAD: Normal with no signs of trauma. Facial flushing EYES: PERRL, extraocular movements intact, sclera anicteric, conjunctiva clear. . ENT: Ears normal, oropharynx clear without exudates, moist mucous membranes. NECK: Trachea midline, full range of motion, supple. LUNGS: decreased Breath sounds bl, no wheezes, no crackles, mild accessory muscle use. HEART: Regular rate and rhythm, S1, S2 without murmur, rub or gallop. ABDOMEN: Soft, nontender, nondistended, normoactive bowel sounds, no guarding, no rebound, no hepatosplenomegaly, no masses. EXTREMITIES: 2+ pulses, warm, well-perfused, no edema. NEUROLOGICAL: Cranial nerves II through XII grossly intact. Normal speech, gait is stable. PSYCH: Normal mood, normal affect. SKIN: Warm, dry, normal turgor, no rashes or lesions noted CBCD WBC 2.6 K/mm3 (4.0-10.0) L 10/11/18 06:00 RBC 3.85 M/mm3 (4.00-5.60) L 10/11/18 06:00 Hgb 13.0 GM/dL (11.7-16.9) 10/11/18 06:00 Hct 38.8 % (35.4-49) 10/11/18 06:00 MCV 100.9 fl (80-96) H 10/11/18 06:00 MCHC 33.4 g/dl (32.0-35.9) 10/11/18 06:00 RDW 14.2 % (11.9-15.9) 10/11/18 06:00 Plt Count 54 K/MM3 (134-434) L 10/11/18 06:00 MPV 9.7 fl (7.5-11.1) 10/11/18 06:00 CMP Sodium 140 mmol/L (136-145) 10/11/18 06:00 Potassium 4.1 mmol/L (3.5-5.1) 10/11/18 06:00 Chloride 107 mmol/L (98-107) 10/11/18 06:00 Carbon Dioxide 27 mmol/L (21-32) 10/11/18 06:00 Anion Gap 6 MMOL/L (8-16) L 10/11/18 06:00 BUN 32 mg/dL (7-18) H 10/11/18 06:00 Creatinine 0.9 mg/dL (0.55-1.3) 10/11/18 06:00 Creat Clearance w eGFR 86.37 (>60) 10/11/18 06:00 Random Glucose 172 mg/dL (74-106) H 10/11/18 06:00 Calcium 8.2 mg/dL (8.5-10.1) L 10/11/18 06:00 Total Bilirubin 0.6 mg/dL (0.2-1) 10/11/18 06:00 AST 19 U/L (15-37) 10/11/18 06:00 ALT 33 U/L (13-61) 10/11/18 06:00 Alkaline Phosphatase 50 U/L (45-117) 10/11/18 06:00 Total Protein 6.9 g/dl (6.4-8.2) 10/11/18 06:00 Albumin 3.3 g/dl (3.4-5.0) L 10/11/18 06:00 CARDIAC ENZYMES Creatine Kinase 82 U/L (26-308) 10/06/18 23:55 Troponin I 0.02 ng/ml (0.00-0.05) 10/07/18 05:30 Current Medications Generic Name Dose Route Start Last Admin Trade Name Freq PRN Reason Stop Dose Admin Acetaminophen 650 mg 10/08/18 21:16 10/09/18 15:41 Tylenol - PO 650 mg Q6H PRN Administration PAIN Albuterol Sulfate 1 amp 10/08/18 07:57 10/09/18 06:00 Ventolin 0.083% Nebulizer Soln - NEB 1 amp Q4H PRN Administration SHORT OF BREATH/WHEEZING Albuterol/Ipratropium 1 amp 10/12/18 08:00 10/12/18 17:10 Duoneb - NEB 1 amp RQID DANNY Administration Amlodipine Besylate 5 mg 10/08/18 21:15 10/12/18 10:07 Norvasc - PO 5 mg DAILY DANNY Administration Apixaban 2.5 mg 10/12/18 22:00 Eliquis - PO BID DANNY Atorvastatin Calcium 40 mg 10/08/18 22:00 10/11/18 21:39 Lipitor - PO 40 mg HS DANNY Administration Benzocaine/Menthol 1 each 10/11/18 11:38 Cepacol Lozenge - MM PRN PRN SORE THROAT Budesonide/Formoterol Fumarate 2 puff 10/08/18 12:00 10/12/18 10:11 Symbicort 160/4.5mcg - IH 2 puff BID DANNY Administration Furosemide 40 mg 10/10/18 09:15 10/12/18 10:07 Lasix - PO 40 mg DAILY DANNY Administration Guaifenesin/Codeine Phosphate 15 ml 10/12/18 10:19 Robitussin Ac - PO Q6H PRN COUGH Insulin Aspart 1 vial 10/08/18 11:00 10/12/18 17:09 Novolog Vial Sliding Scale - SQ 4 units ACHS DANNY Administration Protocol Lidocaine 2 patch 10/08/18 17:00 10/12/18 10:07 Lidoderm Patch - TP 2 patch DAILY DANNY Administration Methylprednisolone Sodium Succinate 40 mg 10/10/18 09:16 10/12/18 17:08 Solu-Medrol - IVPUSH 40 mg Q8H-IV DANNY Administration Metoprolol Succinate 100 mg 10/11/18 10:00 10/12/18 10:07 Toprol Xl - PO 100 mg DAILY DANNY Administration Miscellaneous 2 each 10/08/18 22:00 10/11/18 21:39 Lidoderm Patch Removal MC Not Given DAILY@2200 DANNY Nicotine 14 mg 10/08/18 10:00 10/12/18 10:07 Nicoderm Patch - TD 14 mg DAILY DANNY Administration Home Medications Medication Instructions Recorded metFORMIN HCL [Metformin HCl] 500 mg PO BID #14 tablet 07/05/17 Folic Acid - 1 mg PO DAILY #30 tablet 10/15/17 Lisinopril [Prinivil] 20 mg PO DAILY #30 tablet 10/15/17 Apixaban [Eliquis] 2.5 mg PO BID #60 tablet 12/14/17 Metoprolol Succinate [Toprol XL -] 50 mg PO DAILY #30 tab.sr.24h 12/14/17 Acetaminophen [Tylenol 8 Hour] 1,300 mg PO Q8H PRN 10/07/18 Atorvastatin Ca [Lipitor] 10 mg PO HS 10/07/18 Celecoxib [Celebrex] 400 mg PO DAILY PRN 10/07/18 Furosemide [Lasix] 40 mg PO DAILY 10/07/18 Gabapentin 600 mg PO TID 10/07/18 Oxycodone HCl/Acetaminophen 1 each PO Q8H PRN 10/07/18 [Oxycodon-Acetaminophen 7.5-325] Sertraline HCl 50 mg PO DAILY 10/07/18 CTA: No evidence of pulmonary embolism. Mild chronic lung disease with no evidence of acute pathology within the chest. -LE Duplex: No evidence of deep venous thrombosis. -EKG: NSR, LAE, VR 82, QTc 450 -ECHO: LV Size function thickness are normal. Mild MR. Mild valvular ASSESSMENT AND PLAN: Patient is a 58yo male with PMHx R popliteral DVT (now on eliquis), prior PE, CHF, HTN, HLD, NIDDM, presented after sudden onset SOB and diffuse CP #SOB with cough improving ,will discontinue Lisinopril since patient has continues cough, COPD exacerbation will continue the treatment, CTA was done negative for PE. continue meds. pulmonary consult. continue oxygen #Hx of DVT/ PE: on Apixaban 2.5mg PO BID since patient has thrombocytopenia # Thrombocytopenia /leukopenia oncology on the case , will check HEENA, rheumatoid factor ( RHEUMATOID ARTHRITIS, SPLENOMEGALY-FELTY'S) Check LDH, beta-2 microglobulin , ESR, oncology will investigate further, will get infos.from [facility] and speak with oncologist and see what prior work up had been performed. #Hx of CHF continue meds, increased lasix to 40mg daily #Hx of HTN: contine meds #Hx of HLD continue meds #Hx of NIDDM: ISS BGMs ACHS #B/L Knee Pain: with OA; Lidocaine patch to each knee Dvt Px: Apixaban if stable ,patient can be discharged to rehab. to [facility], accepted.
[2018-10-12] MEDS: ATORVASTATIN CA 10 MG TABLET (FP) PO SCH (21:36)
[2018-10-12] MEDS: guaiFENesin/CODEINE 10 ML UNIT-DOSE CUPS PO PRN (21:39)
[2018-10-12] MEDS: LIDOCAINE PATCH REMOVAL MC SCH (21:42)
[2018-10-12] MEDS ORDERED: PT OWN MED DRAWER 7, Y5N ONE (22:35)
[2018-10-13] MEDS: ALBUTEROL SO4 0.083% IH SOL 2.5 MG/3 ML VIAL.NEB. NEB PRN (01:00)
[2018-10-13] MEDS: methylPREDNISolone NA SUCC 40 MG/1 ML VIAL IVPUSH SCH ×2 (01:08→10:59)
[2018-10-13] MEDS: INSULIN SLIDING SCALE (NOVOLOG) 1 VIAL SQ SCH ×4 (06:13→22:12)
[2018-10-13 06:45] LABS: RETICULOCYTES 1.99 % (0.5-1.5)
[2018-10-13] MEDS: ALBUTEROL SO4 2.5/IPRATROPIUM 0.5 INH SOL 3 ML VIAL.NEB. NEB SCH ×4 (07:46→20:30)
[2018-10-13 08:02] LABS: LDH 141 U/L (87-246)
[2018-10-13 09:55] LABS: BASO % 0.1 % (0-2.0); HEMATOCRIT 43.3 % (35.4-49); HEMOGLOBIN 14.7 GM/dL (11.7-16.9); LYMPH % 8.4 % (8-40); MCH 33.9 pg (25.7-33.7); MCHC 33.9 g/dl (32.0-35.9); MONO % 5.1 % (3.8-10.2); NEUT % 86.4 % (42.8-82.8); PLATELET COUNT 53 K/MM3 (134-434); RBC 4.33 M/mm3 (4.00-5.60); RDW 14.2 % (11.9-15.9)
[2018-10-13] MEDS ORDERED: PT OWN MED DRAWER 7, Y5N ONE (10:54)
[2018-10-13] MEDS: amLODIPine BESYLATE 5 MG TABLET (FP) PO SCH (10:59)
[2018-10-13] MEDS: LIDOCAINE 5% TOPICAL PATCH TP SCH (10:59)
[2018-10-13] MEDS: guaiFENesin/CODEINE 10 ML UNIT-DOSE CUPS PO PRN ×2 (10:59→22:13)
[2018-10-13] MEDS: NICOTINE 14 MG/24 HOURS TOPICAL PATCH TD SCH (10:59)
[2018-10-13] MEDS: FUROSEMIDE 40 MG TABLET (FP) PO SCH (11:00)
[2018-10-13] MEDS: BUDESONIDE/FORMETEROL FUMARATE 160/4.5 mcg INHALER IH SCH ×2 (11:00→22:18)
[2018-10-13] MEDS: APIXABAN 5 MG TABLET PO SCH (11:05)
[2018-10-13] MEDS ORDERED: predniSONE 20 MG TABLET (UD) PO SCH (11:30)
--- NOTE | 2018-10-13 11:58 | PN ---
Progress Note (short form) - Note Progress Note: PULMONARY Still with shortness of breath, chest congestion and nonproductive cough but slowly improving Vital Signs Period Temp Pulse Resp BP Sys/Kelley Pulse Ox Last 24 Hr 97.6 F-98.0 F 58-95 18-22 131-149/59-87 95 Gen: NAD at rest Heart: RRR Lung: decreased breath sounds at the bases Abd: soft, nontender Ext: + edema CBC, BMP 10/13/18 05:30 10/11/18 06:00 Active Medications Acetaminophen (Tylenol -) 650 mg PO Q6H PRN PRN Reason: PAIN Last Admin: 10/09/18 15:41 Dose: 650 mg Albuterol Sulfate (Ventolin 0.083% Nebulizer Soln -) 1 amp NEB Q4H PRN PRN Reason: SHORT OF BREATH/WHEEZING Last Admin: 10/13/18 01:00 Dose: 1 amp Albuterol/Ipratropium (Duoneb -) 1 amp NEB RQID [facility] Last Admin: 10/13/18 07:46 Dose: Not Given Amlodipine Besylate (Norvasc -) 5 mg PO DAILY [facility] Last Admin: 10/13/18 10:59 Dose: 5 mg Apixaban (Eliquis -) 2.5 mg PO BID [facility] Atorvastatin Calcium (Lipitor -) 40 mg PO HS [facility] Last Admin: 10/12/18 21:36 Dose: 40 mg Benzocaine/Menthol (Cepacol Lozenge -) 1 each MM PRN PRN PRN Reason: SORE THROAT Budesonide/Formoterol Fumarate (Symbicort 160/4.5mcg -) 2 puff IH BID [facility] Last Admin: 10/13/18 11:00 Dose: 2 puff Furosemide (Lasix -) 40 mg PO DAILY [facility] Last Admin: 10/13/18 11:00 Dose: 40 mg Guaifenesin/Codeine Phosphate (Robitussin Ac -) 15 ml PO Q6H PRN PRN Reason: COUGH Last Admin: 10/13/18 10:59 Dose: 15 ml Insulin Aspart (Novolog Vial Sliding Scale -) 1 vial SQ ACHS [facility]; Protocol Last Admin: 10/13/18 06:13 Dose: 2 units Lidocaine (Lidoderm Patch -) 2 patch TP DAILY [facility] Last Admin: 10/13/18 10:59 Dose: 2 patch Metoprolol Succinate (Toprol Xl -) 100 mg PO DAILY [facility] Last Admin: 10/13/18 10:59 Dose: 100 mg Miscellaneous (Lidoderm Patch Removal) 2 each MC DAILY@2200 [facility] Last Admin: 10/12/18 21:42 Dose: Not Given Nicotine (Nicoderm Patch -) 14 mg TD DAILY [facility] Last Admin: 10/13/18 10:59 Dose: 14 mg Prednisone (Deltasone -) 60 mg PO DAILY [facility] A/P Acute COPD Exacerbation Chest Pain LV Diastolic Dysfunction h/o DVT/PE HTN DM Hyperlipidemia Smoker - agree with changing steroids to PO - inhaled bronchodilators - O2 to keep spO2 >90% - cough suppressant - continue anticoagulation - BiPAP at night as tolerated - smoking cessation discussed - outpt PFTs - DVT prophylaxis Problem List - Problems (1) COPD with acute exacerbation Code(s): J44.1 - CHRONIC OBSTRUCTIVE PULMONARY DISEASE W (ACUTE) EXACERBATION (2) Chest pain Code(s): R07.9 - CHEST PAIN, UNSPECIFIED Qualifiers: Chest pain type: unspecified Qualified Code(s): R07.9 - Chest pain, unspecified (3) Diabetes Code(s): E11.9 - TYPE 2 DIABETES MELLITUS WITHOUT COMPLICATIONS (4) HLD (hyperlipidemia) Code(s): E78.5 - HYPERLIPIDEMIA, UNSPECIFIED (5) HTN (hypertension) Code(s): I10 - ESSENTIAL (PRIMARY) HYPERTENSION
[2018-10-13 13:22] LABS: MACROCYTOSIS 1+; PLATELET ESTIMATE DECREASED; TEAR DROP CELLS 1+
--- NOTE | 2018-10-13 13:41 | PN ---
Physical Exam: SUBJECTIVE: Patient seen and examined this AM. Continues to have nonproductive cough and feels SOB however slowly improving. No acute events overnight. OBJECTIVE: Vital Signs Period Temp Pulse Resp BP Sys/Kelley Pulse Ox Last 24 Hr 97.6 F-98.0 F 58-95 18-22 131-149/59-87 95 GENERAL: A&Ox3, NAD HEAD: NCAT EYES: PERRL, EOMI NECK: Supple LUNGS: Coarse breath sounds throughout, no wheezes, no crackles HEART: Regular rate and rhythm, S1, S2 without murmur ABDOMEN: Obese, Soft, nontender, nondistended, + bowel sounds, no guarding EXTREMITIES: 1+ edema. NEUROLOGICAL: Cranial nerves II through XII grossly intact. SKIN: Warm, dry Laboratory Results - last 24 hr 10/13/18 10/13/18 10/13/18 05:30 05:30 05:30 WBC 3.0 L RBC 4.33 Hgb 14.7 Hct 43.3 MCV 100.0 H MCH 33.9 H MCHC 33.9 RDW 14.2 Plt Count 53 L MPV 10.0 Absolute Neuts (auto) 2.6 Neutrophils % 86.4 H Neutrophils % (Manual) 79.2 D Band Neutrophils % 1.0 Lymphocytes % 8.4 D Lymphocytes % (Manual) 8.9 D Monocytes % 5.1 Monocytes % (Manual) 6 D Eosinophils % 0.0 Eosinophils % (Manual) 0.0 D Basophils % 0.1 D Basophils % (Manual) 0.0 Myelocytes % (Man) 0 Promyelocytes % (Man) 0 Blast Cells % (Manual) 0 Nucleated RBC % 0 Metamyelocytes 1 D Hypochromia 0 Platelet Estimate Decreased Platelet Comment Present Polychromasia 1+ Poikilocytosis 1+ Macrocytosis 1+ Spherocytes 1+ Tear Drop Cells 1+ ESR 11 Retic Count 1.99 H D POC Glucometer LD Total 141 Vitamin B12 353 Serum Folate 29 H Rheumatoid Factor < 10.0 Active Medications Acetaminophen (Tylenol -) 650 mg PO Q6H PRN PRN Reason: PAIN Last Admin: 10/09/18 15:41 Dose: 650 mg Albuterol Sulfate (Ventolin 0.083% Nebulizer Soln -) 1 amp NEB Q4H PRN PRN Reason: SHORT OF BREATH/WHEEZING Last Admin: 10/13/18 01:00 Dose: 1 amp Albuterol/Ipratropium (Duoneb -) 1 amp NEB RQID [facility] Last Admin: 10/13/18 07:46 Dose: Not Given Amlodipine Besylate (Norvasc -) 5 mg PO DAILY [facility] Last Admin: 10/13/18 10:59 Dose: 5 mg Apixaban (Eliquis -) 2.5 mg PO BID [facility] Atorvastatin Calcium (Lipitor -) 40 mg PO HS [facility] Last Admin: 10/12/18 21:36 Dose: 40 mg Benzocaine/Menthol (Cepacol Lozenge -) 1 each MM PRN PRN PRN Reason: SORE THROAT Budesonide/Formoterol Fumarate (Symbicort 160/4.5mcg -) 2 puff IH BID [facility] Last Admin: 10/13/18 11:00 Dose: 2 puff Furosemide (Lasix -) 40 mg PO DAILY [facility] Last Admin: 10/13/18 11:00 Dose: 40 mg Guaifenesin/Codeine Phosphate (Robitussin Ac -) 15 ml PO Q6H PRN PRN Reason: COUGH Last Admin: 10/13/18 10:59 Dose: 15 ml Insulin Aspart (Novolog Vial Sliding Scale -) 1 vial SQ [facility]; Protocol Last Admin: 10/13/18 12:15 Dose: 8 units Lidocaine (Lidoderm Patch -) 2 patch TP DAILY [facility] Last Admin: 10/13/18 10:59 Dose: 2 patch Metoprolol Succinate (Toprol Xl -) 100 mg PO DAILY [facility] Last Admin: 10/13/18 10:59 Dose: 100 mg Miscellaneous (Lidoderm Patch Removal) 2 each MC DAILY@2200 [facility] Last Admin: 10/12/18 21:42 Dose: Not Given Nicotine (Nicoderm Patch -) 14 mg TD DAILY [facility] Last Admin: 10/13/18 10:59 Dose: 14 mg Prednisone (Deltasone -) 60 mg PO DAILY [facility] IMAGING: -CTA: No evidence of pulmonary embolism. Mild chronic lung disease with no evidence of acute pathology within the chest. -LE Duplex: No evidence of deep venous thrombosis. -Abdominal US: Hepatosplenomegaly. Slightly to moderately dense echotexture of the liver suggestive of fatty infiltration versus hepatocellular disease. -EKG: NSR, LAE, VR 82, QTc 450 -ECHO: LV Size function thickness are normal. Mild MR. Mild valvular ASSESSMENT/PLAN: 58 y/o M w/ PMHx R popliteral DVT (now on eliquis), prior PE, CHF, HTN, HLD, NIDDM, presented after sudden onset SOB and diffuse CP #SOB -Likely due to Acute COPD Exacerbation; Components of OHS, KOSATS -Bronchodilators--Albuterol Neb Q4H PRN, Albuterol/Ipratropium NEB Q4H, Budesonide/Formoterol -PO Prednisone 60mg daily -Guaifenesin/Codeine 15mL Q6H -NIPPV HS and PRN -Supplemental O2 to maintain SpO2 88-92% -Pulmonary consulted, appreciate rec's #Hx of Splenomegaly with subsequent leukopenia and thrombocytopenia -Hematology (Dr. Choudhury) consulted, Appreciate rec's, Bone marrow bx and further labwork up as per hematology -Abdominal US noted above. -Lab workup noted; JACKIE level pending approval #Hx of DVT/ PE -Apixaban 2.5mg PO BID #Hx of CHF, HTN, HLD -Atorvastatin 10mg HS, Furosemide 20mg PO daily, Amlodipine 5mg PO Daily, Metoprolol Succinate 100mg PO Daily -Hold lisinopril as this may be contributing to cough #Hx of NIDDM -ISS BGMs ACHS #B/L Knee Pain -Lidocaine patch #FEN -No standing fluids -Lytes WNL -Diabetic diet #PPx -DVT: Apixaban Dispo: Pending Placement Visit type - Emergency Visit Emergency Visit: Yes ED Registration Date: 10/08/18 Care time: The patient presented to the Emergency Department on the above date and was hospitalized for further evaluation of their emergent condition. - New Patient This patient is new to me today: No - Critical Care Critical Care patient: No - Discharge Referral Referred to [facility] Med P.C.: No
--- NOTE | 2018-10-13 14:12 | PN ---
Physical Exam: SUBJECTIVE: Patient seen and examined OBJECTIVE: Vital Signs Period Temp Pulse Resp BP Sys/Kelley Pulse Ox Last 24 Hr 97.6 F-98 F 58-70 18-22 131-146/59-87 95 GENERAL: Awake, alert, and fully oriented, in no acute distress. EYES: extraocular movements intact, sclera anicteric, conjunctiva clear EARS, NOSE, THROAT: Ears normal, nares patent NECK: Normal range of motion LUNGS: Breath sounds equal, clear to auscultation bilaterally. HEART: Regular rate and rhythm, normal S1 and S2 ABDOMEN: Soft, nontender, obese. Unable to palpate spleen due to body habitus. LOWER EXTREMITIES: warm, well-perfused. No peripheral edema. NEUROLOGICAL: Cranial nerves II-XII grossly intact. Normal speech. Gait not observed. PSYCHIATRIC: Cooperative. Good eye contact. Appropriate mood and affect. SKIN: Warm, dry Laboratory Results - last 24 hr 10/12/18 10/12/18 10/13/18 16:53 21:36 05:19 WBC RBC Hgb Hct MCV MCH MCHC RDW Plt Count MPV Absolute Neuts (auto) Neutrophils % Neutrophils % (Manual) Band Neutrophils % Lymphocytes % Lymphocytes % (Manual) Monocytes % Monocytes % (Manual) Eosinophils % Eosinophils % (Manual) Basophils % Basophils % (Manual) Myelocytes % (Man) Promyelocytes % (Man) Blast Cells % (Manual) Nucleated RBC % Metamyelocytes Hypochromia Platelet Estimate Platelet Comment Polychromasia Poikilocytosis Macrocytosis Spherocytes Tear Drop Cells ESR Retic Count POC Glucometer 226 273 184 LD Total Vitamin B12 Serum Folate Rheumatoid Factor 10/13/18 10/13/18 10/13/18 05:30 05:30 05:30 WBC 3.0 L RBC 4.33 Hgb 14.7 Hct 43.3 MCV 100.0 H MCH 33.9 H MCHC 33.9 RDW 14.2 Plt Count 53 L MPV 10.0 Absolute Neuts (auto) 2.6 Neutrophils % 86.4 H Neutrophils % (Manual) 79.2 D Band Neutrophils % 1.0 Lymphocytes % 8.4 D Lymphocytes % (Manual) 8.9 D Monocytes % 5.1 Monocytes % (Manual) 6 D Eosinophils % 0.0 Eosinophils % (Manual) 0.0 D Basophils % 0.1 D Basophils % (Manual) 0.0 Myelocytes % (Man) 0 Promyelocytes % (Man) 0 Blast Cells % (Manual) 0 Nucleated RBC % 0 Metamyelocytes 1 D Hypochromia 0 Platelet Estimate Decreased Platelet Comment Present Polychromasia 1+ Poikilocytosis 1+ Macrocytosis 1+ Spherocytes 1+ Tear Drop Cells 1+ ESR 11 Retic Count 1.99 H D POC Glucometer LD Total 141 Vitamin B12 353 Serum Folate 29 H Rheumatoid Factor < 10.0 10/13/18 12:12 WBC RBC Hgb Hct MCV MCH MCHC RDW Plt Count MPV Absolute Neuts (auto) Neutrophils % Neutrophils % (Manual) Band Neutrophils % Lymphocytes % Lymphocytes % (Manual) Monocytes % Monocytes % (Manual) Eosinophils % Eosinophils % (Manual) Basophils % Basophils % (Manual) Myelocytes % (Man) Promyelocytes % (Man) Blast Cells % (Manual) Nucleated RBC % Metamyelocytes Hypochromia Platelet Estimate Platelet Comment Polychromasia Poikilocytosis Macrocytosis Spherocytes Tear Drop Cells ESR Retic Count POC Glucometer 329 LD Total Vitamin B12 Serum Folate Rheumatoid Factor Active Medications Generic Name Dose Route Start Last Admin Trade Name Freq PRN Reason Stop Dose Admin Acetaminophen 650 mg 10/08/18 21:16 10/09/18 15:41 Tylenol - PO 650 mg Q6H PRN Administration PAIN Albuterol Sulfate 1 amp 10/08/18 07:57 10/13/18 01:00 Ventolin 0.083% Nebulizer Soln - NEB 1 amp Q4H PRN Administration SHORT OF BREATH/WHEEZING Albuterol/Ipratropium 1 amp 10/12/18 08:00 10/13/18 07:46 Duoneb - NEB Not Given RQID [facility] Amlodipine Besylate 5 mg 10/08/18 21:15 10/13/18 10:59 Norvasc - PO 5 mg DAILY [facility] Administration Apixaban 2.5 mg 10/13/18 11:44 Eliquis - PO BID [facility] Atorvastatin Calcium 40 mg 10/08/18 22:00 10/12/18 21:36 Lipitor - PO 40 mg HS [facility] Administration Benzocaine/Menthol 1 each 10/11/18 11:38 Cepacol Lozenge - MM PRN PRN SORE THROAT Budesonide/Formoterol Fumarate 2 puff 10/08/18 12:00 10/13/18 11:00 Symbicort 160/4.5mcg - IH 2 puff BID [facility] Administration Furosemide 40 mg 10/10/18 09:15 10/13/18 11:00 Lasix - PO 40 mg DAILY [facility] Administration Guaifenesin/Codeine Phosphate 15 ml 10/12/18 10:19 10/13/18 10:59 Robitussin Ac - PO 15 ml Q6H PRN Administration COUGH Insulin Aspart 1 vial 10/08/18 11:00 10/13/18 12:15 Novolog Vial Sliding Scale - SQ 8 units ACHS [facility] Administration Protocol Lidocaine 2 patch 10/08/18 17:00 10/13/18 10:59 Lidoderm Patch - TP 2 patch DAILY [facility] Administration Metoprolol Succinate 100 mg 10/11/18 10:00 10/13/18 10:59 Toprol Xl - PO 100 mg DAILY [facility] Administration Miscellaneous 2 each 10/08/18 22:00 10/12/18 21:42 Lidoderm Patch Removal MC Not Given DAILY@2200 [facility] Nicotine 14 mg 10/08/18 10:00 10/13/18 10:59 Nicoderm Patch - TD 14 mg DAILY [facility] Administration Prednisone 60 mg 10/13/18 16:00 Deltasone - PO DAILY [facility] ASSESSMENT/PLAN: 58 y/o M w/PMH of R popliteal DVT and PE (on eliquis), CHF, HTN, HLD, NIDDM, and currently homeless presented to the ER initially with CP and SOB and was found to be in COPD exacerbation. Heme consulted for pancytopenia. -Pancytopenia -Pt with splenomegaly on Chest CTA. -In 2017 imaging abd U/S: Hepatosplenomegaly. Dense echotexture of the liver consistent with fatty liver versus hepatocellular disease. -Has a history of alcohol abuse in the past from previous notes in chart. -Liver/Spleen Ultrasound: Hepatosplenomegaly. Slightly to moderately dense echotexture of the liver suggestive of fatty infiltration vs hepatocellular disease. Spleen 20.8 cm. -Hgb electrophoresis, HEENA, Hep panel, [id number], ESR pending -RF neg, LDH 141, Retic 2, ESR 11 -JACKIE level sent. Spoke with pathology (Dr. Ramos) and lab test approved. Paperwork faxed to pathology. -Consider Bone marrow biopsy with IR -Consider anti-mitochondrial ab, and anti-smooth muscle ab in the future as well for further w/u of liver pathology and GI. -Will get Flow cytometry, FISH, cytogenetics -Spoke with Dr. Lynn today who saw pt only once in April and had similar labs to those he has here and was recommended to get bone marrow biopsy but never followed up afterwards. (Labs Apr 2018: Folate 10, MMA 197, B12 240, Plts 88, Hgb 14.9, MCV 105.7) -History of DVT and PE -c/w eliquis 2.5 mg po bid -U/S B/L LE neg for DVT -Chest CTA neg for PE Visit type - Emergency Visit Emergency Visit: Yes ED Registration Date: 10/08/18 Care time: The patient presented to the Emergency Department on the above date and was hospitalized for further evaluation of their emergent condition. - New Patient This patient is new to me today: No - Critical Care Critical Care patient: No
[2018-10-13] MEDS: predniSONE 20 MG TABLET (UD) PO SCH (17:06)
--- NOTE | 2018-10-13 18:11 | PN ---
Progress Note (short form) - Note Progress Note: Patient seen and examined Underwent sono- little changed from 2017 Will obtain flow cytometry. If non revealing , would consider bone marrow. Likely diagnosis - cytopenias secondary to underlying liver disease and hypersplenism.
--- NOTE | 2018-10-13 19:19 | PN ---
Teaching Attending Note Name of Resident: Mago Lozano ATTENDING PHYSICIAN STATEMENT I saw and evaluated the patient. I reviewed the resident's note and discussed the case with the resident. I agree with the resident's findings and plan as documented. SUBJECTIVE: seen and examined, feeling well, no complaints, denies cp, sob, palpitations. OBJECTIVE: Vital Signs - 24 hr 10/12/18 10/12/18 10/13/18 20:00 20:02 06:59 Temperature 97.8 F 97.6 F Pulse Rate 70 58 L Respiratory 18 20 Rate Blood Pressure 146/74 144/64 O2 Sat by Pulse 95 Oximetry (%) 10/13/18 10/13/18 10/13/18 07:03 09:00 14:11 Temperature 97.7 F Pulse Rate 59 L Respiratory 20 18 Rate Blood Pressure 131/59 L O2 Sat by Pulse 97 97 Oximetry (%) 10/13/18 10/13/18 10/13/18 14:54 15:58 16:30 Temperature 98.1 F 97.6 F Pulse Rate 80 61 Respiratory 18 18 Rate Blood Pressure 140/78 O2 Sat by Pulse 93 L Oximetry (%) PHYSICAL EXAM: GENERAL: NAD CVS: S1S2, RRR, NO M/R/G LUNGS: CTA B/L, DECREASED AIR ENTRY AT BASES, UNLABORED ABDOMEN: Soft, NT/NS, NABS, no guarding, no rebound, no HSM EXTREMITIES: 2+ pulses, warm, no edema, chronic venous stasis changes Laboratory Last Values WBC 3.0 K/mm3 (4.0-10.0) L 10/13/18 05:30 RBC 4.33 M/mm3 (4.00-5.60) 10/13/18 05:30 Hgb 14.7 GM/dL (11.7-16.9) 10/13/18 05:30 Hct 43.3 % (35.4-49) 10/13/18 05:30 MCV 100.0 fl (80-96) H 10/13/18 05:30 MCH 33.9 pg (25.7-33.7) H 10/13/18 05:30 MCHC 33.9 g/dl (32.0-35.9) 10/13/18 05:30 RDW 14.2 % (11.9-15.9) 10/13/18 05:30 Plt Count 53 K/MM3 (134-434) L 10/13/18 05:30 MPV 10.0 fl (7.5-11.1) 10/13/18 05:30 Absolute Neuts (auto) 2.6 K/mm3 (1.5-8.0) 10/13/18 05:30 Neutrophils % 86.4 % (42.8-82.8) H 10/13/18 05:30 Neutrophils % (Manual) 79.2 % (42.8-82.8) D 10/13/18 05:30 Band Neutrophils % 1.0 % 10/13/18 05:30 Lymphocytes % 8.4 % (8-40) D 10/13/18 05:30 Lymphocytes % (Manual) 8.9 % (8-40) D 10/13/18 05:30 Monocytes % 5.1 % (3.8-10.2) 10/13/18 05:30 Monocytes % (Manual) 6 % (3.8-10.2) D 10/13/18 05:30 Eosinophils % 0.0 % (0-4.5) 10/13/18 05:30 Eosinophils % (Manual) 0.0 % (0-4.5) D 10/13/18 05:30 Basophils % 0.1 % (0-2.0) D 10/13/18 05:30 Basophils % (Manual) 0.0 % (0-2.0) 10/13/18 05:30 Myelocytes % (Man) 0 % (0-2) 10/13/18 05:30 Promyelocytes % (Man) 0 % (0-2) 10/13/18 05:30 Blast Cells % (Manual) 0 % (0-0) 10/13/18 05:30 Nucleated RBC % 0 % (0-0) 10/13/18 05:30 Metamyelocytes 1 % (0-2) D 10/13/18 05:30 Hypochromia 0 10/13/18 05:30 Platelet Estimate Decreased 10/13/18 05:30 Platelet Comment Present 10/13/18 05:30 Polychromasia 1+ 10/13/18 05:30 Poikilocytosis 1+ 10/13/18 05:30 Macrocytosis 1+ 10/13/18 05:30 Spherocytes 1+ 10/13/18 05:30 Tear Drop Cells 1+ 10/13/18 05:30 ESR 11 mm/hr (0-20) 10/13/18 05:30 Retic Count 1.99 % (0.5-1.5) H D 10/13/18 05:30 PT with INR 12.60 SEC (9.7-13.0) 10/06/18 23:55 INR 1.07 (0.83-1.09) 10/06/18 23:55 PTT (Actin FS) 36.3 SECONDS (25.2-36.5) 10/06/18 23:55 Sodium 140 mmol/L (136-145) 10/11/18 06:00 Potassium 4.1 mmol/L (3.5-5.1) 10/11/18 06:00 Chloride 107 mmol/L (98-107) 10/11/18 06:00 Carbon Dioxide 27 mmol/L (21-32) 10/11/18 06:00 Anion Gap 6 MMOL/L (8-16) L 10/11/18 06:00 BUN 32 mg/dL (7-18) H 10/11/18 06:00 Creatinine 0.9 mg/dL (0.55-1.3) 10/11/18 06:00 Creat Clearance w eGFR 86.37 (>60) 10/11/18 06:00 POC Glucometer 262 UNITS (80-120) 10/13/18 17:08 Random Glucose 172 mg/dL (74-106) H 10/11/18 06:00 Hemoglobin A1c % 5.9 % (4.2-6.3) 10/11/18 06:00 Calcium 8.2 mg/dL (8.5-10.1) L 10/11/18 06:00 Phosphorus 3.6 mg/dL (2.5-4.9) 10/08/18 06:30 Magnesium 2.2 mg/dL (1.8-2.4) 10/08/18 06:30 Total Bilirubin 0.6 mg/dL (0.2-1) 10/11/18 06:00 AST 19 U/L (15-37) 10/11/18 06:00 ALT 33 U/L (13-61) 10/11/18 06:00 Alkaline Phosphatase 50 U/L (45-117) 10/11/18 06:00 LD Total 141 U/L (87-246) 10/13/18 05:30 Creatine Kinase 82 U/L (26-308) 10/06/18 23:55 Troponin I 0.02 ng/ml (0.00-0.05) 10/07/18 05:30 B-Natriuretic Peptide 126.1 pg/ml (5-125) H 10/06/18 23:55 Total Protein 6.9 g/dl (6.4-8.2) 10/11/18 06:00 Albumin 3.3 g/dl (3.4-5.0) L 10/11/18 06:00 Vitamin B12 353 pg/ml (193-986) 10/13/18 05:30 Serum Folate 29 ng/mL (3.1-17.5) H 10/13/18 05:30 Rheumatoid Factor < 10.0 IU/mL (0-15) 10/13/18 05:30 Blood Type A POSITIVE 10/07/18 05:30 Antibody Screen Negative 10/06/18 23:55 Current Medications Generic Name Dose Route Start Last Admin Trade Name Freq PRN Reason Stop Dose Admin Acetaminophen 650 mg 10/08/18 21:16 10/09/18 15:41 Tylenol - PO 650 mg Q6H PRN Administration PAIN Albuterol Sulfate 1 amp 10/08/18 07:57 10/13/18 01:00 Ventolin 0.083% Nebulizer Soln - NEB 1 amp Q4H PRN Administration SHORT OF BREATH/WHEEZING Albuterol/Ipratropium 1 amp 10/12/18 08:00 10/13/18 15:59 Duoneb - NEB 1 amp RQID [facility]AN[facility] Administration Amlodipine Besylate 5 mg 10/08/18 21:15 10/13/18 10:59 Norvasc - PO 5 mg DAILY [facility] Administration Apixaban 2.5 mg 10/13/18 11:44 Eliquis - PO BID [facility] Atorvastatin Calcium 40 mg 10/08/18 22:00 10/12/18 21:36 Lipitor - PO 40 mg HS [facility] Administration Benzocaine/Menthol 1 each 10/11/18 11:38 Cepacol Lozenge - MM PRN PRN SORE THROAT Budesonide/Formoterol Fumarate 2 puff 10/08/18 12:00 10/13/18 11:00 Symbicort 160/4.5mcg - IH 2 puff BID [facility] Administration Furosemide 40 mg 10/10/18 09:15 10/13/18 11:00 Lasix - PO 40 mg DAILY [facility] Administration Guaifenesin/Codeine Phosphate 15 ml 10/12/18 10:19 10/13/18 10:59 Robitussin Ac - PO 15 ml Q6H PRN Administration COUGH Insulin Aspart 1 vial 10/08/18 11:00 10/13/18 17:10 Novolog Vial Sliding Scale - SQ 6 units ACHS D[facility]NY Administration Protocol Lidocaine 2 patch 10/08/18 17:00 10/13/18 10:59 Lidoderm Patch - TP 2 patch DAILY [facility] Administration Metoprolol Succinate 100 mg 10/11/18 10:00 10/13/18 10:59 Toprol Xl - PO 100 mg DAILY [facility] Administration Miscellaneous 2 each 10/08/18 22:00 10/12/18 21:42 Lidoderm Patch Removal MC Not Given DAILY@2200 [facility] Nicotine 14 mg 10/08/18 10:00 10/13/18 10:59 Nicoderm Patch - TD 14 mg DAILY [facility] Administration Prednisone 60 mg 10/13/18 16:00 10/13/18 17:06 Deltasone - PO 60 mg DAILY [facility] Administration ALL IMAGING REVIEWED ASSESSMENT AND PLAN: 58 year old male with PMHx R popliteral DVT (now on eliquis), prior PE, CHF, HTN , HLD, NIDDM, presented after sudden onset SOB and diffuse CP 1) COPD exacerbation-improved -c/w inhaled BD -PO steroids -mucolytics -BIPAP PRN and QHS -pul eval appreciated 2) Pancytopenia with a Hx of Splenomegaly and DVT/PE -undergoing heme/onc workup, likely needs BM biopsy -appreciate h/o recs -c/w Apixaban 3) Chronic CHF-c/w lasix, euvolemic 4) HTN-fairly controlled on current meds, holding aceI due to cough 5) HLD-statin 6) DM2-monitor BS and 7) Knee osteoarthritis-pain controlled with lidocaine DC planning to rehab once cleared by heme/onc
[2018-10-13] MEDS: ATORVASTATIN CA 10 MG TABLET (FP) PO SCH (22:11)
[2018-10-13] MEDS: LIDOCAINE PATCH REMOVAL MC SCH (22:11)
[2018-10-13] MEDS: APIXABAN 2.5 MG TABLET PO SCH (22:11)
[2018-10-14] MEDS: INSULIN SLIDING SCALE (NOVOLOG) 1 VIAL SQ SCH (06:49)
[2018-10-14 06:57] LABS: BASO % 0.1 % (0-2.0); HEMATOCRIT 45.2 % (35.4-49); HEMOGLOBIN 15.5 GM/dL (11.7-16.9); LYMPH % 9.8 % (8-40); MCH 34.1 pg (25.7-33.7); MCHC 34.3 g/dl (32.0-35.9); MEAN CELL VOLUME 99.4 fl (80-96); MEAN PLT VOLUME 9.9 fl (7.5-11.1); MONO % 7.8 % (3.8-10.2); NEUT % 82.3 % (42.8-82.8); PLATELET COUNT 55 K/MM3 (134-434); RBC 4.55 M/mm3 (4.00-5.60); RDW 14.1 % (11.9-15.9); WHITE BLOOD COUNT 4.2 K/mm3 (4.0-10.0)
[2018-10-14 07:12] LABS: HBSAG SCREEN Negative (Negative); HEP B CORE AB, TOT Negative (Negative)
[2018-10-14] MEDS: ALBUTEROL SO4 2.5/IPRATROPIUM 0.5 INH SOL 3 ML VIAL.NEB. NEB SCH ×2 (08:05→12:05)
[2018-10-14] MEDS ORDERED: PT OWN MED DRAWER 7, Y5N ONE (09:02)
[2018-10-14] MEDS: FUROSEMIDE 40 MG TABLET (FP) PO SCH (09:07)
[2018-10-14] MEDS: APIXABAN 2.5 MG TABLET PO SCH (09:07)
[2018-10-14] MEDS: predniSONE 20 MG TABLET (UD) PO SCH (09:07)
[2018-10-14] MEDS: LIDOCAINE 5% TOPICAL PATCH TP SCH (09:07)
[2018-10-14] MEDS: NICOTINE 14 MG/24 HOURS TOPICAL PATCH TD SCH (09:07)
[2018-10-14] MEDS: amLODIPine BESYLATE 5 MG TABLET (FP) PO SCH (09:07)
[2018-10-14] MEDS: guaiFENesin/CODEINE 10 ML UNIT-DOSE CUPS PO PRN (09:08)
[2018-10-14] MEDS: BUDESONIDE/FORMETEROL FUMARATE 160/4.5 mcg INHALER IH SCH (09:08)
--- NOTE | 2018-10-14 10:11 | PN ---
Progress Note (short form) - Note Progress Note: Used NIPPV for only about 1 hour due to cough. Ambulating in the hallway. Less shortness of breath and chest congestion. Slightly less cough. Intake & Output 10/11/18 10/12/18 10/13/18 10/14/18 23:59 23:59 23:59 23:59 Intake Total 2480 1979 161 Output Total 1900 Balance 580 1979 161 Weight 310 lb 308 lb 8 oz 293 lb 6 oz Last Vital Signs Temp Pulse Resp BP Pulse Ox 97.4 F L 50 L 20 147/89 98 10/14/18 07:03 10/14/18 07:03 10/14/18 07:03 10/14/18 07:03 10/14/18 08:01 Active Medications Acetaminophen (Tylenol -) 650 mg PO Q6H PRN PRN Reason: PAIN Last Admin: 10/09/18 15:41 Dose: 650 mg Albuterol Sulfate (Ventolin 0.083% Nebulizer Soln -) 1 amp NEB Q4H PRN PRN Reason: SHORT OF BREATH/WHEEZING Last Admin: 10/13/18 01:00 Dose: 1 amp Albuterol/Ipratropium (Duoneb -) 1 amp NEB RQID [facility] Last Admin: 10/14/18 08:05 Dose: 1 amp Amlodipine Besylate (Norvasc -) 5 mg PO DAILY [facility] Last Admin: 10/14/18 09:07 Dose: 5 mg Apixaban (Eliquis -) 2.5 mg PO BID [facility] Last Admin: 10/14/18 09:07 Dose: 2.5 mg Atorvastatin Calcium (Lipitor -) 40 mg PO HS [facility] Last Admin: 10/13/18 22:11 Dose: 40 mg Benzocaine/Menthol (Cepacol Lozenge -) 1 each MM PRN PRN PRN Reason: SORE THROAT Budesonide/Formoterol Fumarate (Symbicort 160/4.5mcg -) 2 puff IH BID [facility] Last Admin: 10/14/18 09:08 Dose: 2 puff Furosemide (Lasix -) 40 mg PO DAILY [facility] Last Admin: 10/14/18 09:07 Dose: 40 mg Guaifenesin/Codeine Phosphate (Robitussin Ac -) 15 ml PO Q6H PRN PRN Reason: COUGH Last Admin: 10/14/18 09:08 Dose: 15 ml Insulin Aspart (Novolog Vial Sliding Scale -) 1 vial SQ ACHS [facility]; Protocol Last Admin: 10/14/18 06:49 Dose: 2 units Lidocaine (Lidoderm Patch -) 2 patch TP DAILY [facility] Last Admin: 10/14/18 09:07 Dose: 2 patch Metoprolol Succinate (Toprol Xl -) 100 mg PO DAILY [facility] Last Admin: 10/14/18 09:07 Dose: 100 mg Miscellaneous (Lidoderm Patch Removal) 2 each MC DAILY@2200 [facility] Last Admin: 10/13/18 22:11 Dose: Not Given Nicotine (Nicoderm Patch -) 14 mg TD DAILY [facility] Last Admin: 10/14/18 09:07 Dose: 14 mg Prednisone (Deltasone -) 60 mg PO DAILY [facility] Last Admin: 10/14/18 09:07 Dose: 60 mg Gen: NAD at rest Heart: RRR Lung: scattered rhonchi, No expiratory wheeze appreciated Abd: soft, nontender Ext: + edema Laboratory Results - last 24 hr 10/13/18 10/13/18 10/13/18 05:30 05:30 05:30 WBC RBC Hgb Hct MCV MCH MCHC RDW Plt Count MPV Absolute Neuts (auto) Neutrophils % Neutrophils % (Manual) 79.2 D Band Neutrophils % 1.0 Lymphocytes % Lymphocytes % (Manual) 8.9 D Monocytes % Monocytes % (Manual) 6 D Eosinophils % Eosinophils % (Manual) 0.0 D Basophils % Basophils % (Manual) 0.0 Myelocytes % (Man) 0 Promyelocytes % (Man) 0 Blast Cells % (Manual) 0 Metamyelocytes 1 D Hypochromia 0 Platelet Estimate Decreased Platelet Comment Present Polychromasia 1+ Poikilocytosis 1+ Macrocytosis 1+ Spherocytes 1+ Tear Drop Cells 1+ POC Glucometer Hepatitis A Ab Total Negative Hep Bs Antigen Negative Hep Bs Antibody Non reactive Hep B Core Total Ab Negative Hep C Ab Diagnostic <0.1 10/13/18 10/13/18 10/13/18 12:12 17:08 21:51 WBC RBC Hgb Hct MCV MCH MCHC RDW Plt Count MPV Absolute Neuts (auto) Neutrophils % Neutrophils % (Manual) Band Neutrophils % Lymphocytes % Lymphocytes % (Manual) Monocytes % Monocytes % (Manual) Eosinophils % Eosinophils % (Manual) Basophils % Basophils % (Manual) Myelocytes % (Man) Promyelocytes % (Man) Blast Cells % (Manual) Metamyelocytes Hypochromia Platelet Estimate Platelet Comment Polychromasia Poikilocytosis Macrocytosis Spherocytes Tear Drop Cells POC Glucometer [phone] Hepatitis A Ab Total Hep Bs Antigen Hep Bs Antibody Hep B Core Total Ab Hep C Ab Diagnostic 10/14/18 10/14/18 05:30 06:06 WBC 4.2 RBC 4.55 Hgb 15.5 Hct 45.2 MCV 99.4 H MCH 34.1 H MCHC 34.3 RDW 14.1 Plt Count 55 L MPV 9.9 Absolute Neuts (auto) 3.5 Neutrophils % 82.3 Neutrophils % (Manual) Band Neutrophils % Lymphocytes % 9.8 Lymphocytes % (Manual) Monocytes % 7.8 Monocytes % (Manual) Eosinophils % 0.0 Eosinophils % (Manual) Basophils % 0.1 Basophils % (Manual) Myelocytes % (Man) Promyelocytes % (Man) Blast Cells % (Manual) Metamyelocytes Hypochromia Platelet Estimate Platelet Comment Polychromasia Poikilocytosis Macrocytosis Spherocytes Tear Drop Cells POC Glucometer 163 Hepatitis A Ab Total Hep Bs Antigen Hep Bs Antibody Hep B Core Total Ab Hep C Ab Diagnostic Problem List - Problems (1) COPD with acute exacerbation Code(s): J44.1 - CHRONIC OBSTRUCTIVE PULMONARY DISEASE W (ACUTE) EXACERBATION (2) Chest pain Code(s): R07.9 - CHEST PAIN, UNSPECIFIED Qualifiers: Chest pain type: unspecified Qualified Code(s): R07.9 - Chest pain, unspecified (3) Diabetes Code(s): E11.9 - TYPE 2 DIABETES MELLITUS WITHOUT COMPLICATIONS (4) HLD (hyperlipidemia) Code(s): E78.5 - HYPERLIPIDEMIA, UNSPECIFIED (5) HTN (hypertension) Code(s): I10 - ESSENTIAL (PRIMARY) HYPERTENSION A/P Acute COPD Exacerbation Chest Pain LV Diastolic Dysfunction h/o DVT/PE HTN DM Hyperlipidemia Smoker Suspected OSAS Leukopenia: (?) Due to hyperspleenism - NIPPV as tolerated QHS and PRN - Prednisone - inhaled bronchodilators - O2 to keep spO2 >90% - cough suppressant - continue anticoagulation - smoking cessation discussed - outpt PFTs and sleep testing - DVT prophylaxis - Leukopenia workup per Raisa Castle
[2018-10-14 10:37] VITALS: BP 142/75; PULSE 63; TEMP 99.5
--- NOTE | 2018-10-14 11:02 | PN ---
Physical Exam: SUBJECTIVE: Patient seen and examined at bedside. No new complaints OBJECTIVE: Vital Signs Period Temp Pulse Resp BP Sys/Kelley Pulse Ox Last 24 Hr 97.4 F-99.5 F 50-80 14-20 134-147/75-92 93-98 GENERAL: The patient is awake, alert, and fully oriented, in no acute distress. HEAD: Normal with no signs of trauma. EYES: PERRL, extraocular movements intact, sclera anicteric, conjunctiva clear. No ptosis. ENT: Ears normal, nares patent, oropharynx clear without exudates, moist mucous membranes. NECK: Trachea midline, full range of motion, supple. LUNGS: Breath sounds equal, clear to auscultation bilaterally, no wheezes, no crackles, no accessory muscle use. HEART: Regular rate and rhythm, S1, S2 without murmur, rub or gallop. ABDOMEN: Soft, nontender, nondistended, normoactive bowel sounds, no guarding, no rebound, no hepatosplenomegaly, no masses. EXTREMITIES: 2+ pulses, warm, well-perfused, no edema. NEUROLOGICAL: Cranial nerves II through XII grossly intact. Normal speech, gait not observed. PSYCH: Normal mood, normal affect. SKIN: Warm, dry, normal turgor, no rashes or lesions noted Laboratory Results - last 24 hr 10/13/18 10/13/18 10/13/18 05:30 05:30 05:30 WBC RBC Hgb Hct MCV MCH MCHC RDW Plt Count MPV Absolute Neuts (auto) Neutrophils % Neutrophils % (Manual) 79.2 D Band Neutrophils % 1.0 Lymphocytes % Lymphocytes % (Manual) 8.9 D Monocytes % Monocytes % (Manual) 6 D Eosinophils % Eosinophils % (Manual) 0.0 D Basophils % Basophils % (Manual) 0.0 Myelocytes % (Man) 0 Promyelocytes % (Man) 0 Blast Cells % (Manual) 0 Metamyelocytes 1 D Hypochromia 0 Platelet Estimate Decreased Platelet Comment Present Polychromasia 1+ Poikilocytosis 1+ Macrocytosis 1+ Spherocytes 1+ Tear Drop Cells 1+ POC Glucometer Hepatitis A Ab Total Negative Hep Bs Antigen Negative Hep Bs Antibody Non reactive Hep B Core Total Ab Negative Hep C Ab Diagnostic <0.1 04/17/19 04/17/19 04/17/19 12:12 17:08 21:51 WBC RBC Hgb Hct MCV MCH MCHC RDW Plt Count MPV Absolute Neuts (auto) Neutrophils % Neutrophils % (Manual) Band Neutrophils % Lymphocytes % Lymphocytes % (Manual) Monocytes % Monocytes % (Manual) Eosinophils % Eosinophils % (Manual) Basophils % Basophils % (Manual) Myelocytes % (Man) Promyelocytes % (Man) Blast Cells % (Manual) Metamyelocytes Hypochromia Platelet Estimate Platelet Comment Polychromasia Poikilocytosis Macrocytosis Spherocytes Tear Drop Cells POC Glucometer [phone] Hepatitis A Ab Total Hep Bs Antigen Hep Bs Antibody Hep B Core Total Ab Hep C Ab Diagnostic 10/14/18 10/14/18 05:30 06:06 WBC 4.2 RBC 4.55 Hgb 15.5 Hct 45.2 MCV 99.4 H MCH 34.1 H MCHC 34.3 RDW 14.1 Plt Count 55 L MPV 9.9 Absolute Neuts (auto) 3.5 Neutrophils % 82.3 Neutrophils % (Manual) Band Neutrophils % Lymphocytes % 9.8 Lymphocytes % (Manual) Monocytes % 7.8 Monocytes % (Manual) Eosinophils % 0.0 Eosinophils % (Manual) Basophils % 0.1 Basophils % (Manual) Myelocytes % (Man) Promyelocytes % (Man) Blast Cells % (Manual) Metamyelocytes Hypochromia Platelet Estimate Platelet Comment Polychromasia Poikilocytosis Macrocytosis Spherocytes Tear Drop Cells POC Glucometer 163 Hepatitis A Ab Total Hep Bs Antigen Hep Bs Antibody Hep B Core Total Ab Hep C Ab Diagnostic Active Medications Generic Name Dose Route Start Last Admin Trade Name Freq PRN Reason Stop Dose Admin Acetaminophen 650 mg 10/08/18 21:16 10/09/18 15:41 Tylenol - PO 650 mg Q6H PRN Administration PAIN Albuterol Sulfate 1 amp 10/08/18 07:57 10/13/18 01:00 Ventolin 0.083% Nebulizer Soln - NEB 1 amp Q4H PRN Administration SHORT OF BREATH/WHEEZING Albuterol/Ipratropium 1 amp 10/12/18 08:00 10/14/18 08:05 Duoneb - NEB 1 amp RQID DANNY Administration Amlodipine Besylate 5 mg 10/08/18 21:15 10/14/18 09:07 Norvasc - PO 5 mg DAILY [facility]ANNY Administration Apixaban 2.5 mg 10/13/18 11:44 10/14/18 09:07 Eliquis - PO 2.5 mg BID DANNY Administration Atorvastatin Calcium 40 mg 10/08/18 22:00 10/13/18 22:11 Lipitor - PO 40 mg HS DANNY Administration Benzocaine/Menthol 1 each 10/11/18 11:38 Cepacol Lozenge - MM PRN PRN SORE THROAT Budesonide/Formoterol Fumarate 2 puff 10/08/18 12:00 10/14/18 09:08 Symbicort 160/4.5mcg - IH 2 puff BID DANNY Administration Furosemide 40 mg 10/10/18 09:15 10/14/18 09:07 Lasix - PO 40 mg DAILY [facility]ANNY Administration Guaifenesin/Codeine Phosphate 15 ml 10/12/18 10:19 10/14/18 09:08 Robitussin Ac - PO 15 ml Q6H PRN Administration COUGH Insulin Aspart 1 vial 10/08/18 11:00 10/14/18 06:49 Novolog Vial Sliding Scale - SQ 2 units ACHS DANNY Administration Protocol Lidocaine 2 patch 10/08/18 17:00 10/14/18 09:07 Lidoderm Patch - TP 2 patch DAILY [facility]ANNY Administration Metoprolol Succinate 100 mg 10/11/18 10:00 10/14/18 09:07 Toprol Xl - PO 100 mg DAILY [facility]ANNY Administration Miscellaneous 2 each 10/08/18 22:00 10/13/18 22:11 Lidoderm Patch Removal MC Not Given DAILY@2200 DANNY Nicotine 14 mg 10/08/18 10:00 10/14/18 09:07 Nicoderm Patch - TD 14 mg DAILY [facility]ANNY Administration Prednisone 60 mg 10/13/18 16:00 10/14/18 09:07 Deltasone - PO 60 mg DAILY DANNY Administration ASSESSMENT/PLAN: 58 y/o M w/PMH of R popliteal DVT and PE (on eliquis), CHF, HTN, HLD, NIDDM, and currently homeless presented to the ER initially with CP and SOB and was found to be in COPD exacerbation. Heme consulted for pancytopenia. -Pancytopenia -Pt with splenomegaly on Chest CTA. -In 2017 imaging abd U/S: Hepatosplenomegaly. Dense echotexture of the liver consistent with fatty liver versus hepatocellular disease. -Has a history of alcohol abuse in the past from previous notes in chart. -Liver/Spleen Ultrasound: Hepatosplenomegaly. Slightly to moderately dense echotexture of the liver suggestive of fatty infiltration vs hepatocellular disease. Spleen 20.8 cm. -Hgb electrophoresis, HEENA, Xtin-[id number] -RF neg, LDH 141, Retic 2, ESR 11 -JACKIE level sent. Spoke with pathology (Dr. Ramos) and lab test approved. Paperwork faxed to pathology. A/W results. -Consider Bone marrow biopsy with IR either as inpatient or as outpatient. Rec IR consult. -Consider anti-mitochondrial ab, and anti-smooth muscle ab in the future as well for further w/u of liver pathology and GI. -Will get Flow cytometry, FISH, cytogenetics. f/u results -Spoke with Dr. Lynn 10/13/18 who saw pt only once in April and had similar labs to those he has here and was recommended to get bone marrow biopsy but never followed up afterwards. (Labs Apr 2018: Folate 10, MMA 197, B12 240, Plts 88, Hgb 14.9, MCV 105.7) -History of DVT and PE -c/w eliquis 2.5 mg po bid -U/S B/L LE neg for DVT -Chest CTA neg for PE Visit type - Emergency Visit Emergency Visit: Yes ED Registration Date: 10/08/18 Care time: The patient presented to the Emergency Department on the above date and was hospitalized for further evaluation of their emergent condition. - New Patient This patient is new to me today: No - Critical Care Critical Care patient: No
--- NOTE | 2018-10-14 11:41 | PN ---
Teaching Attending Note Name of Resident: Nikkie Nicholson ATTENDING PHYSICIAN STATEMENT I saw and evaluated the patient. I reviewed the resident's note and discussed the case with the resident. I agree with the resident's findings and plan as documented. SUBJECTIVE: Patient has no complaints. OBJECTIVE: Vital Signs Period Temp Pulse Resp BP Sys/Kelley Pulse Ox Last 24 Hr 97.4 F-99.5 F 50-80 14-20 134-147/75-92 93-98 HEART: S1S2, RRR LUNGS: Clear with decreased BS ABDOMEN: Obese, soft, non-tender, non-distended, normal BS EXTREMITIES: No edema Laboratory Results - last 24 hr 10/13/18 10/13/18 10/13/18 05:30 05:30 05:30 WBC RBC Hgb Hct MCV MCH MCHC RDW Plt Count MPV Absolute Neuts (auto) Neutrophils % Neutrophils % (Manual) 79.2 D Band Neutrophils % 1.0 Lymphocytes % Lymphocytes % (Manual) 8.9 D Monocytes % Monocytes % (Manual) 6 D Eosinophils % Eosinophils % (Manual) 0.0 D Basophils % Basophils % (Manual) 0.0 Myelocytes % (Man) 0 Promyelocytes % (Man) 0 Blast Cells % (Manual) 0 Metamyelocytes 1 D Hypochromia 0 Platelet Estimate Decreased Platelet Comment Present Polychromasia 1+ Poikilocytosis 1+ Macrocytosis 1+ Spherocytes 1+ Tear Drop Cells 1+ POC Glucometer Hepatitis A Ab Total Negative Hep Bs Antigen Negative Hep Bs Antibody Non reactive Hep B Core Total Ab Negative Hep C Ab Diagnostic <0.1 10/13/18 10/13/18 10/13/18 12:12 17:08 21:51 WBC RBC Hgb Hct MCV MCH MCHC RDW Plt Count MPV Absolute Neuts (auto) Neutrophils % Neutrophils % (Manual) Band Neutrophils % Lymphocytes % Lymphocytes % (Manual) Monocytes % Monocytes % (Manual) Eosinophils % Eosinophils % (Manual) Basophils % Basophils % (Manual) Myelocytes % (Man) Promyelocytes % (Man) Blast Cells % (Manual) Metamyelocytes Hypochromia Platelet Estimate Platelet Comment Polychromasia Poikilocytosis Macrocytosis Spherocytes Tear Drop Cells POC Glucometer 329 262 262 Hepatitis A Ab Total Hep Bs Antigen Hep Bs Antibody Hep B Core Total Ab Hep C Ab Diagnostic 10/14/18 10/14/18 05:30 06:06 WBC 4.2 RBC 4.55 Hgb 15.5 Hct 45.2 MCV 99.4 H MCH 34.1 H MCHC 34.3 RDW 14.1 Plt Count 55 L MPV 9.9 Absolute Neuts (auto) 3.5 Neutrophils % 82.3 Neutrophils % (Manual) Band Neutrophils % Lymphocytes % 9.8 Lymphocytes % (Manual) Monocytes % 7.8 Monocytes % (Manual) Eosinophils % 0.0 Eosinophils % (Manual) Basophils % 0.1 Basophils % (Manual) Myelocytes % (Man) Promyelocytes % (Man) Blast Cells % (Manual) Metamyelocytes Hypochromia Platelet Estimate Platelet Comment Polychromasia Poikilocytosis Macrocytosis Spherocytes Tear Drop Cells POC Glucometer 163 Hepatitis A Ab Total Hep Bs Antigen Hep Bs Antibody Hep B Core Total Ab Hep C Ab Diagnostic Current Medications Generic Name Dose Route Start Last Admin Trade Name Freq PRN Reason Stop Dose Admin Acetaminophen 650 mg 10/08/18 21:16 10/09/18 15:41 Tylenol - PO 650 mg Q6H PRN Administration PAIN Albuterol Sulfate 1 amp 10/08/18 07:57 10/13/18 01:00 Ventolin 0.083% Nebulizer Soln - NEB 1 amp Q4H PRN Administration SHORT OF BREATH/WHEEZING Albuterol/Ipratropium 1 amp 10/12/18 08:00 10/14/18 08:05 Duoneb - NEB 1 amp RQID DANNY Administration Amlodipine Besylate 5 mg 10/08/18 21:15 10/14/18 09:07 Norvasc - PO 5 mg DAILY DANNY Administration Apixaban 2.5 mg 10/13/18 11:44 10/14/18 09:07 Eliquis - PO 2.5 mg BID DANNY Administration Atorvastatin Calcium 40 mg 10/08/18 22:00 10/13/18 22:11 Lipitor - PO 40 mg HS DANNY Administration Benzocaine/Menthol 1 each 10/11/18 11:38 Cepacol Lozenge - MM PRN PRN SORE THROAT Budesonide/Formoterol Fumarate 2 puff 10/08/18 12:00 10/14/18 09:08 Symbicort 160/4.5mcg - IH 2 puff BID DANNY Administration Furosemide 40 mg 10/10/18 09:15 10/14/18 09:07 Lasix - PO 40 mg DAILY DANNY Administration Guaifenesin/Codeine Phosphate 15 ml 10/12/18 10:19 10/14/18 09:08 Robitussin Ac - PO 15 ml Q6H PRN Administration COUGH Insulin Aspart 1 vial 10/08/18 11:00 10/14/18 06:49 Novolog Vial Sliding Scale - SQ 2 units ACHS DANNY Administration Protocol Lidocaine 2 patch 10/08/18 17:00 10/14/18 09:07 Lidoderm Patch - TP 2 patch DAILY [facility]ANNY Administration Metoprolol Succinate 100 mg 10/11/18 10:00 10/14/18 09:07 Toprol Xl - PO 100 mg DAILY DANNY Administration Miscellaneous 2 each 10/08/18 22:00 10/13/18 22:11 Lidoderm Patch Removal MC Not Given DAILY@2200 DANNY Nicotine 14 mg 10/08/18 10:00 10/14/18 09:07 Nicoderm Patch - TD 14 mg DAILY [facility]ANNY Administration Prednisone 60 mg 10/13/18 16:00 10/14/18 09:07 Deltasone - PO 60 mg DAILY DANNY Administration ASSESSMENT AND PLAN: This is a 58 year old man with a history of HTN, hyperlipidemia, type 2 DM, DVT , PE who presented to the ED with CP and SOB. 1. Acute exacerbation of COPD - Continue Prednisone, Symbicort, DuoNeb, albuterol as needed - Continue BiPAP at night and as needed 2. Leukopenia, thrombocytopenia - Secondary to liver disease, splenomegaly - WBC improved - Platelets stable - Work-up in progress - flow cytometry, possible bone marrow biopsy 3. History of DVT/PE - Continue Eliquis 4. HTN - Continue Norvasc, Toprol XL, Lasix 5. Hyperlipidemia - Continue Lipitor 6. Type 2 DM - Continue Novolog sliding scale 7. Osteoarthritis 8. Obesity with BMI 39.8 9. Disposition - Ok for discharge to [facility] today
--- NOTE | 2018-10-14 11:42 | DS ---
Physical Exam: SUBJECTIVE: Patient seen and examined this AM. Feels better since admission; SOB and edema have improved. No further episodes of chest pain. No acute events overnight. OBJECTIVE: Vital Signs Period Temp Pulse Resp BP Sys/Kelley Pulse Ox Last 24 Hr 97.4 F-99.5 F 50-80 14-20 134-147/75-92 93-98 PHYSICAL EXAM GENERAL: A&Ox3, NAD HEAD: NCAT EYES: PERRL, EOMI NECK: Supple LUNGS: Diminished breath sounds at the bases, no wheezes, no crackles HEART: Regular rate and rhythm, S1, S2 without murmur ABDOMEN: Obese, Soft, nontender, nondistended, + bowel sounds, no guarding EXTREMITIES: 1+ edema. NEUROLOGICAL: Cranial nerves II through XII grossly intact. SKIN: Warm, dry LABS Laboratory Last Values WBC 4.2 K/mm3 (4.0-10.0) 10/14/18 05:30 RBC 4.55 M/mm3 (4.00-5.60) 10/14/18 05:30 Hgb 15.5 GM/dL (11.7-16.9) 10/14/18 05:30 Hct 45.2 % (35.4-49) 10/14/18 05:30 MCV 99.4 fl (80-96) H 10/14/18 05:30 MCH 34.1 pg (25.7-33.7) H 10/14/18 05:30 MCHC 34.3 g/dl (32.0-35.9) 10/14/18 05:30 RDW 14.1 % (11.9-15.9) 10/14/18 05:30 Plt Count 55 K/MM3 (134-434) L 10/14/18 05:30 MPV 9.9 fl (7.5-11.1) 10/14/18 05:30 Absolute Neuts (auto) 3.5 K/mm3 (1.5-8.0) 10/14/18 05:30 Neutrophils % 82.3 % (42.8-82.8) 10/14/18 05:30 Neutrophils % (Manual) 79.2 % (42.8-82.8) D 10/13/18 05:30 Band Neutrophils % 1.0 % 10/13/18 05:30 Lymphocytes % 9.8 % (8-40) 10/14/18 05:30 Lymphocytes % (Manual) 8.9 % (8-40) D 10/13/18 05:30 Monocytes % 7.8 % (3.8-10.2) 10/14/18 05:30 Monocytes % (Manual) 6 % (3.8-10.2) D 10/13/18 05:30 Eosinophils % 0.0 % (0-4.5) 10/14/18 05:30 Eosinophils % (Manual) 0.0 % (0-4.5) D 10/13/18 05:30 Basophils % 0.1 % (0-2.0) 10/14/18 05:30 Basophils % (Manual) 0.0 % (0-2.0) 10/13/18 05:30 Myelocytes % (Man) 0 % (0-2) 10/13/18 05:30 Promyelocytes % (Man) 0 % (0-2) 10/13/18 05:30 Blast Cells % (Manual) 0 % (0-0) 10/13/18 05:30 Nucleated RBC % 0 % (0-0) 10/13/18 05:30 Metamyelocytes 1 % (0-2) D 10/13/18 05:30 Hypochromia 0 10/13/18 05:30 Platelet Estimate Decreased 10/13/18 05:30 Platelet Comment Present 10/13/18 05:30 Polychromasia 1+ 10/13/18 05:30 Poikilocytosis 1+ 10/13/18 05:30 Macrocytosis 1+ 10/13/18 05:30 Spherocytes 1+ 10/13/18 05:30 Tear Drop Cells 1+ 10/13/18 05:30 ESR 11 mm/hr (0-20) 10/13/18 05:30 Retic Count 1.99 % (0.5-1.5) H D 10/13/18 05:30 PT with INR 12.60 SEC (9.7-13.0) 10/06/18 23:55 INR 1.07 (0.83-1.09) 10/06/18 23:55 PTT (Actin FS) 36.3 SECONDS (25.2-36.5) 10/06/18 23:55 Sodium 140 mmol/L (136-145) 10/11/18 06:00 Potassium 4.1 mmol/L (3.5-5.1) 10/11/18 06:00 Chloride 107 mmol/L (98-107) 10/11/18 06:00 Carbon Dioxide 27 mmol/L (21-32) 10/11/18 06:00 Anion Gap 6 MMOL/L (8-16) L 10/11/18 06:00 BUN 32 mg/dL (7-18) H 10/11/18 06:00 Creatinine 0.9 mg/dL (0.55-1.3) 10/11/18 06:00 Creat Clearance w eGFR 86.37 (>60) 10/11/18 06:00 POC Glucometer 163 UNITS (80-120) 10/14/18 06:06 Random Glucose 172 mg/dL (74-106) H 10/11/18 06:00 Hemoglobin A1c % 5.9 % (4.2-6.3) 10/11/18 06:00 Calcium 8.2 mg/dL (8.5-10.1) L 10/11/18 06:00 Phosphorus 3.6 mg/dL (2.5-4.9) 10/08/18 06:30 Magnesium 2.2 mg/dL (1.8-2.4) 10/08/18 06:30 Total Bilirubin 0.6 mg/dL (0.2-1) 10/11/18 06:00 AST 19 U/L (15-37) 10/11/18 06:00 ALT 33 U/L (13-61) 10/11/18 06:00 Alkaline Phosphatase 50 U/L (45-117) 10/11/18 06:00 LD Total 141 U/L (87-246) 10/13/18 05:30 Creatine Kinase 82 U/L (26-308) 10/06/18 23:55 Troponin I 0.02 ng/ml (0.00-0.05) 10/07/18 05:30 B-Natriuretic Peptide 126.1 pg/ml (5-125) H 10/06/18 23:55 Total Protein 6.9 g/dl (6.4-8.2) 10/11/18 06:00 Albumin 3.3 g/dl (3.4-5.0) L 10/11/18 06:00 Vitamin B12 353 pg/ml (193-986) 10/13/18 05:30 Serum Folate 29 ng/mL (3.1-17.5) H 10/13/18 05:30 Rheumatoid Factor < 10.0 IU/mL (0-15) 10/13/18 05:30 Hepatitis A Ab Total Negative (Negative) 10/13/18 05:30 Hep Bs Antigen Negative (Negative) 10/13/18 05:30 Hep Bs Antibody Non reactive (.) 10/13/18 05:30 Hep B Core Total Ab Negative (Negative) 10/13/18 05:30 Hep C Ab Diagnostic <0.1 s/co ratio (0.0-0.9) 10/13/18 05:30 Blood Type A POSITIVE 10/07/18 05:30 Antibody Screen Negative 10/06/18 23:55 IMAGING: -CTA: No evidence of pulmonary embolism. Mild chronic lung disease with no evidence of acute pathology within the chest. -LE Duplex: No evidence of deep venous thrombosis. -Abdominal US: Hepatosplenomegaly. Slightly to moderately dense echotexture of the liver suggestive of fatty infiltration versus hepatocellular disease. -EKG: NSR, LAE, VR 82, QTc 450 -ECHO: LV Size function thickness are normal. Mild MR. Mild valvular HOSPITAL COURSE: Date of Admission:10/08/18 Date of Discharge: 10/14/18 58 y/o M w/ PMHx R popliteral DVT (now on eliquis), prior PE, CHF, HTN, HLD, NIDDM, presented after sudden onset SOB and diffuse CP. Initial concerns for PE and ACS were ruled out (See imaging and labs above). Patient was treated with a course if IV Steroids and Bronchodilators with which his SOB improved. Additionally NIPPV was used HS and PRN. Pulmonology was consulted; Upon discharge, patient was advised to follow up for outpatient PFTs, PSGs. Patients continued to have a nonproductive cough for which his JACKIE inhibitor was stopped and he was treated with Cough suppressant. He was found to have splenomegaly ( noted above) in the setting of Leukopenia, thrombocytopenia and macrocytosis. Hematology was consulted for possible Bone marrow biopsy and flow cytology to be done outpatient. Patient home medication regimen was optimized. Patient was discharged to rehab on a prednisone taper with strict instruction for physician follow up and medication compliance. Minutes to complete discharge: 36 Discharge Summary Reason For Visit: SHORTNESS OF BREATH,[ALPITATIONS,CHEST PAIN Current Active Problems COPD with acute exacerbation (Acute) Chest pain (Acute) Palpitations (Acute) Shortness of breath (Acute) Condition: Improved - Instructions Diet, Activity, Other Instructions: You were admitted to the hospital because you had worsening shortness of breath likely due to an exacerbation of your COPD. You were seen by a electric detector operator. We treated you with IV steroids, antibiotics, and a water pill; In addition you were placed on BIPAP periodically and your symptoms improved. Your are being discharged to Rehab. Medication Changes: 1. Continue using Symbicort Inhaler 2. Continue using Amlodipine (Norvasc) 5mg daily 3. Your Metoprolol Succinate (Toprol XL) dose is increased to 100mg Daily 4. Your lipitor dose was increased to 40mg daily 5. STOP USING YOUR LISINOPRIL as this may be contributing to your cough 6. Continue taking Apixaban (Eliquis) 2.5mg twice a day---this medication is a BLOOD THINNER---Please watch for any signs of bleeding including in your stool-- PLEASE CALL YOUR DOCTOR OR RETURN TO THE EMERGENCY ROOM IF YOU EXPERIENCE THIS 7. You are being discharged on a Steroid (Prednisone) taper is as follows 60mg daily for 2 days (10/15-10/16) 50mg daily for 2 days (10/17-10/18) 40mg daily for 2 days (10/19-10/20) 30mg daily for 2 days (10/21-10/22) 20mg daily for 2 days (10/23-10/24) 10mg daily for 2 days (10/25-10/26) Follow up with the following physicians: 1. PCP in one week 2. Pulmonology--Dr. Castle as you will need Pulmonary Function Tests 3. Follow up with Hematology/Oncology- Dr. Choudhury for flow cytometry and possible bone marrow biopsy. Continue all your other medications as prescribed Please return to the ER if you have any signs or symptoms of chest pain, shortness of breath, uncontrollable fever, chills, nausea, vomiting, numbness, tingling, or weakness in any part of your body, changes in vision, slurred speech, changes in speech/gait, or dizziness. Please return to the ER if symptoms persist, worsen, or new symptoms arise. Referrals: Edenilson Higgins MD [Staff Physician] - Tejas Castle MD [Staff Physician] - Rylan Choudhury MD [Staff Physician] - Disposition: [facility] - Home Medications Comprehensive Discharge Medication List: Ambulatory Orders metFORMIN HCL [Metformin HCl] 500 mg PO BID #14 tablet 07/05/17 Folic Acid - 1 mg PO DAILY #30 tablet 10/15/17 Apixaban [Eliquis] 2.5 mg PO BID #60 tablet 12/14/17 Celecoxib [Celebrex] 400 mg PO DAILY PRN 10/07/18 Furosemide [Lasix] 40 mg PO DAILY 10/07/18 Gabapentin 600 mg PO TID 10/07/18 Oxycodone HCl/Acetaminophen [Oxycodon-Acetaminophen 7.5-325] 1 each PO Q8H PRN 10/07/18 Sertraline HCl 50 mg PO DAILY 10/07/18 Albuterol 0.083% Nebulizer Deya [Ventolin 0.083% Nebulizer Soln -] 1 amp NEB Q4H PRN #1 amp 10/14/18 Amlodipine Besylate [Norvasc -] 5 mg PO DAILY #30 tablet 10/14/18 Atorvastatin Ca [Lipitor] 40 mg PO HS #30 tablet 10/14/18 Budesonide/Formeterol Fumarate [SYMBICORT 160/4.5mcg -] 2 puff IH BID #1 inhaler 10/14/18 Metoprolol Succinate [Toprol XL -] 100 mg PO DAILY #30 tab.sr.24h 10/14/18 Prednisone See Taper PO ASDIR #42 tablet 10/14/18 This patient is new to me today: Yes Date on this admission: 10/14/18 Emergency Visit: No Critical Care patient: No - Discharge Referral Referred to [facility] No
[2018-10-15 13:11] LABS: HGB SOLUBILITY Negative (Negative); Hgb A 98.2 % (96.4-98.8); Hgb C 0 % (0.0); Hgb F 0 % (0.0-2.0); Hgb S 0 % (0.0)
--- NOTE | 2018-10-15 17:34 | PATH ---
Surgical Pathology Report Patient Name: NATHALIE JORDAN [facility]. Rec. #: [id number] /Age/Gender: 1960 (Age: 58) / M Account: [id number] Location: [facility] MED/SURG Taken: 10/13/2018 Received: 10/14/2018 Reported: 10/15/2018 Physicians: Rylan Choudhury M.D. Specimen(s) Received PERIPHERAL BLOOD Clinical History Leukopenia, thrombocytopenia, rule out MDS Final Diagnosis MYELODYSPLASIA FISH PANEL [facility] and [facility] [place] shows the following: INTERPRETATION: No evidence of deletion 5q or monosomy 5 is present. No evidence of deletion 7q or monosomy 7 is present. No evidence of trisomy 8 (+8) is present. No evidence of deletion 13q14.2 is present. No evidence of rearrangement of 11q23. No evidence of a deletion of the p53 (17p13) locus. No evidence of deletion 20q12 is present See [facility] report ([id number]) for additional details. Electronically Signed Kiesha Kruger M.D. Addendum Reported: 10/19/2018 Addendum Diagnosis COMPREHENSIVE FLOW PANEL performed [facility] [place] shows the following: INTERPRETATION: In the samples analyzed, there is no evidence of B or T-cell proliferative disorders or increased blasts. COMMENT: Myelodysplastic syndromes may not display antigenic variation on the maturing myeloid component. Thus, they cannot be excluded by a normal flow study. Correlation with a comprehensive bone marrow morphologic examination and cytogenetic studies is recommended to definitely exclude or establish a diagnosis of myelodysplasia. See [facility] report ([id number]) for additional details. Hematologic FISH Report performed and interpreted at [facility] in [place], [place] ([id number]) shows the following. INTERPRETATION: No evidence of deletion 5q or monosomy 5 is present. No evidence of deletion 7q or monosomy 7 is present. No evidence of trisomy 8 (+8) is present. No evidence of deletion 13q14 is present. No evidence of a rearrangement of 11q23. No evidence of a deletion of the p53 (17p13) locus. No evidence of deletion 20q12 is present. Comments: The study is negative for many of the most common recurrent genetic abnormalities in Myelodysplastic Syndrome. Correlation with pending cytogenetics ([id number]) is recommended. Cristobal Junior M.D. Gross Description Received are 4 green top tubes of blood which are sent to [facility]. 10/14/2018 [facility]10/14/2018
== END 2018-10-14 12:12 | DRG 140 ==
LOC: JER 23:23 → JERBED 10-07 02:47 → J8W 10-07 15:02 → OBSVTOIN 10-08 15:46
PROVIDERS: ADMIT Internal Medicine; ATTEND Internal Medicine
DX: J44.1 Chronic obstructive pulmonary disease with (acute) exacerbation (principal); E11.9 Type 2 diabetes mellitus without complications; E78.5 Hyperlipidemia, unspecified; F41.9 Anxiety disorder, unspecified; R07.89 Other chest pain; F17.210 Nicotine dependence, cigarettes, uncomplicated; D72.819 Decreased white blood cell count, unspecified; E66.01 Morbid (severe) obesity due to excess calories; R16.1 Splenomegaly, not elsewhere classified; I11.0 Hypertensive heart disease with heart failure; D69.6 Thrombocytopenia, unspecified; Z68.41 Body mass index [BMI] 40.0-44.9, adult; E53.8 Deficiency of other specified B group vitamins; F10.10 Alcohol abuse, uncomplicated; M25.562 Pain in left knee; M25.561 Pain in right knee; K76.0 Fatty (change of) liver, not elsewhere classified; G47.33 Obstructive sleep apnea (adult) (pediatric); Z59.0 Homelessness; Z86.711 Personal history of pulmonary embolism; Z86.718 Personal history of other venous thrombosis and embolism
CPT/HCPCS: 36415; 71275-TC; 76700-TC; 80048; 80053; 82232; 82550; 82607; 82746; 82962; 83021; 83036; 83615; 83735; 83880; 84100; 84484; 85025; 85027; 85044; 85610; 85651; 85660; 85730; 86038; 86431; 86704; 86706; 86708; 86803; 86850; 86900; 86901; 87340; 88300-TC; 93005; 93010; 93306-TC; 93970-TC; 94640; 94660; 94761; 97116-GP; 97161-GP; 99284-25; G0378

== ENCOUNTER 2019-03-02 01:35 | Emergency (ER) | payer OTHER ==
[2019-03-02 04:25] VITALS: BMI 33.9
[2019-03-02 07:48] LABS: HEMATOCRIT 45.9 % (35.4-49); HEMOGLOBIN 15.5 GM/dL (11.7-16.9); MCH 34.4 pg (25.7-33.7); MCHC 33.8 g/dl (32.0-35.9); MEAN CELL VOLUME 101.9 fl (80-96); MEAN PLT VOLUME 9.3 fl (7.5-11.1); PLATELET COUNT 90 K/MM3 (134-434); RDW 15.2 % (11.9-15.9); WHITE BLOOD COUNT 5.1 K/mm3 (4.0-10.0)
[2019-03-02 08:03] LABS: ALBUMIN 3.6 g/dl (3.4-5.0); BILIRUBIN,TOTAL 0.6 mg/dL (0.2-1); BLOOD UREA NITROGEN 19.5 mg/dL (7-18); CALCIUM 9.4 mg/dL (8.5-10.1); CREATININE 1.1 mg/dL (0.55-1.3); POTASSIUM 4.1 mmol/L (3.5-5.1); TOT PROT 7.3 g/dl (6.4-8.2)
--- NOTE | 2019-03-02 08:13 | PDOC ---
Documentation entered by Areli Nunez SCRIBE, acting as scribe for Maykel Espinal MD. Maykel Espinal MD: This documentation has been prepared by the Enrique chakraborty Sammi, SCRIBE, under my direction and personally reviewed by me in its entirety. I confirm that the documentation accurately reflects all work, treatment, procedures, and medical decision making performed by me. History of Present Illness - General Chief Complaint: Alcohol intoxication Stated Complaint: E.T.O.H. 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 Pt states that his friend yesterday. He and his friends had a few drinks. Pt reports drinking 2 pints of Guinness and a few shots. Pt was subsequently [facility]. At time of my evaluation, pt has no complaints. Past History - Past Medical History Allergies/Adverse Reactions: Allergies Allergy/AdvReac Type Severity Reaction Status Date / Time erythromycin base Allergy Verified 03/02/19 04:25 Home Medications: Ambulatory Orders metFORMIN HCL [Metformin HCl] 500 mg PO BID #14 tablet 07/05/17 Folic Acid - 1 mg PO DAILY #30 tablet 10/15/17 Apixaban [Eliquis] 2.5 mg PO BID #60 tablet 12/14/17 Celecoxib [Celebrex] 400 mg PO DAILY PRN 10/07/18 Furosemide [Lasix] 40 mg PO DAILY 10/07/18 Gabapentin 600 mg PO TID 10/07/18 Oxycodone HCl/Acetaminophen [Oxycodon-Acetaminophen 7.5-325] 1 each PO Q8H PRN 10/07/18 Sertraline HCl 50 mg PO DAILY 10/07/18 Albuterol 0.083% Nebulizer Deya [Ventolin 0.083% Nebulizer Soln -] 1 amp NEB Q4H PRN #1 amp 10/14/18 Amlodipine Besylate [Norvasc -] 5 mg PO DAILY #30 tablet 10/14/18 Atorvastatin Ca [Lipitor] 40 mg PO HS #30 tablet 10/14/18 Budesonide/Formeterol Fumarate [SYMBICORT 160/4.5mcg -] 2 puff IH BID #1 inhaler 10/14/18 Metoprolol Succinate [Toprol XL -] 100 mg PO DAILY #30 tab.sr.24h 10/14/18 Prednisone See Taper PO ASDIR #42 tablet 10/14/18 Asthma: Yes Cardiac Disorders: Yes CVA: No COPD: Yes CHF: Yes DVT: No Diabetes: Yes HTN: Yes Hypercholesterolemia: Yes Psychiatric Problems: Yes (ANXEITY) - Immunization History Immunization Up to Date: Yes - Suicide/Smoking/Psychosocial Hx Smoking History: Current some day smoker Have you smoked in the past 12 months: Yes Number of Cigarettes Smoked Daily: 10 If you are a former smoker, when did you quit?: no Information on smoking cessation initiated: No 'Breaking Loose' booklet given: 11/09/17 Hx Alcohol Use: Yes Drug/Substance Use Hx: No (Denies) Substance Use Type: None Hx Substance Use Treatment: No Review of Systems - Review of Systems Comments:: 03/02/19 08:18 GENERAL/CONSTITUTIONAL: No fever or chills. No weakness. HEAD, EYES, EARS, NOSE AND THROAT: No change in vision. No ear pain or discharge. No sore throat. CARDIOVASCULAR: No chest pain, no shortness of breath, no loss of consciousness RESPIRATORY: No cough, wheezing, or hemoptysis. GASTROINTESTINAL: No nausea, vomiting, diarrhea or constipation. GENITOURINARY: No dysuria, frequency, or change in urination. MUSCULOSKELETAL: No joint or muscle swelling or pain. No neck or back pain. SKIN: No rash NEUROLOGIC: No vertigo, no change in strength/sensation. ENDOCRINE: No increased thirst. No abnormal weight change. HEMATOLOGIC/LYMPHATIC: No anemia, easy bleeding, or history of blood clots. ALLERGIC/IMMUNOLOGIC: No hives or skin allergy. *Physical Exam - Vital Signs Last Vital Signs Temp Pulse Resp BP Pulse Ox 97.8 F 86 18 110/76 96 03/02/19 04:35 03/02/19 04:35 03/02/19 04:35 03/02/19 04:35 03/02/19 04:35 - Physical Exam Comments: 03/02/19 08:18 GENERAL: Awake, alert, and fully oriented, in no acute distress. HEAD: No signs of trauma EYES: PERRLA, EOMI, sclera anicteric, conjunctiva clear ENT: Auricles normal inspection, hearing grossly normal, nares patent, oropharynx clear without exudates. Moist mucosa NECK: Nontender, no stepoffs, Normal ROM, supple, no lymphadenopathy, JVD, or masses LUNGS: Breath sounds equal, clear to auscultation bilaterally. No wheezes, and no crackles HEART: Regular rate and rhythm, normal S1 and S2, no murmurs, rubs or gallops ABDOMEN: Soft, nontender, normoactive bowel sounds. No guarding, no rebound. No masses EXTREMITIES: Normal range of motion, no edema. No clubbing or cyanosis. No cords, erythema, or tenderness NEUROLOGICAL: Cranial nerves II through XII intact. 5/5 strength and sensation in all extremities, Normal speech, normal gait, normal cerebellar function SKIN: Warm, Dry, normal turgor, no rashes or lesions noted. ED Treatment Course - LABORATORY CBC & Chemistry Diagram: 03/02/19 06:57 03/02/19 06:57 Medical Decision Making - Medical Decision Making 03/02/19 08:18 59 M sent from [place] for intoxication. Pt now clinically sober. Pt ambulatory in ED with steady gait. AnOx3. Denies SI/HI/AVH. Pt is well appearing, with normal vitals. Clinically stable for DC at this time. I discussed the physical exam findings, ancillary test results and final diagnoses with the patient. I answered all of the patient's questions. The patient was satisfied with the care received and felt comfortable with the discharge plan and treatment plan. The patient agrees to follow up with the primary care physician within 24-72 hours. *DC/Admit/Observation/Transfer Diagnosis at time of Disposition: Alcohol intoxication - Discharge Dispostion Disposition: HOME Condition at time of disposition: Fair - Referrals Referrals: Solis Robbins MD [Primary Care Provider] - - Patient Instructions Printed Discharge Instructions: DI for Alcohol Abuse Additional Instructions: Refrain from drinking excessively. If you experience chest pain, shortness of breath, abdominal pain, or any other concerning symptoms, return to the ER immediately. Otherwise, follow up with your primary doctor within 1 week. - Post Discharge Activity - Attestations Physician Attestion: 03/02/19 08:20 IDr. Maykel MD, attest that this document has been prepared under my direction and personally reviewed by me in its entirety. I further attest, that it accurately reflects all work, treatment, procedures and medical decision -making performed by me.
[2019-03-02 10:49] VITALS: BP 115/75; PULSE 79; TEMP 97.9
== END 2019-03-02 10:49 | disposition home or self-care (01) ==
LOC: JER 01:35
DX: F10.120 Alcohol abuse with intoxication, uncomplicated (principal); F17.210 Nicotine dependence, cigarettes, uncomplicated; F41.9 Anxiety disorder, unspecified; I10 Essential (primary) hypertension; J44.9 Chronic obstructive pulmonary disease, unspecified; I25.10 Atherosclerotic heart disease of native coronary artery without angina pectoris; E78.00 Pure hypercholesterolemia, unspecified
CPT/HCPCS: 36415; 80053; 80307; 85027; 99284-25

== ENCOUNTER 2019-07-10 09:41 | Emergency (ER) | payer OTHER ==
--- NOTE | 2019-07-10 09:54 | PDOC ---
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 He reports cough, congestion, intermittent wheezing, and tactile fevers/chills at home. He denies N/V/C/D, chest pain, trouble breathing, abdominal pain, or changes in sensation. Denies influenza vaccination this year. He has not tried taking anything for his symptoms. 07/10/19 10:01 Past History - Past Medical History Allergies/Adverse Reactions: Allergies Allergy/AdvReac Type Severity Reaction Status Date / Time erythromycin base Allergy Verified 03/02/19 04:25 Home Medications: Ambulatory Orders metFORMIN HCL [Metformin HCl] 500 mg PO BID #14 tablet 07/05/17 Folic Acid - 1 mg PO DAILY #30 tablet 10/15/17 Apixaban [Eliquis] 2.5 mg PO BID #60 tablet 12/14/17 Celecoxib [Celebrex] 400 mg PO DAILY PRN 10/07/18 Furosemide [Lasix] 40 mg PO DAILY 10/07/18 Gabapentin 600 mg PO TID 10/07/18 Oxycodone HCl/Acetaminophen [Oxycodon-Acetaminophen 7.5-325] 1 each PO Q8H PRN 10/07/18 Sertraline HCl 50 mg PO DAILY 10/07/18 Albuterol 0.083% Nebulizer Deya [Ventolin 0.083% Nebulizer Soln -] 1 amp NEB Q4H PRN #1 amp 10/14/18 Amlodipine Besylate [Norvasc -] 5 mg PO DAILY #30 tablet 10/14/18 Atorvastatin Ca [Lipitor] 40 mg PO HS #30 tablet 10/14/18 Budesonide/Formeterol Fumarate [SYMBICORT 160/4.5mcg -] 2 puff IH BID #1 inhaler 10/14/18 Metoprolol Succinate [Toprol XL -] 100 mg PO DAILY #30 tab.sr.24h 10/14/18 Prednisone See Taper PO ASDIR #42 tablet 10/14/18 Acetaminophen [Tylenol] 650 mg PO Q6H #30 tablet 07/10/19 Benzonatate [Tessalon Pearls -] 100 mg PO TID #21 capsule 07/10/19 levoFLOXacin [Levaquin -] 500 mg PO DAILY #7 tablet 07/10/19 Asthma: Yes Cardiac Disorders: Yes CVA: No COPD: Yes CHF: Yes DVT: No Diabetes: Yes HTN: Yes Hypercholesterolemia: Yes Psychiatric Problems: Yes (ANXEITY) - Immunization History Immunization Up to Date: Yes - Psycho Social/Smoking Cessation Hx Smoking History: Current some day smoker Have you smoked in the past 12 months: Yes Number of Cigarettes Smoked Daily: 10 If you are a former smoker, when did you quit?: no 'Breaking Loose' booklet given: 11/09/17 Hx Alcohol Use: Yes Drug/Substance Use Hx: No (Denies) Substance Use Type: None Hx Substance Use Treatment: No Review of Systems - Review of Systems Able to Perform ROS?: Yes Comments:: GENERAL/CONSTITUTIONAL: +fevers/chills. No weakness HEAD, EYES, EARS, NOSE AND THROAT: No change in vision. No change in hearing. + sore throat CARDIOVASCULAR: No chest pain RESPIRATORY: + cough, denies hemoptysis GASTROINTESTINAL: No nausea, vomiting, diarrhea or constipation GENITOURINARY: No dysuria, frequency, or change in urination MUSCULOSKELETAL: No joint or muscle swelling or pain. No neck or back pain SKIN: No rash NEUROLOGIC: No headache, vertigo, loss of consciousness, or change in strength/ sensation ENDOCRINE: No increased thirst. No abnormal weight change HEMATOLOGIC/LYMPHATIC: +history of DVT (historic/resolved); + eliquis ALLERGIC/IMMUNOLOGIC: No hives or skin allergy 07/10/19 09:59 Is the patient limited Czech proficient: No *Physical Exam - Vital Signs Initial Vital Signs Temp Pulse Resp BP Pulse Ox 101.8 F H 92 H 19 141/72 96 07/10/19 09:57 07/10/19 09:57 07/10/19 09:57 07/10/19 09:57 07/10/19 09:57 07/10/19 09:59 - Physical Exam GENERAL: Awake, alert, and oriented to person/place/time, in no acute distress HEAD: No signs of trauma, normoc ephalic, atraumatic EYES: PERRLA, EOMI, sclera anicteric, conjunctiva clear ENT: Hearing grossly normal, nares patent, oropharynx clear without exudates. Moist mucosa LUNGS: No distress, speaks in full sentences, clear to auscultation bilaterally HEART: Regular rate and rhythm, normal S1 and S2, no murmurs appreciated, peripheral pulses normal and equal bilaterally ABDOMEN: Soft, nontender, normoactive bowel sounds. No guarding, no rebound EXTREMITIES: Normal inspection, Normal range of motion, no edema. No clubbing or cyanosis NEUROLOGICAL: Cranial nerves II through XII grossly intact. Normal speech, normal gait, no focal sensorimotor deficits SKIN: Warm, Dry ED Treatment Course - LABORATORY CBC & Chemistry Diagram: 07/10/19 09:50 07/10/19 09:50 - RADIOLOGY Radiograph Interpretation: RAD/CHEST PA & LAT 3 views of the chest reveal some degenerative changes with wedging, clear well- expanded lungs, normal mediastinum and sharp angles. Soft tissues are intact. An acute process is not seen. Impression: No acute chest pathology. 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 ED Course Labs sent Tylenol for fever IVF CXR ECG 07/10/19 10:03 No leukocytosis No anemia Lytes unremarkable No DEONTE LFTs unremarkable LA 2.1 noted, pt receiving IVF Trop I neg CXR w/o focal PNA Temperature improving, T 100.8 Pt feels improved s/p nebs Will give Levaquin 500mg PO once here and Rx for same for 1 week as pt lives in assisted living and is at higher risk for developing HCAP 07/10/19 11:13 UA w/o evidence of UTI Rx for Tylenol, Tessalon perles, and Levofloxacin sent to pt's pharmacy Plan for D/C w/ PCP f/u Discharge instructions and return precautions given Patient in agreement and verbalized understanding Dispo: Home 07/10/19 12:29 Discharge - Discharge Information Problems reviewed: Yes Clinical Impression/Diagnosis: Cough URI (upper respiratory infection) Qualifiers: URI type: unspecified URI Qualified Code(s): J06.9 - Acute upper respiratory infection, unspecified Condition: Stable Disposition: HOME - Admission No - Additional Discharge Information Prescriptions: Acetaminophen [Tylenol] 650 mg PO Q6H #30 tablet Benzonatate [Tessalon Pearls -] 100 mg PO TID #21 capsule levoFLOXacin [Levaquin -] 500 mg PO DAILY #7 tablet - Follow up/Referral Referrals: Solis Robbins MD [Non Staff, Medical] - - Patient Discharge Instructions Patient Printed Discharge Instructions: How to Avoid a Cold or Flu, DI for Acute Bronchitis Additional Instructions: You were seen in the Emergency Department for evaluation of cough with fevers/ chills. Your symptoms are likely due to a virus versus a bacterial infection. You were treated with nebulizers and Levofloxacin. A prescription for Levofloxacin was sent to your pharmacy. Take daily for 7 days. Review the handout provided at discharge. Follow up with your primary care physician within the next week Return to the Emergency Department if you develop fevers, chest pain, trouble breathing, worsening pain, change in sensation, worsening symptoms, or any new/ concerning symptoms. - Post Discharge Activity
[2019-07-10] MEDS ORDERED: ACETAMINOPHEN 325 MG TABLET (FP) PO ONE (09:58)
[2019-07-10] MEDS ORDERED: ACETAMINOPHEN 325 MG TABLET (FP) ONE (10:03)
[2019-07-10 10:07] VITALS: BMI 42.4
[2019-07-10 10:07] LABS: VENOUS PC02 36.3 mmHg (38-52); VENOUS PH 7.41 (7.31-7.41)
[2019-07-10 10:10] LABS: VENOUS PO2 < 49 mmHg (28-48)
[2019-07-10 10:14] LABS: BASO % 0.4 % (0-2.0); EOS % 0.3 % (0-4.5); HEMATOCRIT 48.1 % (35.4-49); LYMPH % 7.3 % (8-40); MCH 33.2 pg (25.7-33.7); MCHC 33.3 g/dl (32.0-35.9); MEAN CELL VOLUME 99.5 fl (80-96); MEAN PLT VOLUME 9.7 fl (7.5-11.1); MONO % 5.7 % (3.8-10.2); NEUT % 86.3 % (42.8-82.8); PLATELET COUNT 71 K/MM3 (134-434); RBC 4.83 M/mm3 (4.00-5.60); WHITE BLOOD COUNT 5.3 K/mm3 (4.0-10.0)
[2019-07-10 10:37] LABS: ALBUMIN 3.5 g/dl (3.4-5.0); BILIRUBIN,TOTAL 0.8 mg/dL (0.2-1); BLOOD UREA NITROGEN 18.7 mg/dL (7-18); CALCIUM 8.9 mg/dL (8.5-10.1); CREATININE 1.1 mg/dL (0.55-1.3); POTASSIUM 3.6 mmol/L (3.5-5.1); TOT PROT 7.4 g/dl (6.4-8.2)
[2019-07-10] MEDS ORDERED: ALBUTEROL SO4 2.5/IPRATROPIUM 0.5 INH SOL 3 ML VIAL.NEB. NEB ONE (10:43)
[2019-07-10] MEDS: ALBUTEROL SO4 2.5/IPRATROPIUM 0.5 INH SOL 3 ML VIAL.NEB. NEB SCH ×3 (10:47→11:23)
--- NOTE | 2019-07-10 11:09 | PDOC ---
Documentation entered by Du Andres SCRIBE, acting as scribe for Marizol See MD. Marizol See MD: This documentation has been prepared by the Dmitry chakraborty Daniel, SCRIBE, under my direction and personally reviewed by me in its entirety. I confirm that the documentation accurately reflects all work, treatment, procedures, and medical decision making performed by me. Attending Attestation - Resident Resident Name: Jose Raul Monique - ED Attending Attestation I have performed the following: I have examined & evaluated the patient, The case was reviewed & discussed with the resident, I agree w/resident's findings & plan, Exceptions are as noted - HPI HPI: 07/10/19 09:58 The patient is a 59 year old male with a past medical history of COPD, diabetes , right popliteal DVT (eliquis), prior PE, CHF, HTN, and HLD here today for evaluation of flu like symptoms. The patient reports that he has had 5 days of cough, congestion, sore throat, mild wheezing, chills, and subjective fevers. He also notes a headache. As per EMS, the patient had an elevated blood sugar in the field and had a blood sugar of 281 on arrival. Patient notes that he lives in assisted living and there are sick people around him. Patient denies lightheadedness. Denies chest pain, shortness of breath. Denies nausea, vomiting, diarrhea, abdominal pain. Allergies: erythromycin base PCP: Angelina Mccord 07/10/19 11:04 Pt currently lives in assisted living currently. no n/v no urinary sxs. everyone is sick in assisted living so multiple sick contacts. no cp no abd pain. - Physicial Exam PE: 07/10/19 11:04 awake alert lungs clear bilat heart rrr no mrg abd soft nt nd ext wwp no edema. no calf tendernss. skin warm and dry ext wwp. no rash. no edema. - Medical Decision Making 07/10/19 11:05 59 yo male h/o copd, dm, here wiht viral uri sxs, bronchitis. no n/v no abd pain. febrile here 101. plaan flu swab, cxr r/o pna. labs ua. flu swab negative. cxr unremarkable. due to h/o copd will treat abx, pt with improvement after neb. sugar mikldlye elevated 283. will given novalog 6 units per Heart Score/ECG Review #1 General ECG Interpretation: Sinus Rhythm, Normal Rate (82), Normal Intervals, No acute ischemic changes
[2019-07-10 12:26] LABS: URINE APPEARANCE CLEAR; URINE BILIRUBIN NEGATIVE (NEGATIVE); URINE COLOR YELLOW; URINE GLUCOSE (UA) NEGATIVE (NEGATIVE); URINE KETONE NEGATIVE (NEGATIVE); URINE LEUK ESTERASE NEGATIVE (NEGATIVE); URINE NITRITE NEGATIVE (NEGATIVE); URINE PROTEIN NEGATIVE (NEGATIVE); URINE UROBILINOGEN 0.2 mg/dL (0.2-1.0)
[2019-07-10 13:00] VITALS: BP 140/76; PULSE 88; TEMP 98.5
--- NOTE | 2019-07-10 13:58 | EKG ---
Test Reason : Blood Pressure : / mmHG Vent. Rate : 082 BPM Atrial Rate : 082 BPM P-R Int : 152 ms QRS Dur : 096 ms QT Int : 358 ms P-R-T Axes : 029 014 031 degrees QTc Int : 418 ms NORMAL SINUS RHYTHM NORMAL ECG WHEN COMPARED WITH ECG OF 07-OCT-2018 10:41, NO SIGNIFICANT CHANGE WAS FOUND Confirmed by SARTHAK HADDAD MD ([id number]) on 07/10/2019 1:58:15 PM Referred By: Confirmed By:SARTHAK HADDAD MD
== END 2019-07-10 12:59 | disposition home or self-care (01) ==
LOC: JER 09:41
PROC: 3E0F7GC Introduction of Other Therapeutic Substance into Respiratory Tract, Via Natural or Artificial Opening (ICD-10-PCS; principal; 2019-07-10)
DX: J20.9 Acute bronchitis, unspecified (principal); J06.9 Acute upper respiratory infection, unspecified; I25.10 Atherosclerotic heart disease of native coronary artery without angina pectoris; I11.0 Hypertensive heart disease with heart failure; I50.9 Heart failure, unspecified; E11.9 Type 2 diabetes mellitus without complications; Z79.84 Long term (current) use of oral hypoglycemic drugs; E78.5 Hyperlipidemia, unspecified; Z86.711 Personal history of pulmonary embolism; Z86.718 Personal history of other venous thrombosis and embolism; Z79.01 Long term (current) use of anticoagulants; J44.9 Chronic obstructive pulmonary disease, unspecified; J45.998 Other asthma; F41.9 Anxiety disorder, unspecified; Z72.0 Tobacco use
CPT/HCPCS: 36415; 71046-TC-FY; 80053; 81003; 82803; 82962; 83605; 84484; 85025; 87086; 87186; 87804; 93005; 93010; 94640; 99283-25

== ENCOUNTER 2019-08-10 14:16 | Emergency (ER) | payer OTHER ==
[2019-08-10 14:28] VITALS: TEMP 98; BMI 40.1
--- NOTE | 2019-08-10 16:07 | PDOC ---
History of Present Illness - General Chief Complaint: Alcohol intoxication Stated Complaint: FALL Time Seen by Provider: 08/10/19 15:45 History Source: Patient - History of Present Illness Initial Comments: 59M PMH COPD, CHF, HTN, NIDDM, prior VTE on Eliquis BIBEMS from Assisted Living for intoxication and witnessed slip off bed. Patient states he saw PCP today, received bad news, and drank 1 can of Four Michael. Does not normally drink ; states last drink was in february. Adamantly denies fall/trauma and states that "a mental resident" reported the fall. Denies AVH, SI/HI, coingestion. Denies f/c, cp/sob, n/v, dysuria, numbness, tingling, weakness. Past History - Past Medical History Allergies/Adverse Reactions: Allergies Allergy/AdvReac Type Severity Reaction Status Date / Time erythromycin base Allergy Verified 08/10/19 14:28 Home Medications: Ambulatory Orders metFORMIN HCL [Metformin HCl] 500 mg PO BID #14 tablet 07/05/17 Folic Acid - 1 mg PO DAILY #30 tablet 10/15/17 Apixaban [Eliquis] 2.5 mg PO BID #60 tablet 12/14/17 Celecoxib [Celebrex] 400 mg PO DAILY PRN 10/07/18 Furosemide [Lasix] 40 mg PO DAILY 10/07/18 Gabapentin 600 mg PO TID 10/07/18 Oxycodone HCl/Acetaminophen [Oxycodon-Acetaminophen 7.5-325] 1 each PO Q8H PRN 10/07/18 Sertraline HCl 50 mg PO DAILY 10/07/18 Albuterol 0.083% Nebulizer Deya [Ventolin 0.083% Nebulizer Soln -] 1 amp NEB Q4H PRN #1 amp 10/14/18 Amlodipine Besylate [Norvasc -] 5 mg PO DAILY #30 tablet 10/14/18 Atorvastatin Ca [Lipitor] 40 mg PO HS #30 tablet 10/14/18 Budesonide/Formeterol Fumarate [SYMBICORT 160/4.5mcg -] 2 puff IH BID #1 inhaler 10/14/18 Metoprolol Succinate [Toprol XL -] 100 mg PO DAILY #30 tab.sr.24h 10/14/18 Prednisone See Taper PO ASDIR #42 tablet 10/14/18 Acetaminophen [Tylenol] 650 mg PO Q6H #30 tablet 07/10/19 Benzonatate [Tessalon Pearls -] 100 mg PO TID #21 capsule 07/10/19 levoFLOXacin [Levaquin -] 500 mg PO DAILY #7 tablet 07/10/19 Asthma: Yes Cardiac Disorders: Yes CVA: No COPD: Yes CHF: Yes DVT: No Diabetes: Yes HTN: Yes Hypercholesterolemia: Yes Psychiatric Problems: Yes (ANXEITY) - Immunization History Immunization Up to Date: Yes - Psycho Social/Smoking Cessation Hx Smoking History: Current every day smoker Have you smoked in the past 12 months: Yes Number of Cigarettes Smoked Daily: 1 If you are a former smoker, when did you quit?: no Information on smoking cessation initiated: No 'Breaking Loose' booklet given: 11/09/17 Hx Alcohol Use: No Drug/Substance Use Hx: No Substance Use Type: None Hx Substance Use Treatment: No Review of Systems - Review of Systems Able to Perform ROS?: Yes Comments:: CONSTITUTIONAL: Denies F / C HEENT: Denies headache, changes in vision / hearing RESP: Denies SOB, cough CARD: Denies chest pain GI: Denies N / V / D, abdominal pain, bloody stool, inability to tolerate PO : Denies dysuria SKIN: Denies rashes NEURO: Denies numbness, tingling, weakness PSYCH: Endorses etoh intake. Denies AVH, SI/HI, co-ingestion MSK: Denies back pain *Physical Exam - Vital Signs Last Vital Signs Temp Pulse Resp BP Pulse Ox 98 F 18 L 16 111/84 90 L 08/10/19 14:24 08/10/19 14:24 08/10/19 14:24 08/10/19 14:24 08/10/19 14:24 - Physical Exam GEN: NAD, comfortable. AAOx3. HEENT: NC/AT, CN II-XII grossly intact, EOMI, PERRLA. No facial asymmetry. Normal voice. Supple neck, FROM, neg TTP midline. CV: S1/S2, RRR, no m/r/g LUNG: CTAB, no wheezes, crackles, rales, rhonchi. GI: Soft, ndnt, +BS, no guarding, no rebound. No masses. MSK: 2+ distal pulses. No LE edema. No obvious deformities of all extremities. SKIN: Warm, dry, no rashes appreciated. PSYCH: Slightly slurred speech; answering all questions appropriately; speaking in coherent complete sentences, fluent. Agitated that he is in ED. NEURO: Moving all extremities well. 5/5 strength UE LE b/l. Symmetric sensation. Ambulates w/ normal gait. BACK: No obvious deformities, no step offs, no midline TTP. There is no pelvic instability. No signs of trauma. Medical Decision Making - Medical Decision Making 08/10/19 16:06 59M PMH COPD, CHF, HTN, NIDDM, prior VTE on Eliquis BIBEMS for intox and witnessed slip off bed. AAOx3, neurologically intact, atraumatic exam. No co- ingestion, SI/HI, AVH. Normal gait, normal speech. - CT head and neck 08/10/19 16:[address], yelling at staff, demanding food Requesting to leave AMA 08/10/19 17:[address] completed. pending results, likely dispo back to assisted living 08/10/19 18:30 CT Head neg DC back to assisted living Discharge - Discharge Information Problems reviewed: Yes Clinical Impression/Diagnosis: Intoxication Condition: Stable Disposition: HOME - Admission No - Follow up/Referral - Patient Discharge Instructions Patient Printed Discharge Instructions: DI for Alcohol Abuse Additional Instructions: Follow up with your primary care doctor in the next 5-7 days. Continue your home medications as prescribed. Return to the Emergency Department if you experience: - numbness, tingling, weakness - alteration in behavior or personality - falls - chest pain, shortness of breath, fevers - anything that concerns you - Post Discharge Activity
--- NOTE | 2019-08-10 17:41 | PDOC ---
Documentation entered by Panfilo Cook SCRIBE, acting as scribe for Marizol See MD. Marizol See MD: This documentation has been prepared by the Joyce chakraborty Nirvannie, SCRIBE, under my direction and personally reviewed by me in its entirety. I confirm that the documentation accurately reflects all work, treatment, procedures, and medical decision making performed by me. Attending Attestation - Resident Resident Name: MartDevyn - ED Attending Attestation I have performed the following: I have examined & evaluated the patient, The case was reviewed & discussed with the resident, I agree w/resident's findings & plan, Exceptions are as noted - HPI HPI: 08/10/19 16:53 The patient is a year old male, with a significant past medical history of COPD , CHF, HTN, NIDDM, VTE (on Eliquis), who presents to the emergency department with alcohol intoxication and slip off the bed. Patient notes to have recently received bad news from his PCP thus he drunk a can of Four Michael He denies any recent fevers, chills, headache or dizziness. He denies any recent nausea, vomit, diarrhea or constipation. He denies any recent chest pain or shortness of breath. He denies any recent dysuria, frequency, urgency or hematuria. states he slipped and landed on his but. Allergies: Erythromycin base 08/10/19 17:39 - Physicial Exam PE: 08/10/19 17:37 awake alert head atraumatic. no c spine tenderness. lungs clear bilat heart rrr no mrg abd soft nt nd protuberant. legs gait normal. alert oriented x 3. - Medical Decision Making 08/10/19 17:38 59 yo male h/o copd chg htn on eliquis, s/p slip and fall. pt states he slid down onto his butt. denies head trauma. does report one beer today because got bad news. just found out he needs spinal surgery. no new weakness no n/v no mod factors. no current pain. plan ct head. [facility] back to facility. 08/10/19 18:13 called pt W assisted living , no answer tried multiple times. to inform them of the care in the ED
[2019-08-10 20:18] VITALS: BP 136/77; PULSE 73
== END 2019-08-10 19:21 | disposition home or self-care (01) ==
LOC: JER 14:16
DX: F10.920 Alcohol use, unspecified with intoxication, uncomplicated (principal); Z88.8 Allergy status to other drugs, medicaments and biological substances; J44.9 Chronic obstructive pulmonary disease, unspecified; I10 Essential (primary) hypertension; E11.9 Type 2 diabetes mellitus without complications; Z79.01 Long term (current) use of anticoagulants; W06.XXXA Fall from bed, initial encounter; Y93.89 Activity, other specified; Y92.092 Bedroom in other non-institutional residence as the place of occurrence of the external cause
CPT/HCPCS: 70450-TC; 72125-TC; 99284-25